=== PATIENT | female | born 1985 | race Caucasian/White ===

== ENCOUNTER 2019-03-21 20:05 | Emergency (ER) | payer OTHER ==
--- NOTE | 2019-03-21 20:25 | PDOC ---
Rapid Medical Evaluation Chief Complaint: G Tube Problem Time Seen by Provider: 03/21/19 20:21 Medical Evaluation: 03/21/19 20:22 I have performed a brief in-person evaluation of this patient. The patient presents with a chief complaint of: JEJUNOSTOMY TUBE dislodged ~ 1 hours/ no bleeding or probs. Pertinent physical exam findings: nonverbal= J-Tube noted outside of ostomy - no bleeding I have ordered the following: nothing The patient will proceed to the ED for further evaluation. Discharge Disposition - Diagnosis Gastrojejunostomy tube dislodgement - Discharge Dispostion Disposition: [facility] Condition at time of disposition: Stable - Referrals - Patient Instructions Printed Discharge Instructions: DI for Feeding Tube Exchange Additional Instructions: protect from removal/ - Post Discharge Activity
[2019-03-21 20:29] VITALS: BP 123/79; PULSE 87; TEMP 98.1; BMI 16.4
--- NOTE | 2019-03-21 21:19 | PDOC ---
History of Present Illness - General History Source: Care Provider Exam Limitations: Clinical Condition - History of Present Illness Initial Comments: 03/21/19 21:18 came fron [facility] with dislodged J-Tube. Nurse accompanying has replacement tube. NO bleeding or problems with site. Timing/Duration: unsure, 1 hour Severity: mild Associated Symptoms: reports: denies symptoms <Rosa Maria Ventura - Last Filed: 03/21/19 21:46> <Maya Ledbetter - Last Filed: 03/21/19 21:50> - General Chief Complaint: G Tube Problem Stated Complaint: J TUBE REMOVED Time Seen by Provider: 03/21/19 20:21 Past History - Travel Traveled outside of the country in the last 30 days: No Close contact w/someone who was outside of country & ill: No - Past Medical History COPD: No GI Disorders: Yes (GERD, Pancreatitis) Disorders: Yes (INCONTINENT) Other medical history: Cerebral palsey, OSTEOPOROSIS - Suicide/Smoking/Psychosocial Hx Smoking History: Unknown if ever smoked Have you smoked in the past 12 months: No Information on smoking cessation initiated: No Hx Alcohol Use: No Drug/Substance Use Hx: No <Rosa Maria Ventura - Last Filed: 03/21/19 21:46> <Maya Ledbetter - Last Filed: 03/21/19 21:50> - Past Medical History Allergies/Adverse Reactions: Allergies Allergy/AdvReac Type Severity Reaction Status Date / Time latex Allergy Verified 03/21/19 20:29 Sulfa (Sulfonamide Allergy Verified 03/21/19 20:29 Antibiotics) Review of Systems - Review of Systems Able to Perform ROS?: No (pt non verbal ) Is the patient limited Mosotho proficient: No Constitutional: Yes: See HPI. No: Symptoms Reported HEENTM: No: Symptoms Reported Respiratory: No: Symptoms reported ABD/GI: Yes: Symptoms Reported, See HPI. No: Abdominal cramping : No: Symptoms Reported All Other Systems: Reviewed and Negative <Rosa Maria Ventura - Last Filed: 03/21/19 21:46> *Physical Exam - Vital Signs Last Vital Signs Temp Pulse Resp BP Pulse Ox 98.1 F 87 16 123/79 100 03/21/19 20:25 03/21/19 20:25 03/21/19 20:25 03/21/19 20:25 03/21/19 20:25 - Physical Exam General Appearance: Yes: Nourished, Appropriately Dressed, Apparent Distress. No: Mild Distress HEENT: positive: EOMI, THEODORE, Normal ENT Inspection, Normal Voice, TMs Normal, Pharynx Normal Neck: positive: Supple. negative: Tender, Lymphadenopathy (R), Lymphadenopathy (L) Gastrointestinal/Abdominal: positive: Normal Bowel Sounds, Soft, Increased Bowel Sounds. negative: Guarding (PATIENT non verbal but does not appear to be in distress ) Musculoskeletal: positive: Normal Inspection Extremity: positive: Normal Capillary Refill, Normal Range of Motion, Tender Integumentary: positive: Normal Color, Dry, Pale Neurologic: positive: puzzle assembler II-XII NML intact, Fully Oriented, Alert, Normal Mood/ Affect, Normal Response, Motor Strength 5/5 <Rosa Maria Ventura - Last Filed: 03/21/19 21:46> - Vital Signs Last Vital Signs Temp Pulse Resp BP Pulse Ox 98.1 F 87 16 123/79 100 03/21/19 20:25 03/21/19 20:25 03/21/19 20:25 03/21/19 20:25 03/21/19 20:25 <Maya Ledbetter - Last Filed: 03/21/19 21:50> ED Treatment Course - RADIOLOGY Radiology Studies Ordered: Category Date Time Status KUB (KID UR & BLAD) [RAD] Stat Radiology 03/21/19 20:47 Completed KUB (KID UR & BLAD) [RAD] Stat Radiology 03/21/19 20:47 Ordered <Maya Ledbetter - Last Filed: 03/21/19 21:50> *DC/Admit/Observation/Transfer - Discharge Dispostion Decision to Admit order: No <Rosa Maria Ventura - Last Filed: 03/21/19 21:46> - Discharge Dispostion Decision to Admit order: No <Maya Ledbetter - Last Filed: 03/21/19 21:50> Diagnosis at time of Disposition: Gastrojejunostomy tube dislodgement - Discharge Dispostion Disposition: HOME Condition at time of disposition: Stable - Patient Instructions Printed Discharge Instructions: DI for Feeding Tube Exchange Additional Instructions: protect from removal/
== END 2019-03-21 21:59 ==
LOC: JER 20:05
DX: Z43.4 Encounter for attention to other artificial openings of digestive tract (principal); G80.9 Cerebral palsy, unspecified; K21.9 Gastro-esophageal reflux disease without esophagitis; M19.90 Unspecified osteoarthritis, unspecified site; R32 Unspecified urinary incontinence
CPT/HCPCS: 72192-TC; 74018-TC-FY; 74150-TC; 99282-25

== ENCOUNTER 2019-10-16 05:45 | Inpatient (IN) | payer OTHER ==
[2019-10-16] MEDS ORDERED: SODIUM CHLORIDE 1,000 ML IV STA ×2 (05:58→13:45)
--- NOTE | 2019-10-16 06:00 | PDOC ---
History of Present Illness - General Stated Complaint: RESPIRATORY DISTRESS Time Seen by Provider: 10/16/19 05:59 - History of Present Illness Initial Comments: 10/16/19 05:59 Ms. Pandey is a 33 yo female w/ pmh of profound mental delay, congenital quad riplegia, retinal detachment, gastrostomy, cataracts, scoliosis, osteoporosis, GERD, anemia, and J-tube who presents for evaluation of from [facility] [place][note 2] for evaluation of respiratory distress. Patient intubated in the field, no further history available. Past History - Past Medical History Allergies/Adverse Reactions: Allergies Allergy/AdvReac Type Severity Reaction Status Date / Time latex Allergy Verified 10/16/19 06:01 Sulfa (Sulfonamide Allergy Verified 10/16/19 06:01 Antibiotics) COPD: No GI Disorders: Yes (GERD, Pancreatitis) Disorders: Yes (INCONTINENT) - Psycho Social/Smoking Cessation Hx Smoking History: Unknown if ever smoked Have you smoked in the past 12 months: No Hx Alcohol Use: No Drug/Substance Use Hx: No Review of Systems - Review of Systems Comments:: 10/16/19 06:03 Unable to obtain further. *Physical Exam - Physical Exam 10/16/19 06:10 GENERAL: +Patient intubated upon arrival. Non-responsive. HEAD: No signs of trauma, normocephalic, atraumatic EYES: +Pupils non-reactive. L constricted. R pupil irregular. ENT: Auricles normal inspection, nares patent, oropharynx clear without exudates. Moist mucosa NECK: No lymphadenopathy, JVD, or masses LUNGS: +Diffusely coarse lung sounds throughout lung cates HEART: Regular rate and rhythm, normal S1 and S2, no murmurs, rubs or gallops, peripheral pulses normal and equal bilaterally. ABDOMEN: +Distended abdomen. Soft, normoactive bowel sounds. No guarding, no rebound. No masses EXTREMITIES: +Patient extremities emaciated and non-mobile. NEUROLOGICAL: +Unable to assess further. SKIN: Warm, Dry, normal turgor, no rashes or lesions noted. ED Treatment Course - LABORATORY CBC & Chemistry Diagram: 10/16/19 06:00 10/16/19 06:00 - RADIOLOGY Radiology Studies Ordered: Category Date Time Status CHEST X-RAY PORTABLE* [RAD] Stat Radiology 10/16/19 05:58 Ordered Medical Decision Making - Medical Decision Making 10/16/19 06:16 Ms. Pandey is a 33 yo female w/ pmh as described who presents septic, intubated in respiratory distress. Sepsis workup underway and ICU made aware. Patient will require admission for respiratory evaluation at minimum as patient does not typically require oxygen. 10/16/19 06:49 Patient abdomen noted to be distended. CT abd/pelvis ordered for further evaluation given patient's intubated status. 10/16/19 06:56 Patient signed out to Dr. Ramesh for further evaluation. Discharge - Discharge Information Problems reviewed: Yes Clinical Impression/Diagnosis: Respiratory distress - Admission Yes - Follow up/Referral - Patient Discharge Instructions - Post Discharge Activity
[2019-10-16 06:15] LABS: ARTERIAL BLD GAS O2 SATURATION 97.5 % (95-98); ARTERIAL BLOOD GAS BASE EXCESS -6.2 meq/l (-2-2); ARTERIAL BLOOD GAS PCO2 50.6 mmHg (35-45); ARTERIAL BLOOD GAS PO2 123 mmHg (80-100); ARTERIAL BLOOD GAS pH 7.25 (7.35-7.45); CARBOXYHEMOGLOBIN 0.8 % (0-2)
--- NOTE | 2019-10-16 06:15 | PDOC ---
Attending Attestation - Resident Resident Name: MacarioodalisLei villa - ED Attending Attestation I have performed the following: I have examined & evaluated the patient, The case was reviewed & discussed with the resident, I agree w/resident's findings & plan - HPI HPI: 10/16/19 06:40 Pt comes from [facility] with SOPB/resp failure. She was intubated in the ambulance en route to the ER - Physicial Exam PE: 10/16/19 06:59 Agree with resident exam - Medical Decision Making 10/16/19 06:59 Pt will be signed out to the AM ER docs. Heart Score/ECG Review - ECG Intrepretation Rhythm: Regular Rhythm - Central Central: Normal - P and FL Atrial Enlargement: Left (biatrial enlargement) Prominent R with upright T in V1 (true posterior PA): No Delta Wave(s) Present: No WPW: No - QRS Poor R Wave Progression: No Q Wave Present: No - ST and T Early Repolarization: No Non Specific ST-T Wave changes: No - ECG Impressions Normal ECG: Yes Non-specific ST Elevation: No Ischemic Changes: No Tachycardia: Sinus
[2019-10-16 06:17] LABS: ALLENS TEST POSITIVE
[2019-10-16 06:40] LABS: BASO % 0.1 % (0-2.0); HEMATOCRIT 46.7 % (32.4-45.2); HEMOGLOBIN 16.2 GM/dL (10.7-15.3); LYMPH % 1.9 % (8-40); MCH 32.1 pg (25.7-33.7); MCHC 34.7 g/dl (32.0-36.0); MEAN CELL VOLUME 92.4 fl (80-96); MEAN PLT VOLUME 7.3 fl (7.5-11.1); MONO % 3.3 % (3.8-10.2); NEUT % 94.7 % (42.8-82.8); PLATELET COUNT 507 K/MM3 (134-434); RBC 5.05 M/mm3 (3.60-5.2); RDW 14.4 % (11.6-15.6); WHITE BLOOD COUNT 28.8 K/mm3 (4.0-10.0)
[2019-10-16 06:54] LABS: INR 1.15 (0.83-1.09); PROTHROMBIN TIME (PATIENT) 13.6 SEC (9.7-13.0)
[2019-10-16] MEDS ORDERED: PIPERACILLIN/TAZOB 3.375 GM 3.375 GM in DEXTROSE 5%-WATER - 50 ML IVPB ONE (06:56)
[2019-10-16] MEDS ORDERED: VANCOMYCIN 1 GM in D5W (PRE-DOCKED) 1,000 MG/250 ML IVPB ONE (06:56)
[2019-10-16] MEDS ORDERED: AZITHROMYCIN IVPB 500 MG in DEXTROSE 5%-WATER - 250 ML IVPB ONE (06:56)
[2019-10-16 06:57] LABS: ACTIVATED PTT 27.1 SECONDS (25.2-36.5)
[2019-10-16 07:16] LABS: ALBUMIN 4.5 g/dl (3.4-5.0); BILIRUBIN,TOTAL 1.6 mg/dL (0.2-1); BLOOD UREA NITROGEN 17.4 mg/dL (7-18); CALCIUM 9.2 mg/dL (8.5-10.1); CREATININE 0.7 mg/dL (0.55-1.3); POTASSIUM 3.5 mmol/L (3.5-5.1); TOT PROT 8.4 g/dl (6.4-8.2)
--- NOTE | 2019-10-16 07:33 | PDOC ---
*Physical Exam - Vital Signs Last Vital Signs Temp Pulse Resp BP Pulse Ox 97.0 F L 129 H 20 115/82 100 10/16/19 06:01 10/16/19 06:51 10/16/19 06:51 10/16/19 06:51 10/16/19 06:51 ED Treatment Course - LABORATORY CBC & Chemistry Diagram: 10/17/19 06:00 10/17/19 06:00 - ADDITIONAL ORDERS Additional order review: Laboratory Results 10/16/19 10/16/19 10/16/19 06:03 06:00 06:00 PT with INR INR PTT (Actin FS) Anticoagulation Therapy No Result Required. Puncture Site Right radial ABG pH 7.25 L ABG pCO2 at Pt Temp 50.6 H ABG pO2 at Pt Temp 123 H ABG HCO3 21.4 L ABG O2 Sat (Measured) 97.5 ABG O2 Content 23.1 ABG Base Excess -6.2 L Glenn Test Positive Carboxyhemoglobin 0.8 Methemoglobin < 1.0 O2 Delivery Device Vent Oxygen Flow Rate 100% Vent Mode A/c Vent Rate 12 Mechanical Rate Yes PEEP 5.0 Pressure Support Vent 300 Sodium 134 L Potassium 3.5 Chloride 101 Carbon Dioxide 22 Anion Gap 11 BUN 17.4 Creatinine 0.7 Est GFR (CKD-EPI)AfAm 130.10 Est GFR (CKD-EPI)NonAf 112.25 Random Glucose 319 H Lactic Acid 2.8 H* Calcium 9.2 Total Bilirubin 1.6 H AST 61 H ALT 53 Alkaline Phosphatase 110 Troponin I Total Protein 8.4 H Albumin 4.5 10/16/19 10/16/19 06:00 06:00 PT with INR 13.60 H INR 1.15 H PTT (Actin FS) 27.1 Anticoagulation Therapy Puncture Site ABG pH ABG pCO2 at Pt Temp ABG pO2 at Pt Temp ABG HCO3 ABG O2 Sat (Measured) ABG O2 Content ABG Base Excess Glenn Test Carboxyhemoglobin Methemoglobin O2 Delivery Device Oxygen Flow Rate Vent Mode Vent Rate Mechanical Rate PEEP Pressure Support Vent Sodium Potassium Chloride Carbon Dioxide Anion Gap BUN Creatinine Est GFR (CKD-EPI)AfAm Est GFR (CKD-EPI)NonAf Random Glucose Lactic Acid Calcium Total Bilirubin AST ALT Alkaline Phosphatase Troponin I < 0.02 Total Protein Albumin 10/16/19 06:00 RBC 5.05 MCV 92.4 MCHC 34.7 RDW 14.4 MPV 7.3 L Neutrophils % 94.7 H D Lymphocytes % 1.9 L D Monocytes % 3.3 L Eosinophils % 0.0 D Basophils % 0.1 - Medications Given in the ED: ED Medications Discontinued Medications Generic Name Dose Route Start Last Admin Trade Name Freq PRN Reason Stop Dose Admin Sodium Chloride 1,000 mls @ 1,000 mls/hr 10/16/19 05:58 10/16/19 06:16 Normal Saline - IV 10/16/19 06:57 1,000 mls/hr ASDIR STA Administration Medical Decision Making - Medical Decision Making 10/16/19 07:32 Patient signed out by Dr. Low (PGY-3) and Dr. Espinoza (Attending) from overnight shift. 33 y/o female here with RD from [facility]. Intubated in the field. Leukocytosis (28) and CXR w/consolidation. 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 Hopper, Hospitalist Service Discharge - Discharge Information Problems reviewed: Yes Clinical Impression/Diagnosis: Respiratory distress Condition: Fair - Admission Yes - Follow up/Referral - Patient Discharge Instructions - Post Discharge Activity
[2019-10-16] MEDS ORDERED: VANCOMYCIN 1 GRAM (PRE-DOCKED) 1,000 MG/250 ML BAG IVPB ONE (08:06)
[2019-10-16] MEDS ORDERED: AZITHROMYCIN IVPB 500 MG/250 ML BAG IVPB ONE (08:06)
[2019-10-16] MEDS ORDERED: PIPERACILLIN/TAZOB 3.375 GM 3.375 GM/50 ML BAG IVPB ONE (08:07)
[2019-10-16 08:22] LABS: EPI CELLS 25.5 /HPF (0-5/HPF); HYALINE CASTS 197 /lpf (0-8); PH,URINE 5.5 (5.0-8.0); URINE APPEARANCE TURBID; URINE BILIRUBIN NEGATIVE (NEGATIVE); URINE COLOR YELLOW; URINE GLUCOSE (UA) NEGATIVE (NEGATIVE); URINE KETONE NEGATIVE (NEGATIVE); URINE LEUK ESTERASE 3+ (NEGATIVE); URINE NITRITE NEGATIVE (NEGATIVE); URINE PROTEIN TRACE (NEGATIVE); URINE RBC 5 /hpf (0-4); URINE UROBILINOGEN 0.2 mg/dL (0.2-1.0); URINE WBC 109 /hpf (0-5)
[2019-10-16] MEDS ORDERED: PROPOFOL 1,000,000 MCG/100 ML VIAL ONE (08:43)
[2019-10-16] MEDS: PROPOFOL 1,000,000 MCG/100 ML VIAL IVPB SCH ×2 (08:51→19:39)
[2019-10-16 08:56] LABS: ANISOCYTOSIS 0; MACROCYTOSIS 0; PLATELET ESTIMATE INCREASED
--- NOTE | 2019-10-16 09:15 | EKG ---
Test Reason : Blood Pressure : / mmHG Vent. Rate : 123 BPM Atrial Rate : 123 BPM P-R Int : 124 ms QRS Dur : 078 ms QT Int : 314 ms P-R-T Axes : 066 078 005 degrees QTc Int : 449 ms SINUS TACHYCARDIA BIATRIAL ENLARGEMENT T WAVE ABNORMALITY, CONSIDER INFERIOR ISCHEMIA ABNORMAL ECG NO PREVIOUS ECGS AVAILABLE Confirmed by Ziggy Luther ([id number]) on 10/16/2019 9:15:29 AM Referred By: Confirmed By:Ziggy Luther
[2019-10-16] MEDS ORDERED: SODIUM CHLORIDE 0.9% 500 ML INFUS.BAG IV ONE (10:16)
--- NOTE | 2019-10-16 13:20 | CONSULT ---
Consultation: REQUESTING PROVIDER: Dr. Low CONSULT REQUEST: We have been asked to medically evaluate this patient for respiratory distress/failure. HISTORY OF PRESENT ILLNESS: The patient is a 33 yo f w/ pmh profound mental delay, congenital quadriplegia, retinal detachment, gastrostomy, cataracts, scoliosis, osteoporosis, GERD, anemia, and J-tube who presents for evaluation of from [facility] for evaluation of respiratory distress. According to staff, the patient was noted to be "not breathing well" and EMS was called. The patient was intubated in the field and transported to [facility] for further evaluation. In the emergency department, the patient was afebrile, but found to have a WBC count of 28. CXR showed possible consolidation. BCX were sent. Ucx ordered. CT of the chest showed RUL infiltrate and LL atalectasis. CT AP showed dilated duodenum concerning for SVC syndrome. Surgery consulted from the ED, will evaluate. REVIEW OF SYSTEMS: unable to obtain PHYSICAL EXAMINATION Vital Signs - 24 hr 10/16/19 10/16/19 10/16/19 05:58 06:00 06:01 Temperature 97.0 F L 97.0 F L Pulse Rate 122 H Pulse Rate [ Radial] Respiratory 12 Rate Blood Pressure 133/109 H Blood Pressure [Left Arm] O2 Sat by Pulse 100 Oximetry (%) 10/16/19 10/16/19 10/16/19 06:51 07:30 07:55 Temperature Pulse Rate 118 H Pulse Rate [ 129 H 111 H Radial] Respiratory 20 35 H Rate Blood Pressure Blood Pressure 115/82 102/77 [Left Arm] O2 Sat by Pulse 100 100 100 Oximetry (%) 10/16/19 10/16/19 10/16/19 08:00 08:30 09:00 Temperature Pulse Rate Pulse Rate [ 111 H 105 H 113 H Radial] Respiratory 34 H 35 H 36 H Rate Blood Pressure Blood Pressure 91/74 101/77 109/69 [Left Arm] O2 Sat by Pulse 100 100 100 Oximetry (%) 10/16/19 10/16/19 10/16/19 09:30 10:00 10:31 Temperature Pulse Rate Pulse Rate [ 103 H 116 H 114 H Radial] Respiratory 38 H 33 H 35 H Rate Blood Pressure Blood Pressure 92/70 78/61 L 85/58 L [Left Arm] O2 Sat by Pulse 100 100 100 Oximetry (%) 10/16/19 10/16/19 10/16/19 11:00 11:14 11:30 Temperature Pulse Rate Pulse Rate [ 106 H 105 H Radial] Respiratory 26 H 29 H 31 H Rate Blood Pressure Blood Pressure 92/66 90/66 [Left Arm] O2 Sat by Pulse 100 100 Oximetry (%) 10/16/19 10/16/19 12:30 13:00 Temperature 97.4 F L Pulse Rate Pulse Rate [ 105 H 116 H Radial] Respiratory 38 H 30 H Rate Blood Pressure Blood Pressure 90/67 80/58 L [Left Arm] O2 Sat by Pulse 95 Oximetry (%) GENERAL: intubated and sedated. HEAD: Normal with no signs of trauma. EYES: Pupils equal, round and reactive to light. LUNGS: intubated. coarse breath sounds bilaterally, worse in the RUL field. HEART: Regular rate and rhythm, normal S1 and S2 without murmur, rub or gallop. ABDOMEN: distended. abdomen full and tender to palpation. Bowel sounds heard. G tube and j tube both in place and minimally functional. LOWER EXTREMITIES: 2+ pulses, warm, well-perfused. No calf tenderness. No peripheral edema. NEUROLOGICAL: unable to obtain as patient sedated. Laboratory Results - last 24 hr 10/16/19 10/16/19 10/16/19 06:00 06:00 06:00 WBC 28.8 H RBC 5.05 Hgb 16.2 H Hct 46.7 H MCV 92.4 MCH 32.1 MCHC 34.7 RDW 14.4 Plt Count 507 H D MPV 7.3 L Absolute Neuts (auto) 27.3 H Neutrophils % 94.7 H D Neutrophils % (Manual) 72.2 Band Neutrophils % 19.6 Lymphocytes % 1.9 L D Lymphocytes % (Manual) 3.1 L Monocytes % 3.3 L Monocytes % (Manual) 4 Eosinophils % 0.0 D Eosinophils % (Manual) 0.0 Basophils % 0.1 Basophils % (Manual) 0.0 Myelocytes % (Man) 1 Promyelocytes % (Man) 0 Blast Cells % (Manual) 0 Nucleated RBC % 0 Metamyelocytes 0 Hypochromia 0 Platelet Estimate Increased Polychromasia 0 Poikilocytosis 0 Anisocytosis 0 Microcytosis 0 Macrocytosis 0 PT with INR 13.60 H INR 1.15 H PTT (Actin FS) 27.1 Anticoagulation Therapy Puncture Site ABG pH ABG pCO2 at Pt Temp ABG pO2 at Pt Temp ABG HCO3 ABG O2 Sat (Measured) ABG O2 Content ABG Base Excess Glenn Test Carboxyhemoglobin Methemoglobin O2 Delivery Device Oxygen Flow Rate Vent Mode Vent Rate Mechanical Rate PEEP Pressure Support Vent Sodium Potassium Chloride Carbon Dioxide Anion Gap BUN Creatinine Est GFR (CKD-EPI)AfAm Est GFR (CKD-EPI)NonAf Random Glucose Lactic Acid Calcium Total Bilirubin AST ALT Alkaline Phosphatase Troponin I < 0.02 Total Protein Albumin Serum , Qual Urine Color Urine Appearance Urine pH Ur Specific Flom Urine Protein Urine Glucose (UA) Urine Ketones Urine Blood Urine Nitrite Urine Bilirubin Urine Urobilinogen Ur Leukocyte Esterase Urine WBC (Auto) Urine RBC (Auto) Urine Casts (Auto) U Pathogenic Cast Auto U Epithel Cells (Auto) Urine Bacteria (Auto) 10/16/19 10/16/19 10/16/19 06:00 06:00 06:03 WBC RBC Hgb Hct MCV MCH MCHC RDW Plt Count MPV Absolute Neuts (auto) Neutrophils % Neutrophils % (Manual) Band Neutrophils % Lymphocytes % Lymphocytes % (Manual) Monocytes % Monocytes % (Manual) Eosinophils % Eosinophils % (Manual) Basophils % Basophils % (Manual) Myelocytes % (Man) Promyelocytes % (Man) Blast Cells % (Manual) Nucleated RBC % Metamyelocytes Hypochromia Platelet Estimate Polychromasia Poikilocytosis Anisocytosis Microcytosis Macrocytosis PT with INR INR PTT (Actin FS) Anticoagulation Therapy No Result Required. Puncture Site Right radial ABG pH 7.25 L ABG pCO2 at Pt Temp 50.6 H ABG pO2 at Pt Temp 123 H ABG HCO3 21.4 L ABG O2 Sat (Measured) 97.5 ABG O2 Content 23.1 ABG Base Excess -6.2 L Glenn Test Positive Carboxyhemoglobin 0.8 Methemoglobin < 1.0 O2 Delivery Device Vent Oxygen Flow Rate 100% Vent Mode A/c Vent Rate 12 Mechanical Rate Yes PEEP 5.0 Pressure Support Vent 300 Sodium 134 L Potassium 3.5 Chloride 101 Carbon Dioxide 22 Anion Gap 11 BUN 17.4 Creatinine 0.7 Est GFR (CKD-EPI)AfAm 130.10 Est GFR (CKD-EPI)NonAf 112.25 Random Glucose 319 H Lactic Acid 2.8 H* Calcium 9.2 Total Bilirubin 1.6 H AST 61 H ALT 53 Alkaline Phosphatase 110 Troponin I Total Protein 8.4 H Albumin 4.5 Serum , Qual Urine Color Urine Appearance Urine pH Ur Specific Flom Urine Protein Urine Glucose (UA) Urine Ketones Urine Blood Urine Nitrite Urine Bilirubin Urine Urobilinogen Ur Leukocyte Esterase Urine WBC (Auto) Urine RBC (Auto) Urine Casts (Auto) U Pathogenic Cast Auto U Epithel Cells (Auto) Urine Bacteria (Auto) 10/16/19 10/16/19 10/16/19 06:30 07:16 10:10 WBC RBC Hgb Hct MCV MCH MCHC RDW Plt Count MPV Absolute Neuts (auto) Neutrophils % Neutrophils % (Manual) Band Neutrophils % Lymphocytes % Lymphocytes % (Manual) Monocytes % Monocytes % (Manual) Eosinophils % Eosinophils % (Manual) Basophils % Basophils % (Manual) Myelocytes % (Man) Promyelocytes % (Man) Blast Cells % (Manual) Nucleated RBC % Metamyelocytes Hypochromia Platelet Estimate Polychromasia Poikilocytosis Anisocytosis Microcytosis Macrocytosis PT with INR INR PTT (Actin FS) Anticoagulation Therapy Puncture Site ABG pH ABG pCO2 at Pt Temp ABG pO2 at Pt Temp ABG HCO3 ABG O2 Sat (Measured) ABG O2 Content ABG Base Excess Glenn Test Carboxyhemoglobin Methemoglobin O2 Delivery Device Oxygen Flow Rate Vent Mode Vent Rate Mechanical Rate PEEP Pressure Support Vent Sodium Potassium Chloride Carbon Dioxide Anion Gap BUN Creatinine Est GFR (CKD-EPI)AfAm Est GFR (CKD-EPI)NonAf Random Glucose Lactic Acid 6.0 H* Calcium Total Bilirubin AST ALT Alkaline Phosphatase Troponin I Total Protein Albumin Serum , Qual Negative Urine Color Yellow Urine Appearance Turbid Urine pH 5.5 Ur Specific Flom 1.014 Urine Protein Trace Urine Glucose (UA) Negative Urine Ketones Negative Urine Blood Trace Urine Nitrite Negative Urine Bilirubin Negative Urine Urobilinogen 0.2 Ur Leukocyte Esterase 3+ H Urine WBC (Auto) 109 Urine RBC (Auto) 5 Urine Casts (Auto) 197 U Pathogenic Cast Auto Non seen U Epithel Cells (Auto) 25.5 Urine Bacteria (Auto) 551.0 Active Medications Generic Name Dose Route Start Last Admin Trade Name Freq PRN Reason Stop Dose Admin Propofol 1,000,000 mcg in 100 mls @ 1.283 mls/hr 10/16/19 06:15 10/16/19 08:51 Diprivan - IVPB 5 mcg/kg/min TITR BO 1.283 mls/hr Administration Protocol 5 MCG/KG/MIN ASSESSMENT/PLAN: The patient is a 33 yo f w/ pmh profound mental delay, congenital quadriplegia, retinal detachment, gastrostomy, cataracts, scoliosis, osteoporosis, GERD, anemia, and J-tube who presents for evaluation of from [facility] for evaluation of respiratory distress. #Neuro -PMH mental delay -sedated. -maintain sedation for vent synchrony #Pulm -Intubated -RUL infiltrate noted, on empiric coverage with Ceftriaxone and azithromycin -ID consult -lung imaging concerning for ARDS, will begin lung protective ventilation #Cardio -MAPs 60-65 off pressors -right IJ CVC inserted for better access/ in anticipation of pressor requirements. #GI -CT AP shows possible SMA syndrome with resulting duodenal distension. NGT inserted and abdomen was decompressed, draining ~ 3-4 liters of fluid -surgery consulted from the ER, will evaluate the patient. -NPO -patient has G tube and J tube, both of which are clogged. 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 #FEN -NS @ 125 -monitor lytes, replete PRN -NPO #Prophy -Heparin 5K units SQ TID #Dispo -patient requires ICU monitoring Visit type - Emergency Visit Emergency Visit: Yes ED Registration Date: 10/16/19 Care time: The patient presented to the Emergency Department on the above date and was hospitalized for further evaluation of their emergent condition. - New Patient This patient is new to me today: Yes Date on this admission: 10/16/19 - Critical Care Critical Care patient: Yes Total Critical Care Time (in minutes): 50 Critical Care Statement: The care of this patient involved high complexity decision making to prevent further life threatening deterioration of the patient's condition and/or to evaluate & treat vital organ system(s) failure or risk of failure. ATTENDING PHYSICIAN STATEMENT I saw and evaluated the patient. I reviewed the resident's note and discussed the case with the resident. I agree with the resident's findings and plan as documented. SUBJECTIVE: OBJECTIVE: ASSESSMENT AND PLAN:
[2019-10-16] MEDS ORDERED: LACTATED RINGERS SOLUTION 1,000 ML/1,000 ML INFUS.BAG IV STA (13:24)
[2019-10-16] MEDS ORDERED: LACTATED RINGERS SOLUTION 1,000 ML/1,000 ML INFUS.BAG IV SCH (13:30)
[2019-10-16] MEDS ORDERED: SODIUM CHLORIDE 1,000 ML IV SCH (13:45)
[2019-10-16] MEDS ORDERED: CEFTRIAXONE 1 GM in DEXTROSE 5%-WATER - 50 ML IVPB SCH (14:00)
[2019-10-16] MEDS ORDERED: AZITHROMYCIN IVPB 500 MG in DEXTROSE 5%-WATER - 250 ML IVPB SCH (14:15)
--- NOTE | 2019-10-16 14:16 | PN ---
Teaching Attending Note Name of Resident: Moo Lazaro ATTENDING PHYSICIAN STATEMENT I saw and evaluated the patient. I reviewed the resident's note and discussed the case with the resident. I agree with the resident's findings and plan as documented. SUBJECTIVE: Pt seen and examined in the ICU. Intubated, sedated. Blood pressure borderline. Vomited with positioning. Vented on volume assist control with 70% FiO2. OBJECTIVE: Vital Signs Period Temp Pulse Resp BP Sys/Campuzano Pulse Ox Last 24 Hr 97.0 F-97.4 F 103-129 12-38 78-133/58-109 95-100 Intake & Output 10/13/19 10/14/19 10/15/19 10/16/19 23:59 23:59 23:59 23:59 Intake Total 1608 Output Total 20 Balance 1588 Weight 42.774 kg Gen: intubated, sedated Heart: tachycardic, regular Lung: bilateral rhonchi Abd: softly distended Ext: no edema CBC, BMP 10/16/19 06:00 10/16/19 06:00 Active Medications Chlorhexidine Gluconate (Hibiclens For Decolonization -) 1 applic TP HS BO Propofol (Diprivan -) 1,000,000 mcg in 100 mls @ 1.283 mls/hr IVPB TITR BO; Protocol Last Admin: 10/16/19 08:51 Dose: 5 mcg/kg/min, 1.283 mls/hr Ceftriaxone Sodium 1 gm/ (Dextrose) 50 mls @ 100 mls/hr IVPB DAILY BO Sodium Chloride (Normal Saline -) 1,000 mls @ 1,000 mls/hr IV ASDIR STA Stop: 10/16/19 14:44 Sodium Chloride (Normal Saline -) 1,000 mls @ 100 mls/hr IV ASDIR BO Azithromycin (Zithromax 500mg Ivpb (Pre-Docked)) 500 mg in 250 mls @ 250 mls/ hr IVPB DAILY BO Mupirocin (Bactroban Ointment (For Decolonization) -) 1 applic NS BID BO Stop: 10/21/19 21:59 ASSESSMENT AND PLAN: Acute Hypoxic Respiratory Failure Pneumonia likely Aspiration ARDS Small Bowel Obstruction r/o SMA Syndrome Severe Sepsis Lactic Acidosis Mental Retardation GERD - continue antibiotics to cover aspiration - f/u cultures - OGT to ILWS - surgery eval - IVF - monitor urine output, creatinine - trend lactate - titrate FiO2, PEEP to keep SpO2 >90% - low tidal volume ventilation <6cc/kg/IBW - monitor Ppeak, Pplat - empiric steroids - inhaled bronchodilators - sedate for vent synchrony - DVT prophylaxis - continue ICU monitoring critical care time spent in reviewing chart, evaluating patient and formulating plan 35 min
[2019-10-16 14:21] LABS: BILIRUBIN,DIRECT 0.4 mg/dL (0.0-0.2)
--- NOTE | 2019-10-16 14:25 | HP ---
CHIEF COMPLAINT: respiratory distress PCP:Dr. Ward ([facility] [place]) HISTORY OF PRESENT ILLNESS: Patient is a 33 year old female with past medical history of developmental delay, congenital quadriplegia, retinal detachment, gastrostomy, cataracts, scoliosis, osteoporosis, GERD, and J-tube placement, was brought in from [facility] after she was found to be in respiratory distress. Patient is nonverbal at baseline, aide at bedside but is not aware of what happened in the [place]. History provided by ED staff and patient's chart. Around 3am this morning, patient was found to be in respiratory distress. EMS was called and patient was noted to be saturating in the low 80s at room air. Patient was int ubated in the field. No other details provided. No reported recent illness, no fevers, no diarrhea. ER course was notable for: (1)Chest/Abdomen CT: Extensive bilateral lower lobe atelectasis. May represent a chronic finding. Patchy consolidation left upper lobe. This is suspicious for an acute pneumonia. Extensive dilatation of the stomach and proximal duodenum. There appears to be an obstruction of the third duodenum as it crosses the midline. Suspicious for SMA syndrome. (2)WBC 28.8, Lactic acid 2.8 -> 6 (3) Recent Travel: denies PAST MEDICAL HISTORY: developmental delay congenital quadriplegia retinal detachment gastrostomy cataracts scoliosis osteoporosis GERD PAST SURGICAL HISTORY: J-tube placement Social History: Smoking:denies Alcohol:denies Drugs: denies Allergies latex Allergy (Verified 10/16/19 12:45) Sulfa (Sulfonamide Antibiotics) Allergy (Verified 10/16/19 12:45) HOME MEDICATIONS: Home Medications Medication Instructions Recorded Calcium Carbonate/Vitamin D3 1 each PO BID 10/16/19 [Oystercal-D 500 mg-400 Unit Tb] Tizanidine HCl 6 mg PO TID 10/16/19 levETIRAcetam [levETIRAcetam ORAL 500 mg PO BID 10/16/19 SUSPENSION] REVIEW OF SYSTEMS CONSTITUTIONAL: Absent: fever, chills, diaphoresis, generalized weakness, malaise, loss of appetite, weight change HEENT: Absent: rhinorrhea, nasal congestion, throat pain, throat swelling, difficulty swallowing, mouth swelling, ear pain, eye pain, visual changes CARDIOVASCULAR: Absent: chest pain, syncope, palpitations, irregular heart rate, lightheadedness, peripheral edema RESPIRATORY: shortness of breath Absent: cough, dyspnea with exertion, orthopnea, wheezing, stridor, hemoptysis GASTROINTESTINAL: Absent: abdominal pain, abdominal distension, nausea, vomiting, diarrhea, constipation, melena, hematochezia GENITOURINARY: Absent: dysuria, frequency, urgency, hesitancy, hematuria, flank pain, genital pain MUSCULOSKELETAL: Absent: myalgia, arthralgia, joint swelling, back pain, neck pain SKIN: Absent: rash, itching, pallor HEMATOLOGIC/IMMUNOLOGIC: Absent: easy bleeding, easy bruising, lymphadenopathy, frequent infections ENDOCRINE: Absent: unexplained weight gain, unexplained weight loss, heat intolerance, cold intolerance NEUROLOGIC: Absent: headache, focal weakness or paresthesias, dizziness, unsteady gait, seizure, mental status changes, bladder or bowel incontinence PSYCHIATRIC: Absent: anxiety, depression, suicidal or homicidal ideation, hallucinations. PHYSICAL EXAMINATION Vital Signs - 24 hr 10/16/19 10/16/19 10/16/19 05:58 06:00 06:01 Temperature 97.0 F L 97.0 F L Pulse Rate 122 H Pulse Rate [ Radial] Respiratory 12 Rate Blood Pressure 133/109 H Blood Pressure [Left Arm] O2 Sat by Pulse 100 Oximetry (%) 10/16/19 10/16/19 10/16/19 06:51 07:30 07:55 Temperature Pulse Rate 118 H Pulse Rate [ 129 H 111 H Radial] Respiratory 20 35 H Rate Blood Pressure Blood Pressure 115/82 102/77 [Left Arm] O2 Sat by Pulse 100 100 100 Oximetry (%) 10/16/19 10/16/19 10/16/19 08:00 08:30 09:00 Temperature Pulse Rate Pulse Rate [ 111 H 105 H 113 H Radial] Respiratory 34 H 35 H 36 H Rate Blood Pressure Blood Pressure 91/74 101/77 109/69 [Left Arm] O2 Sat by Pulse 100 100 100 Oximetry (%) 10/16/19 10/16/19 10/16/19 09:30 10:00 10:31 Temperature Pulse Rate Pulse Rate [ 103 H 116 H 114 H Radial] Respiratory 38 H 33 H 35 H Rate Blood Pressure Blood Pressure 92/70 78/61 L 85/58 L [Left Arm] O2 Sat by Pulse 100 100 100 Oximetry (%) 10/16/19 10/16/19 10/16/19 11:00 11:14 11:30 Temperature Pulse Rate Pulse Rate [ 106 H 105 H Radial] Respiratory 26 H 29 H 31 H Rate Blood Pressure Blood Pressure 92/66 90/66 [Left Arm] O2 Sat by Pulse 100 100 Oximetry (%) 10/16/19 10/16/19 12:30 13:00 Temperature 97.4 F L Pulse Rate Pulse Rate [ 105 H 116 H Radial] Respiratory 38 H 30 H Rate Blood Pressure Blood Pressure 90/67 80/58 L [Left Arm] O2 Sat by Pulse 95 Oximetry (%) GENERAL:Intubated, sedated, mechanically ventilated HEAD: Normal with no signs of trauma. EARS, NOSE, THROAT: Dry mucous membranes. NECK: Supple LUNGS: Coarse breath sounds bilaterally HEART: Regular rate and rhythm, normal S1 and S2 ABDOMEN: Soft, mildly distended, does not grimace on palpation, normoactive bowel sounds. LOWER EXTREMITIES: 2+ pulses, warm, well-perfused. No peripheral edema. SKIN: Warm, dry, normal turgor Laboratory Results - last 24 hr 10/16/19 10/16/19 10/16/19 06:00 06:00 06:00 WBC 28.8 H RBC 5.05 Hgb 16.2 H Hct 46.7 H MCV 92.4 MCH 32.1 MCHC 34.7 RDW 14.4 Plt Count 507 H D MPV 7.3 L Absolute Neuts (auto) 27.3 H Neutrophils % 94.7 H D Neutrophils % (Manual) 72.2 Band Neutrophils % 19.6 Lymphocytes % 1.9 L D Lymphocytes % (Manual) 3.1 L Monocytes % 3.3 L Monocytes % (Manual) 4 Eosinophils % 0.0 D Eosinophils % (Manual) 0.0 Basophils % 0.1 Basophils % (Manual) 0.0 Myelocytes % (Man) 1 Promyelocytes % (Man) 0 Blast Cells % (Manual) 0 Nucleated RBC % 0 Metamyelocytes 0 Hypochromia 0 Platelet Estimate Increased Polychromasia 0 Poikilocytosis 0 Anisocytosis 0 Microcytosis 0 Macrocytosis 0 PT with INR 13.60 H INR 1.15 H PTT (Actin FS) 27.1 Anticoagulation Therapy Puncture Site ABG pH ABG pCO2 at Pt Temp ABG pO2 at Pt Temp ABG HCO3 ABG O2 Sat (Measured) ABG O2 Content ABG Base Excess Glenn Test Carboxyhemoglobin Methemoglobin O2 Delivery Device Oxygen Flow Rate Vent Mode Vent Rate Mechanical Rate PEEP Pressure Support Vent Sodium Potassium Chloride Carbon Dioxide Anion Gap BUN Creatinine Est GFR (CKD-EPI)AfAm Est GFR (CKD-EPI)NonAf Random Glucose Lactic Acid Calcium Total Bilirubin AST ALT Alkaline Phosphatase Troponin I < 0.02 Total Protein Albumin Serum , Qual Urine Color Urine Appearance Urine pH Ur Specific [place] Urine Protein Urine Glucose (UA) Urine Ketones Urine Blood Urine Nitrite Urine Bilirubin Urine Urobilinogen Ur Leukocyte Esterase Urine WBC (Auto) Urine RBC (Auto) Urine Casts (Auto) U Pathogenic Cast Auto U Epithel Cells (Auto) Urine Bacteria (Auto) 10/16/19 10/16/19 10/16/19 06:00 06:00 06:03 WBC RBC Hgb Hct MCV MCH MCHC RDW Plt Count MPV Absolute Neuts (auto) Neutrophils % Neutrophils % (Manual) Band Neutrophils % Lymphocytes % Lymphocytes % (Manual) Monocytes % Monocytes % (Manual) Eosinophils % Eosinophils % (Manual) Basophils % Basophils % (Manual) Myelocytes % (Man) Promyelocytes % (Man) Blast Cells % (Manual) Nucleated RBC % Metamyelocytes Hypochromia Platelet Estimate Polychromasia Poikilocytosis Anisocytosis Microcytosis Macrocytosis PT with INR INR PTT (Actin FS) Anticoagulation Therapy No Result Required. Puncture Site Right radial ABG pH 7.25 L ABG pCO2 at Pt Temp 50.6 H ABG pO2 at Pt Temp 123 H ABG HCO3 21.4 L ABG O2 Sat (Measured) 97.5 ABG O2 Content 23.1 ABG Base Excess -6.2 L Glenn Test Positive Carboxyhemoglobin 0.8 Methemoglobin < 1.0 O2 Delivery Device Vent Oxygen Flow Rate 100% Vent Mode A/c Vent Rate 12 Mechanical Rate Yes PEEP 5.0 Pressure Support Vent 300 Sodium 134 L Potassium 3.5 Chloride 101 Carbon Dioxide 22 Anion Gap 11 BUN 17.4 Creatinine 0.7 Est GFR (CKD-EPI)AfAm 130.10 Est GFR (CKD-EPI)NonAf 112.25 Random Glucose 319 H Lactic Acid 2.8 H* Calcium 9.2 Total Bilirubin 1.6 H AST 61 H ALT 53 Alkaline Phosphatase 110 Troponin I Total Protein 8.4 H Albumin 4.5 Serum , Qual Urine Color Urine Appearance Urine pH Ur Specific [place] Urine Protein Urine Glucose (UA) Urine Ketones Urine Blood Urine Nitrite Urine Bilirubin Urine Urobilinogen Ur Leukocyte Esterase Urine WBC (Auto) Urine RBC (Auto) Urine Casts (Auto) U Pathogenic Cast Auto U Epithel Cells (Auto) Urine Bacteria (Auto) 10/16/19 10/16/19 10/16/19 06:30 07:16 10:10 WBC RBC Hgb Hct MCV MCH MCHC RDW Plt Count MPV Absolute Neuts (auto) Neutrophils % Neutrophils % (Manual) Band Neutrophils % Lymphocytes % Lymphocytes % (Manual) Monocytes % Monocytes % (Manual) Eosinophils % Eosinophils % (Manual) Basophils % Basophils % (Manual) Myelocytes % (Man) Promyelocytes % (Man) Blast Cells % (Manual) Nucleated RBC % Metamyelocytes Hypochromia Platelet Estimate Polychromasia Poikilocytosis Anisocytosis Microcytosis Macrocytosis PT with INR INR PTT (Actin FS) Anticoagulation Therapy Puncture Site ABG pH ABG pCO2 at Pt Temp ABG pO2 at Pt Temp ABG HCO3 ABG O2 Sat (Measured) ABG O2 Content ABG Base Excess Glenn Test Carboxyhemoglobin Methemoglobin O2 Delivery Device Oxygen Flow Rate Vent Mode Vent Rate Mechanical Rate PEEP Pressure Support Vent Sodium Potassium Chloride Carbon Dioxide Anion Gap BUN Creatinine Est GFR (CKD-EPI)AfAm Est GFR (CKD-EPI)NonAf Random Glucose Lactic Acid 6.0 H* Calcium Total Bilirubin AST ALT Alkaline Phosphatase Troponin I Total Protein Albumin Serum , Qual Negative Urine Color Yellow Urine Appearance Turbid Urine pH 5.5 Ur Specific [place] 1.014 Urine Protein Trace Urine Glucose (UA) Negative Urine Ketones Negative Urine Blood Trace Urine Nitrite Negative Urine Bilirubin Negative Urine Urobilinogen 0.2 Ur Leukocyte Esterase 3+ H Urine WBC (Auto) 109 Urine RBC (Auto) 5 Urine Casts (Auto) 197 U Pathogenic Cast Auto Non seen U Epithel Cells (Auto) 25.5 Urine Bacteria (Auto) 551.0 ASSESSMENT/PLAN: Patient is a 33 year old female with past medical history of developmental delay, congenital quadriplegia, retinal detachment, gastrostomy, cataracts, scoliosis, osteoporosis, GERD, and J-tube placement, was brought in from [facility] after she was found to be in respiratory distress. #Sepsis 2/2 Pneumonia, possibly aspiration -Leukocytosis and hypotension responsive to IVF boluses -Chest CT: Patchy consolidation left upper lobe. This is suspicious for an acute pneumonia. -Vanc/Zosyn given at the ED -will continue IV Zosyn and IV azithromycin -ID (Dr. Amin) consulted. -Blood cultures pending -Urine legionella/pneumonia -Sputum cultures -Flu swab -IV fluid hydration -May need pressors if remains hypotensive -monitor I&O -lactic acidosis, trend lactate #Acute hypoxic respiratory failure likely 2/2 pneumonia [facility] -inhaled bronchodilators -IV Zosyn and Azithromycin -continue ICU monitoring #SMA syndrome -CT abdomen: There appears to be an obstruction of the third duodenum as it crosses the midline. Suspicious for SMA syndrome. -Surgery consulted. -IVF hydration -will keep patient NPO for now pending recs -OGT #FEN -IV NS @125cc/hr -Electrolytes wnl, routine bmp monitoring -NPO #Prophylaxis -Heparin 5000u sq tid #Disposition -full code -ICU for closer monitoring Visit type - Emergency Visit Emergency Visit: Yes ED Registration Date: 10/16/19 Care time: The patient presented to the Emergency Department on the above date and was hospitalized for further evaluation of their emergent condition. - New Patient This patient is new to me today: Yes Date on this admission: 10/16/19 - Critical Care Critical Care patient: Yes Total Critical Care Time (in minutes): 35 Critical Care Statement: The care of this patient involved high complexity decision making to prevent further life threatening deterioration of the patient's condition and/or to evaluate & treat vital organ system(s) failure or risk of failure. ATTENDING PHYSICIAN STATEMENT I saw and evaluated the patient. I reviewed the resident's note and discussed the case with the resident. I agree with the resident's findings and plan as documented. SUBJECTIVE: OBJECTIVE: ASSESSMENT AND PLAN:
--- NOTE | 2019-10-16 15:23 | EKG ---
Test Reason : Blood Pressure : / mmHG Vent. Rate : 101 BPM Atrial Rate : 101 BPM P-R Int : 134 ms QRS Dur : 074 ms QT Int : 328 ms P-R-T Axes : 039 086 040 degrees QTc Int : 425 ms SINUS TACHYCARDIA NONSPECIFIC T WAVE ABNORMALITY OTHERWISE NORMAL ECG WHEN COMPARED WITH ECG OF 16-OCT-2019 06:13, T wave abnormality has improved Confirmed by Ziggy Luther ([id number]) on 10/16/2019 3:22:49 PM Referred By: ION CARRILLO Confirmed By:Ziggy Luther
[2019-10-16] MEDS ORDERED: PIPERACILLIN/TAZOB 3.375 GM 3.375 GM in DEXTROSE 5%-WATER - 50 ML IVPB SCH (16:00)
--- NOTE | 2019-10-16 16:36 | PN ---
Progress Note (short form) - Note Progress Note: ID CONSULT DICTATED PROBABLE ASP PNEUMONIA RESP FAILURE FEVER/ LEUKOCYTOSIS R/O SEPSIS R/O BOWEL OBSTRUCTION AWAIT SEPSIS W/U EMPIRIC ZOSYN/ ZITHROMAX
--- NOTE | 2019-10-16 16:40 | PROC ---
Central Line Insertion Indication: Sepsis, Vasopressor Risks and Benefits Explained: Yes Central Line: Triple Lumen Catheter Anesthesia: 1% Lidocaine Sterile Technique: Yes Ultrasound Guided Assistance: Yes Position: Right Internal Jugular Post Insertion: Yes: Chest X-Ray Ordered Sterile Dressing Applied: Yes
[2019-10-16] MEDS ORDERED: DEXTROSE 5%-WATER - 50 ML IVPB ONE ×2 (16:54→22:09)
[2019-10-16] MEDS ORDERED: PIPERACILLIN/TAZOBACTAM 3.375 GM VIAL IVPB ONE ×2 (16:54→22:09)
[2019-10-16] MEDS: SODIUM CHLORIDE 1,000 ML IV SCH (16:56)
[2019-10-16] MEDS: PIPERACILLIN/TAZOB 3.375 GM 3.375 GM in DEXTROSE 5%-WATER - 50 ML IVPB SCH (17:05)
--- NOTE | 2019-10-16 17:35 | PN ---
Teaching Attending Note Name of Resident: Patricia Sinclair ATTENDING PHYSICIAN STATEMENT I saw and evaluated the patient. I reviewed the resident's note and discussed the case with the resident. I agree with the resident's findings and plan as documented. SUBJECTIVE: Intubated/Ventilated. Sedated. Unable to participate in medical interview. OBJECTIVE: Febrile, Tmax 101.2. Hypotensve. Last Vital Signs Temp Pulse Resp BP Pulse Ox 101.2 F H 126 H 36 H 75/59 L 92 L 10/16/19 14:36 10/16/19 17:00 10/16/19 16:00 10/16/19 17:00 10/16/19 17:07 HEENT - [place]. Intubated/Ventilated. RIJ. Heart - S1, S2, RRR Lungs - clear to auscultation Abdomen - Distended. Winces to palpation. PEG in situ. OG tube to suction. Extremities - contractures, no edema. Laboratory Results - last 24 hr 10/16/19 10/16/19 10/16/19 06:00 06:00 06:00 WBC 28.8 H RBC 5.05 Hgb 16.2 H Hct 46.7 H MCV 92.4 MCH 32.1 MCHC 34.7 RDW 14.4 Plt Count 507 H D MPV 7.3 L Absolute Neuts (auto) 27.3 H Neutrophils % 94.7 H D Neutrophils % (Manual) 72.2 Band Neutrophils % 19.6 Lymphocytes % 1.9 L D Lymphocytes % (Manual) 3.1 L Monocytes % 3.3 L Monocytes % (Manual) 4 Eosinophils % 0.0 D Eosinophils % (Manual) 0.0 Basophils % 0.1 Basophils % (Manual) 0.0 Myelocytes % (Man) 1 Promyelocytes % (Man) 0 Blast Cells % (Manual) 0 Nucleated RBC % 0 Metamyelocytes 0 Hypochromia 0 Platelet Estimate Increased Polychromasia 0 Poikilocytosis 0 Anisocytosis 0 Microcytosis 0 Macrocytosis 0 PT with INR 13.60 H INR 1.15 H PTT (Actin FS) 27.1 Anticoagulation Therapy Puncture Site ABG pH ABG pCO2 at Pt Temp ABG pO2 at Pt Temp ABG HCO3 ABG O2 Sat (Measured) ABG O2 Content ABG Base Excess Glenn Test Carboxyhemoglobin Methemoglobin O2 Delivery Device Oxygen Flow Rate Vent Mode Vent Rate Mechanical Rate PEEP Pressure Support Vent Sodium Potassium Chloride Carbon Dioxide Anion Gap BUN Creatinine Est GFR (CKD-EPI)AfAm Est GFR (CKD-EPI)NonAf Random Glucose Lactic Acid Calcium Total Bilirubin Direct Bilirubin AST ALT Alkaline Phosphatase Troponin I < 0.02 Total Protein Albumin Serum , Qual Urine Color Urine Appearance Urine pH Ur Specific [place] Urine Protein Urine Glucose (UA) Urine Ketones Urine Blood Urine Nitrite Urine Bilirubin Urine Urobilinogen Ur Leukocyte Esterase Urine WBC (Auto) Urine RBC (Auto) Urine Casts (Auto) U Pathogenic Cast Auto U Epithel Cells (Auto) Urine Bacteria (Auto) Influenza A (Rapid) Influenza B (Rapid) 10/16/19 10/16/19 10/16/19 06:00 06:00 06:03 WBC RBC Hgb Hct MCV MCH MCHC RDW Plt Count MPV Absolute Neuts (auto) Neutrophils % Neutrophils % (Manual) Band Neutrophils % Lymphocytes % Lymphocytes % (Manual) Monocytes % Monocytes % (Manual) Eosinophils % Eosinophils % (Manual) Basophils % Basophils % (Manual) Myelocytes % (Man) Promyelocytes % (Man) Blast Cells % (Manual) Nucleated RBC % Metamyelocytes Hypochromia Platelet Estimate Polychromasia Poikilocytosis Anisocytosis Microcytosis Macrocytosis PT with INR INR PTT (Actin FS) Anticoagulation Therapy No Result Required. Puncture Site Right radial ABG pH 7.25 L ABG pCO2 at Pt Temp 50.6 H ABG pO2 at Pt Temp 123 H ABG HCO3 21.4 L ABG O2 Sat (Measured) 97.5 ABG O2 Content 23.1 ABG Base Excess -6.2 L Glenn Test Positive Carboxyhemoglobin 0.8 Methemoglobin < 1.0 O2 Delivery Device Vent Oxygen Flow Rate 100% Vent Mode A/c Vent Rate 12 Mechanical Rate Yes PEEP 5.0 Pressure Support Vent 300 Sodium 134 L Potassium 3.5 Chloride 101 Carbon Dioxide 22 Anion Gap 11 BUN 17.4 Creatinine 0.7 Est GFR (CKD-EPI)AfAm 130.10 Est GFR (CKD-EPI)NonAf 112.25 Random Glucose 319 H Lactic Acid 2.8 H* Calcium 9.2 Total Bilirubin 1.6 H Direct Bilirubin 0.4 H AST 61 H ALT 53 Alkaline Phosphatase 110 Troponin I Total Protein 8.4 H Albumin 4.5 Serum , Qual Urine Color Urine Appearance Urine pH Ur Specific [place] Urine Protein Urine Glucose (UA) Urine Ketones Urine Blood Urine Nitrite Urine Bilirubin Urine Urobilinogen Ur Leukocyte Esterase Urine WBC (Auto) Urine RBC (Auto) Urine Casts (Auto) U Pathogenic Cast Auto U Epithel Cells (Auto) Urine Bacteria (Auto) Influenza A (Rapid) Influenza B (Rapid) 10/16/19 10/16/19 10/16/19 06:30 07:16 10:10 WBC RBC Hgb Hct MCV MCH MCHC RDW Plt Count MPV Absolute Neuts (auto) Neutrophils % Neutrophils % (Manual) Band Neutrophils % Lymphocytes % Lymphocytes % (Manual) Monocytes % Monocytes % (Manual) Eosinophils % Eosinophils % (Manual) Basophils % Basophils % (Manual) Myelocytes % (Man) Promyelocytes % (Man) Blast Cells % (Manual) Nucleated RBC % Metamyelocytes Hypochromia Platelet Estimate Polychromasia Poikilocytosis Anisocytosis Microcytosis Macrocytosis PT with INR INR PTT (Actin FS) Anticoagulation Therapy Puncture Site ABG pH ABG pCO2 at Pt Temp ABG pO2 at Pt Temp ABG HCO3 ABG O2 Sat (Measured) ABG O2 Content ABG Base Excess Glenn Test Carboxyhemoglobin Methemoglobin O2 Delivery Device Oxygen Flow Rate Vent Mode Vent Rate Mechanical Rate PEEP Pressure Support Vent Sodium Potassium Chloride Carbon Dioxide Anion Gap BUN Creatinine Est GFR (CKD-EPI)AfAm Est GFR (CKD-EPI)NonAf Random Glucose Lactic Acid 6.0 H* Calcium Total Bilirubin Direct Bilirubin AST ALT Alkaline Phosphatase Troponin I Total Protein Albumin Serum , Qual Negative Urine Color Yellow Urine Appearance Turbid Urine pH 5.5 Ur Specific [place] 1.014 Urine Protein Trace Urine Glucose (UA) Negative Urine Ketones Negative Urine Blood Trace Urine Nitrite Negative Urine Bilirubin Negative Urine Urobilinogen 0.2 Ur Leukocyte Esterase 3+ H Urine WBC (Auto) 109 Urine RBC (Auto) 5 Urine Casts (Auto) 197 U Pathogenic Cast Auto Non seen U Epithel Cells (Auto) 25.5 Urine Bacteria (Auto) 551.0 Influenza A (Rapid) Influenza B (Rapid) 10/16/19 10/16/19 16:00 16:00 WBC RBC Hgb Hct MCV MCH MCHC RDW Plt Count MPV Absolute Neuts (auto) Neutrophils % Neutrophils % (Manual) Band Neutrophils % Lymphocytes % Lymphocytes % (Manual) Monocytes % Monocytes % (Manual) Eosinophils % Eosinophils % (Manual) Basophils % Basophils % (Manual) Myelocytes % (Man) Promyelocytes % (Man) Blast Cells % (Manual) Nucleated RBC % Metamyelocytes Hypochromia Platelet Estimate Polychromasia Poikilocytosis Anisocytosis Microcytosis Macrocytosis PT with INR INR PTT (Actin FS) Anticoagulation Therapy Puncture Site ABG pH ABG pCO2 at Pt Temp ABG pO2 at Pt Temp ABG HCO3 ABG O2 Sat (Measured) ABG O2 Content ABG Base Excess Glenn Test Carboxyhemoglobin Methemoglobin O2 Delivery Device Oxygen Flow Rate Vent Mode Vent Rate Mechanical Rate PEEP Pressure Support Vent Sodium Potassium Chloride Carbon Dioxide Anion Gap BUN Creatinine Est GFR (CKD-EPI)AfAm Est GFR (CKD-EPI)NonAf Random Glucose Lactic Acid 2.9 H* Calcium Total Bilirubin Direct Bilirubin AST ALT Alkaline Phosphatase Troponin I Total Protein Albumin Serum , Qual Urine Color Urine Appearance Urine pH Ur Specific [place] Urine Protein Urine Glucose (UA) Urine Ketones Urine Blood Urine Nitrite Urine Bilirubin Urine Urobilinogen Ur Leukocyte Esterase Urine WBC (Auto) Urine RBC (Auto) Urine Casts (Auto) U Pathogenic Cast Auto U Epithel Cells (Auto) Urine Bacteria (Auto) Influenza A (Rapid) Negative Influenza B (Rapid) Negative Current Medications Generic Name Dose Route Start Last Admin Trade Name Freq PRN Reason Stop Dose Admin Chlorhexidine Gluconate 1 applic 10/16/19 22:00 Hibiclens For Decolonization - TP HS BO Heparin Sodium (Porcine) 5,000 unit 10/16/19 22:00 Heparin - SQ TID BO Propofol 1,000,000 mcg in 100 mls @ 1.283 mls/hr 10/16/19 06:15 10/16/19 08:51 Diprivan - IVPB 5 mcg/kg/min TITR BO 1.283 mls/hr Administration Protocol 5 MCG/KG/MIN Azithromycin 500 mg in 250 mls @ 250 mls/hr 10/16/19 14:15 Zithromax 500mg Ivpb (Pre-Docked) IVPB DAILY BO Piperacillin Sod/Tazobactam 50 mls @ 100 mls/hr 10/16/19 18:00 10/16/19 17:05 Sod 3.375 gm/ Dextrose IVPB 100 mls/hr Q8H-IV BO Administration Protocol Sodium Chloride 1,000 mls @ 125 mls/hr 10/16/19 16:44 10/16/19 16:56 Normal Saline - IV 125 mls/hr ASDIR [facility] Administration Mupirocin 1 applic 10/16/19 22:00 Bactroban Ointment (For Decolonization) - NS 10/21/19 21:59 BID [facility] Home Medications Medication Instructions Recorded Calcium Carbonate/Vitamin D3 1 each PO BID 10/16/19 [Oystercal-D 500 mg-400 Unit Tb] Tizanidine HCl 6 mg PO TID 10/16/19 levETIRAcetam [levETIRAcetam ORAL 500 mg PO BID 10/16/19 SUSPENSION] ASSESSMENT/PLAN: 33 year old female with history of developmental delay, cognitive deficit, non- verbal, functional quadriplegia, s/p retinal detachment, s/p PEG, scoliosis, osteoporosis, GERD, brought in from [facility] after she was found to be in respiratory distress and hypoxic, intubated in the field. CT Chest/Abdomen: Extensive bilateral lower lobe atelectasis. Patchy consolidation left upper lobe. Suspicious for an acute pneumonia. Extensive dilatation of the stomach and proximal duodenum. There appears to be an obstruction of the third duodenum as it crosses the midline. Suspicious for SMA syndrome. 1. Acute Hypoxic Respiratory Failure and Severe Sepsis secondary to Community Acquired Pneumonia Intubated/Mechanically ventilated. Leukocytosis/Hypotension/Elevated lactate Aggressive IV hydration, trend lactate, vasopressor if no improvement in BP Blood Cx/Sputum Cx pending. Urine legionella. Continue IV Zosyn/Vanco ID consulted. 2. Possible SMA Syndrome OG tube placed to suction for decompression Surgery consulted. Nil via PEG/IV fluids. 3. Developmental Delay/Cognitive Deficit/Functional Quadriplegia - Continue Tizanidine, Keppra. DVT Px- Heparin SQ
[2019-10-16] MEDS ORDERED: ACETAMINOPHEN 650 MG/20.3 ML ORAL SOLUTION (CUPS) NGT PRN (19:33)
[2019-10-16] MEDS ORDERED: ACETAMINOPHEN 1000 MG/100 ML VIAL (NON FORMULARY) IVPB PRN ×2 (20:15→21:00)
[2019-10-16] MEDS: HEPARIN NA (PORCINE) 5,000 UNITS/ML 1ML VIAL SQ SCH (22:11)
[2019-10-16] MEDS: CHLORHEXIDINE GLUCONATE 4% CLEANSER FOR DECOLONIZATION TP SCH (22:11)
[2019-10-16] MEDS: MUPIROCIN 2% TOPICAL OINTMENT FOR DECOLONIZATION NS SCH (22:11)
[2019-10-17] MEDS ORDERED: PANTOPRAZOLE SODIUM 40 MG VIAL IVPUSH ONE (01:10)
[2019-10-17] MEDS: PIPERACILLIN/TAZOB 3.375 GM 3.375 GM in DEXTROSE 5%-WATER - 50 ML IVPB SCH ×3 (01:30→18:07)
[2019-10-17] MEDS: HEPARIN NA (PORCINE) 5,000 UNITS/ML 1ML VIAL SQ SCH ×3 (06:04→21:02)
[2019-10-17] MEDS: PROPOFOL 1,000,000 MCG/100 ML VIAL IVPB SCH ×2 (06:17→12:06)
[2019-10-17 07:02] LABS: BASO % 0.1 % (0-2.0); HEMATOCRIT 40.2 % (32.4-45.2); HEMOGLOBIN 14.2 GM/dL (10.7-15.3); LYMPH % 7.7 % (8-40); MCH 32.3 pg (25.7-33.7); MCHC 35.3 g/dl (32.0-36.0); MEAN CELL VOLUME 91.5 fl (80-96); MEAN PLT VOLUME 7.5 fl (7.5-11.1); MONO % 3.5 % (3.8-10.2); NEUT % 88.7 % (42.8-82.8); PLATELET COUNT 403 K/MM3 (134-434); RBC 4.39 M/mm3 (3.60-5.2); WHITE BLOOD COUNT 20.1 K/mm3 (4.0-10.0)
[2019-10-17 07:52] LABS: ALBUMIN 2.6 g/dl (3.4-5.0); BILIRUBIN,TOTAL 1.2 mg/dL (0.2-1); BLOOD UREA NITROGEN 17.9 mg/dL (7-18); CALCIUM 8.3 mg/dL (8.5-10.1); CREATININE 0.5 mg/dL (0.55-1.3); POTASSIUM 3.7 mmol/L (3.5-5.1); TOT PROT 5.3 g/dl (6.4-8.2)
--- NOTE | 2019-10-17 09:23 | PN ---
Physical Exam: SUBJECTIVE: Patient seen and examined O/N: had wood blood in NGT, briefly. Received pantoprazole Currently intubated and sedated. Occasionally writhing in bed with back extension OBJECTIVE: Vital Signs Period Temp Pulse Resp BP Sys/Campuzano Pulse Ox Last 24 Hr 97.4 F-101.2 F 102-129 19-38 71-105/52-81 87-100 GENERAL: intubated and sedated. Small stature HEAD: NC/AT EYES: sclera anicteric, conjunctiva clear and w/o pallor ENT: Ears normal, nares patent, NGT(Right nare) in place with scant blood-tinged thin contents, ETT tube in place NECK: Trachea midline, full range of motion, supple. LUNGS: Breath sounds equal, mechanical BS bilaterally, no wheezes, no crackles. Intubated HEART: tachy and reg rhythm, S1, S2 without murmur, rub or gallop. ABDOMEN: Soft, distended and tympanic, hyperactive bowel sounds. mid abd w/ >10- 15cm diagonal abd incisional scar, well healed. [place]valver[place] feeding tube in place. GJ tube in place, tubing is yellow and discolored RECTAL: thin brown stool on glove, no palpable stool impaction EXTREMITIES: 2+ pulses,well-perfused, no edema. Thin upper and lower extre mities. Left foot is cool, 2+ PT pulse; no cyanosis or mottling noted. NEUROLOGICAL: intubated and sedated(Propofol) SKIN: Warm, dry, normal turgor, no rashes or lesions noted Laboratory Results - last 24 hr 10/16/19 10/16/19 10/16/19 06:00 06:00 06:00 WBC RBC Hgb Hct MCV MCH MCHC RDW Plt Count MPV Absolute Neuts (auto) Neutrophils % Neutrophils % (Manual) 72.2 Band Neutrophils % 19.6 Lymphocytes % Lymphocytes % (Manual) 3.1 L Monocytes % Monocytes % (Manual) 4 Eosinophils % Eosinophils % (Manual) 0.0 Basophils % Basophils % (Manual) 0.0 Myelocytes % (Man) 1 Promyelocytes % (Man) 0 Blast Cells % (Manual) 0 Nucleated RBC % 0 Metamyelocytes 0 Hypochromia 0 Platelet Estimate Increased Polychromasia 0 Poikilocytosis 0 Anisocytosis 0 Microcytosis 0 Macrocytosis 0 Sodium 134 L Potassium 3.5 Chloride 101 Carbon Dioxide 22 Anion Gap 11 BUN 17.4 Creatinine 0.7 Est GFR (CKD-EPI)AfAm 130.10 Est GFR (CKD-EPI)NonAf 112.25 Random Glucose 319 H Lactic Acid Calcium 9.2 Total Bilirubin 1.6 H Direct Bilirubin 0.4 H AST 61 H ALT 53 Alkaline Phosphatase 110 Total Protein 8.4 H Albumin 4.5 Influenza A (Rapid) Influenza B (Rapid) Blood Type O POSITIVE 10/16/19 10/16/19 10/16/19 10:10 16:00 16:00 WBC RBC Hgb Hct MCV MCH MCHC RDW Plt Count MPV Absolute Neuts (auto) Neutrophils % Neutrophils % (Manual) Band Neutrophils % Lymphocytes % Lymphocytes % (Manual) Monocytes % Monocytes % (Manual) Eosinophils % Eosinophils % (Manual) Basophils % Basophils % (Manual) Myelocytes % (Man) Promyelocytes % (Man) Blast Cells % (Manual) Nucleated RBC % Metamyelocytes Hypochromia Platelet Estimate Polychromasia Poikilocytosis Anisocytosis Microcytosis Macrocytosis Sodium Potassium Chloride Carbon Dioxide Anion Gap BUN Creatinine Est GFR (CKD-EPI)AfAm Est GFR (CKD-EPI)NonAf Random Glucose Lactic Acid 6.0 H* 2.9 H* Calcium Total Bilirubin Direct Bilirubin AST ALT Alkaline Phosphatase Total Protein Albumin Influenza A (Rapid) Negative Influenza B (Rapid) Negative Blood Type 10/17/19 10/17/19 06:00 06:00 WBC 20.1 H RBC 4.39 Hgb 14.2 Hct 40.2 MCV 91.5 MCH 32.3 MCHC 35.3 RDW 15.0 Plt Count 403 D MPV 7.5 Absolute Neuts (auto) 17.8 H Neutrophils % 88.7 H Neutrophils % (Manual) Band Neutrophils % Lymphocytes % 7.7 L D Lymphocytes % (Manual) Monocytes % 3.5 L Monocytes % (Manual) Eosinophils % 0.0 Eosinophils % (Manual) Basophils % 0.1 Basophils % (Manual) Myelocytes % (Man) Promyelocytes % (Man) Blast Cells % (Manual) Nucleated RBC % 0 Metamyelocytes Hypochromia Platelet Estimate Polychromasia Poikilocytosis Anisocytosis Microcytosis Macrocytosis Sodium 140 Potassium 3.7 Chloride 111 H Carbon Dioxide 20 L Anion Gap 9 BUN 17.9 Creatinine 0.5 L Est GFR (CKD-EPI)AfAm 145.33 Est GFR (CKD-EPI)NonAf 125.39 Random Glucose 99 Lactic Acid Calcium 8.3 L Total Bilirubin 1.2 H Direct Bilirubin AST 30 ALT 43 Alkaline Phosphatase 72 Total Protein 5.3 L Albumin 2.6 L Influenza A (Rapid) Influenza B (Rapid) Blood Type Active Medications Generic Name Dose Route Start Last Admin Trade Name Freq PRN Reason Stop Dose Admin Acetaminophen 650 mg 10/16/19 21:00 Ofirmev Injection - IVPB 10/18/19 00:00 Q6H PRN FEVER Chlorhexidine Gluconate 1 applic 10/16/19 22:00 10/16/19 22:11 Hibiclens For Decolonization - TP 1 applic HS BO Administration Heparin Sodium (Porcine) 5,000 unit 10/16/19 22:00 10/17/19 06:04 Heparin - SQ 5,000 unit TID BO Administration Propofol 1,000,000 mcg in 100 mls @ 1.283 mls/hr 10/16/19 06:15 10/17/19 06:17 Diprivan - IVPB Not Given TITR BO Protocol 5 MCG/KG/MIN Azithromycin 500 mg in 250 mls @ 250 mls/hr 10/16/19 14:15 Zithromax 500mg Ivpb (Pre-Docked) IVPB DAILY BO Piperacillin Sod/Tazobactam 50 mls @ 100 mls/hr 10/16/19 18:00 10/17/19 01:30 Sod 3.375 gm/ Dextrose IVPB 100 mls/hr Q8H-IV BO Administration Protocol Sodium Chloride 1,000 mls @ 125 mls/hr 10/16/19 16:44 10/16/19 16:56 Normal Saline - IV 125 mls/hr ASDIR BO Administration Norepinephrine Bitartrate 8, 500 mls @ 18.75 mls/hr 10/16/19 19:45 000 mcg/ Dextrose IV TITR BO Protocol 5 MCG/MIN Potassium Chloride 10 meq in 100 mls @ 100 mls/hr 10/17/19 09:15 Potassium Chloride 10 Meq Premix Ivpb - IVPB 10/17/19 12:14 Q60M BO Levetiracetam 1,000 mg 10/17/19 10:00 Keppra Injection - IVPB BID BO Mupirocin 1 applic 10/16/19 22:00 10/16/19 22:11 Bactroban Ointment (For Decolonization) - NS 10/21/19 21:59 1 applic BID BO Administration Pantoprazole Sodium 40 mg 10/17/19 10:00 Protonix Iv IVPUSH DAILY [facility] ASSESSMENT/PLAN: 33 yo f w/ pmh 29week premature , profound mental delay, chronic seizures, congenital quadriplegia, retinal detachment, recurrent GERD s/p Neissen, s/p GJ- ostomy, s/p gastrostomy, cataracts, scoliosis, osteoporosis, anemia who presents for evaluation of from [facility] for evaluation of respiratory distress. Intubated in the field NEURO # severe MR # chronic Seizures -sedated -maintain sedation for vent synchrony -home Keprra 1000mg BID RESPIR # Respiratory Distress --possibly 2/2 Aspiration PNA > CXR(10/17/19): prominent mediastinum, fullness of Right hilum, fullness of Right paratracheal soft tissues. Left mid and Lower infiltrate > Influ: neg > Respir Panel --pending final results -Intubated -lung imaging concerning for ARDS, will begin lung protective ventilation -IV Abx -ID(José Miguel) consult --zosyn + azithromycin CARDIO # tachycardia --likely 2/2 sepsis and pain(chronic and acute abd) -MAPs 70s off pressors -right IJ CVC inserted for better access/ in anticipation of pressor requirements GI # NGT bleeding --likely 2/2 mucosal irritation from high pressure suction # SBO --likely 2/2 SMA Syndrome vs small bowel obstruction vs colonic dysmotility # Elevated Tbil --downtrending # high output NGT > CT AP shows possible SMA syndrome with resulting duodenal distension proximal to the third portion of the duodenum -close monitoring of electrolytes after GI losses -Surgery(Patricio) Consult: --cw current mgmt of NGT decompression -NPO -patient has G tube and J tube, both of which are clogged ID # possible Aspiration PNA # lactic acidosis --resolving > UA: 3+ LE, WBC 109, neg nitrite > BCX --pending > Sputum Cx --pending > Urine for Antigen --pending > Lactic Acid: 2.8, 6.0, 2.9 -ID(José Miguel) consulted: --iv abx: Zosyn + Azithromycin #FEN -NS @ 125 -monitor srinivas, replete PRN -NPO #Prophy -SQH #Dispo -patient requires ICU monitoring Visit type - Emergency Visit Emergency Visit: No - New Patient This patient is new to me today: No - Critical Care Critical Care patient: Yes Total Critical Care Time (in minutes): 36 Critical Care Statement: The care of this patient involved high complexity decision making to prevent further life threatening deterioration of the patient's condition and/or to evaluate & treat vital organ system(s) failure or risk of failure. ATTENDING PHYSICIAN STATEMENT I saw and evaluated the patient. I reviewed the resident's note and discussed the case with the resident. I agree with the resident's findings and plan as documented. SUBJECTIVE: OBJECTIVE: ASSESSMENT AND PLAN:
[2019-10-17 09:27] LABS: MAGNESIUM 1.9 mg/dL (1.8-2.4); PHOSPHOROUS 3.8 mg/dL (2.5-4.9)
[2019-10-17] MEDS ORDERED: PIPERACILLIN/TAZOBACTAM 3.375 GM VIAL IVPB ONE ×3 (09:27→20:48)
[2019-10-17] MEDS ORDERED: DEXTROSE 5%-WATER - 50 ML IVPB ONE ×2 (09:28→20:48)
[2019-10-17] MEDS: PANTOPRAZOLE SODIUM 40 MG VIAL IVPUSH SCH (09:33)
[2019-10-17] MEDS: levETIRAcetam 500 MG/5 ML INJECTION VIAL IVPB SCH ×2 (09:33→21:03)
[2019-10-17] MEDS: AZITHROMYCIN IVPB 500 MG/250 ML BAG IVPB SCH (09:37)
[2019-10-17] MEDS: KCL 10 MEQ IVPB 10 MEQ/100 ML INFUS.BAG IVPB SCH ×3 (09:38→12:06)
[2019-10-17 10:17] LABS: ANISOCYTOSIS 0; MACROCYTOSIS 0; PLATELET ESTIMATE NORMAL
--- NOTE | 2019-10-17 11:02 | CONS ---
INFECTIOUS DISEASE CONSULTATION DATE OF CONSULTATION: DATE OF DICTATION: 10/16/2019 HISTORY: The patient is a 33-year-old female resident of [facility] with a history of profound mental retardation, scoliosis evaluated for respiratory failure and pneumonia. History was obtained from the chart as she cannot give a history. She was transferred from the facility on October 16, 2019, with worsening shortness of breath. She required intubation en route to the hospital. On evaluation, a CT scan of the chest shows bibasilar consolidations. A CAT scan of the abdomen showed a dilated stomach and proximal duodenum consistent with possible bowel obstruction. She was empirically treated with Zosyn. She is presently intubated. She is unable to offer any history. Her course has been complicated by fever and markedly elevated white blood cell count. She, according to the notes, has had no recent hospitalizations, no history of multidrug-resistant pathogens. PAST MEDICAL HISTORY: Positive for profound mental retardation, functional quadriplegia, retinal detachment, scoliosis, gastroesophageal reflux. PAST SURGICAL HISTORY: Status post feeding gastrostomy. ALLERGIES: LATEX and SULFA. MEDICATIONS: Include Tylenol, Zithromax, heparin, norepinephrine, propofol, vancomycin, Zosyn. SOCIAL HISTORY: She resides in a half-way facility. Is dependent in activities of daily living. No tobacco or alcohol use history. LABORATORY DATA: White count 28.8, 94 neutrophils, 19 bands, 2 lymphocytes, hematocrit 46.7, platelets 507, creatinine 0.7, lactic acid 2.9. Urinalysis; 109 white cells. PHYSICAL EXAMINATION: General: She is intubated. She is in no acute distress. Vital Signs: Temperature 100.1, blood pressure 75/62, pulse 129 regular, respirations 20 per minute. HEENT: Sclerae anicteric. Patient is orally intubated. Heart: Sounds S1, S2. Tachycardic. Lungs: Rhonchi bilaterally. Abdomen: Soft, distended, nontender. Extremities: Negative for edema. IMPRESSION: 1. Acute respiratory failure. 2. Probable aspiration versus healthcare-acquired pneumonia. 3. Rule out bowel obstruction. 4. Lactic acidosis. 5. Fever, leukocytosis. 6. History of profound mental retardation. PLAN: Await sepsis workup. Continue empiric antibiotic coverage for suspected aspiration with Zosyn and Zithromax. Ventilatory support. Hemodynamic support and monitoring. Thank you for the kind referral. ELISHA JARRETT M.D. [id number]
--- NOTE | 2019-10-17 11:12 | PN ---
Teaching Attending Note Name of Resident: Jose Morrison ATTENDING PHYSICIAN STATEMENT I saw and evaluated the patient. I reviewed the resident's note and discussed the case with the resident. I agree with the resident's findings and plan as documented. SUBJECTIVE: Pt seen and examined in the ICU. Remains intubated, sedated. Oxygen requirements improving, now on volume assist control with 40% FiO2, PEEP 5. Significant output from NGT. OBJECTIVE: Vital Signs Period Temp Pulse Resp BP Sys/Campuzano Pulse Ox Last 24 Hr 97.4 F-101.2 F 102-129 16-38 71-105/52-81 87-100 Intake & Output 10/14/19 10/15/19 10/16/19 10/17/19 23:59 23:59 23:59 23:59 Intake Total 3400 968 Output Total 2520 2900 Balance 880 -1932 Weight 44.2 kg 44.6 kg Gen: intubated, sedated Heart: RRR Lung: scattered rhonchi Abd: soft, nontender Ext: no edema CBC, BMP 10/17/19 06:00 10/17/19 06:00 Active Medications Acetaminophen (Ofirmev Injection -) 650 mg IVPB Q6H PRN PRN Reason: FEVER Stop: 10/18/19 00:00 Chlorhexidine Gluconate (Hibiclens For Decolonization -) 1 applic TP HS BO Last Admin: 10/16/19 22:11 Dose: 1 applic Heparin Sodium (Porcine) (Heparin -) 5,000 unit SQ TID BO Last Admin: 10/17/19 06:04 Dose: 5,000 unit Propofol (Diprivan -) 1,000,000 mcg in 100 mls @ 1.283 mls/hr IVPB TITR BO; Protocol Last Admin: 10/17/19 06:17 Dose: Not Given Azithromycin (Zithromax 500mg Ivpb (Pre-Docked)) 500 mg in 250 mls @ 250 mls/ hr IVPB DAILY BO Last Admin: 10/17/19 09:37 Dose: 250 mls/hr Piperacillin Sod/Tazobactam (Sod 3.375 gm/ Dextrose) 50 mls @ 100 mls/hr IVPB Q8H-IV BO; Protocol Last Admin: 10/17/19 09:29 Dose: 100 mls/hr Sodium Chloride (Normal Saline -) 1,000 mls @ 125 mls/hr IV ASDIR [facility] Last Admin: 10/16/19 16:56 Dose: 125 mls/hr Norepinephrine Bitartrate 8, (000 mcg/ Dextrose) 500 mls @ 18.75 mls/hr IV TITR [facility]; Protocol Potassium Chloride (Potassium Chloride 10 Meq Premix Ivpb -) 10 meq in 100 mls @ 100 mls/hr IVPB Q60M [facility] Stop: 10/17/19 12:14 Last Admin: 10/17/19 11:08 Dose: 100 mls/hr Fentanyl 500 mcg/ Dextrose 100 mls @ 5 mls/hr IVPB TITR [facility]; Protocol Levetiracetam (Keppra Injection -) 1,000 mg IVPB BID [facility] Last Admin: 10/17/19 09:33 Dose: 1,000 mg Mupirocin (Bactroban Ointment (For Decolonization) -) 1 applic NS BID [facility] Stop: 10/21/19 21:59 Last Admin: 10/16/19 22:11 Dose: 1 applic Pantoprazole Sodium (Protonix Iv) 40 mg IVPUSH DAILY [facility] Last Admin: 10/17/19 09:33 Dose: 40 mg ASSESSMENT AND PLAN: Acute Hypoxic Respiratory Failure Pneumonia likely Aspiration ARDS Small Bowel Obstruction r/o SMA Syndrome Severe Sepsis Lactic Acidosis Mental Retardation GERD - continue antibiotics to cover aspiration - f/u cultures - NGT to ILWS - surgery eval - IVF - monitor urine output, creatinine - titrate FiO2, PEEP to keep SpO2 >90% - low tidal volume ventilation <6cc/kg/IBW - monitor Ppeak, Pplat - inhaled bronchodilators - sedate for vent synchrony - DVT prophylaxis - continue ICU monitoring critical care time spent in reviewing chart, evaluating patient and formulating plan 35 min
[2019-10-17] MEDS: SODIUM CHLORIDE 1,000 ML IV SCH (12:00)
[2019-10-17] MEDS ORDERED: fentaNYL CITRATE 250 MCG/5 ML VIAL ONE (12:02)
--- NOTE | 2019-10-17 12:03 | PN ---
Teaching Attending Note Name of Resident: Ashutosh Larson ATTENDING PHYSICIAN STATEMENT I saw and evaluated the patient. I reviewed the resident's note and discussed the case with the resident. I agree with the resident's findings and plan as documented. SUBJECTIVE: Patient intubated and sedated. OBJECTIVE: Vital Signs Period Temp Pulse Resp BP Sys/Campuzano Pulse Ox Last 24 Hr 97.4 F-101.2 F 102-129 16-38 71-105/52-81 87-100 HEART: S1S2, tachycardic LUNGS: Ventilated BS ABDOMEN: Soft, distended, tympanitic, GJ tube in place EXTREMITIES: Contracted, no edema Laboratory Results - last 24 hr 10/16/19 10/16/19 10/16/19 06:00 06:00 16:00 WBC RBC Hgb Hct MCV MCH MCHC RDW Plt Count MPV Absolute Neuts (auto) Neutrophils % Neutrophils % (Manual) Band Neutrophils % Lymphocytes % Lymphocytes % (Manual) Monocytes % Monocytes % (Manual) Eosinophils % Eosinophils % (Manual) Basophils % Basophils % (Manual) Myelocytes % (Man) Promyelocytes % (Man) Blast Cells % (Manual) Nucleated RBC % Metamyelocytes Hypochromia Platelet Estimate Polychromasia Poikilocytosis Anisocytosis Microcytosis Macrocytosis Sodium 134 L Potassium 3.5 Chloride 101 Carbon Dioxide 22 Anion Gap 11 BUN 17.4 Creatinine 0.7 Est GFR (CKD-EPI)AfAm 130.10 Est GFR (CKD-EPI)NonAf 112.25 Random Glucose 319 H Lactic Acid 2.9 H* Calcium 9.2 Phosphorus Magnesium Total Bilirubin 1.6 H Direct Bilirubin 0.4 H AST 61 H ALT 53 Alkaline Phosphatase 110 Total Protein 8.4 H Albumin 4.5 Influenza A (Rapid) Influenza B (Rapid) Blood Type O POSITIVE 10/16/19 10/17/19 10/17/19 16:00 06:00 06:00 WBC 20.1 H RBC 4.39 Hgb 14.2 Hct 40.2 MCV 91.5 MCH 32.3 MCHC 35.3 RDW 15.0 Plt Count 403 D MPV 7.5 Absolute Neuts (auto) 17.8 H Neutrophils % 88.7 H Neutrophils % (Manual) 64.0 Band Neutrophils % 24.0 Lymphocytes % 7.7 L D Lymphocytes % (Manual) 6.0 L D Monocytes % 3.5 L Monocytes % (Manual) 2 L Eosinophils % 0.0 Eosinophils % (Manual) 0.0 Basophils % 0.1 Basophils % (Manual) 0.0 Myelocytes % (Man) 0 D Promyelocytes % (Man) 0 Blast Cells % (Manual) 0 Nucleated RBC % 0 Metamyelocytes 4 H D Hypochromia 0 Platelet Estimate Normal Polychromasia 0 Poikilocytosis 0 Anisocytosis 0 Microcytosis 0 Macrocytosis 0 Sodium 140 Potassium 3.7 Chloride 111 H Carbon Dioxide 20 L Anion Gap 9 BUN 17.9 Creatinine 0.5 L Est GFR (CKD-EPI)AfAm 145.33 Est GFR (CKD-EPI)NonAf 125.39 Random Glucose 99 Lactic Acid Calcium 8.3 L Phosphorus 3.8 Magnesium 1.9 Total Bilirubin 1.2 H Direct Bilirubin AST 30 ALT 43 Alkaline Phosphatase 72 Total Protein 5.3 L Albumin 2.6 L Influenza A (Rapid) Negative Influenza B (Rapid) Negative Blood Type Current Medications Generic Name Dose Route Start Last Admin Trade Name Freq PRN Reason Stop Dose Admin Acetaminophen 650 mg 10/16/19 21:00 Ofirmev Injection - IVPB 10/18/19 00:00 Q6H PRN FEVER Chlorhexidine Gluconate 1 applic 10/16/19 22:00 10/16/19 22:11 Hibiclens For Decolonization - TP 1 applic HS BO Administration Heparin Sodium (Porcine) 5,000 unit 10/16/19 22:00 10/17/19 06:04 Heparin - SQ 5,000 unit TID BO Administration Propofol 1,000,000 mcg in 100 mls @ 1.283 mls/hr 10/16/19 06:15 10/17/19 06: 17 Diprivan - IVPB Not Given TITR BO Protocol 5 MCG/KG/MIN Azithromycin 500 mg in 250 mls @ 250 mls/hr 10/16/19 14:15 10/17/19 09:37 Zithromax 500mg Ivpb (Pre-Docked) IVPB 250 mls/hr DAILY BO Administration Piperacillin Sod/Tazobactam 50 mls @ 100 mls/hr 10/16/19 18:00 10/17/19 09:29 Sod 3.375 gm/ Dextrose IVPB 100 mls/hr Q8H-IV BO Administration Protocol Sodium Chloride 1,000 mls @ 125 mls/hr 10/16/19 16:44 03/02/20 16:56 Normal Saline - IV 125 mls/hr ASDIR BO Administration Norepinephrine Bitartrate 8, 500 mls @ 18.75 mls/hr 10/16/19 19:45 000 mcg/ Dextrose IV TITR BO Protocol 5 MCG/MIN Potassium Chloride 10 meq in 100 mls @ 100 mls/hr 10/17/19 09:15 10/17/19 11: 08 Potassium Chloride 10 Meq Premix Ivpb - IVPB 10/17/19 12:14 100 mls/hr Q60M BO Administration Fentanyl 500 mcg/ Dextrose 100 mls @ 5 mls/hr 10/17/19 11:00 IVPB TITR BO Protocol 25 MCG/HR Levetiracetam 1,000 mg 10/17/19 10:00 10/17/19 09:33 Keppra Injection - IVPB 1,000 mg BID BO Administration Mupirocin 1 applic 10/16/19 22:00 10/16/19 22:11 Bactroban Ointment (For Decolonization) - NS 10/21/19 21:59 1 applic BID BO Administration Pantoprazole Sodium 40 mg 10/17/19 10:00 10/17/19 09:33 Protonix Iv IVPUSH 40 mg DAILY BO Administration ASSESSMENT AND PLAN: This is a 33 year old woman with a history of developmental delay, cognitive deficit, functional quadriplegia, retinal detachment, scoliosis, osteoporosis, GERD, PEG who was sent to the ED from [place] because of hypoxia and respiratory distress. 1. Septic shock (leukocytosis, tachycardia, lactic acid 6.0) and acute hypoxic respiratory failure secondary to pneumonia - Vent management as per ICU team - Continue Zosyn, Zithromax - WBC, lactic acid improving - Blood cultures negative after 24 hours - Sputum culture pending - Legionella, Pneumococcus Ag pending 2. 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 Developmental delay with cognitive deficit and functional quadriplegia - Continue Keppra - Baclofen, tizanidine on hold until able to take meds via G-tube 4. GERD - Continue Protonix
[2019-10-17] MEDS: FENTANYL INJECTION 500 MCG in DEXTROSE 5%-WATER - 90 ML IVPB SCH (12:04)
--- NOTE | 2019-10-17 12:15 | CONSULT ---
- Consultation REQUESTING PROVIDER: Theresa NIETO CONSULT REQUEST: We have been asked to surgically evaluate this patient for possible SMA syndrome. PCP:Cal Cardenas MD HISTORY OF PRESENT ILLNESS: DEJA who is a 33 yo female w/ profound mental delay, congenital quadriplegia, retinal detachment, gastrostomy, cataracts, scoliosis, osteoporosis, GERD, anemia, and J-tube who presents for evaluation of from [facility] for evaluation of respiratory distress. Patient intubated in the field, no further history available. PMHx: as above PSHx: as above Home Medications Medication Instructions Recorded Calcium Carbonate/Vitamin D3 1 each PO BID 10/16/19 [Oystercal-D 500 mg-400 Unit Tb] Tizanidine HCl 6 mg PO TID 10/16/19 levETIRAcetam [levETIRAcetam ORAL 500 mg PO BID 10/16/19 SUSPENSION] Allergies Allergy/AdvReac Type Severity Reaction Status Date / Time latex Allergy Verified 10/16/19 12:45 Sulfa (Sulfonamide Allergy Verified 10/16/19 12:45 Antibiotics) REVIEW OF SYSTEMS: unable to obtain PHYSICAL EXAM: GENERAL: Awake, intubated, in no acute distress. HEAD: Normal with no signs of trauma. EYES: PERRL, sclera anicteric, conjunctiva clear. NECK: Normal ROM, supple without lymphadenopathy, JVD, or masses. ABDOMEN: Soft, nontender, slightly distended, hypoactive bowel sounds, no guarding, no rebound, no masses. No organomegaly. No hernias; GT in place MUSCULOSKELETAL: Normal ROM at all joints. No bony deformities or tenderness. No CVA tenderness. UPPER EXTREMITIES: 2+ pulses, warm, well-perfused. No cyanosis. Cap refill <2 seconds. No peripheral edema. LOWER EXTREMITIES: 2+ pulses, warm, well-perfused. No calf tenderness. No peripheral edema. NEUROLOGICAL: Gait not observed. SKIN: Warm, dry, normal turgor, no rashes or lesions noted. Vital Signs Temperature 99.5 F 10/17/19 10:00 Pulse Rate 114 H 10/17/19 11:38 Respiratory Rate 17 10/17/19 11:38 Blood Pressure 87/63 L 10/17/19 11:38 O2 Sat by Pulse Oximetry (%) 100 10/17/19 09:00 Lab Results WBC 20.1 K/mm3 (4.0-10.0) H 10/17/19 06:00 RBC 4.39 M/mm3 (3.60-5.2) 10/17/19 06:00 Hgb 14.2 GM/dL (10.7-15.3) 10/17/19 06:00 Hct 40.2 % (32.4-45.2) 10/17/19 06:00 MCV 91.5 fl (80-96) 10/17/19 06:00 MCHC 35.3 g/dl (32.0-36.0) 10/17/19 06:00 RDW 15.0 % (11.6-15.6) 10/17/19 06:00 Plt Count 403 K/MM3 (134-434) D 10/17/19 06:00 Sodium 140 mmol/L (136-145) 10/17/19 06:00 Potassium 3.7 mmol/L (3.5-5.1) 10/17/19 06:00 Chloride 111 mmol/L (98-107) H 10/17/19 06:00 Carbon Dioxide 20 mmol/L (21-32) L 10/17/19 06:00 Anion Gap 9 MMOL/L (8-16) 10/17/19 06:00 BUN 17.9 mg/dL (7-18) 10/17/19 06:00 Creatinine 0.5 mg/dL (0.55-1.3) L 10/17/19 06:00 Random Glucose 99 mg/dL (74-106) 10/17/19 06:00 Calcium 8.3 mg/dL (8.5-10.1) L 10/17/19 06:00 Blood Type O POSITIVE 10/16/19 06:00 INR 1.15 (0.83-1.09) H 10/16/19 06:00 Imaging w/u reviewed IMP: ? SMA syndrome acute on chronic w/resultant duodenal obstruction and respiratory failure. PLAN: Suggest as per current tx. regimen in the ICU; appears patient had 5 liters NGT output and f/u AXR shows resolution of gastroduodenal obstruction; patient has no evidence of an acute surgical abdomen at this time and suggest continued NGT decompression; patient does not appear to be a candidate for surgery even if SMA syndrome is chronically present and if so would need to be done at a tertiary care center as I have mammography technologist in the management of this disease process; tx. underlying respiratory distress/failure. Seamus Patricio MD FACS
--- NOTE | 2019-10-17 12:38 | PN ---
Physical Exam: SUBJECTIVE: Patient seen and examined. Intubated and sedated. TV 300, 14, 40%, 5. NG tube and OG tube in place, PEG and IJ line in place, pruitt bag in place making urine. OBJECTIVE: Vital Signs Period Temp Pulse Resp BP Sys/Campuzano Pulse Ox Last 24 Hr 99.4 F-101.2 F 102-129 16-36 71-105/52-81 87-100 GENERAL: The patient is intubated and sedated, pt responsive to noxious stimuli. HEAD: Normal with no signs of trauma. EYES: PERRL, extraocular movements intact, sclera anicteric, conjunctiva clear. No ptosis. NECK: supple. LUNGS: Breath sounds ventilataory heard, no wheezing or crackles appreciated. HEART: Regular rate and rhythm, S1, S2 without murmur, rub or gallop. ABDOMEN: Soft, nontender, distended, tympanitic, green dc from peg tube, scar from prior surgery noted across abdomen. EXTREMITIES: 2+ pulses, warm, well-perfused, no edema. Cooler leg on rt side, pulses present though. NEUROLOGICAL: intubated and sedated, responsive to noxious stimuli. Laboratory Results - last 24 hr 10/16/19 10/16/19 10/16/19 06:00 06:00 16:00 WBC RBC Hgb Hct MCV MCH MCHC RDW Plt Count MPV Absolute Neuts (auto) Neutrophils % Neutrophils % (Manual) Band Neutrophils % Lymphocytes % Lymphocytes % (Manual) Monocytes % Monocytes % (Manual) Eosinophils % Eosinophils % (Manual) Basophils % Basophils % (Manual) Myelocytes % (Man) Promyelocytes % (Man) Blast Cells % (Manual) Nucleated RBC % Metamyelocytes Hypochromia Platelet Estimate Polychromasia Poikilocytosis Anisocytosis Microcytosis Macrocytosis Sodium 134 L Potassium 3.5 Chloride 101 Carbon Dioxide 22 Anion Gap 11 BUN 17.4 Creatinine 0.7 Est GFR (CKD-EPI)AfAm 130.10 Est GFR (CKD-EPI)NonAf 112.25 Random Glucose 319 H Lactic Acid 2.9 H* Calcium 9.2 Phosphorus Magnesium Total Bilirubin 1.6 H Direct Bilirubin 0.4 H AST 61 H ALT 53 Alkaline Phosphatase 110 Total Protein 8.4 H Albumin 4.5 Influenza A (Rapid) Influenza B (Rapid) Blood Type O POSITIVE 03/10/0510/17/19 10/17/19 16:00 06:00 06:00 WBC 20.1 H RBC 4.39 Hgb 14.2 Hct 40.2 MCV 91.5 MCH 32.3 MCHC 35.3 RDW 15.0 Plt Count 403 D MPV 7.5 Absolute Neuts (auto) 17.8 H Neutrophils % 88.7 H Neutrophils % (Manual) 64.0 Band Neutrophils % 24.0 Lymphocytes % 7.7 L D Lymphocytes % (Manual) 6.0 L D Monocytes % 3.5 L Monocytes % (Manual) 2 L Eosinophils % 0.0 Eosinophils % (Manual) 0.0 Basophils % 0.1 Basophils % (Manual) 0.0 Myelocytes % (Man) 0 D Promyelocytes % (Man) 0 Blast Cells % (Manual) 0 Nucleated RBC % 0 Metamyelocytes 4 H D Hypochromia 0 Platelet Estimate Normal Polychromasia 0 Poikilocytosis 0 Anisocytosis 0 Microcytosis 0 Macrocytosis 0 Sodium 140 Potassium 3.7 Chloride 111 H Carbon Dioxide 20 L Anion Gap 9 BUN 17.9 Creatinine 0.5 L Est GFR (CKD-EPI)AfAm 145.33 Est GFR (CKD-EPI)NonAf 125.39 Random Glucose 99 Lactic Acid Calcium 8.3 L Phosphorus 3.8 Magnesium 1.9 Total Bilirubin 1.2 H Direct Bilirubin AST 30 ALT 43 Alkaline Phosphatase 72 Total Protein 5.3 L Albumin 2.6 L Influenza A (Rapid) Negative Influenza B (Rapid) Negative Blood Type Active Medications Generic Name Dose Route Start Last Admin Trade Name Freq PRN Reason Stop Dose Admin Acetaminophen 650 mg 10/16/19 21:00 Ofirmev Injection - IVPB 10/18/19 00:00 Q6H PRN FEVER Chlorhexidine Gluconate 1 applic 10/16/19 22:00 10/16/19 22:11 Hibiclens For Decolonization - TP 1 applic HS BO Administration Heparin Sodium (Porcine) 5,000 unit 10/16/19 22:00 10/17/19 06:04 Heparin - SQ 5,000 unit TID BO Administration Propofol 1,000,000 mcg in 100 mls @ 1.283 mls/hr 10/16/19 06:15 10/17/19 12:06 Diprivan - IVPB 15 mcg/kg/min TITR BO 3.85 mls/hr Administration Protocol 5 MCG/KG/MIN Azithromycin 500 mg in 250 mls @ 250 mls/hr 10/16/19 14:15 10/17/19 09:37 Zithromax 500mg Ivpb (Pre-Docked) IVPB 250 mls/hr DAILY BO Administration Piperacillin Sod/Tazobactam 50 mls @ 100 mls/hr 10/16/19 18:00 10/17/19 09:29 Sod 3.375 gm/ Dextrose IVPB 100 mls/hr Q8H-IV BO Administration Protocol Sodium Chloride 1,000 mls @ 125 mls/hr 10/16/19 16:44 10/16/19 16:56 Normal Saline - IV 125 mls/hr ASDIR BO Administration Norepinephrine Bitartrate 8, 500 mls @ 18.75 mls/hr 10/16/19 19:45 000 mcg/ Dextrose IV TITR BO Protocol 5 MCG/MIN Fentanyl 500 mcg/ Dextrose 100 mls @ 5 mls/hr 10/17/19 11:00 10/17/19 12:04 IVPB 25 mcg/hr TITR BO 5 mls/hr Administration Protocol 25 MCG/HR Levetiracetam 1,000 mg 10/17/19 10:00 10/17/19 09:33 Keppra Injection - IVPB 1,000 mg BID BO Administration Mupirocin 1 applic 10/16/19 22:00 10/16/19 22:11 Bactroban Ointment (For Decolonization) - NS 10/21/19 21:59 1 applic BID BO Administration Pantoprazole Sodium 40 mg 10/17/19 10:00 10/17/19 09:33 Protonix Iv IVPUSH 40 mg DAILY BO Administration ASSESSMENT/PLAN: Patient is a 33 year old female with past medical history of developmental delay, congenital quadriplegia, retinal detachment, gastrostomy, cataracts, scoliosis, osteoporosis, GERD, and J-tube placement, was brought in from [facility] after she was found to be in respiratory distress. #Severe Sepsis 2/2CAP, possibly aspiration -Leukocytosis and hypotension responsive to IVF boluses -Chest CT: Patchy consolidation left upper lobe. - CXR showing NG tube in LUQ/stomach, mediastinal fullness in rt hilum, retained stool, AXR showing retained stool in transverse colon/rt colon dilation, scoliosis. -c/w azithro/Zosyn -will continue IV Zosyn and IV azithromycin -ID (Dr. Valdez) consulted. -Blood cultures negative for 24 hrs -Urine legionella/pneumonia pending -Sputum cultures -Flu swab negative, viral panel pending -IV fluid hydration, IV protonix 40 daily started after NGT with wood blood overnight. -May need pressors if remains hypotensive -monitor I&O -lactic acidosis, trend lactate #Acute hypoxic respiratory failure likely 2/2 pneumonia [facility] -inhaled bronchodilators -IV Zosyn and Azithromycin -continue ICU monitoring #SMA syndrome -CT abdomen: There appears to be an obstruction of the third duodenum as it crosses the midline. Suspicious for SMA syndrome. -Surgery consulted (Sheng) no surgical intervention at this time. -IVF hydration -will keep patient NPO for now pending recs -OGT #FEN -IV NS @125cc/hr -Electrolytes wnl, routine bmp monitoring -NPO #Prophylaxis -Heparin 5000u sq tid #Disposition -full code -ICU for closer monitoring Visit type - Emergency Visit Emergency Visit: Yes ED Registration Date: 10/16/19 Care time: The patient presented to the Emergency Department on the above date and was hospitalized for further evaluation of their emergent condition. - New Patient This patient is new to me today: Yes Date on this admission: 10/17/19 - Critical Care Critical Care patient: Yes Total Critical Care Time (in minutes): 40 Critical Care Statement: The care of this patient involved high complexity decision making to prevent further life threatening deterioration of the patient's condition and/or to evaluate & treat vital organ system(s) failure or risk of failure. - Discharge Referral Referred to [facility] Med P.C.: No ATTENDING PHYSICIAN STATEMENT I saw and evaluated the patient. I reviewed the resident's note and discussed the case with the resident. I agree with the resident's findings and plan as documented. SUBJECTIVE: OBJECTIVE: ASSESSMENT AND PLAN:
[2019-10-17] MEDS ORDERED: PT OWN MED DRAWER 7, Y5N ONE (12:44)
[2019-10-17] MEDS: MUPIROCIN 2% TOPICAL OINTMENT FOR DECOLONIZATION NS SCH ×2 (12:44→21:02)
[2019-10-17] MEDS ORDERED: DEXTROSE 5%-WATER - 100 ML IVPB ONE (17:58)
[2019-10-17] MEDS: NOREPINEPHRINE BITARTRATE 8,000 MCG in DEXTROSE 5%-WATER - 492 ML IV SCH (20:44)
[2019-10-17] MEDS: CHLORHEXIDINE GLUCONATE 4% CLEANSER FOR DECOLONIZATION TP SCH (21:03)
[2019-10-18] MEDS: PIPERACILLIN/TAZOB 3.375 GM 3.375 GM in DEXTROSE 5%-WATER - 50 ML IVPB SCH ×4 (02:09→18:22)
[2019-10-18] MEDS ORDERED: fentaNYL CITRATE 250 MCG/5 ML VIAL ONE (03:42)
[2019-10-18] MEDS: FENTANYL INJECTION 500 MCG in DEXTROSE 5%-WATER - 90 ML IVPB SCH ×2 (03:46→22:08)
[2019-10-18] MEDS: PROPOFOL 1,000,000 MCG/100 ML VIAL IVPB SCH ×2 (05:44→16:31)
[2019-10-18] MEDS: HEPARIN NA (PORCINE) 5,000 UNITS/ML 1ML VIAL SQ SCH ×3 (05:45→22:06)
[2019-10-18 06:27] LABS: HEMOGLOBIN 11.2 GM/dL (10.7-15.3); MCH 31.9 pg (25.7-33.7); MEAN CELL VOLUME 91.2 fl (80-96); MEAN PLT VOLUME 7.1 fl (7.5-11.1); PLATELET COUNT 272 K/MM3 (134-434); RBC 3.51 M/mm3 (3.60-5.2); RDW 14.9 % (11.6-15.6); WHITE BLOOD COUNT 12.2 K/mm3 (4.0-10.0)
[2019-10-18] MEDS ORDERED: SODIUM CHLORIDE 1,000 ML IV SCH (06:36)
[2019-10-18 07:03] LABS: ALBUMIN 2.3 g/dl (3.4-5.0); BILIRUBIN,TOTAL 0.8 mg/dL (0.2-1); BLOOD UREA NITROGEN 9.8 mg/dL (7-18); CALCIUM 7.8 mg/dL (8.5-10.1); CREATININE 0.3 mg/dL (0.55-1.3); PHOSPHOROUS 1.8 mg/dL (2.5-4.9); POTASSIUM 3.3 mmol/L (3.5-5.1)
--- NOTE | 2019-10-18 07:18 | PN ---
Physical Exam: SUBJECTIVE: Patient seen and examined. No acute events afebrile. Intubated and sedated on prop and fentanyl OBJECTIVE: Vital Signs Period Temp Pulse Resp BP Sys/Campuzano Pulse Ox Last 24 Hr 99.0 F-99.5 F 97-119 14-25 87-112/54-77 100-100 GENERAL: The patient is intubated and sedated, pt responsive to noxious stimuli. EYES: PERRL, extraocular movements intact, sclera anicteric, conjunctiva clear. No ptosis. NECK: supple. LUNGS: coarse breath sounds b/l, no wheezing or crackles appreciated. HEART: Regular rate and rhythm, S1, S2 without murmur, rub or gallop. ABDOMEN: Soft, nontender, less distended than yesterday, less tympanitic, peg tube in place, scar from prior surgery noted across abdomen. EXTREMITIES: 2+ pulses, warm, well-perfused, no edema. NEUROLOGICAL: intubated and sedated, responsive to noxious stimuli. Laboratory Results - last 24 hr 10/17/19 10/17/19 10/18/19 06:00 06:00 06:00 WBC 12.2 H RBC 3.51 L Hgb 11.2 Hct 32.0 L D MCV 91.2 MCH 31.9 MCHC 35.0 RDW 14.9 Plt Count 272 D MPV 7.1 L Neutrophils % (Manual) 64.0 Band Neutrophils % 24.0 Lymphocytes % (Manual) 6.0 L D Monocytes % (Manual) 2 L Eosinophils % (Manual) 0.0 Basophils % (Manual) 0.0 Myelocytes % (Man) 0 D Promyelocytes % (Man) 0 Blast Cells % (Manual) 0 Nucleated RBC % 0 Metamyelocytes 4 H D Hypochromia 0 Platelet Estimate Normal Polychromasia 0 Poikilocytosis 0 Anisocytosis 0 Microcytosis 0 Macrocytosis 0 Sodium 140 Potassium 3.7 Chloride 111 H Carbon Dioxide 20 L Anion Gap 9 BUN 17.9 Creatinine 0.5 L Est GFR (CKD-EPI)AfAm 145.33 Est GFR (CKD-EPI)NonAf 125.39 Random Glucose 99 Calcium 8.3 L Phosphorus 3.8 Magnesium 1.9 Total Bilirubin 1.2 H AST 30 ALT 43 Alkaline Phosphatase 72 Total Protein 5.3 L Albumin 2.6 L 10/18/19 06:00 WBC RBC Hgb Hct MCV MCH MCHC RDW Plt Count MPV Neutrophils % (Manual) Band Neutrophils % Lymphocytes % (Manual) Monocytes % (Manual) Eosinophils % (Manual) Basophils % (Manual) Myelocytes % (Man) Promyelocytes % (Man) Blast Cells % (Manual) Nucleated RBC % Metamyelocytes Hypochromia Platelet Estimate Polychromasia Poikilocytosis Anisocytosis Microcytosis Macrocytosis Sodium 140 Potassium 3.3 L Chloride 112 H Carbon Dioxide 22 Anion Gap 7 L BUN 9.8 Creatinine 0.3 L Est GFR (CKD-EPI)AfAm 171.92 Est GFR (CKD-EPI)NonAf 148.34 Random Glucose 83 Calcium 7.8 L Phosphorus 1.8 L Magnesium 2.0 Total Bilirubin 0.8 AST 21 ALT 30 Alkaline Phosphatase 70 Total Protein 5.0 L Albumin 2.3 L Active Medications Generic Name Dose Route Start Last Admin Trade Name Freq PRN Reason Stop Dose Admin Chlorhexidine Gluconate 1 applic 10/16/19 22:00 10/17/19 21:03 Hibiclens For Decolonization - TP 1 applic HS BO Administration Heparin Sodium (Porcine) 5,000 unit 10/16/19 22:00 10/18/19 05:45 Heparin - SQ 5,000 unit TID BO Administration Propofol 1,000,000 mcg in 100 mls @ 1.283 mls/hr 10/16/19 06:15 10/18/19 05:44 Diprivan - IVPB Not Given TITR BO Protocol 5 MCG/KG/MIN Azithromycin 500 mg in 250 mls @ 250 mls/hr 10/16/19 14:15 10/17/19 09:37 Zithromax 500mg Ivpb (Pre-Docked) IVPB 250 mls/hr DAILY BO Administration Piperacillin Sod/Tazobactam 50 mls @ 100 mls/hr 10/16/19 18:00 10/18/19 02:09 Sod 3.375 gm/ Dextrose IVPB 100 mls/hr Q8H-IV BO Administration Protocol Norepinephrine Bitartrate 8, 500 mls @ 18.75 mls/hr 10/16/19 19:45 10/17/19 20:44 000 mcg/ Dextrose IV Not Given TITR BO Protocol 5 MCG/MIN Fentanyl 500 mcg/ Dextrose 100 mls @ 5 mls/hr 10/17/19 11:00 10/18/19 03:46 IVPB 25 mcg/hr TITR BO 5 mls/hr Administration Protocol 25 MCG/HR Sodium Chloride 1,000 mls @ 75 mls/hr 10/18/19 06:36 10/18/19 06:55 Normal Saline - IV 75 mls/hr ASDIR BO Administration Potassium Chloride 10 meq in 100 mls @ 100 mls/hr 10/18/19 07:30 Potassium Chloride 10 Meq Premix Ivpb - IVPB 10/18/19 10:29 Q60M BO Levetiracetam 1,000 mg 10/17/19 10:00 10/17/19 21:03 Keppra Injection - IVPB 1,000 mg BID BO Administration Mupirocin 1 applic 10/16/19 22:00 10/17/19 21:02 Bactroban Ointment (For Decolonization) - NS 10/21/19 21:59 1 applic BID BO Administration Non-Formulary Med 10 each 10/18/19 10:00 Vitrum ( GT DAILY BO Pantoprazole Sodium 40 mg 10/17/19 10:00 10/17/19 09:33 Protonix Iv IVPUSH 40 mg DAILY BO Administration ASSESSMENT/PLAN: Patient is a 33 year old female with past medical history of developmental delay, congenital quadriplegia, retinal detachment, gastrostomy, cataracts, scoliosis, osteoporosis, GERD, and J-tube placement, was brought in from [facility] after she was found to be in respiratory distress. #Severe Sepsis 2/2CAP, possibly aspiration -Leukocytosis and hypotension responsive to IVF boluses -Chest CT: Patchy consolidation left upper lobe. - CXR showing NG tube in LUQ/stomach, mediastinal fullness in rt hilum, retained stool, AXR showing retained stool in transverse colon/rt colon dilation, scoliosis. -c/w empiric Zosyn for aspiration pna coverage, dc azithromycin -ID (Dr. Valdez) consulted. -Blood cultures negative for 48 hrs -Urine legionella/strep pneumonia negative -Sputum cultures: non lactose fermenting Gnb, lactose fermenting neg bacilli -viral panel pending -lactic acidosis downtrending #Acute hypoxic respiratory failure likely 2/2 pneumonia -on [facility] vent support -inhaled bronchodilators -IV Zosyn -continue ICU monitoring #SMA syndrome -CT abdomen: There appears to be an obstruction of the third duodenum as it crosses the midline. Suspicious for SMA syndrome. - will consult vascular (Dr. Lal) to obtain recommendations for possible surgical intervention. -Surgery consulted (Sheng) no surgical intervention at this time, ? regarding tertiary care center intervention. -will keep patient NPO, w/ NG tube decompression -OGT #FEN -IV NS @125cc/hr -Hypokalemia repleted with 3 rounds of Kriders will rpt in AM. -NPO #Prophylaxis -Heparin 5000u sq tid - IV 40 daily protonix #Disposition -full code -ICU for closer monitoring Visit type - Emergency Visit Emergency Visit: Yes ED Registration Date: 10/16/19 Care time: The patient presented to the Emergency Department on the above date and was hospitalized for further evaluation of their emergent condition. - New Patient This patient is new to me today: No - Critical Care Critical Care patient: Yes Total Critical Care Time (in minutes): 35 Critical Care Statement: The care of this patient involved high complexity decision making to prevent further life threatening deterioration of the patient's condition and/or to evaluate & treat vital organ system(s) failure or risk of failure. - Discharge Referral Referred to [facility] Med P.C.: No ATTENDING PHYSICIAN STATEMENT I saw and evaluated the patient. I reviewed the resident's note and discussed the case with the resident. I agree with the resident's findings and plan as documented. SUBJECTIVE: OBJECTIVE: ASSESSMENT AND PLAN:
[2019-10-18] MEDS ORDERED: PIPERACILLIN/TAZOBACTAM 3.375 GM VIAL IVPB ONE ×2 (08:27→18:21)
[2019-10-18] MEDS ORDERED: DEXTROSE 5%-WATER - 50 ML IVPB ONE ×2 (08:27→18:21)
[2019-10-18] MEDS ORDERED: POTASSIUM PHOSPHATE 20 MM in SODIUM CHLORIDE 250 ML IVPB ONE (09:00)
[2019-10-18] MEDS: KCL 10 MEQ IVPB 10 MEQ/100 ML INFUS.BAG IVPB SCH ×2 (09:51→11:13)
[2019-10-18] MEDS: PANTOPRAZOLE SODIUM 40 MG VIAL IVPUSH SCH (09:57)
[2019-10-18] MEDS: levETIRAcetam 500 MG/5 ML INJECTION VIAL IVPB SCH ×2 (09:58→21:49)
[2019-10-18] MEDS: AZITHROMYCIN IVPB 500 MG/250 ML BAG IVPB SCH (09:59)
[2019-10-18] MEDS ORDERED: [UNRECOGNIZED DRUG - OTHER] GT SCH (10:00)
--- NOTE | 2019-10-18 10:09 | PN ---
Progress Note, Physician History of Present Illness: REMAINS INTUBATED NO ACUTE DISTRESS TEMPS DOWN AFEBRILE WBC IMPROVED SPUTUM C/S MIXED LEGIONELLA AG (-) - Current Medication List Current Medications: Active Medications Chlorhexidine Gluconate (Hibiclens For Decolonization -) 1 applic TP HS BO Last Admin: 10/17/19 21:03 Dose: 1 applic Heparin Sodium (Porcine) (Heparin -) 5,000 unit SQ TID BO Last Admin: 10/18/19 05:45 Dose: 5,000 unit Propofol (Diprivan -) 1,000,000 mcg in 100 mls @ 1.283 mls/hr IVPB TITR BO; Protocol Last Admin: 10/18/19 05:44 Dose: Not Given Azithromycin (Zithromax 500mg Ivpb (Pre-Docked)) 500 mg in 250 mls @ 250 mls/ hr IVPB DAILY BO Last Admin: 10/17/19 09:37 Dose: 250 mls/hr Piperacillin Sod/Tazobactam (Sod 3.375 gm/ Dextrose) 50 mls @ 100 mls/hr IVPB Q8H-IV BO; Protocol Last Admin: 10/18/19 02:09 Dose: 100 mls/hr Norepinephrine Bitartrate 8, (000 mcg/ Dextrose) 500 mls @ 18.75 mls/hr IV TITR BO; Protocol Last Admin: 10/17/19 20:44 Dose: Not Given Fentanyl 500 mcg/ Dextrose 100 mls @ 5 mls/hr IVPB TITR BO; Protocol Last Admin: 10/18/19 03:46 Dose: 25 mcg/hr, 5 mls/hr Sodium Chloride (Normal Saline -) 1,000 mls @ 75 mls/hr IV ASDIR BO Last Admin: 10/18/19 06:55 Dose: 75 mls/hr Potassium Chloride (Potassium Chloride 10 Meq Premix Ivpb -) 10 meq in 100 mls @ 100 mls/hr IVPB Q60M BO Stop: 10/18/19 10:29 Potassium Phosphate 20 mm/ (Sodium Chloride) 256.6667 mls @ 42.778 mls/hr IVPB ONCE ONE Stop: 10/18/19 14:59 Levetiracetam (Keppra Injection -) 1,000 mg IVPB BID BO Last Admin: 10/17/19 21:03 Dose: 1,000 mg Mupirocin (Bactroban Ointment (For Decolonization) -) 1 applic NS BID BO Stop: 10/21/19 21:59 Last Admin: 10/17/19 21:02 Dose: 1 applic Non-Formulary Med (Vitrum () 10 each GT DAILY [facility] Pantoprazole Sodium (Protonix Iv) 40 mg IVPUSH DAILY [facility] Last Admin: 10/17/19 09:33 Dose: 40 mg - Objective Vital Signs: Vital Signs Temperature 99.5 F 10/18/19 08:00 Pulse Rate 110 H 10/18/19 09:58 Respiratory Rate 22 H 10/18/19 09:58 Blood Pressure 109/75 10/18/19 09:58 O2 Sat by Pulse Oximetry (%) 100 10/18/19 08:54 Constitutional: Yes: No Distress Cardiovascular: Yes: Regular Rate and Rhythm, S1, S2 Respiratory: Yes: Rhonchi Gastrointestinal: Yes: Normal Bowel Sounds, Soft, Other (DISTENDED, SOFT) Labs: CBC, BMP 10/18/19 06:00 10/18/19 06:00 INR, PTT INR 1.15 (0.83-1.09) H 10/16/19 06:00 Assessment/Plan RESP FAILURE PROBABLE ASP PNEUMONIA FEVER/ LEUKOCYTOSIS LACTIC ACIDOSIS R/O BOWEL OBSTRUCTION CONTINUE EMPIRIC ZOSYN VENTILATORY SUPPORT
[2019-10-18] MEDS: MUPIROCIN 2% TOPICAL OINTMENT FOR DECOLONIZATION NS SCH ×2 (10:32→22:08)
--- NOTE | 2019-10-18 11:16 | PN ---
Teaching Attending Note Name of Resident: Ashutosh Larson ATTENDING PHYSICIAN STATEMENT I saw and evaluated the patient. I reviewed the resident's note and discussed the case with the resident. I agree with the resident's findings and plan as documented. SUBJECTIVE: Patient awake and alert, intubated. OBJECTIVE: Vital Signs Period Temp Pulse Resp BP Sys/Campuzano Pulse Ox Last 24 Hr 99.0 F-99.5 F 97-118 14-25 87-112/54-77 100-100 HEART: S1S2, tachycardic LUNGS: Ventilated BS ABDOMEN: Soft, less distended, tympanitic, GJ tube in place, (+) BS EXTREMITIES: Contracted, no edema Laboratory Results - last 24 hr 10/18/19 10/18/19 06:00 06:00 WBC 12.2 H RBC 3.51 L Hgb 11.2 Hct 32.0 L D MCV 91.2 MCH 31.9 MCHC 35.0 RDW 14.9 Plt Count 272 D MPV 7.1 L Sodium 140 Potassium 3.3 L Chloride 112 H Carbon Dioxide 22 Anion Gap 7 L BUN 9.8 Creatinine 0.3 L Est GFR (CKD-EPI)AfAm 171.92 Est GFR (CKD-EPI)NonAf 148.34 Random Glucose 83 Calcium 7.8 L Phosphorus 1.8 L Magnesium 2.0 Total Bilirubin 0.8 AST 21 ALT 30 Alkaline Phosphatase 70 Total Protein 5.0 L Albumin 2.3 L Current Medications Generic Name Dose Route Start Last Admin Trade Name Freq PRN Reason Stop Dose Admin Chlorhexidine Gluconate 1 applic 10/16/19 22:00 10/17/19 21:03 Hibiclens For Decolonization - TP 1 applic HS BO Administration Heparin Sodium (Porcine) 5,000 unit 10/16/19 22:00 10/18/19 05:45 Heparin - SQ 5,000 unit TID BO Administration Propofol 1,000,000 mcg in 100 mls @ 1.283 mls/hr 10/16/19 06:15 10/18/19 05: 44 Diprivan - IVPB Not Given TITR BO Protocol 5 MCG/KG/MIN Azithromycin 500 mg in 250 mls @ 250 mls/hr 10/16/19 14:15 10/18/19 09:59 Zithromax 500mg Ivpb (Pre-Docked) IVPB 250 mls/hr DAILY BO Administration Piperacillin Sod/Tazobactam 50 mls @ 100 mls/hr 10/16/19 18:00 10/18/19 09:58 Sod 3.375 gm/ Dextrose IVPB 100 mls/hr Q8H-IV BO Administration Protocol Norepinephrine Bitartrate 8, 500 mls @ 18.75 mls/hr 10/16/19 19:45 10/17/19 20:44 000 mcg/ Dextrose IV Not Given TITR BO Protocol 5 MCG/MIN Fentanyl 500 mcg/ Dextrose 100 mls @ 5 mls/hr 10/17/19 11:00 10/18/19 03:46 IVPB 25 mcg/hr TITR BO 5 mls/hr Administration Protocol 25 MCG/HR Sodium Chloride 1,000 mls @ 75 mls/hr 10/18/19 06:36 10/18/19 06:55 Normal Saline - IV 75 mls/hr ASDIR BO Administration Potassium Phosphate 20 mm/ 256.6667 mls @ 42.778 mls/hr 10/18/19 09:00 10:28 Sodium Chloride IVPB 10/18/19 14:59 42.778 mls/hr ONCE ONE Administration Levetiracetam 1,000 mg 10/17/19 10:00 10/18/19 09:58 Keppra Injection - IVPB 1,000 mg BID BO Administration Mupirocin 1 applic 10/16/19 22:00 10/18/19 10:32 Bactroban Ointment (For Decolonization) - NS 10/21/19 21:59 1 applic BID BO Administration Non-Formulary Med 10 each 10/18/19 10:00 Vitrum ( GT DAILY BO Pantoprazole Sodium 40 mg 10/17/19 10:00 10/18/19 09:57 Protonix Iv IVPUSH 40 mg DAILY BO Administration ASSESSMENT AND PLAN: This is a 33 year old woman with a history of developmental delay, cognitive deficit, functional quadriplegia, retinal detachment, scoliosis, osteoporosis, GERD, PEG who was sent to the ED from [place] because of hypoxia and respiratory distress. 1. Septic shock (leukocytosis, tachycardia, lactic acid 6.0) and acute hypoxic respiratory failure secondary to pneumonia - Vent management as per ICU team - Continue Zosyn, Zithromax - WBC, lactic acid improving - Blood cultures negative after 48 hours - Sputum culture growing gram neg rods - Legionella, Pneumococcus Ag negative 2. 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 Developmental delay with cognitive deficit and functional quadriplegia - Continue Keppra - Baclofen, tizanidine on hold until able to take meds via G-tube 4. GERD - Continue Protonix
[2019-10-18] MEDS ORDERED: AMINO ACIDS 4.25%/D5W 1,000 ML IV SCH ×2 (11:30→17:24)
--- NOTE | 2019-10-18 11:38 | PN ---
Teaching Attending Note Name of Resident: Heather Graf ATTENDING PHYSICIAN STATEMENT I saw and evaluated the patient. I reviewed the resident's note and discussed the case with the resident. I agree with the resident's findings and plan as documented. SUBJECTIVE: Pt seen and examined in the ICU. Remains intubated, sedated. No fevers recorded. Still with significant NGT output. No BM. OBJECTIVE: Vital Signs Period Temp Pulse Resp BP Sys/Campuzano Pulse Ox Last 24 Hr 99.0 F-99.5 F 97-118 14-25 87-112/54-77 100-100 Intake & Output 10/15/19 10/16/19 10/17/19 10/18/19 23:59 23:59 23:59 23:59 Intake Total 3400 3353 988 Output Total 2520 3300 850 Balance 880 53 138 Weight 44.2 kg 44.6 kg 44.7 kg Gen: intubated, sedated Heart: RRR Lung: scattered rhonchi Abd: softly distended Ext: no edema CBC, BMP 10/18/19 06:00 10/18/19 06:00 Active Medications Chlorhexidine Gluconate (Hibiclens For Decolonization -) 1 applic TP HS BO Last Admin: 10/17/19 21:03 Dose: 1 applic Heparin Sodium (Porcine) (Heparin -) 5,000 unit SQ TID BO Last Admin: 10/18/19 05:45 Dose: 5,000 unit Propofol (Diprivan -) 1,000,000 mcg in 100 mls @ 1.283 mls/hr IVPB TITR BO; Protocol Last Admin: 10/18/19 05:44 Dose: Not Given Azithromycin (Zithromax 500mg Ivpb (Pre-Docked)) 500 mg in 250 mls @ 250 mls/ hr IVPB DAILY BO Last Admin: 10/18/19 09:59 Dose: 250 mls/hr Piperacillin Sod/Tazobactam (Sod 3.375 gm/ Dextrose) 50 mls @ 100 mls/hr IVPB Q8H-IV BO; Protocol Last Admin: 10/18/19 09:58 Dose: 100 mls/hr Norepinephrine Bitartrate 8, (000 mcg/ Dextrose) 500 mls @ 18.75 mls/hr IV TITR BO; Protocol Last Admin: 10/17/19 20:44 Dose: Not Given Fentanyl 500 mcg/ Dextrose 100 mls @ 5 mls/hr IVPB TITR BO; Protocol Last Admin: 10/18/19 03:46 Dose: 25 mcg/hr, 5 mls/hr Sodium Chloride (Normal Saline -) 1,000 mls @ 75 mls/hr IV ASDIR BO Last Admin: 10/18/19 06:55 Dose: 75 mls/hr Potassium Phosphate 20 mm/ (Sodium Chloride) 256.6667 mls @ 42.778 mls/hr IVPB ONCE ONE Stop: 10/18/19 14:59 Last Admin: 10/18/19 10:28 Dose: 42.778 mls/hr Amino Acids (Clinimix -) 1,000 mls @ 42 mls/hr IV Q24H BO Levetiracetam (Keppra Injection -) 1,000 mg IVPB BID [facility] Last Admin: 10/18/19 09:58 Dose: 1,000 mg Mupirocin (Bactroban Ointment (For Decolonization) -) 1 applic NS BID [facility] Stop: 10/21/19 21:59 Last Admin: 10/18/19 10:32 Dose: 1 applic Non-Formulary Med (Vitrum () 10 each GT DAILY [facility] Pantoprazole Sodium (Protonix Iv) 40 mg IVPUSH DAILY [facility] Last Admin: 10/18/19 09:57 Dose: 40 mg ASSESSMENT AND PLAN: Acute Hypoxic Respiratory Failure Pneumonia likely Aspiration ARDS Small Bowel Obstruction r/o SMA Syndrome Severe Sepsis Lactic Acidosis Mental Retardation GERD - continue antibiotics to cover aspiration - NGT to ILWS - start clinimix - replete lytes - monitor urine output, creatinine - titrate FiO2, PEEP to keep SpO2 >90% - monitor Ppeak, Pplat - inhaled bronchodilators - hold sedation, spontaneous breathing trials as tolerated - surgery input appreciated, may need transfer to tertiary care center - DVT/GI prophylaxis - continue ICU monitoring critical care time spent in reviewing chart, evaluating patient and formulating plan 35 min
--- NOTE | 2019-10-18 13:50 | PN ---
Physical Exam: SUBJECTIVE: Patient seen and examined. No acute events overnight. OBJECTIVE: Vital Signs Period Temp Pulse Resp BP Sys/Campuzano Pulse Ox Last 24 Hr 99.0 F-99.5 F 97-118 14-25 96-112/54-77 98-100 GENERAL: Intubated and sedated. HEAD: Normal with no signs of trauma. EYES: PERRL, extraocular movements intact, sclera anicteric, conjunctiva clear. No ptosis. ENT: Ears normal, nares patent, oropharynx clear without exudates, moist mucous membranes. NGT in place and ETT in place NECK: Trachea midline, full range of motion, supple. LUNGS: Breath sounds equal, clear to auscultation bilaterally, no wheezes, no crackles, no accessory muscle use. HEART: Regular rate and rhythm, S1, S2 without murmur, rub or gallop. ABDOMEN: Soft, nontender, nondistended, normoactive bowel sounds, no guarding, no rebound, no hepatosplenomegaly, no masses. 10-15cm diagonal abdominal incisional scar, well healed. Rigo-valverde feeding tube in place. GJ tube in place, tubing is yellow and discolored. EXTREMITIES: 2+ pulses, warm, well-perfused, no edema. NEUROLOGICAL: Sedated SKIN: Warm, dry, normal turgor, no rashes or lesions noted Laboratory Results - last 24 hr CBC, BMP 10/18/19 06:00 10/18/19 06:00 Active Medications Chlorhexidine Gluconate (Hibiclens For Decolonization -) 1 applic TP HS [facility] Last Admin: 10/17/19 21:03 Dose: 1 applic Heparin Sodium (Porcine) (Heparin -) 5,000 unit SQ TID [facility] Last Admin: 10/18/19 05:45 Dose: 5,000 unit Propofol (Diprivan -) 1,000,000 mcg in 100 mls @ 1.283 mls/hr IVPB TITR [facility]; Protocol Last Admin: 10/18/19 05:44 Dose: Not Given Azithromycin (Zithromax 500mg Ivpb (Pre-Docked)) 500 mg in 250 mls @ 250 mls/hr IVPB DAILY [facility] Last Admin: 10/18/19 09:59 Dose: 250 mls/hr Piperacillin Sod/Tazobactam (Sod 3.375 gm/ Dextrose) 50 mls @ 100 mls/hr IVPB Q8H-IV BO; Protocol Last Admin: 10/18/19 09:58 Dose: 100 mls/hr Norepinephrine Bitartrate 8, (000 mcg/ Dextrose) 500 mls @ 18.75 mls/hr IV TITR BO; Protocol Last Admin: 10/17/19 20:44 Dose: Not Given Fentanyl 500 mcg/ Dextrose 100 mls @ 5 mls/hr IVPB TITR BO; Protocol Last Admin: 10/18/19 03:46 Dose: 25 mcg/hr, 5 mls/hr Sodium Chloride (Normal Saline -) 1,000 mls @ 75 mls/hr IV ASDIR BO Last Admin: 10/18/19 06:55 Dose: 75 mls/hr Potassium Phosphate 20 mm/ (Sodium Chloride) 256.6667 mls @ 42.778 mls/hr IVPB ONCE ONE Stop: 10/18/19 14:59 Last Admin: 10/18/19 10:28 Dose: 42.778 mls/hr Amino Acids (Clinimix -) 1,000 mls @ 42 mls/hr IV Q24H BO Levetiracetam (Keppra Injection -) 1,000 mg IVPB BID BO Last Admin: 10/18/19 09:58 Dose: 1,000 mg Mupirocin (Bactroban Ointment (For Decolonization) -) 1 applic NS BID [facility] Stop: 10/21/19 21:59 Last Admin: 10/18/19 10:32 Dose: 1 applic Non-Formulary Med (Vitrum () 10 each GT DAILY [facility] Pantoprazole Sodium (Protonix Iv) 40 mg IVPUSH DAILY [facility] Last Admin: 10/18/19 09:57 Dose: 40 mg ASSESSMENT/PLAN: Patient is a 33 yo f w/ pmh 29week premature , profound mental delay, chronic seizures, congenital quadriplegia, retinal detachment, recurrent GERD s/p Neissen, s/p GJ-ostomy, s/p gastrostomy, cataracts, scoliosis, osteoporosis, anemia who presents for evaluation of from [facility] for evaluation of respiratory distress. Intubated in the field Neuro -Severe MR -Chronic seizures -Sedated -Maintain sedation for vent synchrony -Cont home Keprra 1000mg BID Pulmonary -Respiratory Distress --possibly 2/2 Aspiration PNA -CXR(10/17/19): prominent mediastinum, fullness of Right hilum, fullness of Right paratracheal soft tissues. Left mid and Lower infiltrate -Influ: neg -Respir Panel --pending final results -Intubated -Lung imaging concerning for ARDS, will begin lung protective ventilation -IV Abx -ID following (Dr. Valdez): cont zosyn and azithromycin Cardiovascular -Tachycardia --likely 2/2 sepsis and pain(chronic and acute abd) -MAPs 70s off pressors -Right IJ CVC inserted for better access/ in anticipation of pressor requirements GI -NGT bleeding --likely 2/2 mucosal irritation from high pressure suction -SBO --likely 2/2 SMA Syndrome vs small bowel obstruction vs colonic dysmotility -Elevated Tbil --downtrending -High output NGT -CT AP shows possible SMA syndrome with resulting duodenal distension proximal to the third portion of the duodenum -Surgery consult (Dr. Patricio): --no surgical intervention from his end at this time --recommends vascular surgery consultation for intervention --consider transfer to tertiary care center -Vascular surgery consulted (Dr. Lal): f/u rec's -NPO, begin clinimix -Patient has G tube and J tube, both of which are clogged ID -Possible Aspiration PNA -Lactic acidosis --resolving -UA: 3+ LE, WBC 109, neg nitrite -Blood cx: NGTD -Sputum cx: non lactose fermenting Gnb, lactose fermenting neg bacilli -Urine for Antigen: neg -Lactic Acid: 2.8, 6.0, 2.9 -ID(José Miguel) consulted: IV abx: Zosyn + Azithromycin FEN -D/c fluids -monitor lytes, replete PRN -Begin clinimix DVT ppx -SQH Dispo -patient requires ICU monitoring Visit type - Emergency Visit Emergency Visit: No - New Patient This patient is new to me today: No - Critical Care Critical Care patient: Yes Total Critical Care Time (in minutes): 45 Critical Care Statement: The care of this patient involved high complexity decision making to prevent further life threatening deterioration of the patient's condition and/or to evaluate & treat vital organ system(s) failure or risk of failure. ATTENDING PHYSICIAN STATEMENT I saw and evaluated the patient. I reviewed the resident's note and discussed the case with the resident. I agree with the resident's findings and plan as documented. SUBJECTIVE: OBJECTIVE: ASSESSMENT AND PLAN:
[2019-10-18] MEDS ORDERED: ACETAMINOPHEN 1000 MG/100 ML VIAL (NON FORMULARY) IVPB PRN (14:06)
[2019-10-18] MEDS: CHLORHEXIDINE GLUCONATE 4% CLEANSER FOR DECOLONIZATION TP SCH (22:05)
[2019-10-18] MEDS: NOREPINEPHRINE BITARTRATE 8,000 MCG in DEXTROSE 5%-WATER - 492 ML IV SCH (22:06)
[2019-10-19] MEDS ORDERED: PIPERACILLIN/TAZOBACTAM 3.375 GM VIAL IVPB ONE ×3 (00:35→16:57)
[2019-10-19] MEDS ORDERED: DEXTROSE 5%-WATER - 50 ML IVPB ONE ×3 (00:36→16:57)
[2019-10-19] MEDS: PIPERACILLIN/TAZOB 3.375 GM 3.375 GM in DEXTROSE 5%-WATER - 50 ML IVPB SCH ×3 (01:25→16:59)
[2019-10-19] MEDS ORDERED: fentaNYL CITRATE 250 MCG/5 ML VIAL ONE (05:54)
[2019-10-19] MEDS: HEPARIN NA (PORCINE) 5,000 UNITS/ML 1ML VIAL SQ SCH ×3 (06:00→22:16)
[2019-10-19 07:07] LABS: ALBUMIN 2.3 g/dl (3.4-5.0); BILIRUBIN,TOTAL 0.9 mg/dL (0.2-1); BLOOD UREA NITROGEN 6.5 mg/dL (7-18); CALCIUM 7.8 mg/dL (8.5-10.1); CREATININE 0.2 mg/dL (0.55-1.3); MAGNESIUM 1.7 mg/dL (1.8-2.4); PHOSPHOROUS 1.5 mg/dL (2.5-4.9); POTASSIUM 3.1 mmol/L (3.5-5.1); TOT PROT 5.1 g/dl (6.4-8.2)
[2019-10-19 07:07] LABS: BASO % 0.3 % (0-2.0); EOS % 0.5 % (0-4.5); HEMATOCRIT 30.4 % (32.4-45.2); HEMOGLOBIN 10.7 GM/dL (10.7-15.3); LYMPH % 8.6 % (8-40); MCH 31.8 pg (25.7-33.7); MCHC 35.2 g/dl (32.0-36.0); MEAN CELL VOLUME 90.2 fl (80-96); MEAN PLT VOLUME 7.2 fl (7.5-11.1); MONO % 5.7 % (3.8-10.2); NEUT % 84.9 % (42.8-82.8); PLATELET COUNT 273 K/MM3 (134-434); RBC 3.37 M/mm3 (3.60-5.2); RDW 14.5 % (11.6-15.6); WHITE BLOOD COUNT 11.3 K/mm3 (4.0-10.0)
[2019-10-19] MEDS ORDERED: MAGNESIUM SULF 50% (8.12 MEQ/2 ML-1 GM VIAL) IVPB ONE (07:22)
--- NOTE | 2019-10-19 07:30 | PN ---
Physical Exam: SUBJECTIVE: Patient seen and examined in icu. pt extubated and Reintubated after weaning trial as pt with high peak pressures and unable to pass suction catheter. Noted to have thick mucous plug obstructing old ETT. Aferbile overnight. OBJECTIVE: Vital Signs Period Temp Pulse Resp BP Sys/Campuzano Pulse Ox Last 24 Hr 99.5 F-100.5 F 90-112 11-23 84-111/60-75 98-100 GENERAL: The patient is intubated and sedated, pt responsive to noxious stimuli. EYES: PERRL, extraocular movements intact, sclera anicteric, conjunctiva clear. No ptosis. NECK: supple. LUNGS: coarse breath sounds b/l, no wheezing or crackles appreciated. HEART: Regular rate and rhythm, S1, S2 without murmur, rub or gallop. ABDOMEN: Soft, nontender, less distended than yesterday, less tympanitic, peg tube in place, scar from prior surgery noted across abdomen. EXTREMITIES: 2+ pulses, warm, well-perfused, no edema. NEUROLOGICAL: intubated and sedated, responsive to noxious stimuli. Laboratory Results - last 24 hr 10/19/19 10/19/19 05:30 06:00 WBC 11.3 H RBC 3.37 L Hgb 10.7 Hct 30.4 L MCV 90.2 MCH 31.8 MCHC 35.2 RDW 14.5 Plt Count 273 MPV 7.2 L Absolute Neuts (auto) 9.6 H Neutrophils % 84.9 H Lymphocytes % 8.6 Monocytes % 5.7 Eosinophils % 0.5 D Basophils % 0.3 Nucleated RBC % 0 Sodium 137 Potassium 3.1 L Chloride 106 Carbon Dioxide 25 Anion Gap 7 L BUN 6.5 L Creatinine 0.2 L Est GFR (CKD-EPI)AfAm 196.46 Est GFR (CKD-EPI)NonAf 169.51 Random Glucose 110 H Calcium 7.8 L Phosphorus 1.5 L Magnesium 1.7 L Total Bilirubin 0.9 AST 30 ALT 30 Alkaline Phosphatase 74 Total Protein 5.1 L Albumin 2.3 L Active Medications Generic Name Dose Route Start Last Admin Trade Name Freq PRN Reason Stop Dose Admin Acetaminophen 650 mg 10/18/19 14:06 10/18/19 15:00 Ofirmev Injection - IVPB 10/19/19 14:05 650 mg Q6H PRN Administration FEVER Chlorhexidine Gluconate 1 applic 10/16/19 22:00 10/18/19 22:05 Hibiclens For Decolonization - TP 1 applic HS BO Administration Heparin Sodium (Porcine) 5,000 unit 10/16/19 22:00 10/18/19 22:06 Heparin - SQ 5,000 unit TID BO Administration Propofol 1,000,000 mcg in 100 mls @ 1.283 mls/hr 10/16/19 06:15 10/18/19 16:31 Diprivan - IVPB 25 mcg/kg/min TITR BO 6.416 mls/hr Administration Protocol 5 MCG/KG/MIN Piperacillin Sod/Tazobactam 50 mls @ 100 mls/hr 10/16/19 18:00 10/19/19 01:25 Sod 3.375 gm/ Dextrose IVPB 100 mls/hr Q8H-IV BO Administration Protocol Norepinephrine Bitartrate 8, 500 mls @ 18.75 mls/hr 10/16/19 19:45 10/18/19 22:06 000 mcg/ Dextrose IV Not Given TITR BO Protocol 5 MCG/MIN Fentanyl 500 mcg/ Dextrose 100 mls @ 5 mls/hr 10/17/19 11:00 10/18/19 22:08 IVPB 25 mcg/hr TITR BO 5 mls/hr Administration Protocol 25 MCG/HR Amino Acids 1,000 mls @ 60 mls/hr 10/18/19 17:24 10/18/19 17:41 Clinimix - IV 60 mls/hr Q16H BO Administration Potassium Chloride 10 meq in 100 mls @ 100 mls/hr 10/19/19 07:30 Potassium Chloride 10 Meq Premix Ivpb - IVPB 10/19/19 10:29 Q60M BO Levetiracetam 1,000 mg 10/17/19 10:00 10/18/19 21:49 Keppra Injection - IVPB 1,000 mg BID BO Administration Magnesium Sulfate 2 gm 10/19/19 07:22 Magnesium Sulfate IVPB 10/19/19 07:23 ONCE ONE Mupirocin 1 applic 10/16/19 22:00 10/18/19 22:08 Bactroban Ointment (For Decolonization) - NS 10/21/19 21:59 1 applic BID BO Administration Non-Formulary Med 10 each 10/18/19 10:00 Vitrum ( GT DAILY BO Pantoprazole Sodium 40 mg 10/17/19 10:00 10/18/19 09:57 Protonix Iv IVPUSH 40 mg DAILY BO Administration ASSESSMENT/PLAN: Patient is a 33 year old female with past medical history of developmental delay, congenital quadriplegia, retinal detachment, gastrostomy, cataracts, scoliosis, osteoporosis, GERD, and J-tube placement, was brought in from [facility] after she was found to be in respiratory distress. #Severe Sepsis 2/2CAP, possibly aspiration -Leukocytosis and hypotension responsive to IVF boluses -Chest CT: Patchy consolidation left upper lobe. - CXR showing NG tube in LUQ/stomach, mediastinal fullness in rt hilum, retained stool, AXR showing retained stool in transverse colon/rt colon dilation, scoliosis. -c/w empiric Zosyn for aspiration pna coverage, dc azithromycin -ID (Dr. Valdez) consulted. -Blood cultures negative for 48 hrs -Urine legionella/strep pneumonia negative -Sputum cultures: non lactose fermenting Gnb, lactose fermenting neg bacilli -viral panel pending -lactic acidosis downtrending #Acute hypoxic respiratory failure likely 2/2 pneumonia -on [facility] vent support -inhaled bronchodilators -IV Zosyn -continue ICU monitoring #SMA syndrome -CT abdomen: There appears to be an obstruction of the third duodenum as it crosses the midline. Suspicious for SMA syndrome. - will consult vascular (Dr. Bolaños) to obtain recommendations for possible surgical intervention. Recommended CTA which is pending read. -Surgery consulted (Sheng) no surgical intervention at this time, ? regarding tertiary care center intervention. -will keep patient NPO, w/ NG tube decompression -OGT #FEN -IV NS @125cc/hr -Hypokalemia , hypomag, hypophos repleted will rpt in AM. -NPO #Prophylaxis -Heparin 5000u sq tid - IV 40 daily protonix #Disposition -full code -ICU for closer monitoring Visit type - Emergency Visit Emergency Visit: Yes ED Registration Date: 10/16/19 Care time: The patient presented to the Emergency Department on the above date and was hospitalized for further evaluation of their emergent condition. - New Patient This patient is new to me today: No - Critical Care Critical Care patient: Yes Total Critical Care Time (in minutes): 35 Critical Care Statement: The care of this patient involved high complexity decision making to prevent further life threatening deterioration of the patient's condition and/or to evaluate & treat vital organ system(s) failure or risk of failure. - Discharge Referral Referred to [facility] No ATTENDING PHYSICIAN STATEMENT I saw and evaluated the patient. I reviewed the resident's note and discussed the case with the resident. I agree with the resident's findings and plan as documented. SUBJECTIVE: OBJECTIVE: ASSESSMENT AND PLAN:
[2019-10-19] MEDS: PROPOFOL 1,000,000 MCG/100 ML VIAL IVPB SCH (07:45)
[2019-10-19] MEDS: KCL 10 MEQ IVPB 10 MEQ/100 ML INFUS.BAG IVPB SCH ×3 (07:50→11:56)
[2019-10-19] MEDS ORDERED: PT OWN MED DRAWER 7, Y5N ONE (08:52)
[2019-10-19] MEDS: PANTOPRAZOLE SODIUM 40 MG VIAL IVPUSH SCH (09:02)
[2019-10-19] MEDS ORDERED: ALBUTEROL SO4 0.042% IH SOL 1.25 MG/3 ML VIAL.NEB NEB PRN (09:28)
[2019-10-19] MEDS ORDERED: ACETYLCYSTEINE 20% 200MG/ML 30 ML VIAL *FOR ORAL / INH USE ONLY NEB SCH (09:29)
[2019-10-19] MEDS ORDERED: POTASSIUM PHOSPHATE 30 MM in SODIUM CHLORIDE 250 ML IVPB ONE (09:30)
--- NOTE | 2019-10-19 09:33 | PN ---
Physical Exam: SUBJECTIVE: Patient seen and examined In AM: desaturating while off sedation. Thick secretions. ETT exchanged OBJECTIVE: Vital Signs Period Temp Pulse Resp BP Sys/Campuzano Pulse Ox Last 24 Hr 99.5 F-100.5 F 90-112 11-23 84-111/60-75 98-99 GENERAL: intubated and sedated. Small stature HEAD: NC/AT EYES: sclera anicteric, conjunctiva clear and w/o pallor ENT: Ears normal, nares patent, NGT in place with thick dark green contents, ETT tube in place NECK: Trachea midline, full range of motion, supple. LUNGS: Breath sounds equal, mechanical BS bilaterally, no wheezes, no crackles. Intubated HEART: tachy and reg rhythm, S1, S2 without murmur, rub or gallop. ABDOMEN: Soft, distended and tympanic, hypoactive bowel sounds. mid abd w/ >10- 15cm diagonal abd incisional scar, well healed. Rigo-valverde feeding tube in place. GJ tube in place, tubing is yellow and discolored RECTAL: thin brown stool on glove, no palpable stool impaction EXTREMITIES: 2+ pulses,well-perfused, no edema. Thin upper and lower extremities. Left foot is warm, 2+ PT pulse; no cyanosis or mottling noted. NEUROLOGICAL: intubated and sedated(Propofol) SKIN: Warm, dry, normal turgor, no rashes or lesions noted Laboratory Results - last 24 hr 10/19/19 10/19/19 05:30 06:00 WBC 11.3 H RBC 3.37 L Hgb 10.7 Hct 30.4 L MCV 90.2 MCH 31.8 MCHC 35.2 RDW 14.5 Plt Count 273 MPV 7.2 L Absolute Neuts (auto) 9.6 H Neutrophils % 84.9 H Lymphocytes % 8.6 Monocytes % 5.7 Eosinophils % 0.5 D Basophils % 0.3 Nucleated RBC % 0 Sodium 137 Potassium 3.1 L Chloride 106 Carbon Dioxide 25 Anion Gap 7 L BUN 6.5 L Creatinine 0.2 L Est GFR (CKD-EPI)AfAm 196.46 Est GFR (CKD-EPI)NonAf 169.51 Random Glucose 110 H Calcium 7.8 L Phosphorus 1.5 L Magnesium 1.7 L Total Bilirubin 0.9 AST 30 ALT 30 Alkaline Phosphatase 74 Total Protein 5.1 L Albumin 2.3 L Active Medications Generic Name Dose Route Start Last Admin Trade Name Freq PRN Reason Stop Dose Admin Acetaminophen 650 mg 10/18/19 14:06 10/18/19 15:00 Ofirmev Injection - IVPB 10/19/19 14:05 650 mg Q6H PRN Administration FEVER Acetylcysteine 200 mg 10/19/19 09:29 Mucomyst 20 Oral / Inh Use Only* NEB RQID BO Acetylcysteine 200 mg 10/19/19 09:29 Mucomyst 20 Oral / Inh Use Only* NEB RQID BO Albuterol Sulfate 1 amp 10/19/19 09:28 Ventolin 0.042trength) - NEB Q4H PRN SHORT OF BREATH/WHEEZING Albuterol Sulfate 1 amp 10/19/19 09:30 Ventolin 0.083% Nebulizer Soln - NEB Q4H PRN SHORT OF BREATH/WHEEZING Chlorhexidine Gluconate 1 applic 10/16/19 22:00 10/18/19 22:05 Hibiclens For Decolonization - TP 1 applic HS BO Administration Heparin Sodium (Porcine) 5,000 unit 10/16/19 22:00 10/18/19 22:06 Heparin - SQ 5,000 unit TID BO Administration Propofol 1,000,000 mcg in 100 mls @ 1.283 mls/hr 10/16/19 06:15 10/19/19 08: 00 Diprivan - IVPB 0 mcg/kg/min TITR BO 0 mls/hr Titration Protocol 5 MCG/KG/MIN Piperacillin Sod/Tazobactam 50 mls @ 100 mls/hr 10/16/19 18:00 10/19/19 09:00 Sod 3.375 gm/ Dextrose IVPB 100 mls/hr Q8H-IV BO Administration Protocol Norepinephrine Bitartrate 8, 500 mls @ 18.75 mls/hr 10/16/19 19:45 10/18/19 22:06 000 mcg/ Dextrose IV Not Given TITR BO Protocol 5 MCG/MIN Fentanyl 500 mcg/ Dextrose 100 mls @ 5 mls/hr 10/17/19 11:00 10/18/19 22:08 IVPB 25 mcg/hr TITR BO 5 mls/hr Administration Protocol 25 MCG/HR Amino Acids 1,000 mls @ 60 mls/hr 10/18/19 17:24 10/18/19 17:41 Clinimix - IV 60 mls/hr Q16H BO Administration Potassium Chloride 10 meq in 100 mls @ 100 mls/hr 10/19/19 07:30 10/19/19 08:59 Potassium Chloride 10 Meq Premix Ivpb - IVPB 10/19/19 10:29 100 mls/hr Q60M BO Administration Potassium Phosphate 30 mm/ 260 mls @ 43.333 mls/hr 10/19/19 09:30 Sodium Chloride IVPB 10/19/19 15:29 ONCE ONE Levetiracetam 1,000 mg 10/17/19 10:00 10/18/19 21:49 Keppra Injection - IVPB 1,000 mg BID BO Administration Mupirocin 1 applic 10/16/19 22:00 10/18/19 22:08 Bactroban Ointment (For Decolonization) - NS 10/21/19 21:59 1 applic BID BO Administration Non-Formulary Med 10 each 10/18/19 10:00 Vitrum ( GT DAILY BO Pantoprazole Sodium 40 mg 10/17/19 10:00 10/19/19 09:02 Protonix Iv IVPUSH 40 mg DAILY BO Administration ASSESSMENT/PLAN: 33 yo f w/ pmh 29week premature , profound mental delay, chronic seizures, congenital quadriplegia, retinal detachment, recurrent GERD s/p Neissen, s/p GJ- ostomy, s/p gastrostomy, cataracts, scoliosis, osteoporosis, anemia who presents for evaluation of from [facility] for evaluation of respiratory distress. Intubated in the field. Being treated for presumptive aspiration PNA and SBO 2/2 ?SMA syndrome NEURO # severe MR # chronic Seizures -sedated -maintain sedation for vent synchrony -home Keprra 1000mg BID RESPIR # Respiratory Distress --possibly 2/2 Aspiration PNA > CXR(10/17/19): prominent mediastinum, fullness of Right hilum, fullness of Right paratracheal soft tissues. Left mid and Lower infiltrate > Influ: neg > Respir Panel --pending final results -Intubated -lung imaging concerning for ARDS, will begin lung protective ventilation -IV Abx -Mucomyst -ID(José Miguel) consult --zosyn + azithromycin CARDIO # tachycardia --likely 2/2 sepsis and pain(chronic and acute abd) -MAPs 70s off pressors -right IJ CVC inserted for access and possible pressor needs GI # NGT bleeding --likely 2/2 mucosal irritation from high pressure suction # SBO --likely 2/2 SMA Syndrome vs small bowel obstruction vs enteric dysmotility # Elevated Tbil --downtrending # high output NGT > Tbil: 1.6, 1.2, 0.8, 0.9 > CT AP shows possible SMA syndrome with resulting duodenal distension proximal to the third portion of the duodenum -close monitoring of electrolytes after GI losses -Surgery(Sheng) Consult: --cw current mgmt of NGT decompression -Vascul Surg(Miky) Consult: --CTA Abd then recs pending -NPO -patient has clogged G-J tube ID # possible Aspiration PNA # lactic acidosis --resolving > UA: 3+ LE, WBC 109, neg nitrite > BCX --pending > Sputum Cx(10/16/19): Ecoli, Lactos-Fermenting GNR, Staph Coag Positive > Urine for Antigen: negative > Lactic Acid: 2.8, 6.0, 2.9 > Respir Viral Panel: --neg influ(A/B) --pending rest -ID(José Miguel) consulted: --iv abx: Zosyn #FEN -no IVF -monitor lytes, replete PRN -NPO #Prophy -SQH -pantoprazole #Dispo -patient requires ICU monitoring FULL CODE Visit type - Emergency Visit Emergency Visit: No - New Patient This patient is new to me today: No - Critical Care Critical Care patient: Yes Total Critical Care Time (in minutes): 36 Critical Care Statement: The care of this patient involved high complexity decision making to prevent further life threatening deterioration of the patient's condition and/or to evaluate & treat vital organ system(s) failure or risk of failure. ATTENDING PHYSICIAN STATEMENT I saw and evaluated the patient. I reviewed the resident's note and discussed the case with the resident. I agree with the resident's findings and plan as documented. SUBJECTIVE: OBJECTIVE: ASSESSMENT AND PLAN:
[2019-10-19] MEDS ORDERED: RAPID SEQUENCE INTUBATION KIT NR ONE (10:06)
[2019-10-19] MEDS: MUPIROCIN 2% TOPICAL OINTMENT FOR DECOLONIZATION NS SCH ×2 (10:30→22:17)
[2019-10-19] MEDS: levETIRAcetam 500 MG/5 ML INJECTION VIAL IVPB SCH ×2 (10:38→22:15)
--- NOTE | 2019-10-19 11:08 | PROC ---
<Moo Lazaro - Last Filed: 10/19/19 11:12> Intubation - Intubation Reason for Intubation: Other (reintubation 2/2 mucus plugging of original tube) Time of Intubation: 10:10 Intubation Method: orotracheal Blade used: Mac Tube Size (cm): 7.0 Tube position @ lip (cm): 20 Tube position confirmed by: Direct visualization, CO2 detector, Chest x-ray, Breath sounds Breath Sounds after Intubation: equal Post Intubation Xray: Yes <Eulogio Chauhan MD - Last Filed: 10/19/19 11:53> Procedure Note Procedure: I supervised and was present during the entire procedure. Eulogio Chauhan MD
[2019-10-19 11:26] LABS: PLATELET ESTIMATE ADEQUATE
[2019-10-19] MEDS: POTASSIUM PHOSPHATE IVPB SCH (11:56)
[2019-10-19] MEDS: AMINO ACIDS IVPB SCH (11:56)
[2019-10-19] MEDS: MAGNESIUM SULFATE IVPB SCH (11:56)
[2019-10-19] MEDS: FENTANYL INJECTION 500 MCG in DEXTROSE 5%-WATER - 90 ML IVPB SCH (11:56)
[2019-10-19] MEDS: [UNRECOGNIZED DRUG - OTHER] IVPB SCH (11:56)
--- NOTE | 2019-10-19 11:58 | PN ---
Teaching Attending Note Name of Resident: Jose Morrison ATTENDING PHYSICIAN STATEMENT I saw and evaluated the patient. I reviewed the resident's note and discussed the case with the resident. I agree with the resident's findings and plan as documented. SUBJECTIVE: Pt seen and examined in the ICU. Reintubated as pt with high peak pressures and unable to pass suction catheter. Noted to have thick mucous plug obstructing old ETT. OBJECTIVE: Vital Signs Period Temp Pulse Resp BP Sys/Campuzano Pulse Ox Last 24 Hr 99.5 F-100.5 F 90-112 11-23 84-111/60-72 98-99 Intake & Output 10/16/19 10/17/19 10/18/19 10/19/19 23:59 23:59 23:59 23:59 Intake Total 3400 3353 3375 Output Total 2520 3300 1225 Balance 237 27 6451 Weight 44.2 kg 44.6 kg 44.452 kg Gen: intubated, sedated Heart: RRR Lung: bilateral scattered rhonchi Abd: distended, nontender Ext: no edema CBC, BMP 10/19/19 05:30 10/19/19 06:00 Active Medications Acetaminophen (Ofirmev Injection -) 650 mg IVPB Q6H PRN PRN Reason: FEVER Stop: 10/19/19 14:05 Last Admin: 10/18/19 15:00 Dose: 650 mg Documented by: Acetylcysteine (Mucomyst 20 Oral / Inh Use Only*) 200 mg NEB RQID BO Albuterol Sulfate (Ventolin 0.083% Nebulizer Soln -) 1 amp NEB Q4H PRN PRN Reason: SHORT OF BREATH/WHEEZING Chlorhexidine Gluconate (Hibiclens For Decolonization -) 1 applic TP HS BO Last Admin: 10/18/19 22:05 Dose: 1 applic Documented by: Heparin Sodium (Porcine) (Heparin -) 5,000 unit SQ TID BO Last Admin: 10/18/19 22:06 Dose: 5,000 unit Documented by: Propofol (Diprivan -) 1,000,000 mcg in 100 mls @ 1.283 mls/hr IVPB TITR BO; Protocol Last Titration: 10/19/19 10:00 Dose: 25 mcg/kg/min, 6.416 mls/hr Documented by: Piperacillin Sod/Tazobactam (Sod 3.375 gm/ Dextrose) 50 mls @ 100 mls/hr IVPB Q8H-IV BO; Protocol Last Admin: 10/19/19 09:00 Dose: 100 mls/hr Documented by: Norepinephrine Bitartrate 8, (000 mcg/ Dextrose) 500 mls @ 18.75 mls/hr IV TITR [facility]; Protocol Last Admin: 10/18/19 22:06 Dose: Not Given Documented by: Fentanyl 500 mcg/ Dextrose 100 mls @ 5 mls/hr IVPB TITR BO; Protocol Last Admin: 10/19/19 11:56 Dose: 25 mcg/hr, 5 mls/hr Documented by: Potassium Phosphate 30 mm/ (Sodium Chloride) 260 mls @ 43.333 mls/hr IVPB ONCE ONE Stop: 10/19/19 15:29 Potassium Phosphate 40 mm/Magnesium Sulfate 2 gm/ Amino Acids 1,017.3333 mls @ 60 mls/hr IVPB Q16H [facility] Last Admin: 10/19/19 11:56 Dose: 60 mls/hr Documented by: Levetiracetam (Keppra Injection -) 1,000 mg IVPB BID [facility] Last Admin: 10/19/19 10:38 Dose: 1,000 mg Documented by: Mupirocin (Bactroban Ointment (For Decolonization) -) 1 applic NS BID [facility] Stop: 10/21/19 21:59 Last Admin: 10/18/19 22:08 Dose: 1 applic Documented by: Non-Formulary Med (Vitrum () 10 each GT DAILY [facility] Pantoprazole Sodium (Protonix Iv) 40 mg IVPUSH DAILY [facility] Last Admin: 10/19/19 09:02 Dose: 40 mg Documented by: ASSESSMENT AND PLAN: Acute Hypoxic Respiratory Failure Pneumonia likely Aspiration ARDS Small Bowel Obstruction r/o SMA Syndrome Severe Sepsis Lactic Acidosis Mental Retardation GERD - continue antibiotics to cover aspiration - NGT to ILWS - monitor output - CTA A/P to assess mesenteric vasculature - continue clinimix - replete lytes - monitor urine output, creatinine - titrate FiO2 to keep SpO2 >90% - inhaled bronchodilators - hold sedation, spontaneous breathing trials as tolerated - DVT/GI prophylaxis - continue ICU monitoring critical care time spent in reviewing chart, evaluating patient and formulating plan 35 min
[2019-10-19] MEDS: ACETYLCYSTEINE 20% 200MG/ML 4 ML VIAL *FOR ORAL / INH USE ONLY NEB SCH ×3 (12:33→20:44)
[2019-10-19] MEDS: ALBUTEROL SO4 0.083% IH SOL 2.5 MG/3 ML VIAL.NEB. NEB PRN ×3 (12:34→20:45)
--- NOTE | 2019-10-19 18:45 | PN ---
Progress Note, Physician History of Present Illness: 33 y/o F w/ PMHx 29week premature , profound mental delay, chronic seizure s, congenital quadriplegia, retinal detachment, recurrent GERD s/p Neissen, s/p GJ-ostomy, s/p gastrostomy, cataracts, scoliosis, osteoporosis, anemia who presents for evaluation of from [facility] for evaluation of respiratory distress & was Intubated in the field and admitted with Acute Hypoxic R espiratory Failure 2/2 Pneumonia likely Aspiration . Today: Patient seen and examined at bedside ETT in place On sedation NAD - Current Medication List Current Medications: Active Medications Acetylcysteine (Mucomyst 20 Oral / Inh Use Only*) 200 mg NEB RQID BO Last Admin: 10/19/19 16:54 Dose: Not Given Documented by: Albuterol Sulfate (Ventolin 0.083% Nebulizer Soln -) 1 amp NEB Q4H PRN PRN Reason: SHORT OF BREATH/WHEEZING Last Admin: 10/19/19 16:54 Dose: 1 amp Documented by: Chlorhexidine Gluconate (Hibiclens For Decolonization -) 1 applic TP HS BO Last Admin: 10/18/19 22:05 Dose: 1 applic Documented by: Heparin Sodium (Porcine) (Heparin -) 5,000 unit SQ TID BO Last Admin: 10/19/19 16:24 Dose: 5,000 unit Documented by: Propofol (Diprivan -) 1,000,000 mcg in 100 mls @ 1.283 mls/hr IVPB TITR BO; Protocol Last Titration: 10/19/19 10:00 Dose: 25 mcg/kg/min, 6.416 mls/hr Documented by: Piperacillin Sod/Tazobactam (Sod 3.375 gm/ Dextrose) 50 mls @ 100 mls/hr IVPB Q8H-IV BO; Protocol Last Admin: 10/19/19 16:59 Dose: 100 mls/hr Documented by: Norepinephrine Bitartrate 8, (000 mcg/ Dextrose) 500 mls @ 18.75 mls/hr IV TITR BO; Protocol Last Admin: 10/18/19 22:06 Dose: Not Given Documented by: Fentanyl 500 mcg/ Dextrose 100 mls @ 5 mls/hr IVPB TITR BO; Protocol Last Admin: 10/19/19 11:56 Dose: 25 mcg/hr, 5 mls/hr Documented by: Potassium Phosphate 40 mm/Magnesium Sulfate 2 gm/ Amino Acids 1,017.3333 mls @ 60 mls/hr IVPB Q16H [facility] Last Admin: 10/19/19 11:56 Dose: 60 mls/hr Documented by: Levetiracetam (Keppra Injection -) 1,000 mg IVPB BID [facility] Last Admin: 10/19/19 10:38 Dose: 1,000 mg Documented by: Mupirocin (Bactroban Ointment (For Decolonization) -) 1 applic NS BID [facility] Stop: 10/21/19 21:59 Last Admin: 10/19/19 10:30 Dose: 1 applic Documented by: Non-Formulary Med (Vitrum () 10 each GT DAILY [facility] Pantoprazole Sodium (Protonix Iv) 40 mg IVPUSH DAILY [facility] Last Admin: 10/19/19 09:02 Dose: 40 mg Documented by: - Objective Vital Signs: Vital Signs Temperature 100 F H 10/19/19 16:25 Pulse Rate 116 H 10/19/19 18:00 Respiratory Rate 21 H 10/19/19 18:00 Blood Pressure 116/74 10/19/19 18:00 O2 Sat by Pulse Oximetry (%) 99 10/19/19 08:49 Constitutional: Yes: No Distress Cardiovascular: Yes: WNL Respiratory: Yes: Mechanically Ventilated Gastrointestinal: Yes: Normal Bowel Sounds, Soft Labs: CBC, BMP 10/19/19 05:30 10/19/19 06:00 INR, PTT INR 1.15 (0.83-1.09) H 10/16/19 06:00 Impression/Plan Impression/Plan: 2-Acute Hypoxic Respiratory Failure 2/2Pneumonia likely Aspiration MV Wean as tolerated Titrate FiO2 to keep SpO2 >90% Daily SBT/SAT I/O 3- Severe Sepsis in the setting of Aspiration Pneumonia Secretions remain thicl Bcx neg x 2 x 72 hour Sputum Cx- EColi On zosyn and zithromax Leukocytosis improving downtrending 4-Small Bowel Obstruction r/o SMA Syndrome CTA A/P to assess mesenteric vasculature-F/U Surgery consulted NPO on NGT 5- DVT Px- Heparin 5000 units TID Visit type - Emergency Visit Emergency Visit: Yes ED Registration Date: 10/16/19 Care time: The patient presented to the Emergency Department on the above date and was hospitalized for further evaluation of their emergent condition. - New Patient This patient is new to me today: Yes Date on this admission: 10/19/19 - Critical Care Critical Care patient: No - Discharge Referral Referred to [facility] No
[2019-10-19] MEDS: SCOPOLAMINE HYDROBROMIDE 1 PATCH PATCH.TD72 TD SCH (22:16)
[2019-10-19] MEDS: CHLORHEXIDINE GLUCONATE 4% CLEANSER FOR DECOLONIZATION TP SCH (22:16)
[2019-10-19] MEDS: NOREPINEPHRINE BITARTRATE 8,000 MCG in DEXTROSE 5%-WATER - 492 ML IV SCH (22:17)
[2019-10-20] MEDS ORDERED: PIPERACILLIN/TAZOBACTAM 3.375 GM VIAL IVPB ONE ×3 (01:07→16:34)
[2019-10-20] MEDS ORDERED: DEXTROSE 5%-WATER - 50 ML IVPB ONE ×3 (01:08→16:34)
[2019-10-20] MEDS: PIPERACILLIN/TAZOB 3.375 GM 3.375 GM in DEXTROSE 5%-WATER - 50 ML IVPB SCH ×3 (01:12→18:12)
[2019-10-20] MEDS: AMINO ACIDS IVPB SCH ×2 (03:09→18:12)
[2019-10-20] MEDS: [UNRECOGNIZED DRUG - OTHER] IVPB SCH ×2 (03:09→18:12)
[2019-10-20] MEDS: POTASSIUM PHOSPHATE IVPB SCH ×2 (03:09→18:12)
[2019-10-20] MEDS: MAGNESIUM SULFATE IVPB SCH ×2 (03:09→18:12)
[2019-10-20] MEDS ORDERED: fentaNYL CITRATE 250 MCG/5 ML VIAL ONE ×2 (03:22→23:04)
[2019-10-20] MEDS: HEPARIN NA (PORCINE) 5,000 UNITS/ML 1ML VIAL SQ SCH ×3 (05:59→21:48)
[2019-10-20] MEDS: PROPOFOL 1,000,000 MCG/100 ML VIAL IVPB SCH (06:01)
[2019-10-20] MEDS ORDERED: PT OWN MED DRAWER 7, Y5N ONE (06:23)
[2019-10-20 07:23] LABS: HEMATOCRIT 28.4 % (32.4-45.2); HEMOGLOBIN 10.1 GM/dL (10.7-15.3); MCH 32.3 pg (25.7-33.7); MCHC 35.6 g/dl (32.0-36.0); MEAN CELL VOLUME 90.8 fl (80-96); MEAN PLT VOLUME 7.4 fl (7.5-11.1); PLATELET COUNT 250 K/MM3 (134-434); RBC 3.12 M/mm3 (3.60-5.2); RDW 14.3 % (11.6-15.6); WHITE BLOOD COUNT 9.9 K/mm3 (4.0-10.0)
[2019-10-20 07:50] LABS: BLOOD UREA NITROGEN 3.1 mg/dL (7-18); CALCIUM 7.5 mg/dL (8.5-10.1); CREATININE 0.2 mg/dL (0.55-1.3); PHOSPHOROUS 3.6 mg/dL (2.5-4.9); POTASSIUM 3.3 mmol/L (3.5-5.1)
--- NOTE | 2019-10-20 08:11 | CONSULT ---
- Consultation REQUESTING PROVIDER: CONSULT REQUEST: We have been asked to surgically evaluate this patient for SMA syndrome. PCP:Ana Paula Bateman MD HISTORY OF PRESENT ILLNESS: 33 yo female with congential delay/quadripegia presented to the hospital with acute respiratory distress from [facility]. She was found to be saturating in the low 80's and was intubated in the field and has been receiving ICU care since admission. When she presented to the ER a ct scan was obtained which revealed gastric dilatation, 1 and 2nd portion of duodenum dilated to where it was crossing over the SMA. A NGT was placed to help relieve the distention and repeat imaging showed resolved dilatation. A general surgical consult was obtained and no acute abdomen was clinically found. The patient has remained in the ICU, intubated, npo with NGT decompression begin treated for apiration pneumonia. PMHx: developmental delay, congenital quadriplegia,scoliosis PSHx: GT, Jejunostomy Home Medications Medication Instructions Recorded Calcium Carbonate/Vitamin D3 1 each PO BID 10/16/19 [Oystercal-D 500 mg-400 Unit Tb] Tizanidine HCl 6 mg GT TID 10/16/19 levETIRAcetam [levETIRAcetam ORAL 500 mg GT BID 10/16/19 SUSPENSION] Baclofen 3 tab GT TID 10/17/19 Cholecalciferol (Vitamin D3) 2 tab GT DAILY 10/17/19 [Vitamin D3] Levetiracetam 1 tab GT DAILY 10/17/19 Nut.tx.impaired Digest Fxn [Ensure 60 ml GT QID 10/17/19 Clear] Nut.tx.impaired Digest Fxn 900 ml PO DAILY 10/17/19 [Peptamen 1.5] Polyethylene Glycol 3350 [Clearlax] 1 cap GT DAILY 10/17/19 Sennosides [Senna] 2 tab GT HS 10/17/19 Allergies Allergy/AdvReac Type Severity Reaction Status Date / Time latex Allergy Verified 10/16/19 12:45 Sulfa (Sulfonamide Allergy Verified 10/16/19 12:45 Antibiotics) REVIEW OF SYSTEMS: unable to obtain PHYSICAL EXAM: GENERAL: Intubated, abusable to stimulation with physical exam LUNGS: b/l course breath sounds HEART:Mild tachycardia. ABDOMEN: Soft, no guarding, no rebound. Reducible umbilical hernia. GT(clamped) JT(clamped), NGT secure at 45 cm and to suction. MUSCULOSKELETAL: Normal ROM at all joints. No bony deformities or tenderness. No CVA tenderness. LOWER EXTREMITIES: 2+Dp/PT pulses b/l, warm, well-perfused. No peripheral edema. Vital Signs Temperature 100.8 F H 10/20/19 02:00 Pulse Rate 105 H 10/20/19 06:00 Respiratory Rate 12 10/20/19 06:00 Blood Pressure 108/80 10/20/19 06:00 O2 Sat by Pulse Oximetry (%) 96 10/19/19 20:10 Lab Results WBC 9.9 K/mm3 (4.0-10.0) 10/20/19 06:00 RBC 3.12 M/mm3 (3.60-5.2) L 10/20/19 06:00 Hgb 10.1 GM/dL (10.7-15.3) L 10/20/19 06:00 Hct 28.4 % (32.4-45.2) L 10/20/19 06:00 MCV 90.8 fl (80-96) 10/20/19 06:00 MCHC 35.6 g/dl (32.0-36.0) 10/20/19 06:00 RDW 14.3 % (11.6-15.6) 10/20/19 06:00 Plt Count 250 K/MM3 (134-434) 10/20/19 06:00 INR 1.15 (0.83-1.09) H 10/16/19 06:00 Sodium 140 mmol/L (136-145) 10/20/19 06:00 Potassium 3.3 mmol/L (3.5-5.1) L 10/20/19 06:00 Chloride 102 mmol/L (98-107) 10/20/19 06:00 Carbon Dioxide 33 mmol/L (21-32) H 10/20/19 06:00 Anion Gap 6 MMOL/L (8-16) L 10/20/19 06:00 BUN 3.1 mg/dL (7-18) L 10/20/19 06:00 Creatinine 0.2 mg/dL (0.55-1.3) L 10/20/19 06:00 Random Glucose 102 mg/dL (74-106) 10/20/19 06:00 Calcium 7.5 mg/dL (8.5-10.1) L 10/20/19 06:00 Blood Type O POSITIVE 10/16/19 06:00 NGT-200ml CT SCAN: 10/19/19 Patent abdominal aorta, celiac truck , SMA, JACOBO and renal arteries. No CT evidence of SMA syndrome / compression of the duodenum. CT scan: 10/16/19 dilated stomach and 1/2nd portion of duodenum CXR 10/18: LLE infiltrate/atlectasis Problem List - Problems (1) Respiratory distress Assessment/Plan: 33 yo female with developmental delay/congenital quadriplegia now with sepsis, intubated and receiving ICU care. Vascular surgery consulted to eval for possible SMA syndrome, Repeat CT scan with IV contrast revealed no evidence of stomach/duodenal dilatation. Aorta, celiac, SMA/JACOBO patent. Pt with ngt decompression, which has helped to relieve the gastric distention. No bowel function recorded. No evidence of a surgical abdomen. Recommend to continue ngt decompression and monitor for bowel function. D/w Dr. Garcias no vascular intervention. Problems reviewed: Yes Code(s): R06.03 - ACUTE RESPIRATORY DISTRESS
[2019-10-20] MEDS: ACETYLCYSTEINE 20% 200MG/ML 4 ML VIAL *FOR ORAL / INH USE ONLY NEB SCH ×4 (08:20→20:12)
[2019-10-20] MEDS: KCL 10 MEQ IVPB 10 MEQ/100 ML INFUS.BAG IVPB SCH ×3 (08:41→11:00)
[2019-10-20] MEDS: PANTOPRAZOLE SODIUM 40 MG VIAL IVPUSH SCH (09:48)
[2019-10-20] MEDS: levETIRAcetam 500 MG/5 ML INJECTION VIAL IVPB SCH ×2 (09:49→21:49)
[2019-10-20] MEDS: MUPIROCIN 2% TOPICAL OINTMENT FOR DECOLONIZATION NS SCH ×2 (09:49→21:48)
--- NOTE | 2019-10-20 10:57 | PN ---
Physical Exam: SUBJECTIVE: Patient seen and examined. Pt spiked fever 100.8 overnight. OBJECTIVE: Vital Signs Period Temp Pulse Resp BP Sys/Campuzano Pulse Ox Last 24 Hr 99.8 F-100.8 F 65-117 12-21 103-116/60-80 96 GENERAL: Intubated and sedated. HEAD: Normal with no signs of trauma. EYES: PERRL, extraocular movements intact, sclera anicteric, conjunctiva clear. No ptosis. ENT: Ears normal, nares patent, oropharynx clear without exudates, moist mucous membranes. NGT in place and ETT in place NECK: Trachea midline, full range of motion, supple. LUNGS: Breath sounds equal, clear to auscultation bilaterally, no wheezes, no crackles, no accessory muscle use. HEART: Regular rate and rhythm, S1, S2 without murmur, rub or gallop. ABDOMEN: Soft, nontender, nondistended, normoactive bowel sounds, no guarding, no rebound, no hepatosplenomegaly, no masses. 10-15cm diagonal abdominal incisional scar, well healed. Rigo-valverde feeding tube in place. GJ tube in place, tubing is yellow and discolored. EXTREMITIES: 2+ pulses, warm, well-perfused, no edema. NEUROLOGICAL: Sedated SKIN: Warm, dry, normal turgor, no rashes or lesions noted Laboratory Results - last 24 hr 10/19/19 10/20/19 10/20/19 05:30 06:00 06:00 WBC 9.9 RBC 3.12 L Hgb 10.1 L Hct 28.4 L MCV 90.8 MCH 32.3 MCHC 35.6 RDW 14.3 Plt Count 250 MPV 7.4 L Neutrophils % (Manual) 76.0 Band Neutrophils % 3.0 Lymphocytes % (Manual) 16.0 D Monocytes % (Manual) 4 D Eosinophils % (Manual) 1.0 D Basophils % (Manual) 0.0 Platelet Estimate Adequate Sodium 140 Potassium 3.3 L Chloride 102 Carbon Dioxide 33 H Anion Gap 6 L BUN 3.1 L Creatinine 0.2 L Est GFR (CKD-EPI)AfAm 196.46 Est GFR (CKD-EPI)NonAf 169.51 Random Glucose 102 Calcium 7.5 L Phosphorus 3.6 Magnesium 2.0 Lipase 579 H Active Medications Acetylcysteine (Mucomyst 20 Oral / Inh Use Only*) 200 mg NEB RQID BO Last Admin: 10/19/19 20:44 Dose: 200 mg Documented by: Albuterol Sulfate (Ventolin 0.083% Nebulizer Soln -) 1 amp NEB Q4H PRN PRN Reason: SHORT OF BREATH/WHEEZING Last Admin: 10/19/19 20:45 Dose: 1 amp Documented by: Chlorhexidine Gluconate (Hibiclens For Decolonization -) 1 applic TP HS [facility] Last Admin: 10/19/19 22:16 Dose: 1 applic Documented by: Heparin Sodium (Porcine) (Heparin -) 5,000 unit SQ TID [facility] Last Admin: 10/20/19 05:59 Dose: 5,000 unit Documented by: Propofol (Diprivan -) 1,000,000 mcg in 100 mls @ 1.283 mls/hr IVPB TITR [facility]; Protocol Last Admin: 10/20/19 06:01 Dose: 25 mcg/kg/min, 6.416 mls/hr Documented by: Piperacillin Sod/Tazobactam (Sod 3.375 gm/ Dextrose) 50 mls @ 100 mls/hr IVPB Q8H-IV BO; Protocol Last Admin: 10/20/19 09:48 Dose: 100 mls/hr Documented by: Fentanyl 500 mcg/ Dextrose 100 mls @ 5 mls/hr IVPB TITR [facility]; Protocol Last Admin: 10/19/19 11:56 Dose: 25 mcg/hr, 5 mls/hr Documented by: Potassium Phosphate 40 mm/Magnesium Sulfate 2 gm/ Amino Acids 1,017.3333 mls @ 60 mls/hr IVPB Q16H [facility] Last Admin: 10/20/19 03:09 Dose: 60 mls/hr Documented by: Potassium Chloride (Potassium Chloride 10 Meq Premix Ivpb -) 10 meq in 100 mls @ 100 mls/hr IVPB Q60M [facility] Stop: 10/20/19 11:44 Last Admin: 10/20/19 09:47 Dose: 100 mls/hr Documented by: Levetiracetam (Keppra Injection -) 1,000 mg IVPB BID [facility] Last Admin: 10/20/19 09:49 Dose: 1,000 mg Documented by: Mupirocin (Bactroban Ointment (For Decolonization) -) 1 applic NS BID [facility] Stop: 10/21/19 21:59 Last Admin: 10/20/19 09:49 Dose: 1 applic Documented by: Non-Formulary Med (Vitrum () 10 each GT DAILY [facility] Pantoprazole Sodium (Protonix Iv) 40 mg IVPUSH DAILY [facility] Last Admin: 10/20/19 09:48 Dose: 40 mg Documented by: Scopolamine HBr (Transderm-Scop -) 1 patch TD Q72H [facility] Last Admin: 10/19/19 22:16 Dose: 1 patch Documented by: ASSESSMENT/PLAN: Patient is a 33 yo f w/ pmh 29week premature , profound mental delay, chronic seizures, congenital quadriplegia, retinal detachment, recurrent GERD s/p Neissen, s/p GJ-ostomy, s/p gastrostomy, cataracts, scoliosis, osteoporosis, anemia who presents for evaluation of from [facility] for evaluation of res piratory distress. Intubated in the field Neuro -Severe MR -Chronic seizures -Sedated -Maintain sedation for vent synchrony -Cont home Keprra 1000mg BID Pulmonary -Respiratory Distress --possibly 2/2 Aspiration PNA -CXR(10/17/19): prominent mediastinum, fullness of Right hilum, fullness of Right paratracheal soft tissues. Left mid and Lower infiltrate -Influ: neg -Respir Panel --pending final results -Intubated -Lung imaging concerning for ARDS, will begin lung protective ventilation -IV Abx -ID following (Dr. Valdez): cont zosyn, d/c zithromax Cardiovascular -Tachycardia --likely 2/2 sepsis and pain(chronic and acute abd) -MAPs 70s off pressors -Right IJ CVC inserted for better access/ in anticipation of pressor re quirements GI -NGT bleeding --likely 2/2 mucosal irritation from high pressure suction -SBO --likely 2/2 SMA Syndrome vs small bowel obstruction vs colonic dysmotility -Elevated Tbil --downtrending -High output NGT -CTA abd (10/19/19): no evidence of SMA syndrome/compression; enterohepatic intussusception in L abd containing J tube, no abd dilatation to suggest obstruction. Nonspecific stranding of L upper abd could be secondary to gastroduodenitis or pancreatitis -Lipase: 579 -Surgery consult (Dr. Patricio): --no surgical intervention from his end at this time --recommends vascular surgery consultation for intervention --consider transfer to tertiary care center -Vascular surgery consulted (Dr. Lal): f/u rec's -NPO, begin clinimix -Patient has G tube and J tube, both of which are clogged ID -Possible Aspiration PNA -Lactic acidosis --resolving -UA: 3+ LE, WBC 109, neg nitrite -Blood cx: NGTD -Sputum cx: E coli -Resp panel pending -Urine for Antigen: neg -Lactic Acid: 2.8, 6.0, 2.9 -ID(José Miguel) consulted: IV Zosyn, d/c zithromax FEN -D/c fluids -monitor lytes, replete PRN -Tube feeds Vital 1.2 DVT ppx -SQH Dispo -patient requires ICU monitoring Visit type - Emergency Visit Emergency Visit: No - New Patient This patient is new to me today: No - Critical Care Critical Care patient: Yes Total Critical Care Time (in minutes): 45 Critical Care Statement: The care of this patient involved high complexity decision making to prevent further life threatening deterioration of the patient's condition and/or to evaluate & treat vital organ system(s) failure or risk of failure. ATTENDING PHYSICIAN STATEMENT I saw and evaluated the patient. I reviewed the resident's note and discussed the case with the resident. I agree with the resident's findings and plan as documented. SUBJECTIVE: OBJECTIVE: ASSESSMENT AND PLAN:
--- NOTE | 2019-10-20 11:50 | PN ---
Progress Note, Physician Chief Complaint: unresponsive History of Present Illness: 33 y/o F w/ PMHx 29week premature , profound mental delay, chronic seizures, congenital quadriplegia, retinal detachment, recurrent GERD s/p Neissen, s/p GJ-ostomy, s/p gastrostomy, cataracts, scoliosis, osteoporosis, anemia who presents for evaluation of from [facility] for evaluation of respiratory distress & was Intubated in the field and admitted with Acute Hypoxic Respiratory Failure 2/2 Pneumonia likely Aspiration . Today: Patient seen and examined at bedside ETT in place On sedation NAD - Current Medication List Current Medications: Active Medications Acetylcysteine (Mucomyst 20 Oral / Inh Use Only*) 200 mg NEB RQID BO Last Admin: 10/20/19 08:20 Dose: 200 mg Documented by: Albuterol Sulfate (Ventolin 0.083% Nebulizer Soln -) 1 amp NEB Q4H PRN PRN Reason: SHORT OF BREATH/WHEEZING Last Admin: 10/19/19 20:45 Dose: 1 amp Documented by: Chlorhexidine Gluconate (Hibiclens For Decolonization -) 1 applic TP HS [facility] Last Admin: 10/19/19 22:16 Dose: 1 applic Documented by: Heparin Sodium (Porcine) (Heparin -) 5,000 unit SQ TID [facility] Last Admin: 10/20/19 05:59 Dose: 5,000 unit Documented by: Propofol (Diprivan -) 1,000,000 mcg in 100 mls @ 1.283 mls/hr IVPB TITR [facility]; Protocol Last Admin: 10/20/19 06:01 Dose: 25 mcg/kg/min, 6.416 mls/hr Documented by: Piperacillin Sod/Tazobactam (Sod 3.375 gm/ Dextrose) 50 mls @ 100 mls/hr IVPB Q8H-IV [facility]; Protocol Last Admin: 10/20/19 09:48 Dose: 100 mls/hr Documented by: Fentanyl 500 mcg/ Dextrose 100 mls @ 5 mls/hr IVPB TITR [facility]; Protocol Last Admin: 10/19/19 11:56 Dose: 25 mcg/hr, 5 mls/hr Documented by: Potassium Phosphate 40 mm/Magnesium Sulfate 2 gm/ Amino Acids 1,017.3333 mls @ 60 mls/hr IVPB Q16H [facility] Last Admin: 10/20/19 03:09 Dose: 60 mls/hr Documented by: Levetiracetam (Keppra Injection -) 1,000 mg IVPB BID [facility] Last Admin: 10/20/19 09:49 Dose: 1,000 mg Documented by: Mupirocin (Bactroban Ointment (For Decolonization) -) 1 applic NS BID [facility] Stop: 10/21/19 21:59 Last Admin: 10/20/19 09:49 Dose: 1 applic Documented by: Non-Formulary Med (Vitrum () 10 each GT DAILY [facility] Pantoprazole Sodium (Protonix Iv) 40 mg IVPUSH DAILY [facility] Last Admin: 10/20/19 09:48 Dose: 40 mg Documented by: Scopolamine HBr (Transderm-Scop -) 1 patch TD Q72H [facility] Last Admin: 10/19/19 22:16 Dose: 1 patch Documented by: - Objective Vital Signs: Vital Signs Temperature 99.8 F H 10/20/19 10:00 Pulse Rate 65 10/20/19 10:00 Respiratory Rate 16 10/20/19 10:00 Blood Pressure 103/68 10/20/19 10:00 O2 Sat by Pulse Oximetry (%) 96 10/19/19 20:10 Labs: CBC, BMP 10/20/19 06:00 10/20/19 06:00 INR, PTT INR 1.15 (0.83-1.09) H 10/16/19 06:00 Impression/Plan Impression/Plan: 2-Acute Hypoxic Respiratory Failure 2/2Pneumonia likely Aspiration MV continued Wean as tolerated Titrate FiO2 to keep SpO2 >90% Daily SBT/SAT I/O 3- Severe Sepsis in the setting of Aspiration Pneumonia Tmax 100.8 with HR 111 Secretions remain thick Bcx neg x 2 x 72 hour Sputum Cx- EColi On Zosyn -ID for abx Leukocytosis improving downtrending 4-Small Bowel Obstruction SMA ruled out on CTA A/P Surgery consulted NPO on NGT 5- DVT Px- Heparin 5000 units TID Supportive care chlorhexidine Visit type - Emergency Visit Emergency Visit: Yes ED Registration Date: 10/16/19 Care time: The patient presented to the Emergency Department on the above date and was hospitalized for further evaluation of their emergent condition. - New Patient This patient is new to me today: No - Critical Care Critical Care patient: Yes Total Critical Care Time (in minutes): 35 Critical Care Statement: The care of this patient involved high complexity decision making to prevent further life threatening deterioration of the patient's condition and/or to evaluate & treat vital organ system(s) failure or risk of failure. - Discharge Referral Referred to [facility] Med P.C.: No
--- NOTE | 2019-10-20 12:43 | PN ---
Physical Exam: SUBJECTIVE: Patient seen and examined. Pt febrile 100.8 overnight, when pt extubated found to have mucus plug and then reintubated. Pt placed on s copolamine patch to limit secretions. OBJECTIVE: Vital Signs Period Temp Pulse Resp BP Sys/Campuzano Pulse Ox Last 24 Hr 99.8 F-100.8 F 65-117 12-22 103-116/60-80 96 GENERAL: The patient is intubated and sedated, pt responsive to noxious stimuli. EYES: PERRL, extraocular movements intact, sclera anicteric, conjunctiva clear. No ptosis. NECK: supple. LUNGS: coarse breath sounds b/l, no wheezing or crackles appreciated. HEART: Regular rate and rhythm, S1, S2 without murmur, rub or gallop. ABDOMEN: Soft, nontender, less distended than yesterday, less tympanitic, peg tube in place, scar from prior surgery noted across abdomen. EXTREMITIES: 2+ pulses, warm, well-perfused, no edema. NEUROLOGICAL: intubated and sedated, responsive to noxious stimuli. Laboratory Results - last 24 hr 10/20/19 10/20/19 06:00 06:00 WBC 9.9 RBC 3.12 L Hgb 10.1 L Hct 28.4 L MCV 90.8 MCH 32.3 MCHC 35.6 RDW 14.3 Plt Count 250 MPV 7.4 L Sodium 140 Potassium 3.3 L Chloride 102 Carbon Dioxide 33 H Anion Gap 6 L BUN 3.1 L Creatinine 0.2 L Est GFR (CKD-EPI)AfAm 196.46 Est GFR (CKD-EPI)NonAf 169.51 Random Glucose 102 Calcium 7.5 L Phosphorus 3.6 Magnesium 2.0 Lipase 579 H Active Medications Generic Name Dose Route Start Last Admin Trade Name Freq PRN Reason Stop Dose Admin Acetylcysteine 200 mg 10/19/19 12:00 10/20/19 08:20 Mucomyst 20 Oral / Inh Use Only* NEB 200 mg RQID BO Administration Albuterol Sulfate 1 amp 10/19/19 09:30 10/19/19 20:45 Ventolin 0.083% Nebulizer Soln - NEB 1 amp Q4H PRN Administration SHORT OF BREATH/WHEEZING Chlorhexidine Gluconate 1 applic 10/16/19 22:00 10/19/19 22:16 Hibiclens For Decolonization - TP 1 applic HS BO Administration Heparin Sodium (Porcine) 5,000 unit 10/16/19 22:00 10/20/19 05:59 Heparin - SQ 5,000 unit TID BO Administration Propofol 1,000,000 mcg in 100 mls @ 1.283 mls/hr 10/16/19 06:15 10/20/19 06:01 Diprivan - IVPB 25 mcg/kg/min TITR BO 6.416 mls/hr Administration Protocol 5 MCG/KG/MIN Piperacillin Sod/Tazobactam 50 mls @ 100 mls/hr 10/16/19 18:00 10/20/19 09:48 Sod 3.375 gm/ Dextrose IVPB 100 mls/hr Q8H-IV BO Administration Protocol Fentanyl 500 mcg/ Dextrose 100 mls @ 5 mls/hr 10/17/19 11:00 10/19/19 11:56 IVPB 25 mcg/hr TITR BO 5 mls/hr Administration Protocol 25 MCG/HR Potassium Phosphate 40 mm/ 1,017.3333 mls @ 60 mls/hr 10/19/19 10:18 10/20/19 03:09 Magnesium Sulfate 2 gm/ Amino IVPB 60 mls/hr Acids Q16H BO Administration Levetiracetam 1,000 mg 10/17/19 10:00 10/20/19 09:49 Keppra Injection - IVPB 1,000 mg BID BO Administration Mupirocin 1 applic 10/16/19 22:00 10/20/19 09:49 Bactroban Ointment (For Decolonization) - NS 10/21/19 21:59 1 applic BID BO Administration Non-Formulary Med 10 each 10/18/19 10:00 Vitrum ( GT DAILY BO Pantoprazole Sodium 40 mg 10/17/19 10:00 10/20/19 09:48 Protonix Iv IVPUSH 40 mg DAILY BO Administration Scopolamine HBr 1 patch 10/19/19 21:30 10/19/19 22:16 Transderm-Scop - TD 1 patch Q72H BO Administration ASSESSMENT/PLAN: Patient is a 33 year old female with past medical history of developmental delay, congenital quadriplegia, retinal detachment, gastrostomy, cataracts, scoliosis, osteoporosis, GERD, and J-tube placement, was brought in from [facility] after she was found to be in respiratory distress. #Severe Sepsis 2/2CAP, possibly aspiration -Leukocytosis and hypotension responsive to IVF boluses -Chest CT: patchy consolidation left upper lobe. - CXR showing NG tube in LUQ/stomach, mediastinal fullness in rt hilum, retained stool, AXR showing retained stool in transverse colon/rt colon dilation, scoliosis. -c/w empiric Zosyn for aspiration pna coverage, dc azithromycin -ID (Dr. Valdez) consulted. -Blood cultures negative for 48 hrs -Urine legionella/strep pneumonia negative -Sputum cultures: staph aureus, E. coli -viral panel pending -lactic acidosis downtrending #Acute hypoxic respiratory failure likely 2/2 pneumonia -on mech vent support -inhaled bronchodilators -IV Zosyn, sputum cx sensitivites show good response to zosyn will continue and await his recs. -continue ICU monitoring #SMA syndrome -CT abdomen: There appears to be an obstruction of the third duodenum as it crosses the midline. Suspicious for SMA syndrome. - will consult vascular (Dr. Bolaños) to obtain recommendations for possible surgical intervention. Recommended CTA(10/19/19): no evidence of SMA syndrome/compression; enterohepatic intussusception in L abd containing J tube, no abd dilatation to suggest obstruction. Nonspecific stranding of L upper abd could be secondary to gastroduodenitis or pancreatitis - vascular Sx dont think any intervention should be done for the intussusception -Surgery consulted (Sheng) no surgical intervention at this time, -will keep patient NPO, w/ NG tube decompression -OGT #FEN -IV NS @125cc/hr -Hypokalemia , hypomag, hypophos repleted will rpt in AM. -NPO #Prophylaxis -Heparin 5000u sq tid - IV 40 daily protonix #Disposition -full code -ICU for closer monitoring Visit type - Emergency Visit Emergency Visit: Yes ED Registration Date: 10/16/19 Care time: The patient presented to the Emergency Department on the above date and was hospitalized for further evaluation of their emergent condition. - New Patient This patient is new to me today: No - Critical Care Critical Care patient: Yes Total Critical Care Time (in minutes): 35 Critical Care Statement: The care of this patient involved high complexity decision making to prevent further life threatening deterioration of the patient's condition and/or to evaluate & treat vital organ system(s) failure or risk of failure. - Discharge Referral Referred to [facility] Med P.C.: No ATTENDING PHYSICIAN STATEMENT I saw and evaluated the patient. I reviewed the resident's note and discussed the case with the resident. I agree with the resident's findings and plan as documented. SUBJECTIVE: OBJECTIVE: ASSESSMENT AND PLAN:
--- NOTE | 2019-10-20 13:18 | PN ---
Teaching Attending Note Name of Resident: Heather Graf ATTENDING PHYSICIAN STATEMENT I saw and evaluated the patient. I reviewed the resident's note and discussed the case with the resident. I agree with the resident's findings and plan as documented. SUBJECTIVE: Patient seen and examined in the ICU. Intubated and sedated. Abnormal CT and surgical evaluation noted. No indication of obstruction. Intake & Output 10/17/19 10/18/19 10/19/19 10/20/19 23:59 23:59 23:59 23:59 Intake Total 3353 3375 1359.2 199.2 Output Total 3300 1225 1100 Balance 53 2150 259.2 199.2 Weight 98 lb 5.219 oz 98 lb 99 lb 6.856 oz Last Vital Signs Temp Pulse Resp BP Pulse Ox 99.8 F H 65 12 103/68 96 10/20/19 10:00 10/20/19 10:00 10/20/19 12:50 10/20/19 10:00 10/19/19 20:10 Active Medications Acetylcysteine (Mucomyst 20 Oral / Inh Use Only*) 200 mg NEB RQID [facility] Last Admin: 10/20/19 12:52 Dose: 200 mg Documented by: Albuterol Sulfate (Ventolin 0.083% Nebulizer Soln -) 1 amp NEB Q4H PRN PRN Reason: SHORT OF BREATH/WHEEZING Last Admin: 10/19/19 20:45 Dose: 1 amp Documented by: Chlorhexidine Gluconate (Hibiclens For Decolonization -) 1 applic TP HS [facility] Last Admin: 10/19/19 22:16 Dose: 1 applic Documented by: Heparin Sodium (Porcine) (Heparin -) 5,000 unit SQ TID [facility] Last Admin: 10/20/19 05:59 Dose: 5,000 unit Documented by: Propofol (Diprivan -) 1,000,000 mcg in 100 mls @ 1.283 mls/hr IVPB TITR [facility]; Protocol Last Admin: 10/20/19 06:01 Dose: 25 mcg/kg/min, 6.416 mls/hr Documented by: Piperacillin Sod/Tazobactam (Sod 3.375 gm/ Dextrose) 50 mls @ 100 mls/hr IVPB Q8H-IV [facility]; Protocol Last Admin: 10/20/19 09:48 Dose: 100 mls/hr Documented by: Fentanyl 500 mcg/ Dextrose 100 mls @ 5 mls/hr IVPB TITR [facility]; Protocol Last Admin: 10/19/19 11:56 Dose: 25 mcg/hr, 5 mls/hr Documented by: Potassium Phosphate 40 mm/Magnesium Sulfate 2 gm/ Amino Acids 1,017.3333 mls @ 60 mls/hr IVPB Q16H [facility] Last Admin: 10/20/19 03:09 Dose: 60 mls/hr Documented by: Levetiracetam (Keppra Injection -) 1,000 mg IVPB BID BO Last Admin: 10/20/19 09:49 Dose: 1,000 mg Documented by: Mupirocin (Bactroban Ointment (For Decolonization) -) 1 applic NS BID [facility] Stop: 10/21/19 21:59 Last Admin: 10/20/19 09:49 Dose: 1 applic Documented by: Non-Formulary Med (Vitrum () 10 each GT DAILY [facility] Pantoprazole Sodium (Protonix Iv) 40 mg IVPUSH DAILY [facility] Last Admin: 10/20/19 09:48 Dose: 40 mg Documented by: Scopolamine HBr (Transderm-Scop -) 1 patch TD Q72H [facility] Last Admin: 10/19/19 22:16 Dose: 1 patch Documented by: Gen: intubated, sedated Heart: RRR Lung: bilateral scattered rhonchi Abd: Softly distended, (+) BS Ext: no edema Laboratory Results - last 24 hr 10/20/19 10/20/19 06:00 06:00 WBC 9.9 RBC 3.12 L Hgb 10.1 L Hct 28.4 L MCV 90.8 MCH 32.3 MCHC 35.6 RDW 14.3 Plt Count 250 MPV 7.4 L Sodium 140 Potassium 3.3 L Chloride 102 Carbon Dioxide 33 H Anion Gap 6 L BUN 3.1 L Creatinine 0.2 L Est GFR (CKD-EPI)AfAm 196.46 Est GFR (CKD-EPI)NonAf 169.51 Random Glucose 102 Calcium 7.5 L Phosphorus 3.6 Magnesium 2.0 Lipase 579 H ASSESSMENT AND PLAN: Acute Hypoxic Respiratory Failure Pneumonia likely Aspiration ARDS Small Bowel Obstruction No suspicion of SMA Syndrome by CT Severe Sepsis Lactic Acidosis Mental Retardation GERD - ABX per ID - NGT to ILWS - monitor output - GI and Surgical follow up - Clinimix - Replete lytes - monitor urine output, creatinine - titrate FiO2 to keep SpO2 >90% - inhaled bronchodilators - hold sedation, spontaneous breathing trials as tolerated - DVT/GI prophylaxis - continue ICU monitoring Dr Pedro Critical care time spent in reviewing chart, evaluating patient and formulating plan 35 min
[2019-10-20] MEDS: FENTANYL INJECTION 500 MCG in DEXTROSE 5%-WATER - 90 ML IVPB SCH (13:39)
[2019-10-20] MEDS: ALBUTEROL SO4 0.083% IH SOL 2.5 MG/3 ML VIAL.NEB. NEB PRN ×2 (16:46→20:12)
--- NOTE | 2019-10-20 17:18 | CON.GI ---
Consult Consult Specialty:: Gastroenterology ( covering Dr. Campo) Referred by:: Dr. Misty García Reason for Consultation:: Intussusception - History of Present Illness Chief Complaint: respiratory distress History of Present Illness: 33F [place] resident was transferred for respiratory distress and found to have pneumonia and pleural effusions. Her initial CT scan revealed aan acute obstruction at the level of the 3rd portion of the duodenum suggesting superior mesenteric artery syndrome (SMAS). She presented with a jejunostomy tube and a Nino G tube. Our ICU resident informs me that in conversation with Gordo Chen he was told that Jluis has been most recently being fed via the gastrostomy tube. Jluis also has a long oblique upper abdominal incision which I suspect was for a cholecystectomy as the CT reveals no GB. 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 cataracts - Past Surgical History Past Surgical History: Yes: Cholecystectomy Additional Surgical History: Jejunostomy tube insertion. Gastrostomy tube insertion ( PEG) with conversion to Nino tube - Alcohol/Substance Use Hx Alcohol Use: No - Smoking History Smoking history: Never smoked Have you smoked in the past 12 months: No - Social History Usual Living Arrangement: Care Home ADL: Support Services Home Medications - Allergies Allergies/Adverse Reactions: Allergies Allergy/AdvReac Type Severity Reaction Status Date / Time latex Allergy Verified 10/16/19 12:45 Sulfa (Sulfonamide Allergy Verified 10/16/19 12:45 Antibiotics) - Home Medications Home Medications: Ambulatory Orders Calcium Carbonate/Vitamin D3 [Oystercal-D 500 mg-400 Unit Tb] 1 each PO BID 10/16/19 Tizanidine HCl 6 mg GT TID 10/16/19 levETIRAcetam [levETIRAcetam ORAL SUSPENSION] 500 mg GT BID 10/16/19 Baclofen 3 tab GT TID 10/17/19 Cholecalciferol (Vitamin D3) [Vitamin D3] 2 tab GT DAILY 10/17/19 Levetiracetam 1 tab GT DAILY 10/17/19 Nut.tx.impaired Digest Fxn [Ensure Clear] 60 ml GT QID 10/17/19 Nut.tx.impaired Digest Fxn [Peptamen 1.5] 900 ml PO DAILY 10/17/19 Polyethylene Glycol 3350 [Clearlax] 1 cap GT DAILY 10/17/19 Sennosides [Senna] 2 tab GT HS 10/17/19 Family Medical History Family History: Unable to Obtain Review of Systems Unable to obtain ROS, reason: cerebral palsy Physical Exam-GI Vital Signs: Vital Signs Temperature 97.5 F L 10/20/19 14:00 Pulse Rate 108 H 10/20/19 14:00 Respiratory Rate 12 10/20/19 16:44 Blood Pressure 104/78 10/20/19 14:00 O2 Sat by Pulse Oximetry (%) 96 10/19/19 20:10 CBC,CMP WBC 9.9 K/mm3 (4.0-10.0) 10/20/19 06:00 RBC 3.12 M/mm3 (3.60-5.2) L 10/20/19 06:00 Hgb 10.1 GM/dL (10.7-15.3) L 10/20/19 06:00 Hct 28.4 % (32.4-45.2) L 10/20/19 06:00 MCV 90.8 fl (80-96) 10/20/19 06:00 MCH 32.3 pg (25.7-33.7) 10/20/19 06:00 MCHC 35.6 g/dl (32.0-36.0) 10/20/19 06:00 RDW 14.3 % (11.6-15.6) 10/20/19 06:00 Plt Count 250 K/MM3 (134-434) 10/20/19 06:00 MPV 7.4 fl (7.5-11.1) L 10/20/19 06:00 Absolute Neuts (auto) 9.6 K/mm3 (1.5-8.0) H 10/19/19 05:30 Neutrophils % 84.9 % (42.8-82.8) H 10/19/19 05:30 Neutrophils % (Manual) 76.0 % (42.8-82.8) 10/19/19 05:30 Band Neutrophils % 3.0 % 10/19/19 05:30 Lymphocytes % 8.6 % (8-40) 10/19/19 05:30 Lymphocytes % (Manual) 16.0 % (8-40) D 10/19/19 05:30 Monocytes % 5.7 % (3.8-10.2) 10/19/19 05:30 Monocytes % (Manual) 4 % (3.8-10.2) D 10/19/19 05:30 Eosinophils % 0.5 % (0-4.5) D 10/19/19 05:30 Eosinophils % (Manual) 1.0 % (0-4.5) D 10/19/19 05:30 Basophils % 0.3 % (0-2.0) 10/19/19 05:30 Basophils % (Manual) 0.0 % (0-2.0) 10/19/19 05:30 Myelocytes % (Man) 0 % (0-2) D 10/17/19 06:00 Promyelocytes % (Man) 0 % (0-2) 10/17/19 06:00 Blast Cells % (Manual) 0 % (0-0) 10/17/19 06:00 Nucleated RBC % 0 % (0-0) 10/19/19 05:30 Metamyelocytes 4 % (0-2) H D 10/17/19 06:00 Hypochromia 0 10/17/19 06:00 Platelet Estimate Adequate 10/19/19 05:30 Polychromasia 0 10/17/19 06:00 Poikilocytosis 0 10/17/19 06:00 Anisocytosis 0 10/17/19 06:00 Microcytosis 0 10/17/19 06:00 Macrocytosis 0 10/17/19 06:00 Sodium 140 mmol/L (136-145) 10/20/19 06:00 Potassium 3.3 mmol/L (3.5-5.1) L 10/20/19 06:00 Chloride 102 mmol/L (98-107) 10/20/19 06:00 Carbon Dioxide 33 mmol/L (21-32) H 10/20/19 06:00 Anion Gap 6 MMOL/L (8-16) L 10/20/19 06:00 BUN 3.1 mg/dL (7-18) L 10/20/19 06:00 Creatinine 0.2 mg/dL (0.55-1.3) L 10/20/19 06:00 Est GFR (CKD-EPI)AfAm 196.46 10/20/19 06:00 Est GFR (CKD-EPI)NonAf 169.51 10/20/19 06:00 Random Glucose 102 mg/dL (74-106) 10/20/19 06:00 Lactic Acid 2.9 mmol/L (0.4-2.0) H* 10/16/19 16:00 Calcium 7.5 mg/dL (8.5-10.1) L 10/20/19 06:00 Phosphorus 3.6 mg/dL (2.5-4.9) 10/20/19 06:00 Magnesium 2.0 mg/dL (1.8-2.4) 10/20/19 06:00 Total Bilirubin 0.9 mg/dL (0.2-1) 10/19/19 06:00 Direct Bilirubin 0.4 mg/dL (0.0-0.2) H 10/16/19 06:00 AST 30 U/L (15-37) 10/19/19 06:00 ALT 30 U/L (13-61) 10/19/19 06:00 Alkaline Phosphatase 74 U/L (45-117) 10/19/19 06:00 Troponin I < 0.02 ng/ml (0.00-0.05) 10/16/19 06:00 Total Protein 5.1 g/dl (6.4-8.2) L 10/19/19 06:00 Albumin 2.3 g/dl (3.4-5.0) L 10/19/19 06:00 Lipase 579 U/L (73-393) H 10/20/19 06:00 Serum , Qual Negative 10/16/19 07:16 Current Medications Generic Name Dose Route Start Last Admin Trade Name Freq PRN Reason Stop Dose Admin Acetylcysteine 200 mg 10/19/19 12:00 10/20/19 16:46 Mucomyst 20 Oral / Inh Use Only* NEB 200 mg RQID BO Administration Albuterol Sulfate 1 amp 10/19/19 09:30 10/20/19 16:46 Ventolin 0.083% Nebulizer Soln - NEB 1 amp Q4H PRN Administration SHORT OF BREATH/WHEEZING Chlorhexidine Gluconate 1 applic 10/16/19 22:00 10/19/19 22:16 Hibiclens For Decolonization - TP 1 applic HS BO Administration Heparin Sodium (Porcine) 5,000 unit 10/16/19 22:00 10/20/19 13:39 Heparin - SQ 5,000 unit TID BO Administration Propofol 1,000,000 mcg in 100 mls @ 1.283 mls/hr 10/16/19 06:15 10/20/19 06:01 Diprivan - IVPB 25 mcg/kg/min TITR BO 6.416 mls/hr Administration Protocol 5 MCG/KG/MIN Piperacillin Sod/Tazobactam 50 mls @ 100 mls/hr 10/16/19 18:00 10/20/19 09:48 Sod 3.375 gm/ Dextrose IVPB 100 mls/hr Q8H-IV BO Administration Protocol Fentanyl 500 mcg/ Dextrose 100 mls @ 5 mls/hr 10/17/19 11:00 10/20/19 13:39 IVPB 25 mcg/hr TITR BO 5 mls/hr Administration Protocol 25 MCG/HR Potassium Phosphate 40 mm/ 1,017.3333 mls @ 60 mls/hr 10/19/19 10:18 10/20/19 03:09 Magnesium Sulfate 2 gm/ Amino IVPB 60 mls/hr Acids Q16H BO Administration Levetiracetam 1,000 mg 10/17/19 10:00 10/20/19 09:49 Keppra Injection - IVPB 1,000 mg BID BO Administration Mupirocin 1 applic 10/16/19 22:00 10/20/19 09:49 Bactroban Ointment (For Decolonization) - NS 10/21/19 21:59 1 applic BID BO Administration Non-Formulary Med 10 each 10/18/19 10:00 Vitrum ( GT DAILY BO Pantoprazole Sodium 40 mg 10/17/19 10:00 10/20/19 09:48 Protonix Iv IVPUSH 40 mg DAILY BO Administration Scopolamine HBr 1 patch 10/19/19 21:30 10/19/19 22:16 Transderm-Scop - TD 1 patch Q72H BO Administration Constitutional: Yes: Anxious Eyes: Yes: Conjunctiva Clear HENT: Yes: Drooling Neck: Yes: Supple Cardiovascular: Yes: Tachycardia Respiratory: Yes: Dullness (at both bases), Intubated, Rhonchi Gastrointestinal Inspection: Yes: Distention, Scars (oblique/transverse subxipho id incision LUQ jejunostomy tube epigastric Nino tube) ...Auscultate: Yes: Normoactive Bowel Sounds ...Palpate: Yes: Soft ...Percussion: Yes: Tympanitic ...Rectal Exam: Yes: Deferred Edema: No Neurological: Yes: Other (noncommunicative) Labs: CBC, BMP 10/20/19 06:00 10/20/19 06:00 INR, PTT INR 1.15 (0.83-1.09) H 10/16/19 06:00 Laboratory Tests 10/19/19 10/20/19 06:00 06:00 Albumin 2.3 L Lipase 579 H Imaging - Results Cat Scan: Report Reviewed ( Final Report CT ABDOMEN CTA W/WO CONTRAST Show Printer-Friendly Version with Images (2 of 2) Show Printer-Friendly Version without images Patient Name: Jluis Pandey : 1985 ID: [id number] Study Date: 19-Oct-2019 13:07 Sd Pavili Name: JLUIS PANDEY DEPARTMENT OF RADIOLOGY Phys: Jose Morrison RESIDENT : 1985 Age: 33 Sex: F [facility] Acct: [id number] Loc: [address] Exam Date: 10/19/19 Status: [place] [address] Unit Number: [id number] EXAM#: TYPE/EXAM: RESULT: [id number] CT/ABDOMEN CTA W/WO CONTRAST CT ANGIOGRAM OF THE ABDOMEN WITH IV CONTRAST. HISTORY: 33-year-old female with clinical suspicion of SMA syndrome TECHNIQUE: Multiaxial CT angiogram of the abdomen with IV contrast was obtained from the lung bases to the aortic bifurcation. Post intravenous contrast images were obtained in the material and portal venous phases. Sagittal and coronal reformats were obtained in the arterial and portal venous phase. Axial, sagittal and coronal maximum intensity projection reformats were obtained in the arterial and portal venous phase on a separate dedicated station. 95 cc of Omnipaque 350 was administered intravenously. Comparison is made to prior CT scan dated October 16, 2019 FINDINGS: There are small bilateral pleural effusions with consolidation likely densities in the lower lobes either infectious or due to lobar atelectasis. Feeding tube seen with its tip in the stomach. G-tube is seen with its tip in the stomach. Jejunostomy tube seen entering the left lower abdominal quadrant with its tip extending superiorly on the left with its tip in the proximal jejunal bowel loops. The liver is normal in size and contour with no eviden ce of focal focal lesions. The spleen is normal in size with no evidence of focal lesion. The pancreas is homogeneously enhancing with no evidence of focal lesions. There is no pancreatic ductal dilatation. The patient status post cholecystectomy. There is no biliary ductal dilatation. The bile duct appear to be mildly enhancing. The adrenal glands are unremarkable. The kidneys are symmetrically enhancing. There is no focal renal lesion. There is no hydronephr osis. Evaluation of the bowel loops is limited due to lack of oral contrast however there is no evidence of abnormal bowel dilatation to suggest bowel obstruction. There is intrahepatic intussusception in the left abdomen where the jejunostomy tube is. The appendix is normal. There is no evidence of pneumoperitoneum. There is free fluid in the right abdomen in the gallbladder fossa and adjacent to the inferior edge of the liver extending in the right; catheter. There is stranding, edema and fluid in the left upper abdominal quadrant. The stranding and edema is down the stomach and pancreas. Multiple shotty lymph nodes seen throughout the upper abdominal mesentery. The abdominal aorta is widely patent. The celiac trunk and its branches, SMA and its branches and JACOBO as well as the renal arteries are widely patent.. No gross destructive bony lesion is seen. IMPRESSION: Widely patent abdominal aorta, celiac trunk, SMA and JACOBO and renal arteries along with their branches. No CT evidence of SMA syndrome/compression of the duodenum between the SMA and abdominal aorta. G-tube in the stomach. Distal end of feeding tube in the stomach. Jejunostomy tube with its tip appeared to be extending superiorly in the left abdomen/proximally possibly in a retrograde direction. Enteroenteric intussusception in the left abdomen in the bowel loops containing the jejunostomy tube however with no abnormal dilatation to suggest obstruction. This could be transient however fo llow-up is suggested. Status post cholecystectomy. No biliary ductal dilatation. Nonspecific mild enhancement of the CBD on portal venous phase. Correlate clinically and with LFTs for mild for cholangitis. Stranding and edema in the left upper abdominal particularly surrounding the collapsed stomach and duodenum as well as the pancreatic body and tail. Findings are nonspecific and could be secondary to gastroduodenitis or pancreatitis. Correlate with clinical history and amyl ase lipase. Numerous shotty upper abdominal mesenteric lymph nodes likely reactive. Diffuse subcutaneous edema and free fluid in the right abdomen in addition to small bilateral pleural effusions suggestive of third spacing. Severe bilateral lower lobar atelectasis versus consolidations. Reported By: Erasmo Lund MD 10/19/191616 Technologist: Antonio Antony Transcribed Date/Time: 10/19/191616 Women'S Soccer Coach: Erasmo Lund Printed Date/Time: By: Signed by: Erasmo Lund Signed on: 19-Oct-2019 16:18) Problem List - Problems (1) Enteric intussusception Code(s): K56.1 - INTUSSUSCEPTION (2) SMAS (superior mesenteric artery syndrome) Code(s): K55.1 - CHRONIC VASCULAR DISORDERS OF INTESTINE (3) Jejunostomy present Code(s): Z93.4 - OTHER ARTIFICIAL OPENINGS OF GASTROINTESTINAL TRACT STATUS (4) Gastrostomy in place Code(s): Z93.1 - GASTROSTOMY STATUS (5) Aspiration pneumonia Code(s): J69.0 - PNEUMONITIS DUE TO INHALATION OF FOOD AND VOMIT (6) Cerebral palsy Code(s): G80.9 - CEREBRAL PALSY, UNSPECIFIED (7) Quadriplegia and quadriparesis Code(s): G82.50 - QUADRIPLEGIA, UNSPECIFIED (8) Scoliosis Code(s): M41.9 - SCOLIOSIS, UNSPECIFIED (9) History of cholecystectomy Code(s): Z90.49 - ACQUIRED ABSENCE OF OTHER SPECIFIED PARTS OF DIGESTIVE TRACT Assessment/Plan Impression: - Intussuception does not appear to be compromising or obstructing the bowel but this needs to be excluded - Duodenal obstruction by SMA syndrome which precludes feeding via the G tube and predisposes to aspiration Plan: -- CT scan with gastrograffin via the jejunostomy tube to exclude obstruction of small bowel by intussusception and to check orientation of the J tube ( Dr. Lund believes it may be pointing proximally instead of distally) . IV fluids until this study is done. I am able to infuse fluid via the J and G tubes. This is minimal gastric and no jejunal residual. - Continue NG suctioning. If the future she will likely need periodic gastric emptying via Nino tube to prevent aspiration of succus entericus, bile, oral and gastric secretions to prevent aspiration -- Keeep head elevated 35 degrees -- PPI to prevent stress gastritis bleed Plan discussed with Dr Morrison and Dr García. The [facility] GI service lorraine assume care on 10/22. I will be following until then
[2019-10-20 20:43] LABS: BLOOD UREA NITROGEN 4.2 mg/dL (7-18); CALCIUM 7.8 mg/dL (8.5-10.1); CREATININE 0.2 mg/dL (0.55-1.3)
[2019-10-20] MEDS: CHLORHEXIDINE GLUCONATE 4% CLEANSER FOR DECOLONIZATION TP SCH (21:49)
[2019-10-21] MEDS: PIPERACILLIN/TAZOB 3.375 GM 3.375 GM in DEXTROSE 5%-WATER - 50 ML IVPB SCH ×3 (03:00→17:23)
[2019-10-21] MEDS ORDERED: PIPERACILLIN/TAZOBACTAM 3.375 GM VIAL IVPB ONE ×3 (05:33→17:08)
[2019-10-21] MEDS ORDERED: DEXTROSE 5%-WATER - 50 ML IVPB ONE ×3 (05:33→17:08)
[2019-10-21] MEDS: HEPARIN NA (PORCINE) 5,000 UNITS/ML 1ML VIAL SQ SCH ×3 (05:56→21:45)
[2019-10-21] MEDS: PROPOFOL 1,000,000 MCG/100 ML VIAL IVPB SCH (05:57)
[2019-10-21 06:33] LABS: BASO % 0.4 % (0-2.0); EOS % 1.8 % (0-4.5); HEMATOCRIT 30.3 % (32.4-45.2); HEMOGLOBIN 10.8 GM/dL (10.7-15.3); LYMPH % 15.3 % (8-40); MCH 32.5 pg (25.7-33.7); MCHC 35.7 g/dl (32.0-36.0); MEAN PLT VOLUME 7.4 fl (7.5-11.1); MONO % 15.5 % (3.8-10.2); PLATELET COUNT 264 K/MM3 (134-434); RBC 3.33 M/mm3 (3.60-5.2); RDW 14.5 % (11.6-15.6); WHITE BLOOD COUNT 8.4 K/mm3 (4.0-10.0)
[2019-10-21 07:12] LABS: ALBUMIN 2.2 g/dl (3.4-5.0); BILIRUBIN,TOTAL 0.7 mg/dL (0.2-1); CALCIUM 7.9 mg/dL (8.5-10.1); CREATININE 0.2 mg/dL (0.55-1.3); MAGNESIUM 2.1 mg/dL (1.8-2.4); PHOSPHOROUS 4.2 mg/dL (2.5-4.9); POTASSIUM 4.2 mmol/L (3.5-5.1); TOT PROT 5.6 g/dl (6.4-8.2)
[2019-10-21 07:52] LABS: BLOOD UREA NITROGEN 2.9 mg/dL (7-18)
[2019-10-21] MEDS: ALBUTEROL SO4 0.083% IH SOL 2.5 MG/3 ML VIAL.NEB. NEB PRN ×4 (08:31→20:30)
[2019-10-21] MEDS: ACETYLCYSTEINE 20% 200MG/ML 4 ML VIAL *FOR ORAL / INH USE ONLY NEB SCH ×4 (08:31→20:30)
[2019-10-21 08:59] LABS: PLATELET ESTIMATE ADEQUATE
--- NOTE | 2019-10-21 09:04 | PN ---
Progress Note (short form) - Note Progress Note: SUBJECTIVE: Patient seen and examined in the ICU. Intubated and sedated. Cont NGT to LWS, minimal output, +BS Vital Signs Temp 97.5 F L 10/20/19 14:00 Pulse 113 H 10/21/19 08:30 Resp 12 10/21/19 08:30 BP 119/86 10/21/19 06:00 Pulse Ox 96 10/21/19 08:30 Intake & Output 10/20/19 10/20/19 10/21/19 11:59 23:59 11:59 Intake Total 199.2 1259.2 998 Output Total 900 1200 Balance 199.2 359.2 -202 Weight 45.1 kg 45.2 kg Intake: IV 139.2 139.2 228 DIPRIVAN - 1,000,000 mcg 79.2 79.2 108 In 100 ml @ 5 MCG/KG/MIN 1.283 mls/hr IVPB TITR BO Rx#:[id number] Sublimaze Injection - 500 60 60 120 Mcg In D5w - 90 ml @ 25 MCG/HR 5 mls/hr IVPB TITR BO Rx#:[id number] IVPB 60 400 770 TPN/PPN 720 Output: Urine 900 1200 Jolley 900 1200 Other: Voiding Method Indwelling Catheter Indwelling Catheter Indwelling Catheter Bowel Movement No No No Weight Measurement Method Built in [facility] Built in [facility] Gen: intubated, sedated, withdrawls to noxious Heart: RRR Lung: bilateral scattered rhonchi Abd: Softly distended, (+) BS Ext: no edema neuro: contracted CBC, BMP 10/21/19 05:30 10/21/19 05:30 ASSESSMENT AND PLAN: Acute Hypoxic Respiratory Failure Pneumonia likely Aspiration ARDS Small Bowel Obstruction No suspicion of SMA Syndrome by CT Severe Sepsis Lactic Acidosis Mental Retardation GERD - ABX per ID - NGT to ILWS - monitor output - GI, no surgical intervention at this time. appreciate recs, Spoke with Dr Alexandra messer, plan to start feedings - Clinimix - Replete lytes - monitor urine output, creatinine - titrate FiO2 to keep SpO2 >90% - inhaled bronchodilators - hold sedation, spontaneous breathing trials as tolerated - DVT/GI prophylaxis - continue ICU monitoring Denbo ACNP [id number] No family at bedside to discuss.
[2019-10-21] MEDS: levETIRAcetam 500 MG/5 ML INJECTION VIAL IVPB SCH ×2 (09:10→21:45)
[2019-10-21] MEDS: PANTOPRAZOLE SODIUM 40 MG VIAL IVPUSH SCH (09:10)
[2019-10-21] MEDS: MUPIROCIN 2% TOPICAL OINTMENT FOR DECOLONIZATION NS SCH (09:11)
[2019-10-21] MEDS ORDERED: fentaNYL CITRATE 250 MCG/5 ML VIAL ONE ×2 (09:14→20:22)
[2019-10-21] MEDS: AMINO ACIDS IVPB SCH (10:45)
[2019-10-21] MEDS: MAGNESIUM SULFATE IVPB SCH (10:45)
[2019-10-21] MEDS: [UNRECOGNIZED DRUG - OTHER] IVPB SCH (10:45)
[2019-10-21] MEDS: POTASSIUM PHOSPHATE IVPB SCH (10:45)
[2019-10-21] MEDS: FENTANYL INJECTION 500 MCG in DEXTROSE 5%-WATER - 90 ML IVPB SCH ×2 (11:15→20:37)
--- NOTE | 2019-10-21 12:57 | PN.GI ---
GI Progress Note Subjective: GI NOte ( covering the [facility] service- Dr Campo): NO fevers overnight. WBC falling. CT reviewed with Dr. Ibrahim- the J tube is intraluminal. There is no obstruction or compromised bowel. - Objective Vital Signs: Vital Signs Temperature 98.8 F 10/21/19 10:00 Pulse Rate 114 H 10/21/19 10:00 Respiratory Rate 15 10/21/19 12:47 Blood Pressure 111/86 10/21/19 10:00 O2 Sat by Pulse Oximetry (%) 96 10/21/19 09:00 Laboratory Tests 10/16/19 10/21/19 06:00 05:30 WBC 28.8 H 8.4 Hgb 10.8 Gastrointestinal Inspection: Yes: Distention, Other (NG has minimal return- I repositioned the tube again) ...Auscultate: Yes: Normoactive Bowel Sounds ...Palpate: Yes: Soft, Other (nontender) ...Percussion: Yes: Tympanitic Labs: CBC, BMP 10/21/19 05:30 10/21/19 05:30 INR, PTT INR 1.15 (0.83-1.09) H 10/16/19 06:00 Assessment/Plan Impression: - Intussuception does not appear to be compromising or obstructing the bowel - Duodenal obstruction by SMA syndrome which precludes feeding via the G tube and predisposes to aspiration Plan: -- Will start Jevity via the J tube. - Continue NG suctioning. If the future she will likely need periodic gastric emptying via Nino tube to prevent aspiration of succus entericus, bile, oral and gastric secretions to prevent aspiration -- Keep head elevated 35 degrees -- PPI to prevent stress gastritis bleed Plan discussed with Saritha the nurse and Chris Lawrence NP Problem List - Problems (1) Enteric intussusception Code(s): K56.1 - INTUSSUSCEPTION (2) SMAS (superior mesenteric artery syndrome) Code(s): K55.1 - CHRONIC VASCULAR DISORDERS OF INTESTINE (3) Jejunostomy present Code(s): Z93.4 - OTHER ARTIFICIAL OPENINGS OF GASTROINTESTINAL TRACT STATUS (4) Gastrostomy in place Code(s): Z93.1 - GASTROSTOMY STATUS (5) Aspiration pneumonia Code(s): J69.0 - PNEUMONITIS DUE TO INHALATION OF FOOD AND VOMIT (6) Cerebral palsy Code(s): G80.9 - CEREBRAL PALSY, UNSPECIFIED (7) Quadriplegia and quadriparesis Code(s): G82.50 - QUADRIPLEGIA, UNSPECIFIED (8) Scoliosis Code(s): M41.9 - SCOLIOSIS, UNSPECIFIED (9) History of cholecystectomy Code(s): Z90.49 - ACQUIRED ABSENCE OF OTHER SPECIFIED PARTS OF DIGESTIVE TRACT
--- NOTE | 2019-10-21 16:50 | PN ---
Progress Note, Physician History of Present Illness: 33 y/o F w/ PMHx 29week premature , profound mental delay, chronic seizure s, congenital quadriplegia, retinal detachment, recurrent GERD s/p Neissen, s/p GJ-ostomy, s/p gastrostomy, cataracts, scoliosis, osteoporosis, anemia who presents for evaluation of from [facility] for evaluation of respiratory distress & was Intubated in the field and admitted with Acute Hypoxic R espiratory Failure 2/2 Pneumonia likely Aspiration . Today: Patient seen and examined at bedside ETT in place NAD - Current Medication List Current Medications: Active Medications Acetylcysteine (Mucomyst 20 Oral / Inh Use Only*) 200 mg NEB RQID BO Last Admin: 10/21/19 16:09 Dose: 200 mg Documented by: Albuterol Sulfate (Ventolin 0.083% Nebulizer Soln -) 1 amp NEB Q4H PRN PRN Reason: SHORT OF BREATH/WHEEZING Last Admin: 10/21/19 16:10 Dose: 1 amp Documented by: Chlorhexidine Gluconate (Hibiclens For Decolonization -) 1 applic TP HS BO Last Admin: 10/20/19 21:49 Dose: 1 applic Documented by: Heparin Sodium (Porcine) (Heparin -) 5,000 unit SQ TID BO Last Admin: 10/21/19 13:28 Dose: 5,000 unit Documented by: Propofol (Diprivan -) 1,000,000 mcg in 100 mls @ 1.283 mls/hr IVPB TITR BO; Protocol Last Admin: 10/21/19 05:57 Dose: 35 mcg/kg/min, 8.983 mls/hr Documented by: Piperacillin Sod/Tazobactam (Sod 3.375 gm/ Dextrose) 50 mls @ 100 mls/hr IVPB Q8H-IV BO; Protocol Last Admin: 10/21/19 09:11 Dose: 100 mls/hr Documented by: Fentanyl 500 mcg/ Dextrose 100 mls @ 5 mls/hr IVPB TITR BO; Protocol Last Titration: 10/20/19 21:59 Dose: 50 mcg/hr, 10 mls/hr Documented by: Potassium Phosphate 40 mm/Magnesium Sulfate 2 gm/ Amino Acids 1,017.3333 mls @ 60 mls/hr IVPB Q16H BO Last Admin: 10/20/19 18:12 Dose: 60 mls/hr Documented by: Levetiracetam (Keppra Injection -) 1,000 mg IVPB BID [facility] Last Admin: 10/21/19 09:10 Dose: 1,000 mg Documented by: Mupirocin (Bactroban Ointment (For Decolonization) -) 1 applic NS BID BO Stop: 10/21/19 21:59 Last Admin: 10/21/19 09:11 Dose: 1 applic Documented by: Non-Formulary Med (Vitrum () 10 each GT DAILY [facility] Pantoprazole Sodium (Protonix Iv) 40 mg IVPUSH DAILY [facility] Last Admin: 10/21/19 09:10 Dose: 40 mg Documented by: Scopolamine HBr (Transderm-Scop -) 1 patch TD Q72H [facility] Last Admin: 10/19/19 22:16 Dose: 1 patch Documented by: - Objective Vital Signs: Vital Signs Temperature 98.8 F 10/21/19 10:00 Pulse Rate 114 H 10/21/19 10:00 Respiratory Rate 12 10/21/19 16:05 Blood Pressure 111/86 10/21/19 10:00 O2 Sat by Pulse Oximetry (%) 96 10/21/19 09:00 Labs: CBC, BMP 10/21/19 05:30 10/21/19 05:30 INR, PTT INR 1.15 (0.83-1.09) H 10/16/19 06:00 Impression/Plan Impression/Plan: 2-Acute Hypoxic Respiratory Failure 2/2Pneumonia likely Aspiration MV continued Wean as tolerated Titrate FiO2 to keep SpO2 >90% Daily SBT/SAT I/O 3- Severe Sepsis in the setting of Aspiration Pneumonia Remains afebrile Secretions remain thick Bcx neg x 2 x 72 hour Sputum Cx- EColi On Zosyn -ID for abx Leukocytosis improving downtrending 4-Intussuception GI Consulted recommendation appreciated Jevity via the J tube Keep head elevated 35 degrees Protonix 5- DVT Px- Heparin 5000 units TID Supportive care chlorhexidine Visit type - Emergency Visit Emergency Visit: Yes ED Registration Date: 10/16/19 Care time: The patient presented to the Emergency Department on the above date and was hospitalized for further evaluation of their emergent condition. - New Patient This patient is new to me today: No - Critical Care Critical Care patient: Yes Total Critical Care Time (in minutes): 35 Critical Care Statement: The care of this patient involved high complexity decision making to prevent further life threatening deterioration of the patient's condition and/or to evaluate & treat vital organ system(s) failure or risk of failure. - Discharge Referral Referred to [facility] Med P.C[facility] No
[2019-10-21] MEDS ORDERED: PT OWN MED DRAWER 7, Y5N ONE (17:52)
[2019-10-21] MEDS: CHLORHEXIDINE GLUCONATE 4% CLEANSER FOR DECOLONIZATION TP SCH (21:45)
[2019-10-21] MEDS: ACETAMINOPHEN 325 MG TABLET (FP) PO PRN (22:21)
[2019-10-22] MEDS ORDERED: PIPERACILLIN/TAZOBACTAM 3.375 GM VIAL IVPB ONE ×3 (01:01→17:26)
[2019-10-22] MEDS ORDERED: DEXTROSE 5%-WATER - 50 ML IVPB ONE ×3 (01:01→17:26)
[2019-10-22] MEDS: PIPERACILLIN/TAZOB 3.375 GM 3.375 GM in DEXTROSE 5%-WATER - 50 ML IVPB SCH ×3 (01:05→17:28)
[2019-10-22] MEDS: HEPARIN NA (PORCINE) 5,000 UNITS/ML 1ML VIAL SQ SCH ×3 (06:02→22:02)
[2019-10-22] MEDS: PROPOFOL 1,000,000 MCG/100 ML VIAL IVPB SCH ×3 (06:03→17:28)
[2019-10-22] MEDS: ACETYLCYSTEINE 20% 200MG/ML 4 ML VIAL *FOR ORAL / INH USE ONLY NEB SCH ×4 (08:40→20:38)
[2019-10-22] MEDS: ALBUTEROL SO4 0.083% IH SOL 2.5 MG/3 ML VIAL.NEB. NEB PRN ×4 (08:41→20:38)
[2019-10-22] MEDS: levETIRAcetam 500 MG/5 ML INJECTION VIAL IVPB SCH ×2 (09:19→22:02)
[2019-10-22] MEDS: PANTOPRAZOLE SODIUM 40 MG VIAL IVPUSH SCH (09:19)
--- NOTE | 2019-10-22 10:29 | PN ---
Progress Note (short form) - Note Progress Note: Progress Note Pt seen and examined in the ICU. On minimal vent settings. Continued high residual from NGT. Jej feeding tube clogged. To be replaced by GI. Current Medications Acetaminophen (Tylenol -) 650 mg PO Q4H PRN PRN Reason: FEVER Last Admin: 10/21/19 22:21 Dose: 650 mg Documented by: Acetylcysteine (Mucomyst 20 Oral / Inh Use Only*) 200 mg NEB RQID BO Last Admin: 10/22/19 08:40 Dose: 200 mg Documented by: Albuterol Sulfate (Ventolin 0.083% Nebulizer Soln -) 1 amp NEB Q4H PRN PRN Reason: SHORT OF BREATH/WHEEZING Last Admin: 10/22/19 08:41 Dose: 1 amp Documented by: Chlorhexidine Gluconate (Hibiclens For Decolonization -) 1 applic TP HS BO Last Admin: 10/21/19 21:45 Dose: 1 applic Documented by: Heparin Sodium (Porcine) (Heparin -) 5,000 unit SQ TID BO Last Admin: 10/22/19 06:02 Dose: 5,000 unit Documented by: Propofol (Diprivan -) 1,000,000 mcg in 100 mls @ 1.283 mls/hr IVPB TITR BO; Protocol Last Admin: 10/22/19 09:59 Dose: 40 mcg/kg/min, 10.266 mls/hr Documented by: Piperacillin Sod/Tazobactam (Sod 3.375 gm/ Dextrose) 50 mls @ 100 mls/hr IVPB Q8H-IV BO; Protocol Last Admin: 10/22/19 09:19 Dose: 100 mls/hr Documented by: Fentanyl 500 mcg/ Dextrose 100 mls @ 5 mls/hr IVPB TITR BO; Protocol Last Admin: 10/21/19 20:37 Dose: 50 mcg/hr, 10 mls/hr Documented by: Levetiracetam (Keppra Injection -) 1,000 mg IVPB BID BO Last Admin: 10/22/19 09:19 Dose: 1,000 mg Documented by: Non-Formulary Med (Vitrum () 10 each GT DAILY [facility] Pantoprazole Sodium (Protonix Iv) 40 mg IVPUSH DAILY [facility] Last Admin: 10/22/19 09:19 Dose: 40 mg Documented by: Scopolamine HBr (Transderm-Scop -) 1 patch TD Q72H [facility] Last Admin: 10/19/19 22:16 Dose: 1 patch Documented by: Vital Signs Period Temp Pulse Resp BP Sys/Campuzano Pulse Ox Last 24 Hr 98.8 F-101.2 F 113-130 12-21 101-125/63-86 96-100 Vital Signs Temp 99.7 F H 10/22/19 07:00 Pulse 123 H 10/22/19 08:39 Resp 20 10/22/19 09:00 BP 125/80 10/22/19 07:00 Pulse Ox 98 10/22/19 09:00 Intake & Output 10/21/19 10/21/19 10/22/19 11:59 23:59 12:59 Intake Total 998 599.2 722 Output Total 1200 1000 900 Balance -202 -400.8 -178 Weight 45.2 kg 45.161 kg Intake: IV 228 139.2 252 DIPRIVAN - 1,000,000 mcg 108 79.2 132 In 100 ml @ 5 MCG/KG/MIN 1.283 mls/hr IVPB TITR BO Rx#:[id number] Sublimaze Injection - 500 120 60 120 Mcg In D5w - 90 ml @ 25 MCG/HR 5 mls/hr IVPB TITR BO Rx#:[id number] IVPB 770 300 50 Tube Feeding 60 360 Tube Irrigant 100 60 Output: Urine 1200 1000 900 Jolley 1200 1000 900 Other: Voiding Method Indwelling Catheter Indwelling Catheter Indwelling Catheter Bowel Movement No No No Body Mass Index (BMI) 20.7 Weight Measurement Method Built in [facility] in [facility] Gen: Contracted, orally intubated Heart: RRR Lung: bilateral scattered rhonchi, clears with suctioning Abd: Softly distended, tympanic, (+) BS Ext: no edema Neuro: RASS 0 CBC, BMP 10/21/19 05:30 10/21/19 05:30 ASSESSMENT AND PLAN: Acute Hypoxic Respiratory Failure Pneumonia likely Aspiration ARDS Small Bowel Obstruction No suspicion of SMA Syndrome by CT Severe Sepsis Lactic Acidosis Mental Retardation GERD - ABX per ID - NGT to ILWS - monitor output - GI, no surgical intervention at this time. appreciate recs, Spoke with Dr Vasquez, plan to start feedings - Clinimix - Replete lytes - monitor urine output, creatinine - titrate FiO2 to keep SpO2 >90% - inhaled bronchodilators - spontaneous breathing trials as tolerated - DVT/GI prophylaxis - continue ICU monitoring Courtney Medellin, SELVINP
[2019-10-22] MEDS ORDERED: fentaNYL CITRATE 250 MCG/5 ML VIAL ONE ×2 (10:32→20:08)
[2019-10-22] MEDS: FENTANYL INJECTION 500 MCG in DEXTROSE 5%-WATER - 90 ML IVPB SCH ×2 (10:42→22:08)
[2019-10-22 11:56] LABS: HEMATOCRIT 32.4 % (32.4-45.2); HEMOGLOBIN 11.1 GM/dL (10.7-15.3); MCH 31.6 pg (25.7-33.7); MCHC 34.2 g/dl (32.0-36.0); MEAN CELL VOLUME 92.2 fl (80-96); MEAN PLT VOLUME 7.5 fl (7.5-11.1); PLATELET COUNT 342 K/MM3 (134-434); RBC 3.51 M/mm3 (3.60-5.2); RDW 14.5 % (11.6-15.6); WHITE BLOOD COUNT 11.4 K/mm3 (4.0-10.0)
[2019-10-22 12:10] LABS: INR 1.03 (0.83-1.09); PROTHROMBIN TIME (PATIENT) 12.1 SEC (9.7-13.0)
[2019-10-22 12:13] LABS: ACTIVATED PTT 42.6 SECONDS (25.2-36.5)
[2019-10-22 12:23] LABS: ALBUMIN 2.2 g/dl (3.4-5.0); BILIRUBIN,DIRECT 0.4 mg/dL (0.0-0.2); BILIRUBIN,TOTAL 0.6 mg/dL (0.2-1); BLOOD UREA NITROGEN 5.7 mg/dL (7-18); CREATININE 0.2 mg/dL (0.55-1.3); MAGNESIUM 1.8 mg/dL (1.8-2.4); PHOSPHOROUS 3.4 mg/dL (2.5-4.9)
--- NOTE | 2019-10-22 12:38 | PN ---
Progress Note, Physician History of Present Illness: 33 y/o F w/ PMHx 29week premature , profound mental delay, chronic seizure s, congenital quadriplegia, retinal detachment, recurrent GERD s/p Neissen, s/p GJ-ostomy, s/p gastrostomy, cataracts, scoliosis, osteoporosis, anemia who presents for evaluation of from [facility] for evaluation of respiratory distress & was Intubated in the field and admitted with Acute Hypoxic R espiratory Failure 2/2 Pneumonia likely Aspiration course complicated with Today: Patient seen and examined at bedside ETT in place NAD Following gaze. - Current Medication List Current Medications: Active Medications Acetaminophen (Tylenol -) 650 mg PO Q4H PRN PRN Reason: FEVER Last Admin: 10/21/19 22:21 Dose: 650 mg Documented by: Acetylcysteine (Mucomyst 20 Oral / Inh Use Only*) 200 mg NEB RQID BO Last Admin: 10/22/19 11:55 Dose: Not Given Documented by: Albuterol Sulfate (Ventolin 0.083% Nebulizer Soln -) 1 amp NEB Q4H PRN PRN Reason: SHORT OF BREATH/WHEEZING Last Admin: 10/22/19 11:55 Dose: 1 amp Documented by: Chlorhexidine Gluconate (Hibiclens For Decolonization -) 1 applic TP HS BO Last Admin: 10/21/19 21:45 Dose: 1 applic Documented by: Heparin Sodium (Porcine) (Heparin -) 5,000 unit SQ TID BO Last Admin: 10/22/19 06:02 Dose: 5,000 unit Documented by: Propofol (Diprivan -) 1,000,000 mcg in 100 mls @ 1.283 mls/hr IVPB TITR BO; Protocol Last Admin: 10/22/19 09:59 Dose: 40 mcg/kg/min, 10.266 mls/hr Documented by: Piperacillin Sod/Tazobactam (Sod 3.375 gm/ Dextrose) 50 mls @ 100 mls/hr IVPB Q8H-IV BO; Protocol Last Admin: 10/22/19 09:19 Dose: 100 mls/hr Documented by: Fentanyl 500 mcg/ Dextrose 100 mls @ 5 mls/hr IVPB TITR BO; Protocol Last Admin: 10/22/19 10:42 Dose: 50 mcg/hr, 10 mls/hr Documented by: Levetiracetam (Keppra Injection -) 1,000 mg IVPB BID [facility] Last Admin: 10/22/19 09:19 Dose: 1,000 mg Documented by: Non-Formulary Med (Vitrum () 10 each GT DAILY [facility] Pantoprazole Sodium (Protonix Iv) 40 mg IVPUSH DAILY [facility] Last Admin: 10/22/19 09:19 Dose: 40 mg Documented by: Scopolamine HBr (Transderm-Scop -) 1 patch TD Q72H [facility] Last Admin: 10/19/19 22:16 Dose: 1 patch Documented by: - Objective Vital Signs: Vital Signs Temperature 99.8 F H 10/22/19 11:00 Pulse Rate 122 H 10/22/19 11:00 Respiratory Rate 15 10/22/19 11:54 Blood Pressure 127/78 10/22/19 11:00 O2 Sat by Pulse Oximetry (%) 98 10/22/19 09:00 Labs: CBC, BMP 10/22/19 11:20 10/22/19 11:20 INR, PTT INR 1.03 (0.83-1.09) 10/22/19 11:20 Impression/Plan Impression/Plan: 2-Acute Hypoxic Respiratory Failure 2/2Pneumonia likely Aspiration MV continued Wean as tolerated Titrate FiO2 to keep SpO2 >90% Daily SBT/SAT I/O 3- Severe Sepsis in the setting of Aspiration Pneumonia Remains afebrile Secretions remain thick Bcx neg x 2 x 72 hour Sputum Cx- EColi On Zosyn -ID for abx From 3/2 Leukocytosis improving downtrending 4-Intussuception GI Consulted recommendation appreciated Jevity via the J tube Keep head elevated 35 degrees Protonix 5- DVT Px- Heparin 5000 units TID Supportive care chlorhexidine Visit type - Emergency Visit Emergency Visit: Yes ED Registration Date: 10/16/19 Care time: The patient presented to the Emergency Department on the above date and was hospitalized for further evaluation of their emergent condition. - New Patient This patient is new to me today: No - Critical Care Critical Care patient: Yes Total Critical Care Time (in minutes): 35 Critical Care Statement: The care of this patient involved high complexity decision making to prevent further life threatening deterioration of the patient's condition and/or to evaluate & treat vital organ system(s) failure or risk of failure. - Discharge Referral Referred to [facility] No
[2019-10-22 14:23] LABS: VENOUS PC02 47.2 mmHg (38-52); VENOUS PH 7.45 (7.31-7.41); VENOUS PO2 52.3 mmHg (28-48)
--- NOTE | 2019-10-22 14:46 | PN ---
Physical Exam: SUBJECTIVE: Patient seen and examined at bedside. No acute events overnight. Pt seen resting comfortably in bed. Currently on sedation. OBJECTIVE: Vital Signs Temperature 100.8 F H 10/22/19 13:00 Pulse Rate 118 H 10/22/19 13:00 Respiratory Rate 15 10/22/19 13:00 Blood Pressure 108/72 10/22/19 13:00 O2 Sat by Pulse Oximetry (%) 98 10/22/19 09:00 GENERAL: Intubated and sedated. HEAD: Normal with no signs of trauma. EYES: PERRL, extraocular movements intact, sclera anicteric, conjunctiva clear. No ptosis. ENT: Ears normal, nares patent, oropharynx clear without exudates, moist mucous membranes. NGT in place and ETT in place NECK: Trachea midline, full range of motion, supple. LUNGS: Breath sounds equal, clear to auscultation bilaterally, no wheezes, no crackles, no accessory muscle use. HEART: Regular rate and rhythm, S1, S2 without murmur, rub or gallop. ABDOMEN: Soft, nontender, nondistended, normoactive bowel sounds, no guarding, no rebound, no hepatosplenomegaly, no masses. 10-15cm diagonal abdominal incisional scar, well healed. Rigo-valverde feeding tube in place. GJ tube in place, tubing is yellow and discolored. EXTREMITIES: 2+ pulses, warm, well-perfused, no edema. NEUROLOGICAL: Sedated SKIN: Warm, dry, normal turgor, no rashes or lesions noted Laboratory Results - last 24 hr 10/22/19 10/22/19 10/22/19 11:20 11:20 11:20 WBC 11.4 H RBC 3.51 L Hgb 11.1 Hct 32.4 MCV 92.2 MCH 31.6 MCHC 34.2 RDW 14.5 Plt Count 342 D MPV 7.5 PT with INR 12.10 INR 1.03 PTT (Actin FS) 42.6 H Sodium 139 Potassium 4.0 Chloride 100 Carbon Dioxide 33 H Anion Gap 6 L BUN 5.7 L Creatinine 0.2 L Est GFR (CKD-EPI)AfAm 196.46 Est GFR (CKD-EPI)NonAf 169.51 Random Glucose 102 Calcium 8.0 L Phosphorus 3.4 Magnesium 1.8 Total Bilirubin 0.6 Direct Bilirubin 0.4 H AST 51 H ALT 56 Alkaline Phosphatase 292 H Total Protein 6.0 L Albumin 2.2 L Active Medications Generic Name Dose Route Start Last Admin Trade Name Freq PRN Reason Stop Dose Admin Acetaminophen 650 mg 10/21/19 21:51 10/21/19 22:21 Tylenol - PO 650 mg Q4H PRN Administration FEVER Acetylcysteine 200 mg 10/19/19 12:00 10/22/19 11:55 Mucomyst 20 Oral / Inh Use Only* NEB Not Given RQID BO Albuterol Sulfate 1 amp 10/19/19 09:30 10/22/19 11:55 Ventolin 0.083% Nebulizer Soln - NEB 1 amp Q4H PRN Administration SHORT OF BREATH/WHEEZING Chlorhexidine Gluconate 1 applic 10/16/19 22:00 10/21/19 21:45 Hibiclens For Decolonization - TP 1 applic HS BO Administration Heparin Sodium (Porcine) 5,000 unit 10/16/19 22:00 10/22/19 06:02 Heparin - SQ 5,000 unit TID BO Administration Propofol 1,000,000 mcg in 100 mls @ 1.283 mls/hr 10/16/19 06:15 10/22/19 09:59 Diprivan - IVPB 40 mcg/kg/min TITR BO 10.266 mls/hr Administration Protocol 5 MCG/KG/MIN Piperacillin Sod/Tazobactam 50 mls @ 100 mls/hr 10/16/19 18:00 10/22/19 09:19 Sod 3.375 gm/ Dextrose IVPB 100 mls/hr Q8H-IV BO Administration Protocol Fentanyl 500 mcg/ Dextrose 100 mls @ 5 mls/hr 10/17/19 11:00 10/22/19 10:42 IVPB 50 mcg/hr TITR BO 10 mls/hr Administration Protocol 25 MCG/HR Levetiracetam 1,000 mg 10/17/19 10:00 10/22/19 09:19 Keppra Injection - IVPB 1,000 mg BID BO Administration Non-Formulary Med 10 each 10/18/19 10:00 Vitrum ( GT DAILY [facility] Pantoprazole Sodium 40 mg 10/17/19 10:00 10/22/19 09:19 Protonix Iv IVPUSH 40 mg DAILY BO Administration Scopolamine HBr 1 patch 10/19/19 21:30 10/19/19 22:16 Transderm-Scop - TD 1 patch Q72H BO Administration IMAGING: * Chest CT: patchy consolidation left upper lobe. * CXR showing NG tube in LUQ/stomach, mediastinal fullness in rt hilum, retained stool, AXR showing retained stool in transverse colon/rt colon dilation, scoliosis. * CTA(10/19/19): no evidence of SMA syndrome/compression; enterohepatic intussusception in L abd containing J tube, no abd dilatation to suggest obstruction. Nonspecific stranding of L upper abd could be secondary to gastroduodenitis or pancreatitis ASSESSMENT/PLAN: 33F w/ pmhx of developmental delay, congenital quadriplegia, retinal detachment, gastrostomy, cataracts, scoliosis, osteoporosis, GERD, and J-tube placement, was brought in from [facility] after she was found to be in respiratory distress. #Acute Hypoxic Respiratory Failure; likely 2/2 aspiration pneumonia. Resolving. -Currently intubated and sedated; on Fentanyl and Propofol. Pt's respiratory status improving. -Cont weaning trials; maintain O2 sat -Resp viral panel pending -Scopolamine patch for mgmt of secretions -Albuterol nebs #Sepsis; 2/2 aspiration pneumonia. -Febrile overnight 101.2, persistently tachycardic ~110s-120s, WBC 11.4 today -ID consulted; cont IV Zosyn 3.375 gm Q8H #7 (started on 10/16/19, previously on Azithromycin). ID recs -BCx neg, SpCx +Staph aureus, E. coli, urine legionella/strep pneumonia neg -Lactate downtrending -Tylenol 650 Q4h PRN for fever #Intussuception; Seen on CTAP. -Surgery consulted (Sheng); no surgical intervention at this time. -GI consulted; recommend starting tube feeds with Jevity 1.5 through J tube. In future, may likely need periodic gastric emptying via Nino tube to prevent aspiration of succus entericus, bile, oral and gastric secretions to prevent aspiration. Advise to keep HOB 35 degrees -Cont PPI -NGT on intermittent low wall suction #Hx of Seizure Disorder; Cont home dose: IV Keppra 1000 BID IV #FEN -IV NS @125cc/hr -Hypokalemia , hypomag, hypophos repleted will rpt in AM. -NPO #Prophylaxis DVT: SQH GI: Protonix 40 IVP QD #Disposition -full code -ICU for closer monitoring Visit type - Emergency Visit Emergency Visit: Yes ED Registration Date: 10/16/19 Care time: The patient presented to the Emergency Department on the above date and was hospitalized for further evaluation of their emergent condition. - New Patient This patient is new to me today: No - Critical Care Critical Care patient: Yes Total Critical Care Time (in minutes): 36 Critical Care Statement: The care of this patient involved high complexity decision making to prevent further life threatening deterioration of the patient's condition and/or to evaluate & treat vital organ system(s) failure or risk of failure. ATTENDING PHYSICIAN STATEMENT I saw and evaluated the patient. I reviewed the resident's note and discussed the case with the resident. I agree with the resident's findings and plan as documented. SUBJECTIVE: OBJECTIVE: ASSESSMENT AND PLAN:
[2019-10-22] MEDS: ACETAMINOPHEN 325 MG TABLET (FP) PO PRN ×2 (16:11→22:06)
--- NOTE | 2019-10-22 16:14 | PN ---
Progress Note (short form) - Note Progress Note: GI NOte: Contrast study reveals that the G tube is intraluminal and can be used. Confirmed by Dr Ring. I informed the nurse who will contact the resident staff to initiate feeding rate as advised by manager pet Problem List - Problems (1) Enteric intussusception Code(s): K56.1 - INTUSSUSCEPTION (2) SMAS (superior mesenteric artery syndrome) Code(s): K55.1 - CHRONIC VASCULAR DISORDERS OF INTESTINE (3) Jejunostomy present Code(s): Z93.4 - OTHER ARTIFICIAL OPENINGS OF GASTROINTESTINAL TRACT STATUS (4) Gastrostomy in place Code(s): Z93.1 - GASTROSTOMY STATUS (5) Aspiration pneumonia Code(s): J69.0 - PNEUMONITIS DUE TO INHALATION OF FOOD AND VOMIT (6) Cerebral palsy Code(s): G80.9 - CEREBRAL PALSY, UNSPECIFIED (7) Quadriplegia and quadriparesis Code(s): G82.50 - QUADRIPLEGIA, UNSPECIFIED (8) Scoliosis Code(s): M41.9 - SCOLIOSIS, UNSPECIFIED (9) History of cholecystectomy Code(s): Z90.49 - ACQUIRED ABSENCE OF OTHER SPECIFIED PARTS OF DIGESTIVE TRACT
[2019-10-22] MEDS ORDERED: PT OWN MED DRAWER 7, Y5N ONE (21:55)
[2019-10-22] MEDS: CHLORHEXIDINE GLUCONATE 4% CLEANSER FOR DECOLONIZATION TP SCH (22:02)
[2019-10-22] MEDS: SCOPOLAMINE HYDROBROMIDE 1 PATCH PATCH.TD72 TD SCH (22:02)
[2019-10-23] MEDS ORDERED: PIPERACILLIN/TAZOBACTAM 3.375 GM VIAL IVPB ONE ×3 (00:47→18:36)
[2019-10-23] MEDS ORDERED: DEXTROSE 5%-WATER - 50 ML IVPB ONE ×3 (00:47→18:36)
[2019-10-23] MEDS: PIPERACILLIN/TAZOB 3.375 GM 3.375 GM in DEXTROSE 5%-WATER - 50 ML IVPB SCH ×3 (01:01→18:45)
[2019-10-23] MEDS: PROPOFOL 1,000,000 MCG/100 ML VIAL IVPB SCH ×2 (04:00→21:16)
[2019-10-23] MEDS: HEPARIN NA (PORCINE) 5,000 UNITS/ML 1ML VIAL SQ SCH ×3 (06:21→21:15)
[2019-10-23 07:36] LABS: BASO % 0.5 % (0-2.0); EOS % 2.9 % (0-4.5); HEMATOCRIT 31.3 % (32.4-45.2); HEMOGLOBIN 10.9 GM/dL (10.7-15.3); LYMPH % 16.8 % (8-40); MCH 31.6 pg (25.7-33.7); MCHC 34.7 g/dl (32.0-36.0); MEAN CELL VOLUME 91.2 fl (80-96); MEAN PLT VOLUME 7.6 fl (7.5-11.1); MONO % 9.8 % (3.8-10.2); PLATELET COUNT 410 K/MM3 (134-434); RBC 3.44 M/mm3 (3.60-5.2); RDW 14.1 % (11.6-15.6); WHITE BLOOD COUNT 12.3 K/mm3 (4.0-10.0)
[2019-10-23 08:05] LABS: ALBUMIN 2.1 g/dl (3.4-5.0); BILIRUBIN,TOTAL 0.4 mg/dL (0.2-1); BLOOD UREA NITROGEN 8.9 mg/dL (7-18); CALCIUM 7.9 mg/dL (8.5-10.1); CREATININE 0.2 mg/dL (0.55-1.3); MAGNESIUM 1.8 mg/dL (1.8-2.4); PHOSPHOROUS 3.8 mg/dL (2.5-4.9); POTASSIUM 3.9 mmol/L (3.5-5.1)
[2019-10-23] MEDS ORDERED: fentaNYL CITRATE 250 MCG/5 ML VIAL ONE (08:10)
[2019-10-23] MEDS: ACETYLCYSTEINE 20% 200MG/ML 4 ML VIAL *FOR ORAL / INH USE ONLY NEB SCH ×4 (08:43→21:00)
[2019-10-23] MEDS: ALBUTEROL SO4 0.083% IH SOL 2.5 MG/3 ML VIAL.NEB. NEB PRN ×4 (08:45→21:00)
[2019-10-23] MEDS: levETIRAcetam 500 MG/5 ML INJECTION VIAL IVPB SCH ×2 (09:12→22:27)
[2019-10-23] MEDS: PANTOPRAZOLE SODIUM 40 MG VIAL IVPUSH SCH (09:13)
[2019-10-23] MEDS: FENTANYL INJECTION 500 MCG in DEXTROSE 5%-WATER - 90 ML IVPB SCH (11:00)
[2019-10-23 12:14] LABS: ANISOCYTOSIS 3+; MACROCYTOSIS 0; PLATELET ESTIMATE NORMAL
--- NOTE | 2019-10-23 12:17 | PN ---
Teaching Attending Note Name of Resident: Heather Graf ATTENDING PHYSICIAN STATEMENT I saw and evaluated the patient. I reviewed the resident's note and discussed the case with the resident. I agree with the resident's findings and plan as documented. SUBJECTIVE: Patient seen and examined in the ICU. Remains intubated and sedated. AC Mode of vent. Abdomen less distended. Intake & Output 10/20/19 10/21/19 10/22/19 10/23/19 22:59 22:59 23:59 23:59 Intake Total 589 Output Total 750 Balance -161 Weight 93 lb 11.143 oz Last Vital Signs Temp Pulse Resp BP Pulse Ox 99.2 F 132 H 16 119/83 100 10/23/19 10:00 10/23/19 10:00 10/23/19 10:00 10/23/19 10:00 10/22/19 19:51 Active Medications Acetaminophen (Tylenol -) 650 mg PO Q4H PRN PRN Reason: FEVER Last Admin: 10/22/19 22:06 Dose: 650 mg Documented by: Acetylcysteine (Mucomyst 20 Oral / Inh Use Only*) 200 mg NEB RQID BO Last Admin: 10/23/19 08:43 Dose: 200 mg Documented by: Albuterol Sulfate (Ventolin 0.083% Nebulizer Soln -) 1 amp NEB Q4H PRN PRN Reason: SHORT OF BREATH/WHEEZING Last Admin: 10/23/19 08:45 Dose: 1 amp Documented by: Chlorhexidine Gluconate (Hibiclens For Decolonization -) 1 applic TP HS BO Last Admin: 10/22/19 22:02 Dose: 1 applic Documented by: Heparin Sodium (Porcine) (Heparin -) 5,000 unit SQ TID BO Last Admin: 10/23/19 06:21 Dose: 5,000 unit Documented by: Propofol (Diprivan -) 1,000,000 mcg in 100 mls @ 1.283 mls/hr IVPB TITR BO; Protocol Last Admin: 10/23/19 04:00 Dose: 40 mcg/kg/min, 10.266 mls/hr Documented by: Piperacillin Sod/Tazobactam (Sod 3.375 gm/ Dextrose) 50 mls @ 100 mls/hr IVPB Q8H-IV BO; Protocol Last Admin: 10/23/19 09:13 Dose: 100 mls/hr Documented by: Fentanyl 500 mcg/ Dextrose 100 mls @ 5 mls/hr IVPB TITR BO; Protocol Last Admin: 10/22/19 22:08 Dose: 50 mcg/hr, 10 mls/hr Documented by: Levetiracetam (Keppra Injection -) 1,000 mg IVPB BID BO Last Admin: 10/23/19 09:12 Dose: 1,000 mg Documented by: Non-Formulary Med (Vitrum () 10 each GT DAILY [facility] Pantoprazole Sodium (Protonix Iv) 40 mg IVPUSH DAILY [facility] Last Admin: 10/23/19 09:13 Dose: 40 mg Documented by: Scopolamine HBr (Transderm-Scop -) 1 patch TD Q72H [facility] Last Admin: 10/22/19 22:02 Dose: 1 patch Documented by: Gen: Contracted, intubated Heart: RRR Lung: bilateral scattered rhonchi Abd: Softly distended, tympanic, (+) BS Ext: no edema Neuro: sedated Laboratory Results - last 24 hr 10/22/19 10/22/19 10/23/19 11:20 14:06 06:00 WBC 12.3 H RBC 3.44 L Hgb 10.9 Hct 31.3 L MCV 91.2 MCH 31.6 MCHC 34.7 RDW 14.1 Plt Count 410 MPV 7.6 Absolute Neuts (auto) 8.6 H Neutrophils % 70.0 Lymphocytes % 16.8 Monocytes % 9.8 Eosinophils % 2.9 Basophils % 0.5 Nucleated RBC % 0 VBG pH 7.45 H POC VBG pCO2 47.2 POC VBG pO2 52.3 H VBG HCO3 32.4 H VBG O2 Sat (Pat) 85.9 H VBG Base Excess 7.7 H Sodium 139 Potassium 4.0 Chloride 100 Carbon Dioxide 33 H Anion Gap 6 L BUN 5.7 L Creatinine 0.2 L Est GFR (CKD-EPI)AfAm 196.46 Est GFR (CKD-EPI)NonAf 169.51 Random Glucose 102 Calcium 8.0 L Phosphorus 3.4 Magnesium 1.8 Total Bilirubin 0.6 Direct Bilirubin 0.4 H AST 51 H ALT 56 Alkaline Phosphatase 292 H Total Protein 6.0 L Albumin 2.2 L 10/23/19 06:00 WBC RBC Hgb Hct MCV MCH MCHC RDW Plt Count MPV Absolute Neuts (auto) Neutrophils % Lymphocytes % Monocytes % Eosinophils % Basophils % Nucleated RBC % VBG pH POC VBG pCO2 POC VBG pO2 VBG HCO3 VBG O2 Sat (Pat) VBG Base Excess Sodium 136 Potassium 3.9 Chloride 98 Carbon Dioxide 32 Anion Gap 6 L BUN 8.9 Creatinine 0.2 L Est GFR (CKD-EPI)AfAm 196.46 Est GFR (CKD-EPI)NonAf 169.51 Random Glucose 107 H Calcium 7.9 L Phosphorus 3.8 Magnesium 1.8 Total Bilirubin 0.4 Direct Bilirubin AST 60 H ALT 75 H Alkaline Phosphatase 307 H Total Protein 6.0 L Albumin 2.1 L ASSESSMENT AND PLAN: Acute Hypoxic Respiratory Failure Pneumonia likely Aspiration ARDS Small Bowel Obstruction No suspicion of SMA Syndrome by CT Severe Sepsis Lactic Acidosis Mental Retardation GERD - ABX per ID - Enteral feeds as tolerated - monitor output - Replete lytes - monitor urine output, creatinine - titrate FiO2 to keep SpO2 >90% - inhaled bronchodilators - spontaneous breathing trials as tolerated - DVT/GI prophylaxis - Requires continued ICU monitoring Dr Pedro Critical care time spent in reviewing chart, evaluating patient and formulating plan - 36 minutes.
--- NOTE | 2019-10-23 12:41 | PN ---
Physical Exam: SUBJECTIVE: Patient seen and examined. Spiked fevers overnight. J tube was replaced by Dr. Vasquez over the weekend, now on tube feeds. OBJECTIVE: Vital Signs Period Temp Pulse Resp BP Sys/Campuzano Pulse Ox Last 24 Hr 99.2 F-101.6 F 113-132 12-24 107-119/67-83 100-100 GENERAL: Intubated. Off sedation, tracks and responds to pain . HEAD: Normal with no signs of trauma. EYES: PERRL, extraocular movements intact, sclera anicteric, conjunctiva clear. No ptosis. ENT: Ears normal, nares patent, oropharynx clear without exudates, moist mucous membranes. NGT in place and ETT in place NECK: Trachea midline, full range of motion, supple. LUNGS: Breath sounds equal, clear to auscultation bilaterally, no wheezes, no crackles, no accessory muscle use. HEART: Regular rate and rhythm, S1, S2 without murmur, rub or gallop. ABDOMEN: Soft, nontender, nondistended, normoactive bowel sounds, no guarding, no rebound, no hepatosplenomegaly, no masses. 10-15cm diagonal abdominal incisional scar, well healed. Rigo-valverde feeding tube in place. GJ tube in place, tubing is yellow and discolored. EXTREMITIES: 2+ pulses, warm, well-perfused, no edema. NEUROLOGICAL: Sedated SKIN: Warm, dry, normal turgor, no rashes or lesions noted Laboratory Results - last 24 hr CBC, BMP 10/23/19 06:00 10/23/19 06:00 Active Medications Acetaminophen (Tylenol -) 650 mg PO Q4H PRN PRN Reason: FEVER Last Admin: 10/22/19 22:06 Dose: 650 mg Documented by: Acetylcysteine (Mucomyst 20 Oral / Inh Use Only*) 200 mg NEB RQID BO Last Admin: 10/23/19 08:43 Dose: 200 mg Documented by: Albuterol Sulfate (Ventolin 0.083% Nebulizer Soln -) 1 amp NEB Q4H PRN PRN Reason: SHORT OF BREATH/WHEEZING Last Admin: 10/23/19 08:45 Dose: 1 amp Documented by: Chlorhexidine Gluconate (Hibiclens For Decolonization -) 1 applic TP HS [facility] Last Admin: 10/22/19 22:02 Dose: 1 applic Documented by: Heparin Sodium (Porcine) (Heparin -) 5,000 unit SQ TID BO Last Admin: 10/23/19 06:21 Dose: 5,000 unit Documented by: Propofol (Diprivan -) 1,000,000 mcg in 100 mls @ 1.283 mls/hr IVPB TITR BO; Protocol Last Admin: 10/23/19 04:00 Dose: 40 mcg/kg/min, 10.266 mls/hr Documented by: Piperacillin Sod/Tazobactam (Sod 3.375 gm/ Dextrose) 50 mls @ 100 mls/hr IVPB Q8H-IV OB; Protocol Last Admin: 10/23/19 09:13 Dose: 100 mls/hr Documented by: Fentanyl 500 mcg/ Dextrose 100 mls @ 5 mls/hr IVPB TITR BO; Protocol Last Admin: 10/22/19 22:08 Dose: 50 mcg/hr, 10 mls/hr Documented by: Levetiracetam (Keppra Injection -) 1,000 mg IVPB BID BO Last Admin: 10/23/19 09:12 Dose: 1,000 mg Documented by: Non-Formulary Med (Vitrum () 10 each GT DAILY BO Pantoprazole Sodium (Protonix Iv) 40 mg IVPUSH DAILY BO Last Admin: 10/23/19 09:13 Dose: 40 mg Documented by: Scopolamine HBr (Transderm-Scop -) 1 patch TD Q72H BO Last Admin: 10/22/19 22:02 Dose: 1 patch Documented by: ASSESSMENT/PLAN: Patient is a 33 yo f w/ pmh 29week premature , profound mental delay, chronic seizures, congenital quadriplegia, retinal detachment, recurrent GERD s/p Neissen, 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 Intubated in the field Neuro -Severe MR -Chronic seizures -Sedated -Maintain sedation for vent synchrony -Cont home Keppra 1000mg BID Pulmonary -Respiratory Distress --possibly 2/2 Aspiration PNA -CXR(10/17/19): prominent mediastinum, fullness of Right hilum, fullness of Right paratracheal soft tissues. Left mid and Lower infiltrate -Influ: neg -Respir Panel --pending final results -Intubated, wean vent settings as tolerated -IV Abx -ID following (Dr. Valdez): cont zosyn Cardiovascular -Tachycardia --likely 2/2 sepsis and pain(chronic and acute abd) -MAPs 70s off pressors -Pt has not required pressors, can remove central line. GI -NGT bleeding --likely 2/2 mucosal irritation from high pressure suction -SBO --likely 2/2 SMA Syndrome vs small bowel obstruction vs colonic dysmotility -Elevated Tbil --downtrending -High output NGT -CTA abd (10/23/19): no evidence of obstruction. moderate amount of free fluid -Lipase: 579 -Surgery consult (Dr. Patricio): no surgical intervention from his end at this time -Patient has G tube, J tube replaced over the weekend. Now on tube feeds ID -Possible Aspiration PNA -Lactic acidosis --resolving -UA: 3+ LE, WBC 109, neg nitrite -Blood cx: NGTD -Sputum cx: E coli -Resp panel pending -Urine for Antigen: neg -Lactic Acid: 2.8, 6.0, 2.9 -ID(José Miguel) consulted: IV Zosyn, d/c zithromax -Pt spiking fevers overnight, send for repeat cultures FEN -D/c fluids -monitor lytes, replete PRN -Tube feeds Vital 1.2 DVT ppx -SQH Dispo -patient requires ICU monitoring Visit type - Emergency Visit Emergency Visit: No - New Patient This patient is new to me today: No - Critical Care Critical Care patient: Yes Total Critical Care Time (in minutes): 45 Critical Care Statement: The care of this patient involved high complexity decision making to prevent further life threatening deterioration of the patient's condition and/or to evaluate & treat vital organ system(s) failure or risk of failure. ATTENDING PHYSICIAN STATEMENT I saw and evaluated the patient. I reviewed the resident's note and discussed the case with the resident. I agree with the resident's findings and plan as documented. SUBJECTIVE: OBJECTIVE: ASSESSMENT AND PLAN:
--- NOTE | 2019-10-23 13:25 | PN ---
Physical Exam: SUBJECTIVE: Patient seen and examined at the bedside. Remains intubated and sedated. Had tmax of 101.6 yesterday. OBJECTIVE: Vital Signs Period Temp Pulse Resp BP Sys/Campuzano Pulse Ox Last 24 Hr 99.2 F-101.6 F 113-132 12-24 107-119/67-83 100-100 GENERAL: Intubated and sedated EYES: pupils reactive bilaterally ENT: Oropharynx clear without exudates, moist mucous membranes. NG tube in place LUNGS: Mechanical breath sounds. No wheezes auscultated. HEART: Tachycardic rate and regular rhythm, S1, S2 without murmur. ABDOMEN: Soft, nondistended, tube feed sounds, no guarding, no masses. EXTREMITIES: 2+ pulses, warm, well-perfused, no edema. NEUROLOGICAL: Sedated SKIN: Warm, dry, normal turgor, no rashes or lesions noted Laboratory Results - last 24 hr 10/22/19 10/23/19 10/23/19 14:06 06:00 06:00 WBC 12.3 H RBC 3.44 L Hgb 10.9 Hct 31.3 L MCV 91.2 MCH 31.6 MCHC 34.7 RDW 14.1 Plt Count 410 MPV 7.6 Absolute Neuts (auto) 8.6 H Neutrophils % 70.0 Neutrophils % (Manual) 60.0 Band Neutrophils % 6.0 Lymphocytes % 16.8 Lymphocytes % (Manual) 17.0 D Monocytes % 9.8 Monocytes % (Manual) 7 Eosinophils % 2.9 Eosinophils % (Manual) 1.0 Basophils % 0.5 Basophils % (Manual) 0.0 Myelocytes % (Man) 1 D Promyelocytes % (Man) 1 D Blast Cells % (Manual) 0 Nucleated RBC % 0 Metamyelocytes 0 D Hypochromia 0 Platelet Estimate Normal Polychromasia 0 Poikilocytosis 0 Anisocytosis 3+ Microcytosis 1+ Macrocytosis 0 VBG pH 7.45 H POC VBG pCO2 47.2 POC VBG pO2 52.3 H VBG HCO3 32.4 H VBG O2 Sat (Pat) 85.9 H VBG Base Excess 7.7 H Sodium 136 Potassium 3.9 Chloride 98 Carbon Dioxide 32 Anion Gap 6 L BUN 8.9 Creatinine 0.2 L Est GFR (CKD-EPI)AfAm 196.46 Est GFR (CKD-EPI)NonAf 169.51 Random Glucose 107 H Calcium 7.9 L Phosphorus 3.8 Magnesium 1.8 Total Bilirubin 0.4 AST 60 H ALT 75 H Alkaline Phosphatase 307 H Total Protein 6.0 L Albumin 2.1 L Active Medications Generic Name Dose Route Start Last Admin Trade Name Freq PRN Reason Stop Dose Admin Acetaminophen 650 mg 10/21/19 21:51 10/22/19 22:06 Tylenol - PO 650 mg Q4H PRN Administration FEVER Acetylcysteine 200 mg 10/19/19 12:00 10/23/19 13:02 Mucomyst 20 Oral / Inh Use Only* NEB 200 mg RQID BO Administration Albuterol Sulfate 1 amp 10/19/19 09:30 10/23/19 13:02 Ventolin 0.083% Nebulizer Soln - NEB 1 amp Q4H PRN Administration SHORT OF BREATH/WHEEZING Chlorhexidine Gluconate 1 applic 10/16/19 22:00 10/22/19 22:02 Hibiclens For Decolonization - TP 1 applic HS BO Administration Heparin Sodium (Porcine) 5,000 unit 10/16/19 22:00 10/23/19 06:21 Heparin - SQ 5,000 unit TID BO Administration Propofol 1,000,000 mcg in 100 mls @ 1.283 mls/hr 10/16/19 06:15 10/23/19 04:00 Diprivan - IVPB 40 mcg/kg/min TITR BO 10.266 mls/hr Administration Protocol 5 MCG/KG/MIN Piperacillin Sod/Tazobactam 50 mls @ 100 mls/hr 10/16/19 18:00 10/23/19 09:13 Sod 3.375 gm/ Dextrose IVPB 100 mls/hr Q8H-IV BO Administration Protocol Fentanyl 500 mcg/ Dextrose 100 mls @ 5 mls/hr 10/17/19 11:00 10/22/19 22:08 IVPB 50 mcg/hr TITR BO 10 mls/hr Administration Protocol 25 MCG/HR Levetiracetam 1,000 mg 10/17/19 10:00 10/23/19 09:12 Keppra Injection - IVPB 1,000 mg BID BO Administration Non-Formulary Med 10 each 10/18/19 10:00 Vitrum ( GT DAILY BO Pantoprazole Sodium 40 mg 10/17/19 10:00 10/23/19 09:13 Protonix Iv IVPUSH 40 mg DAILY BO Administration Scopolamine HBr 1 patch 10/19/19 21:30 10/22/19 22:02 Transderm-Scop - TD 1 patch Q72H BO Administration IMAGING: * Chest CT: patchy consolidation left upper lobe. * CXR showing NG tube in LUQ/stomach, mediastinal fullness in rt hilum, retained stool, AXR showing retained stool in transverse colon/rt colon dilation, scoliosis. * CTA(10/19/19): no evidence of SMA syndrome/compression; enterohepatic intussusception in L abd containing J tube, no abd dilatation to suggest obstruction. Nonspecific stranding of L upper abd could be secondary to gastroduodenitis or pancreatitis ASSESSMENT/PLAN: Flora Pandey is a 33 female with a past medical history of developmental delay, congenital quadriplegia, retinal detachment, gastrostomy, cataracts, scoliosis, osteoporosis, GERD, and J-tube placement, was brought in from [facility] admitted for sepsis secondary to aspiration pneumonia. Acute Hypoxic Respiratory Failure - likely 2/2 aspiration pneumonia. Resolving. - Currently intubated and sedated; on Fentanyl and Propofol - Cont weaning trials; maintain O2 sat - Resp viral panel pending, flu negative - Scopolamine patch for management of secretions - Albuterol nebs Sepsis - secondary to aspiration pneumonia - ID consulted; cont IV Zosyn 3.375 gm Q8H day 8 (started on 10/16/19, previously on Azithromycin) - BCx neg, SpCx +Staph aureus, E. coli, urine legionella/strep pneumonia neg Intussuception - Surgery consulted (Sheng); no surgical intervention at this time. - GI consulted; recommend starting tube feeds with Jevity 1.5 through J tube. In future, may likely need periodic gastric emptying via Nino tube to prevent aspiration of succus entericus, bile, oral and gastric secretions to prevent aspiration. Advise to keep HOB 35 degrees - Cont PPI - NGT on intermittent low wall suction Hx of Seizure Disorder - IV Keppra 1000 BID IV DVT PPx - heparin 5000 units subq tid FEN - no standing fluids - continue to monitor electrolytes and replete as necessary - tube feeds Disposition - full code - continue to monitor in ICU Visit type - Emergency Visit Emergency Visit: Yes ED Registration Date: 10/16/19 Care time: The patient presented to the Emergency Department on the above date and was hospitalized for further evaluation of their emergent condition. - New Patient This patient is new to me today: Yes Date on this admission: 10/23/19 - Critical Care Critical Care patient: Yes Total Critical Care Time (in minutes): 35 Critical Care Statement: The care of this patient involved high complexity decision making to prevent further life threatening deterioration of the patient's condition and/or to evaluate & treat vital organ system(s) failure or risk of failure.
--- NOTE | 2019-10-23 18:15 | PN ---
Progress Note, Physician History of Present Illness: 33 y/o F w/ PMHx 29week premature , profound mental delay, chronic seizure s, congenital quadriplegia, retinal detachment, recurrent GERD s/p Neissen, s/p GJ-ostomy, s/p gastrostomy, cataracts, scoliosis, osteoporosis, anemia who presents for evaluation of from [facility] for evaluation of respiratory distress & was Intubated in the field and admitted with Acute Hypoxic R espiratory Failure 2/2 Pneumonia likely Aspiration course complicated with Today: Patient seen and examined at bedside ETT in place NAD Following gaze. - Current Medication List Current Medications: Active Medications Acetaminophen (Tylenol -) 650 mg PO Q4H PRN PRN Reason: FEVER Last Admin: 10/22/19 22:06 Dose: 650 mg Documented by: Acetylcysteine (Mucomyst 20 Oral / Inh Use Only*) 200 mg NEB RQID BO Last Admin: 10/23/19 16:48 Dose: 200 mg Documented by: Albuterol Sulfate (Ventolin 0.083% Nebulizer Soln -) 1 amp NEB Q4H PRN PRN Reason: SHORT OF BREATH/WHEEZING Last Admin: 10/23/19 16:49 Dose: 1 amp Documented by: Chlorhexidine Gluconate (Hibiclens For Decolonization -) 1 applic TP HS BO Last Admin: 10/22/19 22:02 Dose: 1 applic Documented by: Heparin Sodium (Porcine) (Heparin -) 5,000 unit SQ TID BO Last Admin: 10/23/19 13:50 Dose: 5,000 unit Documented by: Propofol (Diprivan -) 1,000,000 mcg in 100 mls @ 1.283 mls/hr IVPB TITR BO; Protocol Last Admin: 10/23/19 04:00 Dose: 40 mcg/kg/min, 10.266 mls/hr Documented by: Piperacillin Sod/Tazobactam (Sod 3.375 gm/ Dextrose) 50 mls @ 100 mls/hr IVPB Q8H-IV BO; Protocol Last Admin: 10/23/19 09:13 Dose: 100 mls/hr Documented by: Fentanyl 500 mcg/ Dextrose 100 mls @ 5 mls/hr IVPB TITR BO; Protocol Last Admin: 10/22/19 22:08 Dose: 50 mcg/hr, 10 mls/hr Documented by: Levetiracetam (Keppra Injection -) 1,000 mg IVPB BID [facility] Last Admin: 10/23/19 09:12 Dose: 1,000 mg Documented by: Non-Formulary Med (Vitrum () 10 each GT DAILY [facility] Pantoprazole Sodium (Protonix Iv) 40 mg IVPUSH DAILY [facility] Last Admin: 10/23/19 09:13 Dose: 40 mg Documented by: Scopolamine HBr (Transderm-Scop -) 1 patch TD Q72H [facility] Last Admin: 10/22/19 22:02 Dose: 1 patch Documented by: - Objective Vital Signs: Vital Signs Temperature 98.9 F 10/23/19 14:00 Pulse Rate 128 H 10/23/19 14:00 Respiratory Rate 21 H 10/23/19 16:47 Blood Pressure 119/73 10/23/19 14:00 O2 Sat by Pulse Oximetry (%) 100 10/22/19 19:51 Labs: CBC, BMP 10/23/19 06:00 10/23/19 06:00 INR, PTT INR 1.03 (0.83-1.09) 10/22/19 11:20 Impression/Plan Impression/Plan: 2-Acute Hypoxic Respiratory Failure 2/2Pneumonia likely Aspiration 10/21 101.6 F MV continued Wean as tolerated Titrate FiO2 to keep SpO2 >90% Daily SBT/SAT I/O 3- Severe Sepsis in the setting of Aspiration Pneumonia Remains afebrile Secretions remain thick Bcx neg x 2 x 72 hour Sputum Cx- EColi On Zosyn -ID for abx From 3/2 Leukocytosis improving downtrending 4-Intussuception GI Consulted recommendation appreciated Jevity via the J tube Keep head elevated 35 degrees Protonix 5- DVT Px- Heparin 5000 units TID Supportive care chlorhexidine Visit type - Emergency Visit Emergency Visit: Yes ED Registration Date: 10/16/19 Care time: The patient presented to the Emergency Department on the above date and was hospitalized for further evaluation of their emergent condition. - New Patient This patient is new to me today: No - Critical Care Critical Care patient: No - Discharge Referral Referred to [facility] Med P.C.: No
[2019-10-23] MEDS: ACETAMINOPHEN 325 MG TABLET (FP) PO PRN (19:37)
[2019-10-23] MEDS: CHLORHEXIDINE GLUCONATE 4% CLEANSER FOR DECOLONIZATION TP SCH (21:15)
[2019-10-24] MEDS ORDERED: PIPERACILLIN/TAZOBACTAM 3.375 GM VIAL IVPB ONE ×3 (02:46→16:53)
[2019-10-24] MEDS ORDERED: DEXTROSE 5%-WATER - 50 ML IVPB ONE ×3 (02:46→16:53)
[2019-10-24] MEDS: PIPERACILLIN/TAZOB 3.375 GM 3.375 GM in DEXTROSE 5%-WATER - 50 ML IVPB SCH ×3 (02:50→17:00)
[2019-10-24] MEDS ORDERED: fentaNYL CITRATE 250 MCG/5 ML VIAL ONE ×2 (03:30→21:28)
[2019-10-24] MEDS: HEPARIN NA (PORCINE) 5,000 UNITS/ML 1ML VIAL SQ SCH ×3 (06:09→21:17)
[2019-10-24] MEDS: PROPOFOL 1,000,000 MCG/100 ML VIAL IVPB SCH (06:09)
[2019-10-24] MEDS ORDERED: PT OWN MED DRAWER 7, Y5N ONE (06:09)
[2019-10-24 06:34] LABS: BASO % 0.3 % (0-2.0); EOS % 1.7 % (0-4.5); HEMATOCRIT 30.2 % (32.4-45.2); HEMOGLOBIN 10.3 GM/dL (10.7-15.3); LYMPH % 17.8 % (8-40); MCH 31.1 pg (25.7-33.7); MEAN CELL VOLUME 91.4 fl (80-96); MEAN PLT VOLUME 7.4 fl (7.5-11.1); MONO % 9.1 % (3.8-10.2); NEUT % 71.1 % (42.8-82.8); PLATELET COUNT 438 K/MM3 (134-434); RDW 14.5 % (11.6-15.6); WHITE BLOOD COUNT 15.5 K/mm3 (4.0-10.0)
[2019-10-24 07:12] LABS: ALBUMIN 2.2 g/dl (3.4-5.0); BILIRUBIN,TOTAL 0.3 mg/dL (0.2-1); BLOOD UREA NITROGEN 10.8 mg/dL (7-18); CALCIUM 8.1 mg/dL (8.5-10.1); CREATININE 0.2 mg/dL (0.55-1.3); PHOSPHOROUS 3.2 mg/dL (2.5-4.9); POTASSIUM 3.6 mmol/L (3.5-5.1); TOT PROT 6.1 g/dl (6.4-8.2)
[2019-10-24] MEDS ORDERED: VANCOMYCIN 1 GM in D5W (PRE-DOCKED) 1,000 MG/250 ML IVPB ONE (08:00)
[2019-10-24] MEDS: ACETYLCYSTEINE 20% 200MG/ML 4 ML VIAL *FOR ORAL / INH USE ONLY NEB SCH ×4 (08:00→20:40)
[2019-10-24] MEDS: ALBUTEROL SO4 0.083% IH SOL 2.5 MG/3 ML VIAL.NEB. NEB PRN ×2 (08:00→20:40)
--- NOTE | 2019-10-24 08:42 | PN ---
Physical Exam: SUBJECTIVE: Patient seen and examined at the bedside. Remains intubated. Has some eye tracking movements but does not track examiner across the room. OBJECTIVE: Vital Signs Period Temp Pulse Resp BP Sys/Campuzano Pulse Ox Last 24 Hr 98.2 F-101 F 113-135 13-26 95-128/52-93 GENERAL: Intubated and sedated EYES: pupils reactive bilaterally ENT: Oropharynx clear without exudates, moist mucous membranes. NG tube in place LUNGS: Mechanical breath sounds. No wheezes auscultated. No crackles auscultated. HEART: Tachycardic rate and regular rhythm, S1, S2 without murmur. ABDOMEN: Soft, nondistended, tube feed sounds, no guarding, no masses. EXTREMITIES: 2+ pulses, warm, well-perfused, no edema. NEUROLOGICAL: Sedated, moves extremities in response to light touch. SKIN: Warm, dry, normal turgor, no rashes or lesions noted Laboratory Results - last 24 hr 10/23/19 10/24/19 10/24/19 06:00 05:30 05:30 WBC 15.5 H RBC 3.30 L Hgb 10.3 L Hct 30.2 L MCV 91.4 MCH 31.1 MCHC 34.0 RDW 14.5 Plt Count 438 H MPV 7.4 L Absolute Neuts (auto) 11.1 H Neutrophils % 71.1 Neutrophils % (Manual) 60.0 Band Neutrophils % 6.0 Lymphocytes % 17.8 Lymphocytes % (Manual) 17.0 D Monocytes % 9.1 Monocytes % (Manual) 7 Eosinophils % 1.7 Eosinophils % (Manual) 1.0 Basophils % 0.3 Basophils % (Manual) 0.0 Myelocytes % (Man) 1 D Promyelocytes % (Man) 1 D Blast Cells % (Manual) 0 Nucleated RBC % 0 0 Metamyelocytes 0 D Hypochromia 0 Platelet Estimate Normal Polychromasia 0 Poikilocytosis 0 Anisocytosis 3+ Microcytosis 1+ Macrocytosis 0 Sodium 139 Potassium 3.6 Chloride 98 Carbon Dioxide 34 H Anion Gap 6 L BUN 10.8 Creatinine 0.2 L Est GFR (CKD-EPI)AfAm 196.46 Est GFR (CKD-EPI)NonAf 169.51 Random Glucose 90 Calcium 8.1 L Phosphorus 3.2 Magnesium 2.0 Total Bilirubin 0.3 AST 38 H ALT 61 Alkaline Phosphatase 262 H Total Protein 6.1 L Albumin 2.2 L Active Medications Generic Name Dose Route Start Last Admin Trade Name Freq PRN Reason Stop Dose Admin Acetaminophen 650 mg 10/21/19 21:51 10/23/19 19:37 Tylenol - PO 650 mg Q4H PRN Administration FEVER Acetylcysteine 200 mg 10/19/19 12:00 10/23/19 21:00 Mucomyst 20 Oral / Inh Use Only* NEB 200 mg RQID BO Administration Albuterol Sulfate 1 amp 10/19/19 09:30 10/23/19 21:00 Ventolin 0.083% Nebulizer Soln - NEB 1 amp Q4H PRN Administration SHORT OF BREATH/WHEEZING Chlorhexidine Gluconate 1 applic 10/16/19 22:00 10/23/19 21:15 Hibiclens For Decolonization - TP 1 applic HS BO Administration Heparin Sodium (Porcine) 5,000 unit 10/16/19 22:00 10/24/19 06:09 Heparin - SQ 5,000 unit TID BO Administration Propofol 1,000,000 mcg in 100 mls @ 1.283 mls/hr 10/16/19 06:15 10/24/19 06:09 Diprivan - IVPB Not Given TITR BO Protocol 5 MCG/KG/MIN Piperacillin Sod/Tazobactam 50 mls @ 100 mls/hr 10/16/19 18:00 10/24/19 02:50 Sod 3.375 gm/ Dextrose IVPB 100 mls/hr Q8H-IV BO Administration Protocol Fentanyl 500 mcg/ Dextrose 100 mls @ 5 mls/hr 10/17/19 11:00 10/23/19 11:00 IVPB 50 mcg/hr TITR BO 10 mls/hr Administration Protocol 25 MCG/HR Levetiracetam 1,000 mg 10/17/19 10:00 10/23/19 22:27 Keppra Injection - IVPB 1,000 mg BID BO Administration Non-Formulary Med 10 each 10/18/19 10:00 Vitrum ( GT DAILY BO Pantoprazole Sodium 40 mg 10/17/19 10:00 10/23/19 09:13 Protonix Iv IVPUSH 40 mg DAILY BO Administration Scopolamine HBr 1 patch 10/19/19 21:30 10/22/19 22:02 Transderm-Scop - TD 1 patch Q72H BO Administration IMAGING: * Chest CT: patchy consolidation left upper lobe. * CXR showing NG tube in LUQ/stomach, mediastinal fullness in rt hilum, retained stool, AXR showing retained stool in transverse colon/rt colon dilation, scoliosis. * CTA(10/19/19): no evidence of SMA syndrome/compression; enterohepatic intussusception in L abd containing J tube, no abd dilatation to suggest obstruction. Nonspecific stranding of L upper abd could be secondary to gastroduodenitis or pancreatitis ASSESSMENT/PLAN: Flora Pandey is a 33 female with a past medical history of developmental delay, congenital quadriplegia, retinal detachment, gastrostomy, cataracts, scoliosis, osteoporosis, GERD, and J-tube placement, was brought in from [facility] admitted for sepsis secondary to aspiration pneumonia. Acute Hypoxic Respiratory Failure - likely 2/2 aspiration pneumonia. Resolving. - Currently intubated and sedated; on Fentanyl and Propofol - Cont weaning trials; maintain O2 sat - Resp viral panel pending, flu negative - Scopolamine patch for management of secretions - Albuterol nebs Sepsis - secondary to aspiration pneumonia - ID consulted; cont IV Zosyn 3.375 gm Q8H day 9 (started on 10/16/19, previously on Azithromycin) - SpCx +Staph aureus, E. coli, urine legionella/strep pneumonia neg - blood culture growing gram positive cocci in clusters - vancomycin ordered Intussuception - Surgery consulted (Sheng); no surgical intervention at this time. - GI consulted; recommend starting tube feeds with Jevity 1.5 through J tube. In future, may likely need periodic gastric emptying via Nino tube to prevent aspiration of succus entericus, bile, oral and gastric secretions to prevent aspiration. Advise to keep HOB 35 degrees - Cont PPI - NGT on intermittent low wall suction Hx of Seizure Disorder - IV Keppra 1000 BID IV DVT PPx - heparin 5000 units subq tid FEN - no standing fluids - continue to monitor electrolytes and replete as necessary - tube feeds Disposition - full code - continue to monitor in ICU Visit type - Emergency Visit Emergency Visit: Yes ED Registration Date: 10/16/19 Care time: The patient presented to the Emergency Department on the above date and was hospitalized for further evaluation of their emergent condition. - New Patient This patient is new to me today: No - Critical Care Critical Care patient: Yes Total Critical Care Time (in minutes): 36 Critical Care Statement: The care of this patient involved high complexity decision making to prevent further life threatening deterioration of the patient's condition and/or to evaluate & treat vital organ system(s) failure or risk of failure.
[2019-10-24] MEDS: levETIRAcetam 500 MG/5 ML INJECTION VIAL IVPB SCH ×2 (09:00→21:17)
[2019-10-24] MEDS: PANTOPRAZOLE SODIUM 40 MG VIAL IVPUSH SCH (09:00)
[2019-10-24] MEDS ORDERED: VANCOMYCIN 1 GRAM (PRE-DOCKED) 1,000 MG/250 ML BAG IVPB ONE (10:45)
--- NOTE | 2019-10-24 11:11 | PN ---
Teaching Attending Note Name of Resident: Heather Graf ATTENDING PHYSICIAN STATEMENT I saw and evaluated the patient. I reviewed the resident's note and discussed the case with the resident. I agree with the resident's findings and plan as documented. SUBJECTIVE: Patient seen and examined in the ICU. Remains intubated and sedated. AC Mode of vent. Abdomen less distended and tolerating feeds. Febrile: Prelim of Staph in the blood Intake & Output 10/21/19 10/22/19 10/23/19 10/24/19 22:59 23:59 23:59 23:59 Intake Total 2308.2 994 Output Total 1200 350 Balance 1108.2 644 Weight 93 lb 11.143 oz 91 lb 8 oz Last Vital Signs Temp Pulse Resp BP Pulse Ox 98.4 F 122 H 28 H 118/79 100 10/24/19 09:00 10/24/19 09:00 10/24/19 09:00 10/24/19 09:00 10/23/19 08:11 Active Medications Acetaminophen (Tylenol -) 650 mg PO Q4H PRN PRN Reason: FEVER Last Admin: 10/23/19 19:37 Dose: 650 mg Documented by: Acetylcysteine (Mucomyst 20 Oral / Inh Use Only*) 200 mg NEB RQID BO Last Admin: 10/24/19 08:00 Dose: 200 mg Documented by: Albuterol Sulfate (Ventolin 0.083% Nebulizer Soln -) 1 amp NEB Q4H PRN PRN Reason: SHORT OF BREATH/WHEEZING Last Admin: 10/24/19 08:00 Dose: 1 amp Documented by: Chlorhexidine Gluconate (Hibiclens For Decolonization -) 1 applic TP HS BO Last Admin: 10/23/19 21:15 Dose: 1 applic Documented by: Heparin Sodium (Porcine) (Heparin -) 5,000 unit SQ TID BO Last Admin: 10/24/19 06:09 Dose: 5,000 unit Documented by: Propofol (Diprivan -) 1,000,000 mcg in 100 mls @ 1.283 mls/hr IVPB TITR BO; Protocol Last Admin: 10/24/19 06:09 Dose: Not Given Documented by: Piperacillin Sod/Tazobactam (Sod 3.375 gm/ Dextrose) 50 mls @ 100 mls/hr IVPB Q8H-IV BO; Protocol Last Admin: 10/24/19 09:00 Dose: 100 mls/hr Documented by: Fentanyl 500 mcg/ Dextrose 100 mls @ 5 mls/hr IVPB TITR BO; Protocol Last Admin: 10/23/19 11:00 Dose: 50 mcg/hr, 10 mls/hr Documented by: Vancomycin HCl (Vancomycin (Pre-Docked)) 1,000 mg in 250 mls @ 166.667 mls/hr IVPB Q24H BO; Protocol Levetiracetam (Keppra Injection -) 1,000 mg IVPB BID BO Last Admin: 10/24/19 09:00 Dose: 1,000 mg Documented by: Non-Formulary Med (Vitrum () 10 each GT DAILY BO Pantoprazole Sodium (Protonix Iv) 40 mg IVPUSH DAILY BO Last Admin: 10/24/19 09:00 Dose: 40 mg Documented by: Scopolamine HBr (Transderm-Scop -) 1 patch TD Q72H BO Last Admin: 10/22/19 22:02 Dose: 1 patch Documented by: Gen: Contracted, intubated Heart: RRR Lung: bilateral scattered rhonchi Abd: Softly distended, tympanic, (+) BS Ext: no edema Neuro: sedated Laboratory Results - last 24 hr 10/23/19 10/24/19 10/24/19 06:00 05:30 05:30 WBC 15.5 H RBC 3.30 L Hgb 10.3 L Hct 30.2 L MCV 91.4 MCH 31.1 MCHC 34.0 RDW 14.5 Plt Count 438 H MPV 7.4 L Absolute Neuts (auto) 11.1 H Neutrophils % 71.1 Neutrophils % (Manual) 60.0 Band Neutrophils % 6.0 Lymphocytes % 17.8 Lymphocytes % (Manual) 17.0 D Monocytes % 9.1 Monocytes % (Manual) 7 Eosinophils % 1.7 Eosinophils % (Manual) 1.0 Basophils % 0.3 Basophils % (Manual) 0.0 Myelocytes % (Man) 1 D Promyelocytes % (Man) 1 D Blast Cells % (Manual) 0 Nucleated RBC % 0 0 Metamyelocytes 0 D Hypochromia 0 Platelet Estimate Normal Polychromasia 0 Poikilocytosis 0 Anisocytosis 3+ Microcytosis 1+ Macrocytosis 0 Sodium 139 Potassium 3.6 Chloride 98 Carbon Dioxide 34 H Anion Gap 6 L BUN 10.8 Creatinine 0.2 L Est GFR (CKD-EPI)AfAm 196.46 Est GFR (CKD-EPI)NonAf 169.51 Random Glucose 90 Calcium 8.1 L Phosphorus 3.2 Magnesium 2.0 Total Bilirubin 0.3 AST 38 H ALT 61 Alkaline Phosphatase 262 H Total Protein 6.1 L Albumin 2.2 L ASSESSMENT AND PLAN: Acute Hypoxic Respiratory Failure Pneumonia likely Aspiration ARDS Small Bowel Obstruction No suspicion of SMA Syndrome by CT Severe Sepsis Lactic Acidosis Mental Retardation GERD - ABX per ID - DC TLC - Enteral feeds as tolerated - monitor output - Replete lytes - monitor urine output, creatinine - titrate FiO2 to keep SpO2 >90% - inhaled bronchodilators - spontaneous breathing trials as tolerated - DVT/GI prophylaxis - Requires continued ICU monitoring Dr Pedro Critical care time spent in reviewing chart, evaluating patient and formulating plan - 36 minutes.
[2019-10-24 11:24] LABS: ANISOCYTOSIS 1+; MACROCYTOSIS 0; OVALOCYTE 1+; PLATELET ESTIMATE NORMAL; TEAR DROP CELLS 1+; TOXIC GRANULATION 1+
[2019-10-24] MEDS: FENTANYL INJECTION 500 MCG in DEXTROSE 5%-WATER - 90 ML IVPB SCH (11:25)
--- NOTE | 2019-10-24 11:36 | PN ---
Physical Exam: SUBJECTIVE: Patient seen and examined. No acute events overnight. Attempt to wean, now on CPAP. Central line pulled today. Pt off sedation, opens eyes. OBJECTIVE: Vital Signs Period Temp Pulse Resp BP Sys/Campuzano Pulse Ox Last 24 Hr 98.2 F-101 F 109-135 13-28 90-128/52-93 GENERAL: Intubated. Off sedation, opens eyes and responds to pain. HEAD: Normal with no signs of trauma. EYES: PERRL, extraocular movements intact, sclera anicteric, conjunctiva clear. No ptosis. ENT: Ears normal, nares patent, oropharynx clear without exudates, moist mucous membranes. NGT in place and ETT in place NECK: Trachea midline, full range of motion, supple. LUNGS: Breath sounds equal, clear to auscultation bilaterally, no wheezes, no crackles, no accessory muscle use. HEART: Regular rate and rhythm, S1, S2 without murmur, rub or gallop. ABDOMEN: Soft, nontender, nondistended, normoactive bowel sounds, no guarding, no rebound, no hepatosplenomegaly, no masses. 10-15cm diagonal abdominal incisional scar, well healed. Rigo-valverde feeding tube in place. GJ tube in place, tubing is yellow and discolored. EXTREMITIES: 2+ pulses, warm, well-perfused, no edema. NEUROLOGICAL: Sedated SKIN: Warm, dry, normal turgor, no rashes or lesions noted Laboratory Results - last 24 hr CBC, BMP 10/24/19 05:30 10/24/19 05:30 Active Medications Acetaminophen (Tylenol -) 650 mg PO Q4H PRN PRN Reason: FEVER Last Admin: 10/23/19 19:37 Dose: 650 mg Documented by: Acetylcysteine (Mucomyst 20 Oral / Inh Use Only*) 200 mg NEB RQID [facility] Last Admin: 10/24/19 08:00 Dose: 200 mg Documented by: Albuterol Sulfate (Ventolin 0.083% Nebulizer Soln -) 1 amp NEB Q4H PRN PRN Reason: SHORT OF BREATH/WHEEZING Last Admin: 10/24/19 08:00 Dose: 1 amp Documented by: Chlorhexidine Gluconate (Hibiclens For Decolonization -) 1 applic TP HS [facility] Last Admin: 10/23/19 21:15 Dose: 1 applic Documented by: Heparin Sodium (Porcine) (Heparin -) 5,000 unit SQ TID BO Last Admin: 10/24/19 06:09 Dose: 5,000 unit Documented by: Propofol (Diprivan -) 1,000,000 mcg in 100 mls @ 1.283 mls/hr IVPB TITR BO; Protocol Last Admin: 10/24/19 06:09 Dose: Not Given Documented by: Piperacillin Sod/Tazobactam (Sod 3.375 gm/ Dextrose) 50 mls @ 100 mls/hr IVPB Q8H-IV BO; Protocol Last Admin: 10/24/19 09:00 Dose: 100 mls/hr Documented by: Fentanyl 500 mcg/ Dextrose 100 mls @ 5 mls/hr IVPB TITR BO; Protocol Last Admin: 10/23/19 11:00 Dose: 50 mcg/hr, 10 mls/hr Documented by: Vancomycin HCl (Vancomycin (Pre-Docked)) 1,000 mg in 250 mls @ 166.667 mls/hr IVPB Q24H BO; Protocol Levetiracetam (Keppra Injection -) 1,000 mg IVPB BID BO Last Admin: 10/24/19 09:00 Dose: 1,000 mg Documented by: Non-Formulary Med (Vitrum () 10 each GT DAILY [facility] Pantoprazole Sodium (Protonix Iv) 40 mg IVPUSH DAILY [facility] Last Admin: 10/24/19 09:00 Dose: 40 mg Documented by: Scopolamine HBr (Transderm-Scop -) 1 patch TD Q72H BO Last Admin: 10/22/19 22:02 Dose: 1 patch Documented by: ASSESSMENT/PLAN: Patient is a 33 year old female w/ pmh 29week premature , profound mental delay, chronic seizures, congenital quadriplegia, retinal detachment, recurrent GERD s/p Neissen, 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 for evaluation of respiratory distress. Intubated in the field Neuro -Severe MR -Chronic seizures -Sedated -Maintain sedation for vent synchrony -Cont home Keppra 1000mg BID Pulmonary -Respiratory Distress --possibly 2/2 Aspiration PNA -CXR(10/17/19): prominent mediastinum, fullness of Right hilum, fullness of Right paratracheal soft tissues. Left mid and Lower infiltrate -Influ: neg -Respir Panel --pending final results -Intubated, attempt to extubate today -IV Abx -ID following (Dr. Valdez): cont zosyn Cardiovascular -Tachycardia --likely 2/2 sepsis and pain(chronic and acute abd) -MAPs 70s off pressors -Pt has not required pressors, removed central line. GI -NGT bleeding --likely 2/2 mucosal irritation from high pressure suction -SBO --likely 2/2 SMA Syndrome vs small bowel obstruction vs colonic dysmotility -Elevated Tbil --downtrending -High output NGT -CTA abd (10/23/19): no evidence of obstruction. moderate amount of free fluid -Lipase: 579 -Surgery consult (Dr. Patricio): no surgical intervention from his end at this time -Patient has G tube, J tube replaced over the weekend. Now on tube feeds ID -Admitted for Aspiration PNA -Lactic acidosis --resolving -UA: 3+ LE, WBC 109, neg nitrite -Sputum cx: E coli -Resp panel pending -Urine for Antigen: neg -Pt continues to spike fevers, repeat redmond-culture -Repeat blood cx now growing gram positive in clusters -Lactic Acid: 2.8, 6.0, 2.9 -ID(José Miguel) consulted: IV Zosyn, added vanc for bacteremia FEN -D/c fluids -monitor lytes, replete PRN -Tube feeds Vital 1.2 DVT ppx -SQH Dispo -patient requires ICU monitoring Visit type - Emergency Visit Emergency Visit: No - New Patient This patient is new to me today: No - Critical Care Critical Care patient: Yes Total Critical Care Time (in minutes): 45 Critical Care Statement: The care of this patient involved high complexity decision making to prevent further life threatening deterioration of the patient's condition and/or to evaluate & treat vital organ system(s) failure or risk of failure. ATTENDING PHYSICIAN STATEMENT I saw and evaluated the patient. I reviewed the resident's note and discussed the case with the resident. I agree with the resident's findings and plan as documented. SUBJECTIVE: OBJECTIVE: ASSESSMENT AND PLAN:
--- NOTE | 2019-10-24 19:01 | PN ---
Teaching Attending Note Name of Resident: Nate Hammer ATTENDING PHYSICIAN STATEMENT I saw and evaluated the patient. I reviewed the resident's note and discussed the case with the resident. I agree with the resident's findings and plan as documented. SUBJECTIVE: Intubated/Ventilated, unable to participate in medical interview. OBJECTIVE: Intubated/Mechanically Ventilated. Awake off sedation currently on CPAP mode of ventilation. Febrile, Tmax 101. Last Vital Signs Temp Pulse Resp BP Pulse Ox 98.2 F 114 H 20 92/60 100 10/24/19 18:00 10/24/19 18:00 10/24/19 18:00 10/24/19 18:10/24/19 11:00 HEENT - Atraumatic, Normocephalic. NG tube for decompression. Heart - S1, S2, RRR Lungs - some scattered wheeze. Abdomen - soft, mild distension with J tube. Bowel Sounds normal. Extremities - no edema, no calf tenderness. Contractures LEs Laboratory Results - last 24 hr 10/24/19 10/24/19 05:30 05:30 WBC 15.5 H RBC 3.30 L Hgb 10.3 L Hct 30.2 L MCV 91.4 MCH 31.1 MCHC 34.0 RDW 14.5 Plt Count 438 H MPV 7.4 L Absolute Neuts (auto) 11.1 H Neutrophils % 71.1 Neutrophils % (Manual) 64.4 Band Neutrophils % 6.9 Lymphocytes % 17.8 Lymphocytes % (Manual) 14.8 Monocytes % 9.1 Monocytes % (Manual) 7 Eosinophils % 1.7 Eosinophils % (Manual) 1.0 Basophils % 0.3 Basophils % (Manual) 1.0 D Myelocytes % (Man) 2 D Promyelocytes % (Man) 1 Blast Cells % (Manual) 0 Nucleated RBC % 0 Metamyelocytes 0 Hypochromia 0 Toxic Granulation 1+ Platelet Estimate Normal Platelet Comment Present Polychromasia 2+ Poikilocytosis 1+ Anisocytosis 1+ Microcytosis 1+ Macrocytosis 0 Spherocytes 1+ Tear Drop Cells 1+ Ovalocytes 1+ Sodium 139 Potassium 3.6 Chloride 98 Carbon Dioxide 34 H Anion Gap 6 L BUN 10.8 Creatinine 0.2 L Est GFR (CKD-EPI)AfAm 196.46 Est GFR (CKD-EPI)NonAf 169.51 Random Glucose 90 Calcium 8.1 L Phosphorus 3.2 Magnesium 2.0 Total Bilirubin 0.3 AST 38 H ALT 61 Alkaline Phosphatase 262 H Total Protein 6.1 L Albumin 2.2 L Current Medications Generic Name Dose Route Start Last Admin Trade Name Freq PRN Reason Stop Dose Admin Acetaminophen 650 mg 10/21/19 21:51 10/23/19 19:37 Tylenol - PO 650 mg Q4H PRN Administration FEVER Acetylcysteine 200 mg 10/19/19 12:00 10/24/19 16:00 Mucomyst 20 Oral / Inh Use Only* NEB 200 mg RQID BO Administration Albuterol Sulfate 1 amp 10/19/19 09:30 10/24/19 08:00 Ventolin 0.083% Nebulizer Soln - NEB 1 amp Q4H PRN Administration SHORT OF BREATH/WHEEZING Chlorhexidine Gluconate 1 applic 10/16/19 22:00 10/23/19 21:15 Hibiclens For Decolonization - TP 1 applic HS BO Administration Heparin Sodium (Porcine) 5,000 unit 10/16/19 22:00 10/24/19 14:30 Heparin - SQ 5,000 unit TID BO Administration Propofol 1,000,000 mcg in 100 mls @ 1.283 mls/hr 10/16/19 06:15 10/24/19 06:09 Diprivan - IVPB Not Given TITR BO Protocol 5 MCG/KG/MIN Piperacillin Sod/Tazobactam 50 mls @ 100 mls/hr 10/16/19 18:00 10/24/19 17:00 Sod 3.375 gm/ Dextrose IVPB 100 mls/hr Q8H-IV BO Administration Protocol Fentanyl 500 mcg/ Dextrose 100 mls @ 5 mls/hr 10/17/19 11:00 10/24/19 11:25 IVPB 50 mcg/hr TITR BO 10 mls/hr Administration Protocol 25 MCG/HR Vancomycin HCl 1,000 mg in 250 mls @ 166.667 mls/hr 10/25/19 08:00 Vancomycin (Pre-Docked) IVPB Q24H BO Protocol Levetiracetam 1,000 mg 10/17/19 10:00 10/24/19 09:00 Keppra Injection - IVPB 1,000 mg BID BO Administration Non-Formulary Med 10 each 10/18/19 10:00 Vitrum ( GT DAILY BO Pantoprazole Sodium 40 mg 10/17/19 10:00 10/24/19 09:00 Protonix Iv IVPUSH 40 mg DAILY BO Administration Scopolamine HBr 1 patch 10/19/19 21:30 10/22/19 22:02 Transderm-Scop - TD 1 patch Q72H BO Administration Home Medications Medication Instructions Recorded Calcium Carbonate/Vitamin D3 1 each PO BID 10/16/19 [Oystercal-D 500 mg-400 Unit Tb] Tizanidine HCl 6 mg GT TID 10/16/19 levETIRAcetam [levETIRAcetam ORAL 500 mg GT BID 10/16/19 SUSPENSION] Baclofen 3 tab GT TID 10/17/19 Cholecalciferol (Vitamin D3) 2 tab GT DAILY 10/17/19 [Vitamin D3] Levetiracetam 1 tab GT DAILY 10/17/19 Nut.tx.impaired Digest Fxn [Ensure 60 ml GT QID 10/17/19 Clear] Nut.tx.impaired Digest Fxn 900 ml PO DAILY 10/17/19 [Peptamen 1.5] Polyethylene Glycol 3350 [Clearlax] 1 cap GT DAILY 10/17/19 Sennosides [Senna] 2 tab GT HS 10/17/19 ASSESSMENT AND PLAN: 33 year old female with profound developmental delay, cognitive deficit, chronic seizures, congenital quadriplegia, retinal detachment, recurrent GERD s/p Neissen, s/p gastrostomy, cataracts, scoliosis, osteoporosis, anemia, presents for evaluation from [facility] for evaluation of respiratory distress. 1. Acute Hypoxic Respiratory Failure and Severe Sepsis secondary to Pneumonia (L sided infiltrate)/ARDS s/p Intubation/Mechanical Ventilation Blood Cx coag neg staph, Sputum Cx ECli/Staph aureus Leukocytosis improving. Still Febrile. Blood Cx - coag neg Staph. Continue Vanc/Zosyn ID following. Continue weaning trials. 2. Inussuception/SBO, appears resolved. Jevity feeds resumed via J tube DVT Px - Heparin SQ GI Px - PPI
[2019-10-24] MEDS: CHLORHEXIDINE GLUCONATE 4% CLEANSER FOR DECOLONIZATION TP SCH (21:17)
[2019-10-25] MEDS ORDERED: DEXTROSE 5%-WATER - 50 ML IVPB ONE ×3 (02:37→18:02)
[2019-10-25] MEDS ORDERED: PIPERACILLIN/TAZOBACTAM 3.375 GM VIAL IVPB ONE ×3 (02:37→18:02)
[2019-10-25] MEDS: PIPERACILLIN/TAZOB 3.375 GM 3.375 GM in DEXTROSE 5%-WATER - 50 ML IVPB SCH ×3 (02:39→18:30)
[2019-10-25 06:24] LABS: BASO % 0.3 % (0-2.0); EOS % 1.4 % (0-4.5); HEMATOCRIT 30.2 % (32.4-45.2); HEMOGLOBIN 10.1 GM/dL (10.7-15.3); LYMPH % 12.5 % (8-40); MCH 30.9 pg (25.7-33.7); MCHC 33.4 g/dl (32.0-36.0); MEAN CELL VOLUME 92.4 fl (80-96); MEAN PLT VOLUME 7.6 fl (7.5-11.1); NEUT % 78.8 % (42.8-82.8); PLATELET COUNT 440 K/MM3 (134-434); RBC 3.27 M/mm3 (3.60-5.2); RDW 14.4 % (11.6-15.6); WHITE BLOOD COUNT 16.1 K/mm3 (4.0-10.0)
[2019-10-25] MEDS: HEPARIN NA (PORCINE) 5,000 UNITS/ML 1ML VIAL SQ SCH ×3 (06:28→21:22)
[2019-10-25] MEDS: PROPOFOL 1,000,000 MCG/100 ML VIAL IVPB SCH (06:28)
[2019-10-25 06:56] LABS: BILIRUBIN,TOTAL 0.4 mg/dL (0.2-1); BLOOD UREA NITROGEN 17.2 mg/dL (7-18); CALCIUM 8.3 mg/dL (8.5-10.1); CREATININE 0.9 mg/dL (0.55-1.3); MAGNESIUM 2.4 mg/dL (1.8-2.4); PHOSPHOROUS 4.2 mg/dL (2.5-4.9); POTASSIUM 3.6 mmol/L (3.5-5.1)
[2019-10-25] MEDS ORDERED: fentaNYL CITRATE 250 MCG/5 ML VIAL ONE (08:16)
[2019-10-25] MEDS: FENTANYL INJECTION 500 MCG in DEXTROSE 5%-WATER - 90 ML IVPB SCH ×2 (08:19→11:59)
[2019-10-25] MEDS: ACETYLCYSTEINE 20% 200MG/ML 4 ML VIAL *FOR ORAL / INH USE ONLY NEB SCH ×3 (08:25→15:40)
[2019-10-25] MEDS: PANTOPRAZOLE SODIUM 40 MG VIAL IVPUSH SCH (09:46)
[2019-10-25] MEDS: levETIRAcetam 500 MG/5 ML INJECTION VIAL IVPB SCH (09:46)
[2019-10-25] MEDS ORDERED: SODIUM CHLORIDE 1,000 ML IV SCH (10:15)
[2019-10-25] MEDS: ALBUTEROL SO4 0.083% IH SOL 2.5 MG/3 ML VIAL.NEB. NEB PRN ×2 (12:05→15:40)
--- NOTE | 2019-10-25 12:37 | PN ---
Physical Exam: SUBJECTIVE: Patient seen and examined at the bedside. Remains intubated. Moving all extremities. OBJECTIVE: Vital Signs Period Temp Pulse Resp BP Sys/Campuzano Pulse Ox Last 24 Hr 98.2 F-99.8 F 108-130 12-28 80-110/59-84 100-100 GENERAL: Intubated and sedated EYES: pupils reactive bilaterally ENT: Oropharynx clear without exudates, moist mucous membranes. Endotracheal tube in place. NG tube in place LUNGS: Mechanical breath sounds. No wheezes auscultated. No crackles auscultated. HEART: Tachycardic rate and regular rhythm, S1, S2 without murmur. ABDOMEN: Soft, nondistended, no guarding, no masses. EXTREMITIES: 2+ pulses, warm, well-perfused, no edema. NEUROLOGICAL: Sedated, moves extremities in response to light touch. SKIN: Warm, dry, normal turgor, no rashes or lesions noted Laboratory Results - last 24 hr 10/25/19 10/25/19 05:50 05:50 WBC 16.1 H RBC 3.27 L Hgb 10.1 L Hct 30.2 L MCV 92.4 MCH 30.9 MCHC 33.4 RDW 14.4 Plt Count 440 H MPV 7.6 Absolute Neuts (auto) 12.7 H Neutrophils % 78.8 Lymphocytes % 12.5 D Monocytes % 7.0 Eosinophils % 1.4 Basophils % 0.3 Nucleated RBC % 0 Sodium 139 Potassium 3.6 Chloride 99 Carbon Dioxide 31 Anion Gap 8 BUN 17.2 Creatinine 0.9 Est GFR (CKD-EPI)AfAm 96.01 Est GFR (CKD-EPI)NonAf 82.84 Random Glucose 109 H Calcium 8.3 L Phosphorus 4.2 Magnesium 2.4 Total Bilirubin 0.4 AST 41 H ALT 55 Alkaline Phosphatase 240 H Total Protein 6.0 L Albumin 2.0 L Active Medications Generic Name Dose Route Start Last Admin Trade Name Freq PRN Reason Stop Dose Admin Acetaminophen 650 mg 10/21/19 21:51 10/23/19 19:37 Tylenol - PO 650 mg Q4H PRN Administration FEVER Acetylcysteine 200 mg 10/19/19 12:00 10/25/19 08:25 Mucomyst 20 Oral / Inh Use Only* NEB 200 mg RQID BO Administration Albuterol Sulfate 1 amp 10/19/19 09:30 10/24/19 20:40 Ventolin 0.083% Nebulizer Soln - NEB 1 amp Q4H PRN Administration SHORT OF BREATH/WHEEZING Chlorhexidine Gluconate 1 applic 10/16/19 22:00 10/24/19 21:17 Hibiclens For Decolonization - TP 1 applic HS BO Administration Heparin Sodium (Porcine) 5,000 unit 10/16/19 22:00 10/25/19 06:28 Heparin - SQ 5,000 unit TID BO Administration Piperacillin Sod/Tazobactam 50 mls @ 100 mls/hr 10/16/19 18:00 10/25/19 09:47 Sod 3.375 gm/ Dextrose IVPB 100 mls/hr Q8H-IV BO Administration Protocol Vancomycin HCl 1,000 mg in 250 mls @ 166.667 mls/hr 10/25/19 08:00 Vancomycin (Pre-Docked) IVPB Q24H BO Protocol Sodium Chloride 1,000 mls @ 75 mls/hr 10/25/19 10:15 10/25/19 10:52 Normal Saline - IV 75 mls/hr ASDIR BO Administration Levetiracetam 1,000 mg 10/17/19 10:00 10/25/19 09:46 Keppra Injection - IVPB 1,000 mg BID BO Administration Non-Formulary Med 10 each 10/18/19 10:00 Vitrum ( GT DAILY BO Pantoprazole Sodium 40 mg 10/17/19 10:00 10/25/19 09:46 Protonix Iv IVPUSH 40 mg DAILY BO Administration Scopolamine HBr 1 patch 10/19/19 21:30 10/22/19 22:02 Transderm-Scop - TD 1 patch Q72H BO Administration IMAGING: * Chest CT: patchy consolidation left upper lobe. * CXR showing NG tube in LUQ/stomach, mediastinal fullness in rt hilum, retained stool, AXR showing retained stool in transverse colon/rt colon dilation, scoliosis. * CTA(10/19/19): no evidence of SMA syndrome/compression; enterohepatic intussusception in L abd containing J tube, no abd dilatation to suggest obstruction. Nonspecific stranding of L upper abd could be secondary to gastroduodenitis or pancreatitis ASSESSMENT/PLAN: Flora Pandey is a 33 female with a past medical history of developmental delay, congenital quadriplegia, retinal detachment, gastrostomy, cataracts, scoliosis, osteoporosis, GERD, and J-tube placement, was brought in from [facility] admitted for sepsis secondary to aspiration pneumonia. Acute Hypoxic Respiratory Failure - likely 2/2 aspiration pneumonia. Resolving. - Currently intubated and sedated; on Fentanyl and Propofol - Cont weaning trials; maintain O2 sat - Resp viral panel pending, flu negative - Scopolamine patch for management of secretions - Albuterol nebs Sepsis - secondary to aspiration pneumonia - ID consulted; cont IV Zosyn 3.375 gm Q8H day 10 (started on 10/16/19, previously on Azithromycin) - SpCx +Staph aureus, E. coli, urine legionella/strep pneumonia neg - blood culture growing coag negative staph - vancomycin 1g daily Intussuception - Surgery consulted (Sheng); no surgical intervention at this time. - GI consulted; recommend starting tube feeds with Jevity 1.5 through J tube. In future, may likely need periodic gastric emptying via Nino tube to prevent aspiration of succus entericus, bile, oral and gastric secretions to prevent aspiration. Advise to keep HOB 35 degrees - Cont PPI - NGT on intermittent low wall suction Hx of Seizure Disorder - IV Keppra 1000 BID IV DVT PPx - heparin 5000 units subq tid FEN - no standing fluids - continue to monitor electrolytes and replete as necessary - tube feeds Disposition - full code - continue to monitor in ICU Visit type - Emergency Visit Emergency Visit: Yes ED Registration Date: 10/16/19 Care time: The patient presented to the Emergency Department on the above date and was hospitalized for further evaluation of their emergent condition. - New Patient This patient is new to me today: No - Critical Care Critical Care patient: Yes Total Critical Care Time (in minutes): 37 Critical Care Statement: The care of this patient involved high complexity decision making to prevent further life threatening deterioration of the patient's condition and/or to evaluate & treat vital organ system(s) failure or risk of failure.
--- NOTE | 2019-10-25 13:11 | PN ---
Teaching Attending Note Name of Resident: Marce Johnson ATTENDING PHYSICIAN STATEMENT I saw and evaluated the patient. I reviewed the resident's note and discussed the case with the resident. I agree with the resident's findings and plan as documented. SUBJECTIVE: Pt seen and examined in the ICU. Intubated, awake. Tolerated CPAP/PS trials and subsequently extubated during rounds. OBJECTIVE: Vital Signs Period Temp Pulse Resp BP Sys/Campuzano Pulse Ox Last 24 Hr 98.2 F-99.8 F 108-130 12-28 80-110/59-84 100-100 Intake & Output 10/22/19 10/23/19 10/24/19 10/25/19 23:59 23:59 23:59 23:59 Intake Total 2308.2 1610.4 1201.2 Output Total 1200 850 800 Balance 1108.2 760.4 401.2 Weight 42.5 kg 41.504 kg 41.844 kg Gen: extubated Heart: tachycardic, regular Lung: scattered rhonchi Abd: softly distended, nontender Ext: no edema CBC, BMP 10/25/19 05:50 10/25/19 05:50 Active Medications Acetaminophen (Tylenol -) 650 mg PO Q4H PRN PRN Reason: FEVER Last Admin: 10/23/19 19:37 Dose: 650 mg Documented by: Acetylcysteine (Mucomyst 20 Oral / Inh Use Only*) 200 mg NEB RQID BO Last Admin: 10/25/19 08:25 Dose: 200 mg Documented by: Albuterol Sulfate (Ventolin 0.083% Nebulizer Soln -) 1 amp NEB Q4H PRN PRN Reason: SHORT OF BREATH/WHEEZING Last Admin: 10/24/19 20:40 Dose: 1 amp Documented by: Chlorhexidine Gluconate (Hibiclens For Decolonization -) 1 applic TP HS BO Last Admin: 10/24/19 21:17 Dose: 1 applic Documented by: Heparin Sodium (Porcine) (Heparin -) 5,000 unit SQ TID BO Last Admin: 10/25/19 06:28 Dose: 5,000 unit Documented by: Piperacillin Sod/Tazobactam (Sod 3.375 gm/ Dextrose) 50 mls @ 100 mls/hr IVPB Q8H-IV BO; Protocol Last Admin: 10/25/19 09:47 Dose: 100 mls/hr Documented by: Vancomycin HCl (Vancomycin (Pre-Docked)) 1,000 mg in 250 mls @ 166.667 mls/hr IVPB Q24H [facility]; Protocol Sodium Chloride (Normal Saline -) 1,000 mls @ 75 mls/hr IV ASDIR BO Last Admin: 10/25/19 10:52 Dose: 75 mls/hr Documented by: Levetiracetam (Keppra Injection -) 1,000 mg IVPB BID BO Last Admin: 10/25/19 09:46 Dose: 1,000 mg Documented by: Non-Formulary Med (Vitrum () 10 each GT DAILY BO Pantoprazole Sodium (Protonix Iv) 40 mg IVPUSH DAILY [facility] Last Admin: 10/25/19 09:46 Dose: 40 mg Documented by: Scopolamine HBr (Transderm-Scop -) 1 patch TD Q72H [facility] Last Admin: 10/22/19 22:02 Dose: 1 patch Documented by: ASSESSMENT AND PLAN: Acute Hypoxic Respiratory Failure Pneumonia likely Aspiration ARDS Small Bowel Obstruction No suspicion of SMA Syndrome by CT Severe Sepsis Lactic Acidosis Mental Retardation GERD - pt extubated - may need HFOT - titrate FiO2 to keep Spo2 >90% - continue antibiotics per ID - monitor urine output, creatinine - inhaled bronchodilators - aspiration precautions - chest PT/pulmonary toilet - DVT/GI prophylaxis - continue ICU monitoring for tenuous respiratory status critical care time spent in reviewing chart, evaluating patient and formulating plan 35 minutes.
--- NOTE | 2019-10-25 14:13 | PN ---
Physical Exam: SUBJECTIVE: Patient seen and examined at bedside. Intubated, off sedation, awake, moving eyes and extremities. No acute events overnight. OBJECTIVE: Vital Signs Period Temp Pulse Resp BP Sys/Campuzano Pulse Ox Last 24 Hr 98.2 F-99.8 F 108-134 12-28 80-110/59-84 95-100 GENERAL: Intubated, off sedation, awake, moving eyes and extremities HEAD: Normal with no signs of trauma. EYES: PERRL, sclera anicteric, conjunctiva clear. EARS, NOSE, THROAT: Dry mucous membranes, ET tube and NG tube in place. NECK: Normal range of motion, supple LUNGS: Coarse breath sounds bilaterally HEART: Regular rate and rhythm, normal S1 and S2 ABDOMEN: Soft, does not grimace on palpation, not distended, normoactive bowel sounds LOWER EXTREMITIES: 2+ pulses, warm, well-perfused. No peripheral edema. NEUROLOGICAL: Intubated, off sedation, awake, moving eyes and extremities. Does not follow commands. PERRL. Gag reflex intact. SKIN: Warm, dry, normal turgor. Laboratory Results - last 24 hr 10/25/19 10/25/19 05:50 05:50 WBC 16.1 H RBC 3.27 L Hgb 10.1 L Hct 30.2 L MCV 92.4 MCH 30.9 MCHC 33.4 RDW 14.4 Plt Count 440 H MPV 7.6 Absolute Neuts (auto) 12.7 H Neutrophils % 78.8 Lymphocytes % 12.5 D Monocytes % 7.0 Eosinophils % 1.4 Basophils % 0.3 Nucleated RBC % 0 Sodium 139 Potassium 3.6 Chloride 99 Carbon Dioxide 31 Anion Gap 8 BUN 17.2 Creatinine 0.9 Est GFR (CKD-EPI)AfAm 96.01 Est GFR (CKD-EPI)NonAf 82.84 Random Glucose 109 H Calcium 8.3 L Phosphorus 4.2 Magnesium 2.4 Total Bilirubin 0.4 AST 41 H ALT 55 Alkaline Phosphatase 240 H Total Protein 6.0 L Albumin 2.0 L Active Medications Generic Name Dose Route Start Last Admin Trade Name Freq PRN Reason Stop Dose Admin Acetaminophen 650 mg 10/21/19 21:51 10/23/19 19:37 Tylenol - PO 650 mg Q4H PRN Administration FEVER Acetylcysteine 200 mg 10/19/19 12:00 10/25/19 12:05 Mucomyst 20 Oral / Inh Use Only* NEB 200 mg RQID BO Administration Albuterol Sulfate 1 amp 10/19/19 09:30 10/25/19 12:05 Ventolin 0.083% Nebulizer Soln - NEB 1 amp Q4H PRN Administration SHORT OF BREATH/WHEEZING Chlorhexidine Gluconate 1 applic 10/16/19 22:00 10/24/19 21:17 Hibiclens For Decolonization - TP 1 applic HS BO Administration Heparin Sodium (Porcine) 5,000 unit 10/16/19 22:00 10/25/19 06:28 Heparin - SQ 5,000 unit TID BO Administration Piperacillin Sod/Tazobactam 50 mls @ 100 mls/hr 10/16/19 18:00 10/25/19 09:47 Sod 3.375 gm/ Dextrose IVPB 100 mls/hr Q8H-IV BO Administration Protocol Vancomycin HCl 1,000 mg in 250 mls @ 166.667 mls/hr 10/25/19 08:00 Vancomycin (Pre-Docked) IVPB Q24H BO Protocol Sodium Chloride 1,000 mls @ 75 mls/hr 10/25/19 10:15 10/25/19 10:52 Normal Saline - IV 75 mls/hr ASDIR BO Administration Levetiracetam 1,000 mg 10/17/19 10:00 10/25/19 09:46 Keppra Injection - IVPB 1,000 mg BID BO Administration Non-Formulary Med 10 each 10/18/19 10:00 Vitrum ( GT DAILY BO Pantoprazole Sodium 40 mg 10/17/19 10:00 10/25/19 09:46 Protonix Iv IVPUSH 40 mg DAILY BO Administration Scopolamine HBr 1 patch 10/19/19 21:30 10/22/19 22:02 Transderm-Scop - TD 1 patch Q72H BO Administration ASSESSMENT/PLAN: Patient is a 33 year old female w/ pmh 29week premature , profound mental delay, chronic seizures, congenital quadriplegia, retinal detachment, recurrent GERD s/p Neissen, s/p GJ-ostomy, s/p gastrostomy, cataracts, scoliosis, osteoporosis, anemia who presents for evaluation of from [facility] for evaluation of respiratory distress. Intubated in the field. Admitted to ICU for sepsis 2/2 aspiration pneumonia. Neuro -Severe MR -Chronic seizures ---Cont home Keppra 1000mg BID -Sedation (propofol and fentanyl) stopped this AM, did well throughout rounds -Discontinue sedation Pulmonary: intubated 2/2 respiratory Distress --possibly 2/2 Aspiration PNA -During rounds, tolerated CPAP/PS trials well -Extubated after rounds, no complications ---titrate FiO2 to keep SpO2>90% ---repeat CXR tomorrow -CXR 10/17/19: prominent mediastinum, fullness of Right hilum, fullness of Right paratracheal soft tissues. Left mid and Lower infiltrate -CXR 10/24/09: L infiltrate w/some fluid and atelectasis -Influ: neg -Respir Panel --pending final results -IV Abx -ID following (Dr. Valdez): cont zosyn -Bronchodilators -Chest PT Cardiovascular -Tachycardia --likely 2/2 sepsis and pain (chronic and acute abd) -MAPs 70s off pressors -No central line in place GI: intusussecption -NGT bleeding --likely 2/2 mucosal irritation from high pressure suction -SBO --likely 2/2 SMA Syndrome vs small bowel obstruction vs colonic dysmotility -Elevated Tbil --downtrending -High output NGT--slowing down -CTA abd (10/23/19): no evidence of obstruction. moderate amount of free fluid -Lipase: 579 -Surgery consult (Dr. Patricio): no surgical intervention from his end at this time -G and J tube. Continue tube feeds ID: [id number] -Admitted for Aspiration PNA -Lactic acidosis --resolving -UA: 3+ LE, WBC 109, neg nitrite -Sputum cx: E coli -Resp panel pending -Urine for Antigen: neg -Pt continues to spike fevers, repeat redmond-culture -Repeat blood cx 10/23/19 now growing gram positive in clusters (thought contaminated possibly) -2nd repeat blood cx sent this AM -Lactic Acid: 2.8, 6.0, 2.9 -ID(José Miguel) consulted: IV Zosyn and Vanc Renal: Bun 17.2, Cr 0.9, I 1.6L, O 850ml, N +760ml -Monitor BUN/Cr -Monitor I&O FEN -IVF NS@75 started -monitor lytes, replete PRN -Tube feeds Vital 1.2 DVT ppx -SQH Protonix Dispo -patient requires continued ICU monitoring Visit type - Emergency Visit Emergency Visit: No - New Patient This patient is new to me today: Yes Date on this admission: 10/25/19 - Critical Care Critical Care patient: Yes Total Critical Care Time (in minutes): 40 Critical Care Statement: The care of this patient involved high complexity decision making to prevent further life threatening deterioration of the patient's condition and/or to evaluate & treat vital organ system(s) failure or risk of failure. ATTENDING PHYSICIAN STATEMENT I saw and evaluated the patient. I reviewed the resident's note and discussed the case with the resident. I agree with the resident's findings and plan as documented. SUBJECTIVE: OBJECTIVE: ASSESSMENT AND PLAN:
--- NOTE | 2019-10-25 19:11 | PN ---
Teaching Attending Note Name of Resident: Nate Hammer ATTENDING PHYSICIAN STATEMENT I saw and evaluated the patient. I reviewed the resident's note and discussed the case with the resident. I agree with the resident's findings and plan as documented. SUBJECTIVE: Intubated/Ventilated, unable to participate in medical interview. OBJECTIVE: Intubated/Mechanically Ventilated. Awake off sedation currently on CPAP mode of ventilation. THEODORE. Fever resolved. Last Vital Signs Temp Pulse Resp BP Pulse Ox 99.4 F 130 H 28 H 103/67 95 10/25/19 18:00 10/25/19 18:00 10/25/19 18:00 10/25/19 18:00 10/25/19 15:10 HEENT - Atraumatic, Normocephalic. NG tube for decompression. Heart - S1, S2, RRR Lungs - good air entry bilaterally Abdomen - soft, mild distension with J tube. Bowel Sounds normal. Extremities - no edema, no calf tenderness. Contractures LEs Laboratory Results - last 24 hr 10/25/19 10/25/19 05:50 05:50 WBC 16.1 H RBC 3.27 L Hgb 10.1 L Hct 30.2 L MCV 92.4 MCH 30.9 MCHC 33.4 RDW 14.4 Plt Count 440 H MPV 7.6 Absolute Neuts (auto) 12.7 H Neutrophils % 78.8 Lymphocytes % 12.5 D Monocytes % 7.0 Eosinophils % 1.4 Basophils % 0.3 Nucleated RBC % 0 Sodium 139 Potassium 3.6 Chloride 99 Carbon Dioxide 31 Anion Gap 8 BUN 17.2 Creatinine 0.9 Est GFR (CKD-EPI)AfAm 96.01 Est GFR (CKD-EPI)NonAf 82.84 Random Glucose 109 H Calcium 8.3 L Phosphorus 4.2 Magnesium 2.4 Total Bilirubin 0.4 AST 41 H ALT 55 Alkaline Phosphatase 240 H Total Protein 6.0 L Albumin 2.0 L Current Medications Generic Name Dose Route Start Last Admin Trade Name Freq PRN Reason Stop Dose Admin Acetaminophen 650 mg 10/21/19 21:51 10/23/19 19:37 Tylenol - PO 650 mg Q4H PRN Administration FEVER Albuterol Sulfate 1 amp 10/19/19 09:30 10/25/19 15:40 Ventolin 0.083% Nebulizer Soln - NEB 1 amp Q4H PRN Administration SHORT OF BREATH/WHEEZING Chlorhexidine Gluconate 1 applic 10/16/19 22:00 10/24/19 21:17 Hibiclens For Decolonization - TP 1 applic HS BO Administration Heparin Sodium (Porcine) 5,000 unit 10/16/19 22:00 10/25/19 15:01 Heparin - SQ 5,000 unit TID BO Administration Piperacillin Sod/Tazobactam 50 mls @ 100 mls/hr 10/16/19 18:00 10/25/19 09:47 Sod 3.375 gm/ Dextrose IVPB 100 mls/hr Q8H-IV BO Administration Protocol Vancomycin HCl 1,000 mg in 250 mls @ 166.667 mls/hr 10/25/19 08:00 Vancomycin (Pre-Docked) IVPB Q24H BO Protocol Sodium Chloride 1,000 mls @ 75 mls/hr 10/25/19 10:15 10/25/19 10:52 Normal Saline - IV 75 mls/hr ASDIR BO Administration Levetiracetam 1,000 mg 10/25/19 22:00 Keppra Oral Solution - GT BID BO Non-Formulary Med 10 each 10/18/19 10:00 Vitrum ( GT DAILY BO Pantoprazole Sodium 40 mg 10/17/19 10:00 10/25/19 09:46 Protonix Iv IVPUSH 40 mg DAILY BO Administration Home Medications Medication Instructions Recorded Calcium Carbonate/Vitamin D3 1 each PO BID 10/16/19 [Oystercal-D 500 mg-400 Unit Tb] Tizanidine HCl 6 mg GT TID 10/16/19 levETIRAcetam [levETIRAcetam ORAL 500 mg GT BID 10/16/19 SUSPENSION] Baclofen 3 tab GT TID 10/17/19 Cholecalciferol (Vitamin D3) 2 tab GT DAILY 10/17/19 [Vitamin D3] Levetiracetam 1 tab GT DAILY 10/17/19 Nut.tx.impaired Digest Fxn [Ensure 60 ml GT QID 10/17/19 Clear] Nut.tx.impaired Digest Fxn 900 ml PO DAILY 10/17/19 [Peptamen 1.5] Polyethylene Glycol 3350 [Clearlax] 1 cap GT DAILY 10/17/19 Sennosides [Senna] 2 tab GT HS 10/17/19 ASSESSMENT AND PLAN: 33 year old female with profound developmental delay, cognitive deficit, chronic seizures, congenital quadriplegia, retinal detachment, recurrent GERD s/p Neissen, s/p gastrostomy, cataracts, scoliosis, osteoporosis, anemia, presents for evaluation from [facility] for evaluation of respiratory distress. 1. Acute Hypoxic Respiratory Failure and Severe Sepsis secondary to Pneumonia (L sided infiltrate)/ARDS s/p Intubation/Mechanical Ventilation Blood Cx coag neg staph, Sputum Cx ECli/Staph aureus Leukocytosis persisting. Low grade fever. Blood Cx - coag neg Staph. Continue Vanc/Zosyn ID following. Continue weaning trials for possible extubation today. 2. Inussuception/SBO, resolved. Tolerating Jevity feeds resumed via J tube 3. Seizure Disorder - continue Keppra. DVT Px - Heparin SQ GI Px - PPI
[2019-10-25] MEDS ORDERED: SCOPOLAMINE HYDROBROMIDE 1 PATCH PATCH.TD72 TD SCH (19:45)
[2019-10-25] MEDS: CHLORHEXIDINE GLUCONATE 4% CLEANSER FOR DECOLONIZATION TP SCH (21:26)
[2019-10-25] MEDS: levETIRAcetam 500 MG/5 ML ORAL SOLUTION (UNIT-DOSE CUPS) GT SCH (21:27)
[2019-10-26] MEDS ORDERED: PIPERACILLIN/TAZOBACTAM 3.375 GM VIAL IVPB ONE ×2 (02:00→08:40)
[2019-10-26] MEDS ORDERED: DEXTROSE 5%-WATER - 50 ML IVPB ONE ×2 (02:00→08:40)
[2019-10-26] MEDS: PIPERACILLIN/TAZOB 3.375 GM 3.375 GM in DEXTROSE 5%-WATER - 50 ML IVPB SCH ×2 (02:15→09:13)
[2019-10-26] MEDS: ACETAMINOPHEN 325 MG TABLET (FP) PO PRN (02:16)
[2019-10-26] MEDS: HEPARIN NA (PORCINE) 5,000 UNITS/ML 1ML VIAL SQ SCH ×3 (06:09→21:49)
[2019-10-26] MEDS ORDERED: PT OWN MED DRAWER 7, Y5N ONE ×2 (06:13→09:17)
[2019-10-26] MEDS ORDERED: VANCOMYCIN 1 GM in D5W (PRE-DOCKED) 1,000 MG/250 ML IVPB ONE (06:44)
[2019-10-26 06:46] LABS: BASO % 0.4 % (0-2.0); EOS % 0.4 % (0-4.5); HEMATOCRIT 28.6 % (32.4-45.2); HEMOGLOBIN 9.9 GM/dL (10.7-15.3); LYMPH % 11.3 % (8-40); MCH 31.6 pg (25.7-33.7); MCHC 34.6 g/dl (32.0-36.0); MEAN CELL VOLUME 91.1 fl (80-96); MEAN PLT VOLUME 7.4 fl (7.5-11.1); MONO % 6.2 % (3.8-10.2); NEUT % 81.7 % (42.8-82.8); PLATELET COUNT 594 K/MM3 (134-434); RBC 3.14 M/mm3 (3.60-5.2); RDW 14.3 % (11.6-15.6); WHITE BLOOD COUNT 14.8 K/mm3 (4.0-10.0)
[2019-10-26 07:15] LABS: ALBUMIN 2.2 g/dl (3.4-5.0); BILIRUBIN,TOTAL 0.5 mg/dL (0.2-1); BLOOD UREA NITROGEN 16.6 mg/dL (7-18); CALCIUM 8.5 mg/dL (8.5-10.1); CREATININE 0.8 mg/dL (0.55-1.3); MAGNESIUM 2.6 mg/dL (1.8-2.4); PHOSPHOROUS 3.4 mg/dL (2.5-4.9); POTASSIUM 3.8 mmol/L (3.5-5.1); TOT PROT 6.4 g/dl (6.4-8.2)
--- NOTE | 2019-10-26 07:34 | PN ---
Physical Exam: SUBJECTIVE: Patient seen and examined at the bedside. Overnight had temperature max 101.6. Unable to give ROS. Moving all extremities freely. OBJECTIVE: Vital Signs Period Temp Pulse Resp BP Sys/Campuzano Pulse Ox Last 24 Hr 98.9 F-101.7 F 76-134 12-42 96-110/60-84 95-100 GENERAL: Awake and alert, not responsive to voice commands. Not tracking. EYES: pupils reactive bilaterally, extraoccular movements intact. ENT: Oropharynx clear without exudates, moist mucous membranes. Secretions present. LUNGS: Patient unable to give good effort. Some crackles heard on the left lung. No wheezes auscultated. HEART: Tachycardic rate and regular rhythm, S1, S2 without murmur. ABDOMEN: Soft, moderately distended, normoactive bowel sounds, no guarding, no masses. EXTREMITIES: 2+ pulses, warm, well-perfused, no edema. NEUROLOGICAL: Moves extremities in response to light touch. SKIN: Warm, dry, normal turgor, no rashes or lesions noted Laboratory Results - last 24 hr 10/26/19 10/26/19 05:50 05:50 WBC 14.8 H RBC 3.14 L Hgb 9.9 L Hct 28.6 L MCV 91.1 MCH 31.6 MCHC 34.6 RDW 14.3 Plt Count 594 H D MPV 7.4 L Absolute Neuts (auto) 12.1 H Neutrophils % 81.7 Lymphocytes % 11.3 Monocytes % 6.2 Eosinophils % 0.4 Basophils % 0.4 Nucleated RBC % 0 Sodium 142 Potassium 3.8 Chloride 104 Carbon Dioxide 31 Anion Gap 6 L BUN 16.6 Creatinine 0.8 Est GFR (CKD-EPI)AfAm 110.70 Est GFR (CKD-EPI)NonAf 95.52 Random Glucose 117 H Calcium 8.5 Phosphorus 3.4 Magnesium 2.6 H Total Bilirubin 0.5 AST 45 H ALT 52 Alkaline Phosphatase 249 H Total Protein 6.4 Albumin 2.2 L Active Medications Generic Name Dose Route Start Last Admin Trade Name Freq PRN Reason Stop Dose Admin Acetaminophen 650 mg 10/21/19 21:51 10/26/19 02:16 Tylenol - PO 650 mg Q4H PRN Administration FEVER Albuterol Sulfate 1 amp 10/19/19 09:30 10/25/19 15:40 Ventolin 0.083% Nebulizer Soln - NEB 1 amp Q4H PRN Administration SHORT OF BREATH/WHEEZING Chlorhexidine Gluconate 1 applic 10/16/19 22:00 10/25/19 21:26 Hibiclens For Decolonization - TP 1 applic HS BO Administration Heparin Sodium (Porcine) 5,000 unit 10/16/19 22:00 10/26/19 06:09 Heparin - SQ 5,000 unit TID BO Administration Piperacillin Sod/Tazobactam 50 mls @ 100 mls/hr 10/16/19 18:00 10/26/19 02:15 Sod 3.375 gm/ Dextrose IVPB 100 mls/hr Q8H-IV BO Administration Protocol Vancomycin HCl 1,000 mg in 250 mls @ 166.667 mls/hr 10/25/19 08:00 Vancomycin (Pre-Docked) IVPB Q24H BO Protocol Levetiracetam 1,000 mg 10/25/19 22:00 10/25/19 21:27 Keppra Oral Solution - GT 1,000 mg BID BO Administration Non-Formulary Med 10 each 10/18/19 10:00 Vitrum ( GT DAILY BO Pantoprazole Sodium 40 mg 10/17/19 10:00 10/25/19 09:46 Protonix Iv IVPUSH 40 mg DAILY BO Administration Scopolamine HBr 1 patch 10/25/19 19:45 10/25/19 21:27 Transderm-Scop - TD 1 patch Q72H BO Administration Vancomycin HCl 1,000 mg 10/26/19 06:44 Vancomycin (Pre-Docked) IVPB 10/26/19 06:45 ONCE ONE Protocol IMAGING: * Chest CT: patchy consolidation left upper lobe. * CXR showing NG tube in LUQ/stomach, mediastinal fullness in rt hilum, retained stool, AXR showing retained stool in transverse colon/rt colon dilation, scoliosis. * CTA(10/19/19): no evidence of SMA syndrome/compression; enterohepatic intussusception in L abd containing J tube, no abd dilatation to suggest obstruction. Nonspecific stranding of L upper abd could be secondary to gastroduodenitis or pancreatitis ASSESSMENT/PLAN: Flora Pandey is a 33 female with a past medical history of developmental delay, congenital quadriplegia, retinal detachment, gastrostomy, cataracts, scoliosis, osteoporosis, GERD, and J-tube placement, was brought in from [facility] admitted for sepsis secondary to aspiration pneumonia. Acute Hypoxic Respiratory Failure - likely 2/2 aspiration pneumonia. Resolving. - extubated, on hi-flow - Resp viral panel pending, flu negative - Scopolamine patch for management of secretions - Albuterol nebs Sepsis - likely secondary to aspiration pneumonia, had fevers overnight - ID consulted, recs appreciated - SpCx +Staph aureus, E. coli, urine legionella/strep pneumonia neg. Repeat sputum growing E coli resistant to Zosyn - continue ceftriaxone 2g - blood culture growing coag negative staph, repeat blood culture - vancomycin 1g daily - CXR continues to show infiltrate in the left lung Intussuception - Surgery consulted (Sheng); no surgical intervention at this time. - GI consulted; recommend starting tube feeds with Jevity 1.5 through J tube. In future, may likely need periodic gastric emptying via Nino tube to prevent a spiration of succus entericus, bile, oral and gastric secretions to prevent aspiration. Advise to keep HOB 35 degrees - Cont PPI - KUB noting distended small bowel loops representing likely focal ileus versus partial SBO, no free air, continue with NG tube Hx of Seizure Disorder - IV Keppra 1000 BID DVT PPx - heparin 5000 units subq tid FEN - D5 1/2NS at 75cc/hr - continue to monitor electrolytes and replete as necessary - hold tube feeds in setting of partial SBO Disposition - full code - continue to monitor in ICU Visit type - Emergency Visit Emergency Visit: Yes ED Registration Date: 10/16/19 Care time: The patient presented to the Emergency Department on the above date and was hospitalized for further evaluation of their emergent condition. - New Patient This patient is new to me today: No - Critical Care Critical Care patient: Yes Total Critical Care Time (in minutes): 35 Critical Care Statement: The care of this patient involved high complexity decision making to prevent further life threatening deterioration of the patient's condition and/or to evaluate & treat vital organ system(s) failure or risk of failure.
[2019-10-26] MEDS: PANTOPRAZOLE SODIUM 40 MG VIAL IVPUSH SCH (09:13)
[2019-10-26] MEDS: levETIRAcetam 500 MG/5 ML ORAL SOLUTION (UNIT-DOSE CUPS) GT SCH (09:18)
--- NOTE | 2019-10-26 09:26 | PN ---
Physical Exam: SUBJECTIVE: Patient seen and examined. Pt was extubated yesterday and NG tube removed. Had copious amounts of secretions. Placed on HFOT. Abdomen becoming more distended. Pt continues to spike fevers OBJECTIVE: Vital Signs Period Temp Pulse Resp BP Sys/Campuzano Pulse Ox Last 24 Hr 99.4 F-101.7 F 76-134 23-42 98-110/60-84 95-100 GENERAL: Intubated. Off sedation, tracks and responds to pain . HEAD: Normal with no signs of trauma. EYES: PERRL, extraocular movements intact, sclera anicteric, conjunctiva clear. No ptosis. ENT: Ears normal, nares patent, oropharynx clear without exudates, moist mucous membranes. NGT in place and ETT in place NECK: Trachea midline, full range of motion, supple. LUNGS: Breath sounds equal, clear to auscultation bilaterally, no wheezes, no crackles, no accessory muscle use. HEART: Regular rate and rhythm, S1, S2 without murmur, rub or gallop. ABDOMEN: Soft, nontender, Distended, normoactive bowel sounds, no guarding, no rebound, no hepatosplenomegaly, no masses. 10-15cm diagonal abdominal incisional scar, well healed. Rigo-valverde feeding tube in place. GJ tube in place, tubing is yellow and discolored. EXTREMITIES: 2+ pulses, warm, well-perfused, no edema. NEUROLOGICAL: Sedated SKIN: Warm, dry, normal turgor, no rashes or lesions noted Laboratory Results - last 24 hr CBC, BMP 10/26/19 05:50 10/26/19 05:50 Active Medications Acetaminophen (Tylenol -) 650 mg PO Q4H PRN PRN Reason: FEVER Last Admin: 10/26/19 02:16 Dose: 650 mg Documented by: Albuterol Sulfate (Ventolin 0.083% Nebulizer Soln -) 1 amp NEB Q4H PRN PRN Reason: SHORT OF BREATH/WHEEZING Last Admin: 10/25/19 15:40 Dose: 1 amp Documented by: Chlorhexidine Gluconate (Hibiclens For Decolonization -) 1 applic TP HS [facility] Last Admin: 10/25/19 21:26 Dose: 1 applic Documented by: Heparin Sodium (Porcine) (Heparin -) 5,000 unit SQ TID [facility] Last Admin: 10/26/19 06:09 Dose: 5,000 unit Documented by: Piperacillin Sod/Tazobactam (Sod 3.375 gm/ Dextrose) 50 mls @ 100 mls/hr IVPB Q8H-IV BO; Protocol Last Admin: 10/26/19 09:13 Dose: 100 mls/hr Documented by: Vancomycin HCl (Vancomycin (Pre-Docked)) 1,000 mg in 250 mls @ 166.667 mls/hr IVPB Q24H BO; Protocol Levetiracetam (Keppra Oral Solution -) 1,000 mg GT BID BO Last Admin: 10/26/19 09:18 Dose: 1,000 mg Documented by: Non-Formulary Med (Vitrum () 10 each GT DAILY BO Pantoprazole Sodium (Protonix Iv) 40 mg IVPUSH DAILY [facility] Last Admin: 10/26/19 09:13 Dose: 40 mg Documented by: Scopolamine HBr (Transderm-Scop -) 1 patch TD Q72H [facility] Last Admin: 10/25/19 21:27 Dose: 1 patch Documented by: Vancomycin HCl (Vancomycin (Pre-Docked)) 1,000 mg IVPB ONCE ONE; Protocol Stop: 10/26/19 06:45 ASSESSMENT/PLAN: Patient is a 33 yo f w/ pmh 29week premature , profound mental delay, chronic seizures, congenital quadriplegia, retinal detachment, recurrent GERD s/p Neissen, s/p GJ-ostomy, s/p gastrostomy, cataracts, scoliosis, osteoporosis, anemia who presents for evaluation of from [facility] for evaluation of respiratory distress. Intubated in the field Neuro -Severe MR -Chronic seizures -Sedated -Maintain sedation for vent synchrony -Cont home Keppra 1000mg BID Pulmonary -Respiratory Distress --possibly 2/2 Aspiration PNA -CXR(10/17/19): prominent mediastinum, fullness of Right hilum, fullness of Right paratracheal soft tissues. Left mid and Lower infiltrate -Influ: neg -Respir Panel --pending final results -Extubated yesterday and started on HFOT. Copious amounts of secretions. -IV Abx -ID following (Dr. Valdez): f/u abx recommendations Cardiovascular -Tachycardia --likely 2/2 sepsis and pain(chronic and acute abd) -MAPs 70s off pressors -Pt has not required pressors, can remove central line. GI -NGT bleeding --likely 2/2 mucosal irritation from high pressure suction -SBO --likely 2/2 SMA Syndrome vs small bowel obstruction vs colonic dysmotility -Elevated Tbil --downtrending -High output NGT -CTA abd (10/23/19): no evidence of obstruction. moderate amount of free fluid -Lipase: 579 -NG tube removed overnight. Abdomen becoming increasingly distended. Stopped J tube tube feeds. Order KUB. -KUB: focal ileus or small bowel obstruction -GI consulted, awaiting recommendations ID -Possible Aspiration PNA -Lactic acidosis --resolving -UA: 3+ LE, WBC 109, neg nitrite -Blood cx: NGTD -Sputum cx: E coli RESISTANT TO ZOSYN -Resp panel pending -Urine for Antigen: neg -Lactic Acid: 2.8, 6.0, 2.9 -ID(José Miguel) consulted, f/u abx recommendations >>D/C'ed zosyn, continue vanc and start ceftriaxone pending recs FEN -D/c fluids -monitor lytes, replete PRN -Tube feeds held due to obstruction DVT ppx -SQH Dispo -patient requires ICU monitoring Visit type - Emergency Visit Emergency Visit: No - New Patient This patient is new to me today: No - Critical Care Critical Care patient: Yes Total Critical Care Time (in minutes): 45 Critical Care Statement: The care of this patient involved high complexity decision making to prevent further life threatening deterioration of the patient's condition and/or to evaluate & treat vital organ system(s) failure or risk of failure. ATTENDING PHYSICIAN STATEMENT I saw and evaluated the patient. I reviewed the resident's note and discussed the case with the resident. I agree with the resident's findings and plan as documented. SUBJECTIVE: OBJECTIVE: ASSESSMENT AND PLAN:
[2019-10-26 10:00] LABS: ANISOCYTOSIS 1+; MACROCYTOSIS 0; OVALOCYTE 1+; PLATELET ESTIMATE INCREASED
[2019-10-26] MEDS ORDERED: ACETAMINOPHEN 1000 MG/100 ML VIAL (NON FORMULARY) IVPB PRN (10:03)
[2019-10-26] MEDS: DEXTROSE 5%-0.45% SALINE 1,000 ML IV SCH (10:26)
[2019-10-26] MEDS ORDERED: CEFTRIAXONE 2 GM in DEXTROSE 5%-WATER 100 ML IVPB ONE (12:41)
--- NOTE | 2019-10-26 12:50 | PN ---
Teaching Attending Note Name of Resident: Nate Hammer ATTENDING PHYSICIAN STATEMENT I saw and evaluated the patient. I reviewed the resident's note and discussed the case with the resident. I agree with the resident's findings and plan as documented. SUBJECTIVE: Extubated to HFOT. Non-verbal, unable to participate in medical interview. OBJECTIVE: On HFOT. Awake, THEODORE. Fever - Tmax 101.7. Last Vital Signs Temp Pulse Resp BP Pulse Ox 99.7 F H 102 H 21 H 91/61 100 10/26/19 10:00 10/26/19 12:00 10/26/19 12:00 10/26/19 12:00 10/26/19 08:08 Heart - S1, S2, RRR Lungs - good air entry bilaterally Abdomen - soft, mild distension with J tube. J tube site clean. Bowel Sounds normal. Extremities - no edema, no calf tenderness. Contractures LEs. Laboratory Results - last 24 hr 10/26/19 10/26/19 10/26/19 05:50 05:50 09:00 WBC 14.8 H RBC 3.14 L Hgb 9.9 L Hct 28.6 L MCV 91.1 MCH 31.6 MCHC 34.6 RDW 14.3 Plt Count 594 H D MPV 7.4 L Absolute Neuts (auto) 12.1 H Neutrophils % 81.7 Neutrophils % (Manual) 72.3 Band Neutrophils % 1.0 Lymphocytes % 11.3 Lymphocytes % (Manual) 16.8 Monocytes % 6.2 Monocytes % (Manual) 7 Eosinophils % 0.4 Eosinophils % (Manual) 1.0 Basophils % 0.4 Basophils % (Manual) 1.0 Myelocytes % (Man) 0 D Promyelocytes % (Man) 0 D Blast Cells % (Manual) 0 Nucleated RBC % 0 Metamyelocytes 1 D Hypochromia 1+ Platelet Estimate Increased Polychromasia 1+ Poikilocytosis 0 Anisocytosis 1+ Microcytosis 1+ Macrocytosis 0 Ovalocytes 1+ Sodium 142 Potassium 3.8 Chloride 104 Carbon Dioxide 31 Anion Gap 6 L BUN 16.6 Creatinine 0.8 Est GFR (CKD-EPI)AfAm 110.70 Est GFR (CKD-EPI)NonAf 95.52 Random Glucose 117 H Calcium 8.5 Phosphorus 3.4 Magnesium 2.6 H Total Bilirubin 0.5 AST 45 H ALT 52 Alkaline Phosphatase 249 H Total Protein 6.4 Albumin 2.2 L Influenza A (Rapid) Negative Influenza B (Rapid) Negative Current Medications Generic Name Dose Route Start Last Admin Trade Name Freq PRN Reason Stop Dose Admin Acetaminophen 650 mg 10/21/19 21:51 10/26/19 02:16 Tylenol - PO 650 mg Q4H PRN Administration FEVER Acetaminophen 1,000 mg 10/26/19 10:03 10/26/19 10:26 Ofirmev Injection - IVPB 10/27/19 10:04 1,000 mg Q6H PRN Administration FEVER Albuterol Sulfate 1 amp 10/19/19 09:30 10/25/19 15:40 Ventolin 0.083% Nebulizer Soln - NEB 1 amp Q4H PRN Administration SHORT OF BREATH/WHEEZING Chlorhexidine Gluconate 1 applic 10/16/19 22:00 10/25/19 21:26 Hibiclens For Decolonization - TP 1 applic HS BO Administration Heparin Sodium (Porcine) 5,000 unit 10/16/19 22:00 10/26/19 06:09 Heparin - SQ 5,000 unit TID BO Administration Vancomycin HCl 1,000 mg in 250 mls @ 166.667 mls/hr 10/25/19 08:00 Vancomycin (Pre-Docked) IVPB Q24H BO Protocol Dextrose/Sodium Chloride 1,000 mls @ 75 mls/hr 10/26/19 10:15 10/26/19 10:26 D5-1/2ns - IV 75 mls/hr ASDIR BO Administration Ceftriaxone Sodium 2 gm/ 100 mls @ 100 mls/hr 10/26/19 12:41 Dextrose IVPB 10/26/19 13:40 ONCE ONE Protocol Levetiracetam 1,000 mg 10/26/19 22:00 Keppra Injection - IVPB BID BO Non-Formulary Med 10 each 10/18/19 10:00 Vitrum ( GT DAILY BO Pantoprazole Sodium 40 mg 10/17/19 10:00 10/26/19 09:13 Protonix Iv IVPUSH 40 mg DAILY BO Administration Scopolamine HBr 1 patch 10/25/19 19:45 10/25/19 21:27 Transderm-Scop - TD 1 patch Q72H BO Administration Vancomycin HCl 1,000 mg 10/26/19 06:44 Vancomycin (Pre-Docked) IVPB 10/26/19 06:45 ONCE ONE Protocol Home Medications Medication Instructions Recorded Calcium Carbonate/Vitamin D3 1 each PO BID 10/16/19 [Oystercal-D 500 mg-400 Unit Tb] Tizanidine HCl 6 mg GT TID 10/16/19 levETIRAcetam [levETIRAcetam ORAL 500 mg GT BID 10/16/19 SUSPENSION] Baclofen 3 tab GT TID 10/17/19 Cholecalciferol (Vitamin D3) 2 tab GT DAILY 10/17/19 [Vitamin D3] Levetiracetam 1 tab GT DAILY 10/17/19 Nut.tx.impaired Digest Fxn [Ensure 60 ml GT QID 10/17/19 Clear] Nut.tx.impaired Digest Fxn 900 ml PO DAILY 10/17/19 [Peptamen 1.5] Polyethylene Glycol 3350 [Clearlax] 1 cap GT DAILY 10/17/19 Sennosides [Senna] 2 tab GT HS 10/17/19 ASSESSMENT AND PLAN: 33 year old female with profound developmental delay, cognitive deficit, chronic seizures, congenital quadriplegia, retinal detachment, recurrent GERD s/p Neissen, s/p gastrostomy, cataracts, scoliosis, osteoporosis, anemia, presents for evaluation from [facility] for evaluation of respiratory distress. 1. Acute Hypoxic Respiratory Failure and Severe Sepsis secondary to Pneumonia (L sided infiltrate)/ARDS s/p Intubation/Mechanical Ventilation Blood Cx coag neg staph, Sputum Cx EColi/Staph aureus. (EColi only intermediate sensitivity to Zosyn) Leukocytosis/fever persisting Blood Cx - coag neg Staph. Will switch Zosyn to Ceftriaxone. Continue Vancomycin. ID to follow up. 2. Inussuception/SBO, resolved. Abdominal distension overnight once NG tube removed tomorrow - Jevity feeds via J tube held. AXR - distended small bowel loops, possible ileus, possible early SBO GI following. IV hydration/NPO 3. Seizure Disorder - continue Keppra. DVT Px - Heparin SQ GI Px - PPI
[2019-10-26] MEDS ORDERED: DEXTROSE 5%-WATER 100 ML IVPB ONE (13:43)
--- NOTE | 2019-10-26 14:00 | PN ---
Progress Note, Physician History of Present Illness: AWAKE, NON VERBAL ON HIGH FLOW O2 FEVER NOTED NO ACUTE DISTRESS WBC 14.8 SPUTUM C/S E COLI BC (-) - Current Medication List Current Medications: Active Medications Acetaminophen (Tylenol -) 650 mg PO Q4H PRN PRN Reason: FEVER Last Admin: 10/26/19 02:16 Dose: 650 mg Documented by: Acetaminophen (Ofirmev Injection -) 1,000 mg IVPB Q6H PRN PRN Reason: FEVER Stop: 10/27/19 10:04 Last Admin: 10/26/19 10:26 Dose: 1,000 mg Documented by: Albuterol Sulfate (Ventolin 0.083% Nebulizer Soln -) 1 amp NEB Q4H PRN PRN Reason: SHORT OF BREATH/WHEEZING Last Admin: 10/25/19 15:40 Dose: 1 amp Documented by: Chlorhexidine Gluconate (Hibiclens For Decolonization -) 1 applic TP HS [facility] Last Admin: 10/25/19 21:26 Dose: 1 applic Documented by: Heparin Sodium (Porcine) (Heparin -) 5,000 unit SQ TID BO Last Admin: 10/26/19 13:42 Dose: 5,000 unit Documented by: Vancomycin HCl (Vancomycin (Pre-Docked)) 1,000 mg in 250 mls @ 166.667 mls/hr IVPB Q24H [facility]; Protocol Dextrose/Sodium Chloride (D5-1/2ns -) 1,000 mls @ 75 mls/hr IV ASDIR [facility] Last Admin: 10/26/19 10:26 Dose: 75 mls/hr Documented by: Levetiracetam (Keppra Injection -) 1,000 mg IVPB BID [facility] Non-Formulary Med (Vitrum () 10 each GT DAILY [facility] Pantoprazole Sodium (Protonix Iv) 40 mg IVPUSH DAILY [facility] Last Admin: 10/26/19 09:13 Dose: 40 mg Documented by: Scopolamine HBr (Transderm-Scop -) 1 patch TD Q72H [facility] Last Admin: 10/25/19 21:27 Dose: 1 patch Documented by: Vancomycin HCl (Vancomycin (Pre-Docked)) 1,000 mg IVPB ONCE ONE; Protocol Stop: 10/26/19 06:45 - Objective Vital Signs: Vital Signs Temperature 99.7 F H 10/26/19 10:00 Pulse Rate 108 H 10/26/19 13:55 Respiratory Rate 21 H 10/26/19 12:00 Blood Pressure 91/61 10/26/19 12:00 O2 Sat by Pulse Oximetry (%) 100 10/26/19 13:55 Constitutional: Yes: No Distress Cardiovascular: Yes: Regular Rate and Rhythm, S1, S2 Respiratory: Yes: Diminished Gastrointestinal: Yes: Normal Bowel Sounds, Soft. No: Tenderness Edema: No Labs: CBC, BMP 10/26/19 05:50 10/26/19 05:50 INR, PTT INR 1.03 (0.83-1.09) 10/22/19 11:20 Assessment/Plan RESP FAILURE PROBABLE ASP PNEUMONIA FEVER/ LEUKOCYTOSIS LACTIC ACIDOSIS R/O BOWEL OBSTRUCTION CONTINUE CEFTRIAXONE CHECK REPEAT BC RESPIRATORY SUPPORT
--- NOTE | 2019-10-26 14:49 | PN ---
Teaching Attending Note Name of Resident: Heather Graf ATTENDING PHYSICIAN STATEMENT I saw and evaluated the patient. I reviewed the resident's note and discussed the case with the resident. I agree with the resident's findings and plan as documented. SUBJECTIVE: Patient seen and examined in the ICU. Extubated on HFOT. (?) Ileus versus repeat SBO. OBJECTIVE: Intake & Output 10/23/19 10/24/19 10/25/19 10/26/19 23:59 23:59 23:59 23:59 Intake Total 2308.2 1610.4 2228.2 770 Output Total 1200 850 800 Balance 1108.2 760.4 1428.2 770 Weight 93 lb 11.143 oz 91 lb 8 oz 92 lb 4 oz 94 lb 4.8 oz Last Vital Signs Temp Pulse Resp BP Pulse Ox 99.7 F H 108 H 21 H 91/61 100 10/26/19 10:00 10/26/19 13:55 10/26/19 12:00 10/26/19 12:00 10/26/19 13:55 Active Medications Acetaminophen (Tylenol -) 650 mg PO Q4H PRN PRN Reason: FEVER Last Admin: 10/26/19 02:16 Dose: 650 mg Documented by: Acetaminophen (Ofirmev Injection -) 1,000 mg IVPB Q6H PRN PRN Reason: FEVER Stop: 10/27/19 10:04 Last Admin: 10/26/19 10:26 Dose: 1,000 mg Documented by: Albuterol Sulfate (Ventolin 0.083% Nebulizer Soln -) 1 amp NEB Q4H PRN PRN Reason: SHORT OF BREATH/WHEEZING Last Admin: 10/25/19 15:40 Dose: 1 amp Documented by: Chlorhexidine Gluconate (Hibiclens For Decolonization -) 1 applic TP HS BO Last Admin: 10/25/19 21:26 Dose: 1 applic Documented by: Heparin Sodium (Porcine) (Heparin -) 5,000 unit SQ TID BO Last Admin: 10/26/19 13:42 Dose: 5,000 unit Documented by: Vancomycin HCl (Vancomycin (Pre-Docked)) 1,000 mg in 250 mls @ 166.667 mls/hr IVPB Q24H BO; Protocol Dextrose/Sodium Chloride (D5-1/2ns -) 1,000 mls @ 75 mls/hr IV ASDIR BO Last Admin: 10/26/19 10:26 Dose: 75 mls/hr Documented by: Ceftriaxone Sodium 2 gm/ (Dextrose) 100 mls @ 200 mls/hr IVPB DAILY BO; Protocol Levetiracetam (Keppra Injection -) 1,000 mg IVPB BID BO Non-Formulary Med (Vitrum () 10 each GT DAILY BO Pantoprazole Sodium (Protonix Iv) 40 mg IVPUSH DAILY BO Last Admin: 10/26/19 09:13 Dose: 40 mg Documented by: Scopolamine HBr (Transderm-Scop -) 1 patch TD Q72H BO Last Admin: 10/25/19 21:27 Dose: 1 patch Documented by: Vancomycin HCl (Vancomycin (Pre-Docked)) 1,000 mg IVPB ONCE ONE; Protocol Stop: 10/26/19 06:45 Gen: Extubated, HFOT Heart: tachycardic, regular Lung: scattered rhonchi Abd: softly distended, nontender Ext: no edema Laboratory Results - last 24 hr 10/26/19 10/26/19 10/26/19 05:50 05:50 09:00 WBC 14.8 H RBC 3.14 L Hgb 9.9 L Hct 28.6 L MCV 91.1 MCH 31.6 MCHC 34.6 RDW 14.3 Plt Count 594 H D MPV 7.4 L Absolute Neuts (auto) 12.1 H Neutrophils % 81.7 Neutrophils % (Manual) 72.3 Band Neutrophils % 1.0 Lymphocytes % 11.3 Lymphocytes % (Manual) 16.8 Monocytes % 6.2 Monocytes % (Manual) 7 Eosinophils % 0.4 Eosinophils % (Manual) 1.0 Basophils % 0.4 Basophils % (Manual) 1.0 Myelocytes % (Man) 0 D Promyelocytes % (Man) 0 D Blast Cells % (Manual) 0 Nucleated RBC % 0 Metamyelocytes 1 D Hypochromia 1+ Platelet Estimate Increased Polychromasia 1+ Poikilocytosis 0 Anisocytosis 1+ Microcytosis 1+ Macrocytosis 0 Ovalocytes 1+ Sodium 142 Potassium 3.8 Chloride 104 Carbon Dioxide 31 Anion Gap 6 L BUN 16.6 Creatinine 0.8 Est GFR (CKD-EPI)AfAm 110.70 Est GFR (CKD-EPI)NonAf 95.52 Random Glucose 117 H Calcium 8.5 Phosphorus 3.4 Magnesium 2.6 H Total Bilirubin 0.5 AST 45 H ALT 52 Alkaline Phosphatase 249 H Total Protein 6.4 Albumin 2.2 L Influenza A (Rapid) Negative Influenza B (Rapid) Negative ASSESSMENT AND PLAN: Acute Hypoxic Respiratory Failure Pneumonia likely Aspiration ARDS Small Bowel Obstruction No suspicion of SMA Syndrome by CT Severe Sepsis Lactic Acidosis Mental Retardation GERD - HFOT - titrate FiO2 to keep Spo2 >90% - continue antibiotics per ID - monitor urine output, creatinine - inhaled bronchodilators - aspiration precautions - chest PT/pulmonary toilet - DVT/GI prophylaxis - Can monitor on 4W / 4S Dr Pedro Critical care time spent in reviewing chart, evaluating patient and formulating plan 35 minutes.
[2019-10-26] MEDS: CHLORHEXIDINE GLUCONATE 4% CLEANSER FOR DECOLONIZATION TP SCH (21:48)
[2019-10-26] MEDS: levETIRAcetam 500 MG/5 ML INJECTION VIAL IVPB SCH (21:49)
[2019-10-27] MEDS: HEPARIN NA (PORCINE) 5,000 UNITS/ML 1ML VIAL SQ SCH ×4 (05:28→22:49)
[2019-10-27 07:01] LABS: BASO % 0.5 % (0-2.0); EOS % 0.8 % (0-4.5); HEMATOCRIT 28.6 % (32.4-45.2); HEMOGLOBIN 9.8 GM/dL (10.7-15.3); LYMPH % 22.9 % (8-40); MCH 31.8 pg (25.7-33.7); MCHC 34.3 g/dl (32.0-36.0); MEAN CELL VOLUME 92.7 fl (80-96); MEAN PLT VOLUME 7.2 fl (7.5-11.1); MONO % 7.7 % (3.8-10.2); NEUT % 68.1 % (42.8-82.8); PLATELET COUNT 681 K/MM3 (134-434); RBC 3.09 M/mm3 (3.60-5.2); RDW 14.4 % (11.6-15.6); WHITE BLOOD COUNT 9.6 K/mm3 (4.0-10.0)
[2019-10-27 07:53] LABS: ALBUMIN 2.2 g/dl (3.4-5.0); BILIRUBIN,TOTAL 0.2 mg/dL (0.2-1); BLOOD UREA NITROGEN 13.7 mg/dL (7-18); CALCIUM 9.1 mg/dL (8.5-10.1); CREATININE 0.5 mg/dL (0.55-1.3); MAGNESIUM 2.2 mg/dL (1.8-2.4); PHOSPHOROUS 3.5 mg/dL (2.5-4.9); POTASSIUM 3.9 mmol/L (3.5-5.1); TOT PROT 6.3 g/dl (6.4-8.2)
[2019-10-27] MEDS ORDERED: DEXTROSE 5%-WATER 100 ML IVPB ONE (08:52)
[2019-10-27] MEDS: CEFTRIAXONE 2 GM in DEXTROSE 5%-WATER 100 ML IVPB SCH (09:22)
[2019-10-27] MEDS: levETIRAcetam 500 MG/5 ML INJECTION VIAL IVPB SCH ×3 (09:22→22:49)
[2019-10-27] MEDS: PANTOPRAZOLE SODIUM 40 MG VIAL IVPUSH SCH (09:22)
[2019-10-27] MEDS: DEXTROSE 5%-0.45% SALINE 1,000 ML IV SCH ×3 (09:23→22:49)
[2019-10-27] MEDS: MULTIVITAMINS (DAILY MVI) TABLET (FP) PO SCH (09:23)
[2019-10-27 10:55] LABS: ANISOCYTOSIS 1+; MACROCYTOSIS 0; OVALOCYTE 1+; PLATELET ESTIMATE INCREASED
--- NOTE | 2019-10-27 11:51 | PN ---
Progress Note, Physician History of Present Illness: PULMONARY AWAKE,ON HIGH FLOW O2 ,-RESP DISTRESS - Current Medication List Current Medications: Active Medications Acetaminophen (Tylenol -) 650 mg PO Q4H PRN PRN Reason: FEVER Last Admin: 10/26/19 02:16 Dose: 650 mg Documented by: Albuterol Sulfate (Ventolin 0.083% Nebulizer Soln -) 1 amp NEB Q4H PRN PRN Reason: SHORT OF BREATH/WHEEZING Last Admin: 10/25/19 15:40 Dose: 1 amp Documented by: Chlorhexidine Gluconate (Hibiclens For Decolonization -) 1 applic TP HS [facility] Last Admin: 10/26/19 21:48 Dose: Not Given Documented by: Heparin Sodium (Porcine) (Heparin -) 5,000 unit SQ TID BO Last Admin: 10/27/19 05:28 Dose: 5,000 unit Documented by: Vancomycin HCl (Vancomycin (Pre-Docked)) 1,000 mg in 250 mls @ 166.667 mls/hr IVPB Q24H [facility]; Protocol Dextrose/Sodium Chloride (D5-1/2ns -) 1,000 mls @ 75 mls/hr IV ASDIR [facility] Last Admin: 10/27/19 09:23 Dose: 75 mls/hr Documented by: Ceftriaxone Sodium 2 gm/ (Dextrose) 100 mls @ 200 mls/hr IVPB DAILY [facility]; Protocol Last Admin: 10/27/19 09:22 Dose: 200 mls/hr Documented by: Levetiracetam (Keppra Injection -) 1,000 mg IVPB BID BO Last Admin: 10/27/19 09:22 Dose: 1,000 mg Documented by: Multivitamins/Minerals/Vitamin C (Tab-A-Vit -) 1 tab PO DAILY BO Last Admin: 10/27/19 09:23 Dose: 1 tab Documented by: Pantoprazole Sodium (Protonix Iv) 40 mg IVPUSH DAILY [facility] Last Admin: 10/27/19 09:22 Dose: 40 mg Documented by: Scopolamine HBr (Transderm-Scop -) 1 patch TD Q72H [facility] Last Admin: 10/25/19 21:27 Dose: 1 patch Documented by: Vancomycin HCl (Vancomycin (Pre-Docked)) 1,000 mg IVPB ONCE ONE; Protocol Stop: 10/26/19 06:45 - Objective Vital Signs: Vital Signs Temperature 99.1 F 10/27/19 10:00 Pulse Rate 96 H 10/27/19 10:00 Respiratory Rate 20 10/27/19 10:00 Blood Pressure 121/73 10/27/19 10:00 O2 Sat by Pulse Oximetry (%) 100 10/27/19 08:35 Constitutional: Yes: Calm, Thin Eyes: Yes: WNL HENT: Yes: WNL Neck: Yes: WNL Cardiovascular: Yes: Regular Rate and Rhythm, S1, S2 Respiratory: Yes: Diminished Extremities: Yes: Shortened, Other (CONTRACTED) Edema: No Labs: CBC, BMP 10/27/19 06:25 10/27/19 06:25 INR, PTT INR 1.03 (0.83-1.09) 10/22/19 11:20 Problem List - Problems (1) Respiratory failure Code(s): J96.90 - RESPIRATORY FAILURE, UNSP, UNSP W HYPOXIA OR HYPERCAPNIA (2) History of cholecystectomy Code(s): Z90.49 - ACQUIRED ABSENCE OF OTHER SPECIFIED PARTS OF DIGESTIVE TRACT (3) Respiratory distress Code(s): R06.03 - ACUTE RESPIRATORY DISTRESS (4) Aspiration pneumonia Code(s): J69.0 - PNEUMONITIS DUE TO INHALATION OF FOOD AND VOMIT (5) Cerebral palsy Code(s): G80.9 - CEREBRAL PALSY, UNSPECIFIED (6) Gastrostomy in place Code(s): Z93.1 - GASTROSTOMY STATUS (7) Quadriplegia and quadriparesis Code(s): G82.50 - QUADRIPLEGIA, UNSPECIFIED Assessment/Plan ASSESSMENT AND PLAN: Acute Hypoxic Respiratory Failure Pneumonia likely Aspiration ARDS Small Bowel Obstruction No suspicion of SMA Syndrome by CT Severe Sepsis Lactic Acidosis Mental Retardation GERD - taper HFOT - titrate FiO2 to keep Spo2 >90% - antibiotics per ID - monitor urine output, creatinine - inhaled bronchodilators - aspiration precautions - chest PT/pulmonary toilet - DVT/GI prophylaxis DR RAY
--- NOTE | 2019-10-27 12:14 | PN ---
Teaching Attending Note Name of Resident: Altaf Larson ATTENDING PHYSICIAN STATEMENT I saw and evaluated the patient. I reviewed the resident's note and discussed the case with the resident. I agree with the resident's findings and plan as documented. SUBJECTIVE: Non-verbal, unable to participate in medical interview. OBJECTIVE: On HFOT. Awake, THEODORE. Fever - Tmax 100.4 Last Vital Signs Temp Pulse Resp BP Pulse Ox 99.1 F 96 H 20 121/73 100 10/27/19 10:00 10/27/19 10:00 10/27/19 10:10/27/19 10:10/27/19 08:35 Heart - S1, S2, RRR Lungs - good air entry bilaterally Abdomen - soft, mild distension with J tube and McKey tube in-situ. J tube site clean. Bowel Sounds normal. Extremities - no edema, no calf tenderness. Contractures all extremities. Laboratory Results - last 24 hr 10/16/19 10/27/19 10/27/19 16:00 06:25 06:25 WBC 9.6 RBC 3.09 L Hgb 9.8 L Hct 28.6 L MCV 92.7 MCH 31.8 MCHC 34.3 RDW 14.4 Plt Count 681 H MPV 7.2 L Absolute Neuts (auto) 6.5 Neutrophils % 68.1 Neutrophils % (Manual) 54.5 Band Neutrophils % 4.9 Lymphocytes % 22.9 D Lymphocytes % (Manual) 29.7 D Monocytes % 7.7 Monocytes % (Manual) 8 Eosinophils % 0.8 D Eosinophils % (Manual) 0.0 D Basophils % 0.5 Basophils % (Manual) 1.0 Myelocytes % (Man) 0 Promyelocytes % (Man) 0 Blast Cells % (Manual) 0 Nucleated RBC % 0 Metamyelocytes 2 D Hypochromia 0 Platelet Estimate Increased Platelet Comment Present Polychromasia 1+ Poikilocytosis 1+ Anisocytosis 1+ Microcytosis 1+ Macrocytosis 0 Spherocytes 1+ Ovalocytes 1+ Acanthocytes (Spur) 1+ Sodium 142 Potassium 3.9 Chloride 105 Carbon Dioxide 31 Anion Gap 7 L BUN 13.7 Creatinine 0.5 L Est GFR (CKD-EPI)AfAm 145.33 Est GFR (CKD-EPI)NonAf 125.39 Random Glucose 103 Calcium 9.1 Phosphorus 3.5 Magnesium 2.2 Total Bilirubin 0.2 AST 30 ALT 40 Alkaline Phosphatase 210 H Total Protein 6.3 L Albumin 2.2 L Adenovirus (PCR) Negative Human Metapneumovir PCR Negative Influenza A (H1) PCR Negative Influenza B (RT-PCR) Negative Parainfluenza 1 (PCR) Negative Parainfluenza 2 (PCR) Negative Parainfluenza 3 (PCR) Negative RSV Type A (PCR) Negative RSV Type B (PCR) Negative Rhinovirus (PCR) Negative Current Medications Generic Name Dose Route Start Last Admin Trade Name Freq PRN Reason Stop Dose Admin Acetaminophen 650 mg 10/21/19 21:51 10/26/19 02:16 Tylenol - PO 650 mg Q4H PRN Administration FEVER Albuterol Sulfate 1 amp 10/19/19 09:30 10/25/19 15:40 Ventolin 0.083% Nebulizer Soln - NEB 1 amp Q4H PRN Administration SHORT OF BREATH/WHEEZING Chlorhexidine Gluconate 1 applic 10/16/19 22:00 10/26/19 21:48 Hibiclens For Decolonization - TP Not Given HS BO Heparin Sodium (Porcine) 5,000 unit 10/16/19 22:00 10/27/19 05:28 Heparin - SQ 5,000 unit TID BO Administration Vancomycin HCl 1,000 mg in 250 mls @ 166.667 mls/hr 10/25/19 08:00 Vancomycin (Pre-Docked) IVPB Q24H BO Protocol Dextrose/Sodium Chloride 1,000 mls @ 75 mls/hr 10/26/19 10:15 10/27/19 09:23 D5-1/2ns - IV 75 mls/hr ASDIR BO Administration Ceftriaxone Sodium 2 gm/ 100 mls @ 200 mls/hr 10/27/19 10:00 10/27/19 09:22 Dextrose IVPB 200 mls/hr DAILY BO Administration Protocol Levetiracetam 1,000 mg 10/26/19 22:00 10/27/19 09:22 Keppra Injection - IVPB 1,000 mg BID BO Administration Multivitamins/Minerals/Vitamin C 1 tab 10/27/19 10:00 10/27/19 09:23 Tab-A-Vit - PO 1 tab DAILY BO Administration Pantoprazole Sodium 40 mg 10/17/19 10:00 10/27/19 09:22 Protonix Iv IVPUSH 40 mg DAILY BO Administration Scopolamine HBr 1 patch 10/25/19 19:45 10/25/19 21:27 Transderm-Scop - TD 1 patch Q72H BO Administration Vancomycin HCl 1,000 mg 10/26/19 06:44 Vancomycin (Pre-Docked) IVPB 10/26/19 06:45 ONCE ONE Protocol Home Medications Medication Instructions Recorded Calcium Carbonate/Vitamin D3 1 each PO BID 10/16/19 [Oystercal-D 500 mg-400 Unit Tb] Tizanidine HCl 6 mg GT TID 10/16/19 levETIRAcetam [levETIRAcetam ORAL 500 mg GT BID 10/16/19 SUSPENSION] Baclofen 3 tab GT TID 10/17/19 Cholecalciferol (Vitamin D3) 2 tab GT DAILY 10/17/19 [Vitamin D3] Levetiracetam 1 tab GT DAILY 10/17/19 Nut.tx.impaired Digest Fxn [Ensure 60 ml GT QID 10/17/19 Clear] Nut.tx.impaired Digest Fxn 900 ml PO DAILY 10/17/19 [Peptamen 1.5] Polyethylene Glycol 3350 [Clearlax] 1 cap GT DAILY 10/17/19 Sennosides [Senna] 2 tab GT HS 10/17/19 ASSESSMENT AND PLAN: 33 year old female with profound developmental delay, cognitive deficit, chronic seizures, congenital quadriplegia, retinal detachment, recurrent GERD s/p Neissen, s/p gastrostomy, cataracts, scoliosis, osteoporosis, anemia, presents for evaluation from [facility] for evaluation of respiratory distress. 1. Acute Hypoxic Respiratory Failure and Severe Sepsis secondary to Pneumonia (L sided infiltrate)/ARDS s/p Intubation/Mechanical Ventilation Blood Cx - Staph hominis (sens to Vanco), Sputum Cx EColi/Staph aureus. (EColi only intermediate sensitivity to Zosyn) Leukocytosis resolved. Fever curve improving. Zosyn switched to Ceftriaxone. Vancomycin ordered, awaiting ID approval for administration. ID contacted to follow up. 2. Inussuception/SBO/SMA Syndrome, recurrent. Abdominal distension requiring replacement of NG tube for decompression. Jevity feeds via J tube held. AXR - distended small bowel loops, possible ileus, possible early SBO GI and Surgery contacted to re-evaluate for further recommendations. IV hydration/NPO 3. Seizure Disorder - continue Keppra. DVT Px - Heparin SQ GI Px - PPI
--- NOTE | 2019-10-27 12:41 | PN.GI ---
GI Progress Note Subjective: Recalled to evaluate abdominal distention. Per [employer] Treat[employer], patient's abdomen became more distended. She had an AXR that revealed distended bowel loops, predominantly small bowel, raising question of ileus / PSBO. NGT was placed. No vomiting reported - Objective Vital Signs: Vital Signs Temperature 99.1 F 10/27/19 10:00 Pulse Rate 96 H 10/27/19 10:00 Respiratory Rate 20 10/27/19 10:00 Blood Pressure 121/73 10/27/19 10:00 O2 Sat by Pulse Oximetry (%) 100 10/27/19 08:35 Constitutional: Calm Eyes: No: Sclera Icterus Cardiovascular: Yes: Tachycardia Respiratory: Yes: Diminished (at bases bilaterally with poor insp effort) Gastrointestinal Inspection: Yes: Other (J-Tube in place (appears to be balloon replacement type tube) and low profile G-Tube in place.). No: Distention ...Auscultate: Yes: Normoactive Bowel Sounds ...Palpate: No: Tenderness (No grimacing upon palpation) Extremities: Yes: Other (contractures) Neurological: Yes: Alert Labs: CBC, BMP 10/27/19 06:25 10/27/19 06:25 INR, PTT INR 1.03 (0.83-1.09) 10/22/19 11:20 Problem List - Problems (1) Ileus Assessment/Plan: vs. Partisal SBO. given that more distal bowel loops are affected, do not think this could be attributed all to SMA syndrome. There was question of jejunal intussception on previous imaging. Advise: CT scan of abdomen and pelvis with contrast Surgical recall. perhaps the balloon of the J-Tube playing a role and may need to be changed for formal jejunostomy tube. COntrast should be given via NGT as contraast given through j-tube will not help given information about the more proximal bowel Aspiration precautions D/W Resident [facility] Code(s): K56.7 - ILEUS, UNSPECIFIED
--- NOTE | 2019-10-27 13:56 | PN ---
Physical Exam: SUBJECTIVE: Patient seen and examined at bedside. Temp of 99.7 overnight. No acute events. OBJECTIVE: Vital Signs Period Temp Pulse Resp BP Sys/Campuzano Pulse Ox Last 24 Hr 99.1 F-99.7 F 96-120 19-27 97-125/69-87 100-100 GENERAL: Awake. No facial grimacing. Does not appear to be in pain. NG tube. EYES: EOMI Sclera Clear ENT: Oropharynx clear without exudates, moist mucous membranes. Secretions present. LUNGS: Poor inspiratory effort HEART: RRR S1S2. ABDOMEN: Mildly distended, ANNI-YE and J tube in place EXTREMITIES: Contractures all extremities NEUROLOGICAL: Moves extremities in response to light touch. SKIN: Warm, dry, normal turgor, no rashes or lesions noted Laboratory Results - last 24 hr 10/16/19 10/27/19 10/27/19 16:00 06:25 06:25 WBC 9.6 RBC 3.09 L Hgb 9.8 L Hct 28.6 L MCV 92.7 MCH 31.8 MCHC 34.3 RDW 14.4 Plt Count 681 H MPV 7.2 L Absolute Neuts (auto) 6.5 Neutrophils % 68.1 Neutrophils % (Manual) 54.5 Band Neutrophils % 4.9 Lymphocytes % 22.9 D Lymphocytes % (Manual) 29.7 D Monocytes % 7.7 Monocytes % (Manual) 8 Eosinophils % 0.8 D Eosinophils % (Manual) 0.0 D Basophils % 0.5 Basophils % (Manual) 1.0 Myelocytes % (Man) 0 Promyelocytes % (Man) 0 Blast Cells % (Manual) 0 Nucleated RBC % 0 Metamyelocytes 2 D Hypochromia 0 Platelet Estimate Increased Platelet Comment Present Polychromasia 1+ Poikilocytosis 1+ Anisocytosis 1+ Microcytosis 1+ Macrocytosis 0 Spherocytes 1+ Ovalocytes 1+ Acanthocytes (Spur) 1+ Sodium 142 Potassium 3.9 Chloride 105 Carbon Dioxide 31 Anion Gap 7 L BUN 13.7 Creatinine 0.5 L Est GFR (CKD-EPI)AfAm 145.33 Est GFR (CKD-EPI)NonAf 125.39 Random Glucose 103 Calcium 9.1 Phosphorus 3.5 Magnesium 2.2 Total Bilirubin 0.2 AST 30 ALT 40 Alkaline Phosphatase 210 H Total Protein 6.3 L Albumin 2.2 L Adenovirus (PCR) Negative Human Metapneumovir PCR Negative Influenza A (H1) PCR Negative Influenza B (RT-PCR) Negative Parainfluenza 1 (PCR) Negative Parainfluenza 2 (PCR) Negative Parainfluenza 3 (PCR) Negative RSV Type A (PCR) Negative RSV Type B (PCR) Negative Rhinovirus (PCR) Negative Active Medications Generic Name Dose Route Start Last Admin Trade Name Freq PRN Reason Stop Dose Admin Acetaminophen 650 mg 10/21/19 21:51 10/26/19 02:16 Tylenol - PO 650 mg Q4H PRN Administration FEVER Albuterol Sulfate 1 amp 10/19/19 09:30 10/25/19 15:40 Ventolin 0.083% Nebulizer Soln - NEB 1 amp Q4H PRN Administration SHORT OF BREATH/WHEEZING Chlorhexidine Gluconate 1 applic 10/16/19 22:00 10/26/19 21:48 Hibiclens For Decolonization - TP Not Given HS BO Heparin Sodium (Porcine) 5,000 unit 10/16/19 22:00 10/27/19 05:28 Heparin - SQ 5,000 unit TID BO Administration Vancomycin HCl 1,000 mg in 250 mls @ 166.667 mls/hr 10/25/19 08:00 Vancomycin (Pre-Docked) IVPB Q24H BO Protocol Dextrose/Sodium Chloride 1,000 mls @ 75 mls/hr 10/26/19 10:15 10/27/19 09:23 D5-1/2ns - IV 75 mls/hr ASDIR BO Administration Ceftriaxone Sodium 2 gm/ 100 mls @ 200 mls/hr 10/27/19 10:00 10/27/19 09:22 Dextrose IVPB 200 mls/hr DAILY BO Administration Protocol Levetiracetam 1,000 mg 10/26/19 22:00 10/27/19 09:22 Keppra Injection - IVPB 1,000 mg BID BO Administration Multivitamins/Minerals/Vitamin C 1 tab 10/27/19 10:00 10/27/19 09:23 Tab-A-Vit - PO 1 tab DAILY BO Administration Pantoprazole Sodium 40 mg 10/17/19 10:00 10/27/19 09:22 Protonix Iv IVPUSH 40 mg DAILY BO Administration Scopolamine HBr 1 patch 10/25/19 19:45 10/25/19 21:27 Transderm-Scop - TD 1 patch Q72H BO Administration Vancomycin HCl 1,000 mg 10/26/19 06:44 Vancomycin (Pre-Docked) IVPB 10/26/19 06:45 ONCE ONE Protocol ASSESSMENT/PLAN: IMAGING: * Chest CT: patchy consolidation left upper lobe. * CXR showing NG tube in LUQ/stomach, mediastinal fullness in rt hilum, retained stool, AXR showing retained stool in transverse colon/rt colon dilation, scoliosis. * CTA(10/19/19): no evidence of SMA syndrome/compression; enterohepatic intussusception in L abd containing J tube, no abd dilatation to suggest obstruction. Nonspecific stranding of L upper abd could be secondary to gastroduodenitis or pancreatitis ASSESSMENT/PLAN: Flora Pandey is a 33 female with a past medical history of developmental delay, congenital quadriplegia, retinal detachment, gastrostomy, cataracts, scoliosis, osteoporosis, GERD, and J-tube placement, was brought in from [facility] admitted for sepsis secondary to aspiration pneumonia. Acute Hypoxic Respiratory Failure - likely 2/2 aspiration pneumonia. Resolving. - extubated, on hi-flow - Resp viral panel pending, flu negative - Scopolamine patch for management of secretions - Albuterol nebs Sepsis - likely secondary to aspiration pneumonia - ID consulted, recs appreciated - SpCx +Staph aureus, E. coli, urine legionella/strep pneumonia neg. Repeat sputum growing E coli resistant to Zosyn - continue ceftriaxone 2g - blood culture growing coag negative staph, repeat blood culture - vancomycin 1g daily - CXR continues to show infiltrate in the left lung, progressing 10/27/2019 Intussuception - Surgery consulted. Contacted. Appreciate further recs. - GI on board; in light of recent Ileus/PSBO appreciated on KUB, recommends CTAP w/ Contrast through NGT. Advise to keep HOB 35 degrees - Cont PPI - KUB noting distended small bowel loops representing likely focal ileus versus partial SBO, no free air, continue with NG tube Hx of Seizure Disorder - IV Keppra 1000 BID DVT PPx - heparin 5000 units subq tid FEN - D5 1/2NS at 75cc/hr - continue to monitor electrolytes and replete as necessary - hold tube feeds in setting of partial SBO Disposition - full code - tele Visit type - Emergency Visit Emergency Visit: Yes ED Registration Date: 10/16/19 Care time: The patient presented to the Emergency Department on the above date and was hospitalized for further evaluation of their emergent condition. - New Patient This patient is new to me today: No - Critical Care Critical Care patient: No - Discharge Referral Referred to [facility] Med P.C.: No ATTENDING PHYSICIAN STATEMENT I saw and evaluated the patient. I reviewed the resident's note and discussed the case with the resident. I agree with the resident's findings and plan as documented. SUBJECTIVE: OBJECTIVE: ASSESSMENT AND PLAN:
--- NOTE | 2019-10-27 14:24 | PN ---
Progress Note, Physician History of Present Illness: AWAKE, NON VERBAL ON HIGH FLOW O2 FEVER NOTED NO ACUTE DISTRESS WBC DOWN WNL SPUTUM C/S E COLI BC SCN - Current Medication List Current Medications: Active Medications Acetaminophen (Tylenol -) 650 mg PO Q4H PRN PRN Reason: FEVER Last Admin: 10/26/19 02:16 Dose: 650 mg Documented by: Albuterol Sulfate (Ventolin 0.083% Nebulizer Soln -) 1 amp NEB Q4H PRN PRN Reason: SHORT OF BREATH/WHEEZING Last Admin: 10/25/19 15:40 Dose: 1 amp Documented by: Chlorhexidine Gluconate (Hibiclens For Decolonization -) 1 applic TP HS [facility] Last Admin: 10/26/19 21:48 Dose: Not Given Documented by: Heparin Sodium (Porcine) (Heparin -) 5,000 unit SQ TID [facility] Last Admin: 10/27/19 14:03 Dose: 5,000 unit Documented by: Vancomycin HCl (Vancomycin (Pre-Docked)) 1,000 mg in 250 mls @ 166.667 mls/hr IVPB Q24H [facility]; Protocol Dextrose/Sodium Chloride (D5-1/2ns -) 1,000 mls @ 75 mls/hr IV ASDIR [facility] Last Admin: 10/27/19 09:23 Dose: 75 mls/hr Documented by: Ceftriaxone Sodium 2 gm/ (Dextrose) 100 mls @ 200 mls/hr IVPB DAILY [facility]; Protocol Last Admin: 10/27/19 09:22 Dose: 200 mls/hr Documented by: Levetiracetam (Keppra Injection -) 1,000 mg IVPB BID [facility] Last Admin: 10/27/19 09:22 Dose: 1,000 mg Documented by: Multivitamins/Minerals/Vitamin C (Tab-A-Vit -) 1 tab PO DAILY [facility] Last Admin: 10/27/19 09:23 Dose: 1 tab Documented by: Pantoprazole Sodium (Protonix Iv) 40 mg IVPUSH DAILY [facility] Last Admin: 10/27/19 09:22 Dose: 40 mg Documented by: Scopolamine HBr (Transderm-Scop -) 1 patch TD Q72H [facility] Last Admin: 10/25/19 21:27 Dose: 1 patch Documented by: Vancomycin HCl (Vancomycin (Pre-Docked)) 1,000 mg IVPB ONCE ONE; Protocol Stop: 10/26/19 06:45 - Objective Vital Signs: Vital Signs Temperature 99.1 F 10/27/19 10:00 Pulse Rate 96 H 10/27/19 10:00 Respiratory Rate 20 10/27/19 10:00 Blood Pressure 121/73 10/27/19 10:00 O2 Sat by Pulse Oximetry (%) 100 10/27/19 08:35 Constitutional: Yes: No Distress Eyes: Yes: Conjunctiva Clear Cardiovascular: Yes: Regular Rate and Rhythm, S1, S2 Respiratory: Yes: CTA Bilaterally, Diminished Gastrointestinal: Yes: Normal Bowel Sounds, Soft. No: Tenderness Edema: No Labs: CBC, BMP 10/27/19 06:25 10/27/19 06:25 INR, PTT INR 1.03 (0.83-1.09) 10/22/19 11:20 Assessment/Plan RESP FAILURE PROBABLE ASP PNEUMONIA FEVER LEUKOCYTOSIS RESOLVED LACTIC ACIDOSIS R/O BOWEL OBSTRUCTION CONTINUE CEFTRIAXONE NO TREATMENT FOR + BC RESPIRATORY SUPPORT
[2019-10-27 15:01] VITALS: BMI 19.2
[2019-10-27] MEDS: VANCOMYCIN 1 GRAM (PRE-DOCKED) 1,000 MG/250 ML BAG IVPB SCH ×2 (22:50→22:53)
[2019-10-28] MEDS: HEPARIN NA (PORCINE) 5,000 UNITS/ML 1ML VIAL SQ SCH ×3 (05:55→21:31)
[2019-10-28 07:59] LABS: HEMATOCRIT 26.5 % (32.4-45.2); HEMOGLOBIN 9.3 GM/dL (10.7-15.3); MCH 31.9 pg (25.7-33.7); MCHC 35.1 g/dl (32.0-36.0); MEAN CELL VOLUME 90.9 fl (80-96); MEAN PLT VOLUME 7.2 fl (7.5-11.1); PLATELET COUNT 745 K/MM3 (134-434); RBC 2.91 M/mm3 (3.60-5.2); RDW 14.1 % (11.6-15.6); WHITE BLOOD COUNT 10.6 K/mm3 (4.0-10.0)
[2019-10-28] MEDS ORDERED: VANCOMYCIN 1 GRAM (PRE-DOCKED) 1,000 MG/250 ML BAG IVPB SCH (08:00)
[2019-10-28 08:17] LABS: ALBUMIN 2.1 g/dl (3.4-5.0); BILIRUBIN,TOTAL 0.2 mg/dL (0.2-1); BLOOD UREA NITROGEN 5.4 mg/dL (7-18); CALCIUM 8.1 mg/dL (8.5-10.1); CREATININE 0.4 mg/dL (0.55-1.3); MAGNESIUM 1.8 mg/dL (1.8-2.4); PHOSPHOROUS 3.2 mg/dL (2.5-4.9); TOT PROT 5.9 g/dl (6.4-8.2)
[2019-10-28] MEDS ORDERED: DEXTROSE 5%-WATER 100 ML IVPB ONE (09:00)
[2019-10-28] MEDS: levETIRAcetam 500 MG/5 ML INJECTION VIAL IVPB SCH ×2 (09:20→21:31)
[2019-10-28] MEDS: PANTOPRAZOLE SODIUM 40 MG VIAL IVPUSH SCH (09:23)
[2019-10-28] MEDS: MULTIVITAMINS (DAILY MVI) TABLET (FP) PO SCH (09:23)
[2019-10-28] MEDS: ACETAMINOPHEN 325 MG TABLET (FP) PO PRN (09:50)
[2019-10-28] MEDS: CEFTRIAXONE 2 GM in DEXTROSE 5%-WATER 100 ML IVPB SCH (09:50)
[2019-10-28] MEDS: DEXTROSE 5%-0.45% SALINE 1,000 ML IV SCH ×3 (09:51→22:03)
--- NOTE | 2019-10-28 11:05 | PN ---
Teaching Attending Note Name of Resident: Altaf Larson ATTENDING PHYSICIAN STATEMENT I saw and evaluated the patient. I reviewed the resident's note and discussed the case with the resident. I agree with the resident's findings and plan as documented. SUBJECTIVE: Non-verbal, unable to participate in medical interview. OBJECTIVE: On HFOT 35%. Awake, THEODORE. Fever - Tmax 100.9 Last Vital Signs Temp Pulse Resp BP Pulse Ox 100.1 F H 106 H 20 127/75 98 10/28/19 10:10/28/19 10:00 10/28/19 10:00 10/28/19 10:10/28/19 09:00 Heart - S1, S2, RRR Lungs - good air entry bilaterally Abdomen - soft, mild distension with J tube and McKey tube in-situ. J tube site clean. Bowel Sounds normal. Extremities - no edema, no calf tenderness. Contractures all extremities. Laboratory Results - last 24 hr 10/27/19 10/28/19 10/28/19 06:25 07:08 07:08 WBC 10.6 H RBC 2.91 L Hgb 9.3 L Hct 26.5 L MCV 90.9 MCH 31.9 MCHC 35.1 RDW 14.1 Plt Count 745 H MPV 7.2 L Neutrophils % (Manual) 54.5 Band Neutrophils % 4.9 Lymphocytes % (Manual) 29.7 D Monocytes % (Manual) 8 Eosinophils % (Manual) 0.0 D Basophils % (Manual) 1.0 Myelocytes % (Man) 0 Promyelocytes % (Man) 0 Blast Cells % (Manual) 0 Nucleated RBC % 0 Metamyelocytes 2 D Hypochromia 0 Platelet Estimate Increased Platelet Comment Present Polychromasia 1+ Poikilocytosis 1+ Anisocytosis 1+ Microcytosis 1+ Macrocytosis 0 Spherocytes 1+ Ovalocytes 1+ Acanthocytes (Spur) 1+ Sodium 140 Potassium 3.0 L Chloride 103 Carbon Dioxide 29 Anion Gap 8 BUN 5.4 L Creatinine 0.4 L Est GFR (CKD-EPI)AfAm 156.40 Est GFR (CKD-EPI)NonAf 134.94 Random Glucose 111 H Calcium 8.1 L Phosphorus 3.2 Magnesium 1.8 Total Bilirubin 0.2 AST 20 ALT 31 Alkaline Phosphatase 182 H Total Protein 5.9 L Albumin 2.1 L Current Medications Generic Name Dose Route Start Last Admin Trade Name Freq PRN Reason Stop Dose Admin Acetaminophen 650 mg 10/27/19 21:28 10/28/19 09:50 Tylenol - PO 650 mg Q4H PRN Administration FEVER Albuterol Sulfate 1 amp 10/27/19 21:28 Ventolin 0.083% Nebulizer Soln - NEB Q4H PRN SHORT OF BREATH/WHEEZING Heparin Sodium (Porcine) 5,000 unit 10/27/19 22:00 10/28/19 05:55 Heparin - SQ 5,000 unit TID BO Administration Ceftriaxone Sodium 2 gm/ 100 mls @ 200 mls/hr 10/27/19 10:00 10/28/19 09:50 Dextrose IVPB 200 mls/hr DAILY BO Administration Protocol Dextrose/Sodium Chloride 1,000 mls @ 75 mls/hr 10/27/19 21:28 10/28/19 09:51 D5-1/2ns - IV 75 mls/hr ASDIR BO Administration Vancomycin HCl 1,000 mg in 250 mls @ 166.667 mls/hr 10/28/19 08:00 Vancomycin (Pre-Docked) IVPB Q24H BO Protocol Levetiracetam 1,000 mg 10/27/19 22:00 10/28/19 09:20 Keppra Injection - IVPB 1,000 mg BID BO Administration Multivitamins/Minerals/Vitamin C 1 tab 10/27/19 10:00 10/28/19 09:23 Tab-A-Vit - PO 1 tab DAILY BO Administration Pantoprazole Sodium 40 mg 10/28/19 10:00 10/28/19 09:23 Protonix Iv IVPUSH 40 mg DAILY BO Administration Scopolamine HBr 1 patch 10/28/19 19:45 Transderm-Scop - TD Q72H [facility] Home Medications Medication Instructions Recorded Calcium Carbonate/Vitamin D3 1 each PO BID 10/16/19 [Oystercal-D 500 mg-400 Unit Tb] Tizanidine HCl 6 mg GT TID 10/16/19 levETIRAcetam [levETIRAcetam ORAL 500 mg GT BID 10/16/19 SUSPENSION] Baclofen 3 tab GT TID 10/17/19 Cholecalciferol (Vitamin D3) 2 tab GT DAILY 10/17/19 [Vitamin D3] Levetiracetam 1 tab GT DAILY 10/17/19 Nut.tx.impaired Digest Fxn [Ensure 60 ml GT QID 10/17/19 Clear] Nut.tx.impaired Digest Fxn 900 ml PO DAILY 10/17/19 [Peptamen 1.5] Polyethylene Glycol 3350 [Clearlax] 1 cap GT DAILY 10/17/19 Sennosides [Senna] 2 tab GT HS 10/17/19 ASSESSMENT AND PLAN: 33 year old female with profound developmental delay, cognitive deficit, chronic seizures, congenital quadriplegia, retinal detachment, recurrent GERD s/p Neissen, s/p gastrostomy, cataracts, scoliosis, osteoporosis, anemia, presents for evaluation from [facility] for evaluation of respiratory distress. 1. Acute Hypoxic Respiratory Failure and Severe Sepsis secondary to Pneumonia (L sided infiltrate)/ARDS s/p Intubation/Mechanical Ventilation Blood Cx - Staph hominis (coag neg), Sputum Cx EColi/Staph aureus. (EColi only intermediate sensitivity to Zosyn) Leukocytosis resolved. Persisting fever. Zosyn switched to Ceftriaxone. Still spiking fevers. Vancomycin ordered several days ago - not approved by ID. ID to guide further antibiotic management given persisting fevers. 2. Inussuception/SBO/SMA Syndrome, recurrent. Abdominal distension requiring replacement of NG tube for decompression. Jevity feeds via J tube held. AXR - distended small bowel loops, possible ileus, possible early SBO CT A/P ordered with NG and IV contrast - CT order changed and done without contrast, reason unclear. No acute intra-abdominal pathology seen on limited CT exam. GI and Surgery contacted 10/27/19 to re-evaluate for further recommendations. IV hydration/NPO 3. Seizure Disorder - continue Keppra. 4. Hypokalemia - repleted. DVT Px - Heparin SQ GI Px - PPI
--- NOTE | 2019-10-28 11:07 | PN ---
Progress Note (short form) - Note Progress Note: Attending Surgeon This patient was first seen 10/17/2019 while in the ICU w/suspected SMA syndrome which was ruled out; te patient was txed for pneumonia and was intubated; she has a J tube and G tube and was eventually extubated and xferred to the floor; I have been asked to see her in f/u b/o suspected bowel obstruction; the patient is non verbal and all infor mation is obtained from a review of the chart. On 10/20/2019 the patient had no evidence of an SBO. The patient was started on J tube feeds after verification that the J tube was intraluminal. On 10/26/2019 the patient was noted to have abdominal distention and a limited quality AXR was done which is essentially nondiagnostic and could not r/o PSBO vs SBO vs. ileus and feeding was stopped. Patient was seen in f/u by GI and recommendations were made and a f/u CT scan of the a/p was done 10/27/2019; results are reviewed and although limited there is no evidence of obstruction. Patient is being txed for ongoing aspiration pneumonia. Patient is having bowel movements. VSS. T max 100.1 abdo-soft and slightly distended and tympanitic; no hernias; g and J tubes present; there is no evidence of an acute surgical abdomen NGT-no output labs reviewed. Imaging reviewed. IMP: most likely ileus secondary to underlying pneumonia and underlying bed bound status. PLAN: Keep HOB up; correct hypokalemia and attempt enteral feeding; continue as per ID and Pulmonary. Seamus Patricio MD FACS
[2019-10-28] MEDS: KCL 10 MEQ IVPB 10 MEQ/100 ML INFUS.BAG IVPB SCH ×3 (11:38→14:08)
--- NOTE | 2019-10-28 11:40 | PN ---
Progress Note, Physician History of Present Illness: pulmonary comfortable,-resp distress,on HFOT - Current Medication List Current Medications: Active Medications Acetaminophen (Tylenol -) 650 mg PO Q4H PRN PRN Reason: FEVER Last Admin: 10/28/19 09:50 Dose: 650 mg Documented by: Albuterol Sulfate (Ventolin 0.083% Nebulizer Soln -) 1 amp NEB Q4H PRN PRN Reason: SHORT OF BREATH/WHEEZING Heparin Sodium (Porcine) (Heparin -) 5,000 unit SQ TID BO Last Admin: 10/28/19 05:55 Dose: 5,000 unit Documented by: Ceftriaxone Sodium 2 gm/ (Dextrose) 100 mls @ 200 mls/hr IVPB DAILY BO; Protocol Last Admin: 10/28/19 09:50 Dose: 200 mls/hr Documented by: Dextrose/Sodium Chloride (D5-1/2ns -) 1,000 mls @ 75 mls/hr IV ASDIR BO Last Admin: 10/28/19 09:51 Dose: 75 mls/hr Documented by: Vancomycin HCl (Vancomycin (Pre-Docked)) 1,000 mg in 250 mls @ 166.667 mls/hr IVPB Q24H BO; Protocol Potassium Chloride (Potassium Chloride 10 Meq Premix Ivpb -) 10 meq in 100 mls @ 100 mls/hr IVPB Q60M BO Stop: 10/28/19 14:29 Levetiracetam (Keppra Injection -) 1,000 mg IVPB BID BO Last Admin: 10/28/19 09:20 Dose: 1,000 mg Documented by: Multivitamins/Minerals/Vitamin C (Tab-A-Vit -) 1 tab PO DAILY BO Last Admin: 10/28/19 09:23 Dose: 1 tab Documented by: Pantoprazole Sodium (Protonix Iv) 40 mg IVPUSH DAILY [facility] Last Admin: 10/28/19 09:23 Dose: 40 mg Documented by: Scopolamine HBr (Transderm-Scop -) 1 patch TD Q72H [facility] - Objective Vital Signs: Vital Signs Temperature 99.2 F 10/28/19 11:38 Pulse Rate 106 H 10/28/19 10:00 Respiratory Rate 20 10/28/19 10:00 Blood Pressure 127/75 10/28/19 10:00 O2 Sat by Pulse Oximetry (%) 98 10/28/19 09:00 Constitutional: Yes: Calm, Thin Eyes: Yes: WNL HENT: Yes: WNL Neck: Yes: WNL Cardiovascular: Yes: Regular Rate and Rhythm, S1, S2 Respiratory: Yes: Rhonchi (FEW RHONCHI) Gastrointestinal: Yes: Normal Bowel Sounds, Soft Extremities: Yes: Shortened, Other (CONTRACTED) Labs: CBC, BMP 10/28/19 07:08 10/28/19 07:08 INR, PTT INR 1.03 (0.83-1.09) 10/22/19 11:20 Problem List - Problems (1) Respiratory failure Code(s): J96.90 - RESPIRATORY FAILURE, UNSP, UNSP W HYPOXIA OR HYPERCAPNIA (2) History of cholecystectomy Code(s): Z90.49 - ACQUIRED ABSENCE OF OTHER SPECIFIED PARTS OF DIGESTIVE TRACT (3) Respiratory distress Code(s): R06.03 - ACUTE RESPIRATORY DISTRESS (4) Aspiration pneumonia Code(s): J69.0 - PNEUMONITIS DUE TO INHALATION OF FOOD AND VOMIT (5) Cerebral palsy Code(s): G80.9 - CEREBRAL PALSY, UNSPECIFIED (6) Gastrostomy in place Code(s): Z93.1 - GASTROSTOMY STATUS (7) Quadriplegia and quadriparesis Code(s): G82.50 - QUADRIPLEGIA, UNSPECIFIED Assessment/Plan ASSESSMENT AND PLAN: Acute Hypoxic Respiratory Failure improving Pneumonia likely Aspiration ARDS Small Bowel Obstruction No suspicion of SMA Syndrome by CT Severe Sepsis Lactic Acidosis Mental Retardation GERD - taper HFOT - titrate FiO2 to keep Spo2 >90% - antibiotics per ID - monitor urine output, creatinine - inhaled bronchodilators - aspiration precautions - chest PT/pulmonary toilet - DVT/GI prophylaxis DR RAY
--- NOTE | 2019-10-28 11:49 | PN ---
Physical Exam: SUBJECTIVE: Patient seen and examined at bedside. No acute events overnight. OBJECTIVE: Vital Signs Period Temp Pulse Resp BP Sys/Campuzano Pulse Ox Last 24 Hr 97.9 F-100.9 F 105-120 20-24 117-132/71-90 94-99 GENERAL: NAD EYES: EOMI Sclera Clear ENT: Oropharynx clear without exudates, moist mucous membranes. Secretions present. LUNGS: Poor inspiratory effort HEART: RRR S1S2. ABDOMEN: Mildly distended, ANNI-YE and J tube in place. BS Appreciated EXTREMITIES: Contractures all extremities NEUROLOGICAL: Moves extremities in response to light touch. SKIN: Warm, dry, normal turgor, no rashes or lesions noted Laboratory Results - last 24 hr 10/28/19 10/28/19 07:08 07:08 WBC 10.6 H RBC 2.91 L Hgb 9.3 L Hct 26.5 L MCV 90.9 MCH 31.9 MCHC 35.1 RDW 14.1 Plt Count 745 H MPV 7.2 L Sodium 140 Potassium 3.0 L Chloride 103 Carbon Dioxide 29 Anion Gap 8 BUN 5.4 L Creatinine 0.4 L Est GFR (CKD-EPI)AfAm 156.40 Est GFR (CKD-EPI)NonAf 134.94 Random Glucose 111 H Calcium 8.1 L Phosphorus 3.2 Magnesium 1.8 Total Bilirubin 0.2 AST 20 ALT 31 Alkaline Phosphatase 182 H Total Protein 5.9 L Albumin 2.1 L Active Medications Generic Name Dose Route Start Last Admin Trade Name Freq PRN Reason Stop Dose Admin Acetaminophen 650 mg 10/27/19 21:28 10/28/19 09:50 Tylenol - PO 650 mg Q4H PRN Administration FEVER Albuterol Sulfate 1 amp 10/27/19 21:28 Ventolin 0.083% Nebulizer Soln - NEB Q4H PRN SHORT OF BREATH/WHEEZING Heparin Sodium (Porcine) 5,000 unit 10/27/19 22:00 10/28/19 05:55 Heparin - SQ 5,000 unit TID BO Administration Ceftriaxone Sodium 2 gm/ 100 mls @ 200 mls/hr 10/27/19 10:00 10/28/19 09:50 Dextrose IVPB 200 mls/hr DAILY BO Administration Protocol Dextrose/Sodium Chloride 1,000 mls @ 75 mls/hr 10/27/19 21:28 10/28/19 09:51 D5-1/2ns - IV 75 mls/hr ASDIR BO Administration Vancomycin HCl 1,000 mg in 250 mls @ 166.667 mls/hr 10/28/19 08:00 Vancomycin (Pre-Docked) IVPB Q24H BO Protocol Potassium Chloride 10 meq in 100 mls @ 100 mls/hr 10/28/19 11:30 Potassium Chloride 10 Meq Premix Ivpb - IVPB 10/28/19 14:29 Q60M BO Levetiracetam 1,000 mg 10/27/19 22:00 10/28/19 09:20 Keppra Injection - IVPB 1,000 mg BID BO Administration Multivitamins/Minerals/Vitamin C 1 tab 10/27/19 10:00 10/28/19 09:23 Tab-A-Vit - PO 1 tab DAILY BO Administration Pantoprazole Sodium 40 mg 10/28/19 10:00 10/28/19 09:23 Protonix Iv IVPUSH 40 mg DAILY OB Administration Scopolamine HBr 1 patch 10/28/19 19:45 Transderm-Scop - TD Q72H BO ASSESSMENT/PLAN: IMAGING: * Chest CT: patchy consolidation left upper lobe. * CXR showing NG tube in LUQ/stomach, mediastinal fullness in rt hilum, retained stool, AXR showing retained stool in transverse colon/rt colon dilation, scol iosis. * CTA(10/19/19): no evidence of SMA syndrome/compression; enterohepatic intussusception in L abd containing J tube, no abd dilatation to suggest obstruction. Nonspecific stranding of L upper abd could be secondary to gastroduodenitis or pancreatitis ASSESSMENT/PLAN: Flora Pandey is a 33 female with a past medical history of developmental delay, congenital quadriplegia, retinal detachment, gastrostomy, cataracts, scoliosis, osteoporosis, GERD, and J-tube placement, was brought in from [facility] admitted for sepsis secondary to aspiration pneumonia. Acute Hypoxic Respiratory Failure - likely 2/2 aspiration pneumonia. - extubated, on hi-flow - Resp viral panel negative flu negative - Scopolamine patch for management of secretions - Albuterol nebs Sepsis - likely secondary to aspiration pneumonia - ID consulted, recs appreciated - SpCx +Staph aureus, E. coli, urine legionella/strep pneumonia neg. Repeat sputum growing E coli Indeterminate to Zosyn - continue ceftriaxone 2g - blood culture growing coag negative staph, repeat blood culture - vancomycin 1g daily - CXR continues to show infiltrate in the left lung, progressing 10/27/2019 #Illeus - Surgery on board--> most likely ileus secondary to underlying pneumonia and underlying bed bound status. Attempt enteral feeding. - GI on board. Re-evaluated patient today, 10/28/2019. Recommends resuming tube feeds at low rate if negligible return on NGT suction. - Cont PPI Hx of Seizure Disorder - IV Keppra 1000 BID DVT PPx - heparin 5000 units subq tid FEN - D5 1/2NS at 75cc/hr - continue to monitor electrolytes and replete as necessary - hold tube feeds in setting of partial SBO Disposition - full code - tele Visit type - Emergency Visit Emergency Visit: Yes ED Registration Date: 10/16/19 Care time: The patient presented to the Emergency Department on the above date and was hospitalized for further evaluation of their emergent condition. - New Patient This patient is new to me today: No - Critical Care Critical Care patient: No - Discharge Referral Referred to [facility] Med P.C.: No ATTENDING PHYSICIAN STATEMENT I saw and evaluated the patient. I reviewed the resident's note and discussed the case with the resident. I agree with the resident's findings and plan as documented. SUBJECTIVE: OBJECTIVE: ASSESSMENT AND PLAN:
--- NOTE | 2019-10-28 12:07 | PN.GI ---
GI Progress Note Subjective: Flora Pandey is a 33 female with a past medical history of developmental delay, congenital quadriplegia, retinal detachment, gastrostomy, cataracts, scoliosis, osteoporosis, GERD, and J-tube placement, was brought in from [facility] admitted for sepsis secondary to aspiration pneumonia. Patient being evaluated for SBO, intussuception repeat CT revealed no evidence of SBO ,patient noted to have bowel movements - Objective Vital Signs: Vital Signs Temperature 99.2 F 10/28/19 11:38 Pulse Rate 106 H 10/28/19 10:00 Respiratory Rate 20 10/28/19 10:00 Blood Pressure 127/75 10/28/19 10:00 O2 Sat by Pulse Oximetry (%) 98 10/28/19 09:00 Constitutional: Other (NGT) Eyes: Yes: Conjunctiva Clear HENT: Yes: Atraumatic Neck: Yes: Supple Cardiovascular: Yes: Regular Rate and Rhythm Respiratory: Yes: CTA Bilaterally ...Palpate: Yes: Soft. No: Firm/Rigid, Guarding, Hepatomegaly, Mass, Pulsatile Mass, Splenomegaly, Tenderness Labs: CBC, BMP 10/28/19 07:08 10/28/19 07:08 INR, PTT INR 1.03 (0.83-1.09) 10/22/19 11:20 Problem List - Problems (1) Aspiration pneumonia Assessment/Plan: may discontinue NGT if return is negligible place gastrostomy tube to gravity start jejunostomy tube at low rate Code(s): J69.0 - PNEUMONITIS DUE TO INHALATION OF FOOD AND VOMIT
[2019-10-28] MEDS ORDERED: POTASSIUM CHLORIDE ORAL LIQUID 20 MEQ/15 ML GT ONE (18:00)
[2019-10-28] MEDS: SCOPOLAMINE HYDROBROMIDE 1 PATCH PATCH.TD72 TD SCH (21:31)
[2019-10-29] MEDS: HEPARIN NA (PORCINE) 5,000 UNITS/ML 1ML VIAL SQ SCH ×3 (06:20→22:33)
[2019-10-29] MEDS: ALBUTEROL SO4 0.083% IH SOL 2.5 MG/3 ML VIAL.NEB. NEB PRN (07:38)
[2019-10-29 07:51] LABS: HEMATOCRIT 27.2 % (32.4-45.2); HEMOGLOBIN 9.5 GM/dL (10.7-15.3); MCH 31.6 pg (25.7-33.7); MCHC 34.8 g/dl (32.0-36.0); MEAN CELL VOLUME 90.9 fl (80-96); MEAN PLT VOLUME 6.9 fl (7.5-11.1); PLATELET COUNT 760 K/MM3 (134-434); RBC 2.99 M/mm3 (3.60-5.2); RDW 14.3 % (11.6-15.6); WHITE BLOOD COUNT 9.3 K/mm3 (4.0-10.0)
[2019-10-29 08:14] LABS: CALCIUM 8.2 mg/dL (8.5-10.1); CREATININE 0.4 mg/dL (0.55-1.3); MAGNESIUM 1.7 mg/dL (1.8-2.4); PHOSPHOROUS 3.3 mg/dL (2.5-4.9); POTASSIUM 3.6 mmol/L (3.5-5.1)
[2019-10-29 08:28] LABS: BLOOD UREA NITROGEN 2.8 mg/dL (7-18)
[2019-10-29] MEDS ORDERED: DEXTROSE 5%-WATER 100 ML IVPB ONE (09:16)
[2019-10-29] MEDS: CEFTRIAXONE 2 GM in DEXTROSE 5%-WATER 100 ML IVPB SCH (09:41)
[2019-10-29] MEDS: PANTOPRAZOLE SODIUM 40 MG VIAL IVPUSH SCH (09:41)
[2019-10-29] MEDS: MULTIVITAMINS (DAILY MVI) TABLET (FP) PO SCH (09:49)
[2019-10-29] MEDS: levETIRAcetam 500 MG/5 ML INJECTION VIAL IVPB SCH ×2 (10:31→22:33)
--- NOTE | 2019-10-29 10:45 | PN ---
Progress Note (short form) - Note Progress Note: SUBJECTIVE: Non-verbal, unable to participate in medical interview. OBJECTIVE: On HFOT 35%. Awake, THEODORE. Fever improving - Tmax 100.1 Last Vital Signs Temp Pulse Resp BP Pulse Ox 98.8 F 118 H 18 120/76 95 10/29/19 08:54 10/29/19 08:54 10/29/19 08:54 10/29/19 08:54 10/28/19 22:00 Heart - S1, S2, RRR Lungs - good air entry bilaterally Abdomen - soft, mild distension with J tube and McKey tube in-situ. J tube site clean. Bowel Sounds normal. Extremities - no edema, no calf tenderness. Contractures all extremities. Laboratory Results - last 24 hr 10/29/19 10/29/19 06:40 06:40 WBC 9.3 RBC 2.99 L Hgb 9.5 L Hct 27.2 L MCV 90.9 MCH 31.6 MCHC 34.8 RDW 14.3 Plt Count 760 H MPV 6.9 L Sodium 139 Potassium 3.6 Chloride 105 Carbon Dioxide 28 Anion Gap 7 L BUN 2.8 L* Creatinine 0.4 L Est GFR (CKD-EPI)AfAm 156.40 Est GFR (CKD-EPI)NonAf 134.94 Random Glucose 103 Calcium 8.2 L Phosphorus 3.3 Magnesium 1.7 L Current Medications Generic Name Dose Route Start Last Admin Trade Name Freq PRN Reason Stop Dose Admin Acetaminophen 650 mg 10/27/19 21:28 10/28/19 09:50 Tylenol - PO 650 mg Q4H PRN Administration FEVER Albuterol Sulfate 1 amp 10/27/19 21:28 10/29/19 07:38 Ventolin 0.083% Nebulizer Soln - NEB 1 amp Q4H PRN Administration SHORT OF BREATH/WHEEZING Heparin Sodium (Porcine) 5,000 unit 10/27/19 22:00 10/29/19 06:20 Heparin - SQ 5,000 unit TID BO Administration Ceftriaxone Sodium 2 gm/ 100 mls @ 200 mls/hr 10/27/19 10:00 10/29/19 09:41 Dextrose IVPB 200 mls/hr DAILY BO Administration Protocol Dextrose/Sodium Chloride 1,000 mls @ 50 mls/hr 10/29/19 10:36 D5-1/2ns - IV ASDIR BO Levetiracetam 1,000 mg 10/27/19 22:00 10/29/19 10:31 Keppra Injection - IVPB 1,000 mg BID BO Administration Magnesium Sulfate 2 gm 10/29/19 10:36 Magnesium Sulfate IVPB 10/29/19 10:37 ONCE ONE Multivitamins/Minerals/Vitamin C 1 tab 10/27/19 10:00 10/29/19 09:49 Tab-A-Vit - PO 1 tab DAILY BO Administration Pantoprazole Sodium 40 mg 10/28/19 10:00 10/29/19 09:41 Protonix Iv IVPUSH 40 mg DAILY BO Administration Scopolamine HBr 1 patch 10/28/19 19:45 10/28/19 21:31 Transderm-Scop - TD 1 patch Q72H BO Administration Home Medications Medication Instructions Recorded Calcium Carbonate/Vitamin D3 1 each PO BID 10/16/19 [Oystercal-D 500 mg-400 Unit Tb] Tizanidine HCl 6 mg GT TID 10/16/19 levETIRAcetam [levETIRAcetam ORAL 500 mg GT BID 10/16/19 SUSPENSION] Baclofen 3 tab GT TID 10/17/19 Cholecalciferol (Vitamin D3) 2 tab GT DAILY 10/17/19 [Vitamin D3] Levetiracetam 1 tab GT DAILY 10/17/19 Nut.tx.impaired Digest Fxn [Ensure 60 ml GT QID 10/17/19 Clear] Nut.tx.impaired Digest Fxn 900 ml PO DAILY 10/17/19 [Peptamen 1.5] Polyethylene Glycol 3350 [Clearlax] 1 cap GT DAILY 10/17/19 Sennosides [Senna] 2 tab GT HS 10/17/19 ASSESSMENT AND PLAN: 33 year old female with profound developmental delay, cognitive deficit, chronic seizures, congenital quadriplegia, retinal detachment, recurrent GERD s/p Neissen, s/p gastrostomy, cataracts, scoliosis, osteoporosis, anemia, presents for evaluation from [facility] for evaluation of respiratory distress. 1. Acute Hypoxic Respiratory Failure and Severe Sepsis secondary to Pneumonia (L sided infiltrate)/ARDS s/p Intubation/Mechanical Ventilation - continue to wean off HFOT. Blood Cx - Staph hominis (coag neg, likely contaminant, repeat Blood Cxs negative), Sputum Cx EColi/Staph aureus. (EColi only intermediate sensitivity to Zosyn) Leukocytosis resolved. Prolonged fever episodes, now appears to be improving. Zosyn switched to Ceftriaxone due to Ecoli sensitivity. ID to guide further antibiotic management given persisting fevers. 2. Inussuception/SBO/possible SMA Syndrome, recurrent. Recurrent Abdominal distension requiring replacement of NG tube for decompression. AXR - distended small bowel loops, possible ileus, possible early SBO CT A/P ordered with NG and IV contrast - CT order changed and done without contrast, reason unclear. No acute intra-abdominal pathology seen on limited CT exam. GI and Surgery following. GI recommends Surgery eval. Surgery recommends resuming feeds. NG tube currently removed once again for trial of feeding. Jevity feeds via J tube now resumed at low rate, tolerated overnight, for slow up-titration today. Gentle IV hydration until feeding rate optimal. 3. Seizure Disorder - continue Keppra. 4. Hypokalemia - repleted. Hypomagnesemia - will replete. DVT Px - Heparin SQ GI Px - PPI Visit type - Emergency Visit Emergency Visit: Yes ED Registration Date: 10/16/19 Care time: The patient presented to the Emergency Department on the above date and was hospitalized for further evaluation of their emergent condition. - New Patient This patient is new to me today: No - Critical Care Critical Care patient: No - Discharge Referral Referred to [facility] No
[2019-10-29] MEDS ORDERED: MAGNESIUM SULF 50% (8.12 MEQ/2 ML-1 GM VIAL) IVPB ONE (11:00)
[2019-10-29] MEDS: DEXTROSE 5%-0.45% SALINE 1,000 ML IV SCH (11:04)
--- NOTE | 2019-10-29 11:48 | PN ---
Progress Note, Physician History of Present Illness: pulmonary awake,comfortable on hfot,-resp distress - Current Medication List Current Medications: Active Medications Acetaminophen (Tylenol -) 650 mg PO Q4H PRN PRN Reason: FEVER Last Admin: 10/28/19 09:50 Dose: 650 mg Documented by: Albuterol Sulfate (Ventolin 0.083% Nebulizer Soln -) 1 amp NEB Q4H PRN PRN Reason: SHORT OF BREATH/WHEEZING Last Admin: 10/29/19 07:38 Dose: 1 amp Documented by: Heparin Sodium (Porcine) (Heparin -) 5,000 unit SQ TID [facility] Last Admin: 10/29/19 06:20 Dose: 5,000 unit Documented by: Ceftriaxone Sodium 2 gm/ (Dextrose) 100 mls @ 200 mls/hr IVPB DAILY [facility]; Protocol Last Admin: 10/29/19 09:41 Dose: 200 mls/hr Documented by: Dextrose/Sodium Chloride (D5-1/2ns -) 1,000 mls @ 50 mls/hr IV ASDIR [facility] Last Admin: 10/29/19 11:04 Dose: 50 mls/hr Documented by: Levetiracetam (Keppra Injection -) 1,000 mg IVPB BID [facility] Last Admin: 10/29/19 10:31 Dose: 1,000 mg Documented by: Multivitamins/Minerals/Vitamin C (Tab-A-Vit -) 1 tab PO DAILY [facility] Last Admin: 10/29/19 09:49 Dose: 1 tab Documented by: Pantoprazole Sodium (Protonix Iv) 40 mg IVPUSH DAILY [facility] Last Admin: 10/29/19 09:41 Dose: 40 mg Documented by: Scopolamine HBr (Transderm-Scop -) 1 patch TD Q72H [facility] Last Admin: 10/28/19 21:31 Dose: 1 patch Documented by: - Objective Vital Signs: Vital Signs Temperature 98.8 F 10/29/19 08:54 Pulse Rate 118 H 10/29/19 08:54 Respiratory Rate 18 10/29/19 08:54 Blood Pressure 120/76 10/29/19 08:54 O2 Sat by Pulse Oximetry (%) 95 10/28/19 22:00 Constitutional: Yes: Calm, Thin Eyes: Yes: WNL HENT: Yes: WNL Neck: Yes: WNL Cardiovascular: Yes: Regular Rate and Rhythm, S1, S2 Respiratory: Yes: Diminished, Rhonchi (few rhonchi) Gastrointestinal: Yes: Normal Bowel Sounds, Soft Extremities: Yes: Shortened, Other (contracted) Edema: No Labs: CBC, BMP 10/29/19 06:40 10/29/19 06:40 INR, PTT INR 1.03 (0.83-1.09) 10/22/19 11:20 Problem List - Problems (1) Respiratory failure Code(s): J96.90 - RESPIRATORY FAILURE, UNSP, UNSP W HYPOXIA OR HYPERCAPNIA (2) History of cholecystectomy Code(s): Z90.49 - ACQUIRED ABSENCE OF OTHER SPECIFIED PARTS OF DIGESTIVE TRACT (3) Respiratory distress Code(s): R06.03 - ACUTE RESPIRATORY DISTRESS (4) Aspiration pneumonia Code(s): J69.0 - PNEUMONITIS DUE TO INHALATION OF FOOD AND VOMIT (5) Cerebral palsy Code(s): G80.9 - CEREBRAL PALSY, UNSPECIFIED (6) Gastrostomy in place Code(s): Z93.1 - GASTROSTOMY STATUS (7) Quadriplegia and quadriparesis Code(s): G82.50 - QUADRIPLEGIA, UNSPECIFIED Assessment/Plan ASSESSMENT AND PLAN: Acute Hypoxic Respiratory Failure improving Pneumonia likely Aspiration ARDS Small Bowel Obstruction No suspicion of SMA Syndrome by CT Severe Sepsis Lactic Acidosis Mental Retardation GERD - taper HFOT to nasal cannula - titrate FiO2 to keep Spo2 >90% - antibiotics per ID - monitor urine output, creatinine - inhaled bronchodilators - aspiration precautions - chest PT/pulmonary toilet - DVT/GI prophylaxis - chest x-ray today DR RAY
[2019-10-30] MEDS: HEPARIN NA (PORCINE) 5,000 UNITS/ML 1ML VIAL SQ SCH ×3 (06:11→21:48)
[2019-10-30] MEDS: DEXTROSE 5%-0.45% SALINE 1,000 ML IV SCH ×3 (06:12→16:52)
[2019-10-30] MEDS ORDERED: DEXTROSE 5%-WATER 100 ML IVPB ONE (08:45)
[2019-10-30] MEDS: CEFTRIAXONE 2 GM in DEXTROSE 5%-WATER 100 ML IVPB SCH (09:04)
[2019-10-30] MEDS: PANTOPRAZOLE SODIUM 40 MG VIAL IVPUSH SCH (09:04)
[2019-10-30] MEDS: MULTIVITAMINS (DAILY MVI) TABLET (FP) PO SCH (09:05)
[2019-10-30] MEDS: ACETAMINOPHEN 325 MG TABLET (FP) PO PRN (09:06)
[2019-10-30] MEDS: levETIRAcetam 500 MG/5 ML INJECTION VIAL IVPB SCH ×2 (10:01→21:47)
--- NOTE | 2019-10-30 10:23 | PN ---
Teaching Attending Note Name of Resident: Nate Hammer ATTENDING PHYSICIAN STATEMENT I saw and evaluated the patient. I reviewed the resident's note and discussed the case with the resident. I agree with the resident's findings and plan as documented. SUBJECTIVE: Non-verbal, unable to participate in medical interview. OBJECTIVE: Transitioned from HFOT to 3L via NC. Awake, THEODORE. Low grade fever - Tmax 100.1 Last Vital Signs Temp Pulse Resp BP Pulse Ox 100.1 F H 118 H 18 138/87 98 10/30/19 08:19 10/30/19 08:19 10/30/19 08:19 10/30/19 08:19 10/30/19 08:12 Heart - S1, S2, RRR Lungs - good air entry bilaterally Abdomen - soft, mild distension with J tube and McKey tube in-situ to gravity. J tube site clean. NG tube in place. Extremities - no edema, no calf tenderness. Contractures all extremities. Current Medications Generic Name Dose Route Start Last Admin Trade Name Freq PRN Reason Stop Dose Admin Acetaminophen 650 mg 10/27/19 21:28 10/30/19 09:06 Tylenol - PO 650 mg Q4H PRN Administration FEVER Albuterol Sulfate 1 amp 10/27/19 21:28 10/29/19 07:38 Ventolin 0.083% Nebulizer Soln - NEB 1 amp Q4H PRN Administration SHORT OF BREATH/WHEEZING Heparin Sodium (Porcine) 5,000 unit 10/27/19 22:00 10/30/19 06:11 Heparin - SQ 5,000 unit TID BO Administration Ceftriaxone Sodium 2 gm/ 100 mls @ 200 mls/hr 10/27/19 10:00 10/30/19 09:04 Dextrose IVPB 200 mls/hr DAILY BO Administration Protocol Dextrose/Sodium Chloride 1,000 mls @ 50 mls/hr 10/29/19 10:36 10/30/19 06:12 D5-1/2ns - IV 50 mls/hr ASDIR BO Administration Levetiracetam 1,000 mg 10/27/19 22:00 10/30/19 10:01 Keppra Injection - IVPB 1,000 mg BID BO Administration Multivitamins/Minerals/Vitamin C 1 tab 10/27/19 10:00 10/30/19 09:05 Tab-A-Vit - PO 1 tab DAILY BO Administration Pantoprazole Sodium 40 mg 10/28/19 10:00 10/30/19 09:04 Protonix Iv IVPUSH 40 mg DAILY BO Administration Scopolamine HBr 1 patch 10/28/19 19:45 10/28/19 21:31 Transderm-Scop - TD 1 patch Q72H BO Administration Home Medications Medication Instructions Recorded Calcium Carbonate/Vitamin D3 1 each PO BID 10/16/19 [Oystercal-D 500 mg-400 Unit Tb] Tizanidine HCl 6 mg GT TID 10/16/19 levETIRAcetam [levETIRAcetam ORAL 500 mg GT BID 10/16/19 SUSPENSION] Baclofen 3 tab GT TID 10/17/19 Cholecalciferol (Vitamin D3) 2 tab GT DAILY 10/17/19 [Vitamin D3] Levetiracetam 1 tab GT DAILY 10/17/19 Nut.tx.impaired Digest Fxn [Ensure 60 ml GT QID 10/17/19 Clear] Nut.tx.impaired Digest Fxn 900 ml PO DAILY 10/17/19 [Peptamen 1.5] Polyethylene Glycol 3350 [Clearlax] 1 cap GT DAILY 10/17/19 Sennosides [Senna] 2 tab GT HS 10/17/19 ASSESSMENT AND PLAN: 33 year old female with profound developmental delay, cognitive deficit, chronic seizures, congenital quadriplegia, retinal detachment, recurrent GERD s/p Neissen, s/p gastrostomy, cataracts, scoliosis, osteoporosis, anemia, presents for evaluation from [facility] for evaluation of respiratory distress. 1. Acute Hypoxic Respiratory Failure and Severe Sepsis secondary to Pneumonia (L sided infiltrate)/ARDS s/p Intubation/Mechanical Ventilation - weaned off HFOT - SpO2 98% on 3L via IN Blood Cx - Staph hominis (coag neg, likely contaminant, repeat Blood Cxs negative), Sputum Cx EColi/Staph aureus. (EColi only intermediate sensitivity to Zosyn) Leukocytosis resolved. Prolonged fever episodes, Temp today still 100.1 Zosyn switched to Ceftriaxone due to Ecoli sensitivity. ID to guide further antibiotic management given persisting fevers. IV hydration as feeding held. 2. Inussuception/SBO/possible SMA Syndrome, recurrent. Recurrent Abdominal distension requiring replacement of NG tube for decompression. AXR - distended small bowel loops, possible ileus, possible early SBO CT A/P ordered with NG and IV contrast - CT order changed and done without contrast, reason unclear. No acute intra-abdominal pathology seen on limited CT exam. GI and Surgery following. GI recommended Surgery eval. Surgery recommended resuming feeds but again developed distension on resuming feeds, requiring NG replacement. Repeat CT A/P with oral (via NGT) and IV contrast. GI/Sx follow up. 3. Seizure Disorder - continue Keppra. 4. Hypokalemia/Hypomagnesemia - repleted. Awaiting repeat labs DVT Px - Heparin SQ GI Px - PPI
--- NOTE | 2019-10-30 10:30 | PN ---
Physical Exam: SUBJECTIVE: Patient seen and examined at the bedside. On NC. Unable to provide ROS due to non-verbal status. OBJECTIVE: Vital Signs Period Temp Pulse Resp BP Sys/Campuzano Pulse Ox Last 24 Hr 98.2 F-100.1 F 103-118 18-20 95-138/38-87 97-100 GENERAL: Awake and alert, not responsive to voice commands. Not tracking. EYES: pupils reactive bilaterally, extraoccular movements intact. ENT: Oropharynx clear without exudates, moist mucous membranes. Secretions present. LUNGS: Patient unable to give good effort. Some crackles heard on the left lung. No wheezes auscultated. HEART: Tachycardic rate and regular rhythm, S1, S2 without murmur. ABDOMEN: Soft, moderately distended, normoactive bowel sounds, no guarding, no masses. Nino tube and J tube in place. EXTREMITIES: 2+ pulses, warm, well-perfused, no edema. NEUROLOGICAL: Moves extremities in response to light touch. SKIN: Warm, dry, normal turgor, noted ecchymoses in venipuncture sites. Active Medications Generic Name Dose Route Start Last Admin Trade Name Freq PRN Reason Stop Dose Admin Acetaminophen 650 mg 10/27/19 21:28 10/30/19 09:06 Tylenol - PO 650 mg Q4H PRN Administration FEVER Albuterol Sulfate 1 amp 10/27/19 21:28 10/29/19 07:38 Ventolin 0.083% Nebulizer Soln - NEB 1 amp Q4H PRN Administration SHORT OF BREATH/WHEEZING Heparin Sodium (Porcine) 5,000 unit 10/27/19 22:00 10/30/19 06:11 Heparin - SQ 5,000 unit TID BO Administration Ceftriaxone Sodium 2 gm/ 100 mls @ 200 mls/hr 10/27/19 10:00 10/30/19 09:04 Dextrose IVPB 200 mls/hr DAILY BO Administration Protocol Dextrose/Sodium Chloride 1,000 mls @ 50 mls/hr 10/29/19 10:36 10/30/19 06:12 D5-1/2ns - IV 50 mls/hr ASDIR BO Administration Levetiracetam 1,000 mg 10/27/19 22:00 10/30/19 10:01 Keppra Injection - IVPB 1,000 mg BID BO Administration Multivitamins/Minerals/Vitamin C 1 tab 10/27/19 10:00 10/30/19 09:05 Tab-A-Vit - PO 1 tab DAILY BO Administration Pantoprazole Sodium 40 mg 10/28/19 10:00 10/30/19 09:04 Protonix Iv IVPUSH 40 mg DAILY BO Administration Scopolamine HBr 1 patch 10/28/19 19:45 10/28/19 21:31 Transderm-Scop - TD 1 patch Q72H BO Administration IMAGING: * Chest CT: patchy consolidation left upper lobe. * CXR showing NG tube in LUQ/stomach, mediastinal fullness in rt hilum, retained stool, AXR showing retained stool in transverse colon/rt colon dilation, scoliosis. * CTA(10/19/19): no evidence of SMA syndrome/compression; enterohepatic intussusception in L abd containing J tube, no abd dilatation to suggest obs truction. Nonspecific stranding of L upper abd could be secondary to gastroduodenitis or pancreatitis * CT (10/26/19):There is dense consolidation of the left lower lobe. The right lung base is largely clear. The liver, spleen, pancreas, adrenal glands and kidneys demonstrate no grossabnormalities. There is a PEG tube within the body of the stomach. There is no evidence of pneumoperitoneum, bowel obstruction or intra-abdominal abscess. Examination of the pelvis demonstrates no evidence of pelvic masses or fluid collections. * CT (10/30/19):There is extensive consolidation/atelectasis within the left lower lobe with an associated pleural effusion. Minimal atelectatic changes are seen at the right lung base. There is a nasogastric tube within the stomach. There is also a PEG tube within the body of the stomach. These tubes appear to be appropriately placed.There is also a percutaneous jejunostomy tube within the left lower quadrant. This too also appears to be appropriately placed. If clinically indicated, contrast material can be injected into the jejunostomy tube with subsequent radiographs determining the placement of the tube. The liver, spleen, pancreas, adrenal glands and kidneys demonstrate no significant abnormalities. There is no evidence of intra-abdominal or retroperitoneal lymphadenopathy or fluid collections. ASSESSMENT/PLAN: Flora Pandey is a 33 female with a past medical history of developmental delay, congenital quadriplegia, retinal detachment, gastrostomy, cataracts, scoliosis, osteoporosis, GERD, and J-tube placement, was brought in from [facility] admitted for sepsis secondary to aspiration pneumonia. Acute Hypoxic Respiratory Failure - likely 2/2 aspiration pneumonia. Resolving. - extubated, on NC 2L - Resp viral panel negative, flu negative - Scopolamine patch for management of secretions - Albuterol nebs Sepsis - likely secondary to aspiration pneumonia - ID consulted, recs appreciated, Tmax 100.1 today - SpCx +Staph aureus, E. coli, urine legionella/strep pneumonia neg. Repeat sputum growing E coli resistant to Zosyn - continue ceftriaxone 2g - blood culture growing staph homininis, repeat blood culture negative - CXR continues to show infiltrate in the left lung Intussuception - Surgery consulted (Sheng); no surgical intervention at this time. Discussed with surgery, in light of no seen obstruction on CT, continued no need for surgical intervention - GI consulted; recommend starting tube feeds with Jevity 1.5 through J tube. In future, may likely need periodic gastric emptying via Nino tube to prevent aspiration of succus entericus, bile, oral and gastric secretions to prevent aspiration. Advise to keep HOB 35 degrees. May need J tube replacement to one without a balloon - Cont PPI - CT without contrast 10/25 with no evidence of obstruction, will repeat CT with contrast today Thrombocytosis - increasing, today 913 - likely reactive in setting of infection - hematology consulted Hx of Seizure Disorder - IV Keppra 1000 BID DVT PPx - heparin 5000 units subq tid FEN - D5 1/2NS at 75cc/hr - continue to monitor electrolytes and replete as necessary - hold tube feeds due to distension Disposition - full code - continue to monitor in telemetry Visit type - Emergency Visit Emergency Visit: Yes ED Registration Date: 10/16/19 Care time: The patient presented to the Emergency Department on the above date and was hospitalized for further evaluation of their emergent condition. - New Patient This patient is new to me today: No - Critical Care Critical Care patient: No
[2019-10-30] MEDS ORDERED: DEXTROSE 5%-0.45% SALINE 1,000 ML IV SCH (10:36)
[2019-10-30] MEDS ORDERED: SODIUM CHLORIDE 500 ML IV STA (10:37)
[2019-10-30 11:32] LABS: CALCIUM 8.7 mg/dL (8.5-10.1); CREATININE 0.4 mg/dL (0.55-1.3); PHOSPHOROUS 3.5 mg/dL (2.5-4.9); POTASSIUM 3.4 mmol/L (3.5-5.1)
[2019-10-30 11:37] LABS: BLOOD UREA NITROGEN 2.5 mg/dL (7-18)
[2019-10-30 13:01] LABS: BASO % 0.7 % (0-2.0); EOS % 0.9 % (0-4.5); HEMATOCRIT 28.5 % (32.4-45.2); HEMOGLOBIN 9.5 GM/dL (10.7-15.3); LYMPH % 14.7 % (8-40); MCH 30.8 pg (25.7-33.7); MCHC 33.5 g/dl (32.0-36.0); MEAN CELL VOLUME 91.9 fl (80-96); MONO % 6.3 % (3.8-10.2); NEUT % 77.4 % (42.8-82.8); PLATELET COUNT 913 K/MM3 (134-434); RDW 14.2 % (11.6-15.6); WHITE BLOOD COUNT 11.6 K/mm3 (4.0-10.0)
[2019-10-30] MEDS: KCL 10 MEQ IVPB 10 MEQ/100 ML INFUS.BAG IVPB SCH ×3 (13:20→15:37)
--- NOTE | 2019-10-30 14:03 | PN ---
Progress Note (short form) - Note Progress Note: Awake in NAD on NC O2. No acute events overnight. Intake & Output 10/27/19 10/28/19 10/29/19 10/30/19 23:59 23:59 23:59 23:59 Intake Total 850 2225 1625 400 Balance 850 2225 1625 400 Weight 92 lb 12.8 oz Last Vital Signs Temp Pulse Resp BP Pulse Ox 100.1 F H 118 H 18 138/87 95 10/30/19 08:19 10/30/19 08:19 10/30/19 08:19 10/30/19 08:19 10/30/19 09:00 Active Medications Acetaminophen (Tylenol -) 650 mg PO Q4H PRN PRN Reason: FEVER Last Admin: 10/30/19 09:06 Dose: 650 mg Documented by: Albuterol Sulfate (Ventolin 0.083% Nebulizer Soln -) 1 amp NEB Q4H PRN PRN Reason: SHORT OF BREATH/WHEEZING Last Admin: 10/29/19 07:38 Dose: 1 amp Documented by: Heparin Sodium (Porcine) (Heparin -) 5,000 unit SQ TID BO Last Admin: 10/30/19 13:20 Dose: 5,000 unit Documented by: Ceftriaxone Sodium 2 gm/ (Dextrose) 100 mls @ 200 mls/hr IVPB DAILY [facility]; Protocol Last Admin: 10/30/19 09:04 Dose: 200 mls/hr Documented by: Dextrose/Sodium Chloride (D5-1/2ns -) 1,000 mls @ 75 mls/hr IV ASDIR BO Potassium Chloride (Potassium Chloride 10 Meq Premix Ivpb -) 10 meq in 100 mls @ 100 mls/hr IVPB Q60M [facility] Stop: 10/30/19 14:59 Last Admin: 10/30/19 13:20 Dose: 100 mls/hr Documented by: Levetiracetam (Keppra Injection -) 1,000 mg IVPB BID BO Last Admin: 10/30/19 10:01 Dose: 1,000 mg Documented by: Multivitamins/Minerals/Vitamin C (Tab-A-Vit -) 1 tab PO DAILY [facility] Last Admin: 10/30/19 09:05 Dose: 1 tab Documented by: Pantoprazole Sodium (Protonix Iv) 40 mg IVPUSH DAILY [facility] Last Admin: 10/30/19 09:04 Dose: 40 mg Documented by: Scopolamine HBr (Transderm-Scop -) 1 patch TD Q72H [facility] Last Admin: 10/28/19 21:31 Dose: 1 patch Documented by: Constitutional: Yes: NAD on NC O2 Eyes: Yes: WNL HENT: Yes: WNL Neck: Yes: WNL Cardiovascular: Yes: Regular Rate and Rhythm, S1, S2 Respiratory: Yes: Diminished, Few scattered rhonchi Gastrointestinal: Yes: Normal Bowel Sounds, Soft Extremities: Yes: Shortened, Other (contracted) Edema: No Labs: Laboratory Results - last 24 hr 10/30/19 10/30/19 10:30 10:30 WBC 11.6 H RBC 3.10 L Hgb 9.5 L Hct 28.5 L MCV 91.9 MCH 30.8 MCHC 33.5 RDW 14.2 Plt Count 913 H D MPV 7.0 L Absolute Neuts (auto) 9.0 H Neutrophils % 77.4 Lymphocytes % 14.7 D Monocytes % 6.3 Eosinophils % 0.9 Basophils % 0.7 Nucleated RBC % 0 Sodium 139 Potassium 3.4 L Chloride 105 Carbon Dioxide 27 Anion Gap 8 BUN 2.5 L* Creatinine 0.4 L Est GFR (CKD-EPI)AfAm 156.40 Est GFR (CKD-EPI)NonAf 134.94 Random Glucose 109 H Calcium 8.7 Phosphorus 3.5 Magnesium 2.0 Problem List - Problems (1) Respiratory failure Code(s): J96.90 - RESPIRATORY FAILURE, UNSP, UNSP W HYPOXIA OR HYPERCAPNIA (2) History of cholecystectomy Code(s): Z90.49 - ACQUIRED ABSENCE OF OTHER SPECIFIED PARTS OF DIGESTIVE TRACT (3) Respiratory distress Code(s): R06.03 - ACUTE RESPIRATORY DISTRESS (4) Aspiration pneumonia Code(s): J69.0 - PNEUMONITIS DUE TO INHALATION OF FOOD AND VOMIT (5) Cerebral palsy Code(s): G80.9 - CEREBRAL PALSY, UNSPECIFIED (6) Gastrostomy in place Code(s): Z93.1 - GASTROSTOMY STATUS (7) Quadriplegia and quadriparesis Code(s): G82.50 - QUADRIPLEGIA, UNSPECIFIED Assessment/Plan Acute Hypoxic Respiratory Failure improving Pneumonia likely Aspiration ARDS Small Bowel Obstruction No suspicion of SMA Syndrome by CT Severe Sepsis Lactic Acidosis Mental Retardation GERD Dr Pedro
--- NOTE | 2019-10-30 15:23 | CONSULT ---
Consultation: Heme-onc resident note REQUESTING PROVIDER: Dr. Hammer CONSULT REQUEST: We have been asked to medically evaluate this patient for thrombocytosis HISTORY OF PRESENT ILLNESS: 33 y/o F from [facility] with PMH development delay, congenital quadriplegia, retinal detachment, gastrostomy, cataracts, scoliosis, GERD, J-tube placement, who initially presented on 10/15 for severe sepsis 2/2 PNA. Was initially intubated and monitored in the ICU. On 10/24, she was extubated and transitioned to the floor. She is currently on ceftriaxone. We are consulted for thrombocytosis. Upon evaluation, pt unable to partake in exam as non-verbal. Per chart, she has not been evaluated by heme-onc team previously, and has no prior hx of malignancies. Platelet ct has been gradually trending up, throughout the course of her hospitalization from approx 250k-900k, today. Without hx of recent trauma, surgery, or hx bleeding, thromboses, or past smoking/alcohol hx. No known hx of constitutional sx as well. PMH: as above PsxH: as above meds: as in chart alergies: latex, sulfa FH: unknown SH: unknown PHYSICAL EXAMINATION Vital Signs 10/30/19 10/30/19 10/30/19 06:00 08:12 08:19 Temperature 98.3 F 100.1 F H Pulse Rate 108 H 114 H 118 H Respiratory 18 18 Rate Blood Pressure 135/84 138/87 O2 Sat by Pulse 98 Oximetry (%) 10/30/19 10/30/19 09:00 12:00 Temperature 98.2 F Pulse Rate 91 H Respiratory 18 Rate Blood Pressure 128/84 O2 Sat by Pulse 95 Oximetry (%) general: resting in bed, on 2L NC, in no acute distress HEENT: NCAT, PERRLA, +increased secretions. +NGT in place neck: supple cardio: +tachy rate, no r/m/g pulm: +few crackles present. no accessory m usage. otherwise CTA abdomen: obese, +mild distension. +j-tube LE: 2+ pulses, no edema neuro: unable to participate in full exam, does not respond to verbal or physical stimuli Laboratory Results - last 24 hr 10/30/19 10/30/19 10:30 10:30 WBC 11.6 H RBC 3.10 L Hgb 9.5 L Hct 28.5 L MCV 91.9 MCH 30.8 MCHC 33.5 RDW 14.2 Plt Count 913 H D MPV 7.0 L Absolute Neuts (auto) 9.0 H Neutrophils % 77.4 Lymphocytes % 14.7 D Monocytes % 6.3 Eosinophils % 0.9 Basophils % 0.7 Nucleated RBC % 0 Sodium 139 Potassium 3.4 L Chloride 105 Carbon Dioxide 27 Anion Gap 8 BUN 2.5 L* Creatinine 0.4 L Est GFR (CKD-EPI)AfAm 156.40 Est GFR (CKD-EPI)NonAf 134.94 Random Glucose 109 H Calcium 8.7 Phosphorus 3.5 Magnesium 2.0 Active Medications Generic Name Dose Route Start Last Admin Trade Name Freq PRN Reason Stop Dose Admin Acetaminophen 650 mg 10/27/19 21:28 10/30/19 09:06 Tylenol - PO 650 mg Q4H PRN Administration FEVER Albuterol Sulfate 1 amp 10/27/19 21:28 10/29/19 07:38 Ventolin 0.083% Nebulizer Soln - NEB 1 amp Q4H PRN Administration SHORT OF BREATH/WHEEZING Heparin Sodium (Porcine) 5,000 unit 10/27/19 22:00 10/30/19 13:20 Heparin - SQ 5,000 unit TID BO Administration Ceftriaxone Sodium 2 gm/ 100 mls @ 200 mls/hr 10/27/19 10:00 10/30/19 09:04 Dextrose IVPB 200 mls/hr DAILY BO Administration Protocol Dextrose/Sodium Chloride 1,000 mls @ 75 mls/hr 10/30/19 10:36 D5-1/2ns - IV ASDIR BO Levetiracetam 1,000 mg 10/27/19 22:00 10/30/19 10:01 Keppra Injection - IVPB 1,000 mg BID BO Administration Multivitamins/Minerals/Vitamin C 1 tab 10/27/19 10:00 10/30/19 09:05 Tab-A-Vit - PO 1 tab DAILY BO Administration Pantoprazole Sodium 40 mg 10/28/19 10:00 10/30/19 09:04 Protonix Iv IVPUSH 40 mg DAILY BO Administration Scopolamine HBr 1 patch 10/28/19 19:45 10/28/19 21:31 Transderm-Scop - TD 1 patch Q72H OB Administration ASSESSMENT/PLAN: 33 y/o F from [facility] with PMH development delay, congenital quadriplegia, retinal detachment, gastrostomy, cataracts, scoliosis, GERD, J-tube placement, who initially presented on 10/15 for severe sepsis 2/2 PNA. Was initially intubated and monitored in the ICU. On 10/24, she was extubated and transitioned to the floor. She is currently on ceftriaxone. We are consulted for thrombocytosis. #Thrombocytosis #acute hypoxic RF, severe sepsis 2/2 asp PNA #SBO #developmental delay #congenital quadriplegia #gastrostomy #GERD -thrombocytosis, likely reactive as pt currently w/ severe sepsis -other etiologies include: anemia, blood loss, 2/2 malignancy, trauma, medication-induced -less likely 2/2 malignancy -recommend iron panel, ESR, CRP. should resolve with tx of 1' process plan discussed with attending, Dr. Hannah Newsome MD PGY-3 Heme-onc team Dispo: We will continue to follow the patient. Thank you for this consultative opportunity. Visit type - Emergency Visit Emergency Visit: No - New Patient This patient is new to me today: Yes Date on this admission: 10/30/19 - Critical Care Critical Care patient: No
--- NOTE | 2019-10-30 17:14 | PN ---
Progress Note (short form) - Note Progress Note: Asked to comment re: abdominal distention when tube feeds are initiated: advise: Restarting tube feeds via J-Tube while NGT in place. if no abdominal distention, D/C NGT. If abdominal distention occurs after NGT removed, sounds like the more proximal bowel issues (? SMA syndrome) may be playing a role in the abdominal distention. Would obtain imaging while distended to see what part of the bowel is afected. This may mean that the current Low profile G-Tube may be too small to provide adequate venting drainage. Can attempt to upsize. if continued gastric/duodenal distention, then would advise transfer to a facility that would be able to further evaluate and treat possible SMA syndrome. Problem List - Problems (1) Ileus Code(s): K56.7 - ILEUS, UNSPECIFIED
--- NOTE | 2019-10-30 22:50 | PN ---
Teaching Attending Note Name of Resident: Nilsa Newsome ATTENDING PHYSICIAN STATEMENT I saw and evaluated the patient. I reviewed the resident's note and discussed the case with the resident. I agree with the resident's findings and plan as documented. ASSESSMENT AND PLAN: 33 y/o F from [facility] with PMH development delay, congenital quadriplegia, retinal detachment, gastrostomy, cataracts, scoliosis, GERD, J-tube placement, who initially presented on 10/15 for severe sepsis 2/ PNA. Was initially intubated and monitored in the ICU. On 10/24, she was extubated and transitioned to the floor. She is currently on ceftriaxone. We are consulted for thrombocytosis. CT chest -- LLL pneumonia #Thrombocytosis #acute hypoxic RF, severe sepsis /2 asp PNA #SBO #developmental delay #congenital quadriplegia #gastrostomy #GERD -thrombocytosis, likely reactive to underlying infecious process On rocephin Platelet count prior to admission was nrmal suggesting a reactive process reactive thrombocytosis is not associted with thrombotic/bleeding complications
[2019-10-31] MEDS: DEXTROSE 5%-0.45% SALINE 1,000 ML IV SCH (02:28)
[2019-10-31 06:46] LABS: BASO % 0.6 % (0-2.0); EOS % 1.1 % (0-4.5); HEMATOCRIT 28.3 % (32.4-45.2); HEMOGLOBIN 9.7 GM/dL (10.7-15.3); LYMPH % 16.2 % (8-40); MCH 31.2 pg (25.7-33.7); MCHC 34.3 g/dl (32.0-36.0); MEAN CELL VOLUME 90.9 fl (80-96); MEAN PLT VOLUME 6.7 fl (7.5-11.1); MONO % 5.9 % (3.8-10.2); NEUT % 76.2 % (42.8-82.8); PLATELET COUNT 890 K/MM3 (134-434); RBC 3.12 M/mm3 (3.60-5.2); RDW 14.3 % (11.6-15.6); WHITE BLOOD COUNT 12.5 K/mm3 (4.0-10.0)
[2019-10-31] MEDS: HEPARIN NA (PORCINE) 5,000 UNITS/ML 1ML VIAL SQ SCH ×3 (07:08→21:38)
[2019-10-31 07:15] LABS: CALCIUM 8.5 mg/dL (8.5-10.1); CREATININE 0.4 mg/dL (0.55-1.3); MAGNESIUM 1.7 mg/dL (1.8-2.4); POTASSIUM 3.6 mmol/L (3.5-5.1)
[2019-10-31 07:23] LABS: BLOOD UREA NITROGEN 2.5 mg/dL (7-18)
[2019-10-31] MEDS ORDERED: DEXTROSE 5%-WATER 100 ML IVPB ONE (08:41)
[2019-10-31] MEDS ORDERED: MAGNESIUM SULF 50% (8.12 MEQ/2 ML-1 GM VIAL) IVPB ONE (08:50)
[2019-10-31] MEDS: levETIRAcetam 500 MG/5 ML INJECTION VIAL IVPB SCH ×2 (10:44→21:38)
[2019-10-31] MEDS: PANTOPRAZOLE SODIUM 40 MG VIAL IVPUSH SCH (10:46)
[2019-10-31] MEDS: CEFTRIAXONE 2 GM in DEXTROSE 5%-WATER 100 ML IVPB SCH (10:57)
[2019-10-31] MEDS: AMINO ACIDS 4.25%/D5W 1,000 ML IV SCH (10:58)
[2019-10-31] MEDS: MULTIVITAMINS (DAILY MVI) TABLET (FP) PO SCH (10:58)
--- NOTE | 2019-10-31 11:37 | PN ---
Physical Exam: SUBJECTIVE: Patient seen and examined at the bedside. No ROS due to nonverbal status. OBJECTIVE: Vital Signs Period Temp Pulse Resp BP Sys/Campuzano Pulse Ox Last 24 Hr 97.8 F-99.7 F 91-122 18-18 125-145/67-96 91-97 GENERAL: Awake and alert, not responsive to voice commands. Not tracking. EYES: pupils reactive bilaterally, extraoccular movements intact. ENT: Oropharynx clear without exudates, moist mucous membranes. Secretions present. LUNGS: Patient unable to give good effort. Some crackles heard on the left lung. No wheezes auscultated. HEART: Tachycardic rate and regular rhythm, S1, S2 without murmur. ABDOMEN: Soft, moderately distended, normoactive bowel sounds, no guarding, no masses. Nino tube and J tube in place. Draining green fluid from Nino Tube EXTREMITIES: 2+ pulses, warm, well-perfused, no edema. NEUROLOGICAL: Moves extremities in response to light touch. SKIN: Warm, dry, normal turgor, noted ecchymoses in venipuncture sites. Laboratory Results - last 24 hr 10/30/19 10/30/19 10/31/19 10:30 10:30 06:20 WBC 11.6 H 12.5 H RBC 3.10 L 3.12 L Hgb 9.5 L 9.7 L Hct 28.5 L 28.3 L MCV 91.9 90.9 MCH 30.8 31.2 MCHC 33.5 34.3 RDW 14.2 14.3 Plt Count 913 H D 890 H MPV 7.0 L 6.7 L Absolute Neuts (auto) 9.0 H 9.6 H Neutrophils % 77.4 76.2 Lymphocytes % 14.7 D 16.2 Monocytes % 6.3 5.9 Eosinophils % 0.9 1.1 Basophils % 0.7 0.6 Nucleated RBC % 0 0 ESR Sodium Potassium Chloride Carbon Dioxide Anion Gap BUN 2.5 L* Creatinine Est GFR (CKD-EPI)AfAm Est GFR (CKD-EPI)NonAf Random Glucose Calcium Magnesium Iron TIBC Iron Saturation Unsaturated IBC Ferritin C-Reactive Protein 10/31/19 10/31/19 10/31/19 06:20 06:20 06:20 WBC RBC Hgb Hct MCV MCH MCHC RDW Plt Count MPV Absolute Neuts (auto) Neutrophils % Lymphocytes % Monocytes % Eosinophils % Basophils % Nucleated RBC % ESR 66 H Sodium 141 Potassium 3.6 Chloride 106 Carbon Dioxide 27 Anion Gap 8 BUN 2.5 L* Creatinine 0.4 L Est GFR (CKD-EPI)AfAm 156.40 Est GFR (CKD-EPI)NonAf 134.94 Random Glucose 112 H Calcium 8.5 Magnesium 1.7 L Iron 22 L TIBC 221 L Iron Saturation 9 L Unsaturated IBC 199 L Ferritin 115.5 C-Reactive Protein 1.7 H Active Medications Generic Name Dose Route Start Last Admin Trade Name Freq PRN Reason Stop Dose Admin Acetaminophen 650 mg 10/27/19 21:28 10/30/19 09:06 Tylenol - PO 650 mg Q4H PRN Administration FEVER Albuterol Sulfate 1 amp 10/27/19 21:28 10/29/19 07:38 Ventolin 0.083% Nebulizer Soln - NEB 1 amp Q4H PRN Administration SHORT OF BREATH/WHEEZING Heparin Sodium (Porcine) 5,000 unit 10/27/19 22:00 10/31/19 07:08 Heparin - SQ 5,000 unit TID BO Administration Ceftriaxone Sodium 2 gm/ 100 mls @ 200 mls/hr 10/27/19 10:00 10/31/19 10:57 Dextrose IVPB 200 mls/hr DAILY BO Administration Protocol Amino Acids 1,000 mls @ 84 mls/hr 10/31/19 10:30 10/31/19 10:58 Clinimix - IV 84 mls/hr Q12H BO Administration Levetiracetam 1,000 mg 10/27/19 22:00 10/31/19 10:44 Keppra Injection - IVPB 1,000 mg BID BO Administration Multivitamins/Minerals/Vitamin C 1 tab 10/27/19 10:00 10/31/19 10:58 Tab-A-Vit - PO 1 tab DAILY BO Administration Pantoprazole Sodium 40 mg 10/28/19 10:00 10/31/19 10:46 Protonix Iv IVPUSH 40 mg DAILY BO Administration Scopolamine HBr 1 patch 10/28/19 19:45 10/28/19 21:31 Transderm-Scop - TD 1 patch Q72H BO Administration IMAGING: * Chest CT: patchy consolidation left upper lobe. * CXR showing NG tube in LUQ/stomach, mediastinal fullness in rt hilum, retained stool, AXR showing retained stool in transverse colon/rt colon dilation, scoliosis. * CTA(10/19/19): no evidence of SMA syndrome/compression; enterohepatic intussusception in L abd containing J tube, no abd dilatation to suggest obstruction. Nonspecific stranding of L upper abd could be secondary to gastroduodenitis or pancreatitis * CT (10/26/19):There is dense consolidation of the left lower lobe. The right lung base is largely clear. The liver, spleen, pancreas, adrenal glands and kidneys demonstrate no grossabnormalities. There is a PEG tube within the body of the stomach. There is no evidence of pneumoperitoneum, bowel obstruction or intra-abdominal abscess. Examination of the pelvis demonstrates no evidence of pelvic masses or fluid collections. * CT (10/30/19):There is extensive consolidation/atelectasis within the left lower lobe with an associated pleural effusion. Minimal atelectatic changes are seen at the right lung base. There is a nasogastric tube within the stomach. There is also a PEG tube within the body of the stomach. These tubes appear to be appropriately placed.There is also a percutaneous jejunostomy tube within the left lower quadrant. This too also appears to be appropriately placed. If clinically indicated, contrast material can be injected into the jejunostomy tube with subsequent radiographs determining the placement of the tube. The liver, spleen, pancreas, adrenal glands and kidneys demonstrate no significant abnormalities. There is no evidence of intra-abdominal or retroperitoneal lymphadenopathy or fluid collections. ASSESSMENT/PLAN: Flora Pandey is a 33 female with a past medical history of developmental delay, congenital quadriplegia, retinal detachment, gastrostomy, cataracts, scoliosis, osteoporosis, GERD, and J-tube placement, was brought in from [facility] admitted for sepsis secondary to aspiration pneumonia. Acute Hypoxic Respiratory Failure - likely 2/2 aspiration pneumonia. Resolving. - extubated, on NC 2L - Resp viral panel negative, flu negative - Scopolamine patch for management of secretions - Albuterol nebs Sepsis - likely secondary to aspiration pneumonia - ID consulted, recs appreciated, Tmax 100.1 today - SpCx +Staph aureus, E. coli, urine legionella/strep pneumonia neg. Repeat sputum growing E coli resistant to Zosyn - continue ceftriaxone 2g started on 10/27/19 - blood culture growing staph homininis, repeat blood culture negative - CXR continues to show infiltrate in the left lung Gastric Distension - Surgery consulted (Sheng); no surgical intervention at this time. Discussed with surgery, in light of no seen obstruction on CT, continued no need for surgical intervention - GI consulted; recommend starting tube feeds with Jevity 1.5 through J tube. In future, may likely need periodic gastric emptying via Nino tube to prevent aspiration of succus entericus, bile, oral and gastric secretions to prevent aspiration. Advise to keep HOB 35 degrees. May need J tube replacement to one without a balloon - will refeed today and observe for gastric distension with NG tube in place - Cont PPI Thrombocytosis - increasing, today 890, improving - likely reactive in setting of infection - hematology consulted, recs appreciated - additional anemia of chronic disease noted Hx of Seizure Disorder - IV Keppra 1000 BID DVT PPx - heparin 5000 units subq tid FEN - Clinamix at 84cc/hr - continue to monitor electrolytes and replete as necessary - hold tube feeds due to distension Disposition - full code - continue to monitor in telemetry Visit type - Emergency Visit Emergency Visit: Yes ED Registration Date: 10/16/19 Care time: The patient presented to the Emergency Department on the above date and was hospitalized for further evaluation of their emergent condition. - New Patient This patient is new to me today: No - Critical Care Critical Care patient: No
--- NOTE | 2019-10-31 13:01 | PN ---
Progress Note, Physician History of Present Illness: 33 y/o F w/ PMHx 29 week premature , profound mental delay, chronic seizur es, congenital quadriplegia, retinal detachment, recurrent GERD s/p Neissen, s/p GJ-ostomy, s/p gastrostomy, cataracts, scoliosis, osteoporosis, anemia Admitted for Acute Hypoxic Respiratory Failure 2/ Aspiration Pneumonia s/p extubation 10/24 course complicated with recurrent abdominal distension upon feeding -GI on board. Today: Patient seen and examined at bedside NAD Following gaze. - Current Medication List Current Medications: Active Medications Acetaminophen (Tylenol -) 650 mg PO Q4H PRN PRN Reason: FEVER Last Admin: 10/30/19 09:06 Dose: 650 mg Documented by: Albuterol Sulfate (Ventolin 0.083% Nebulizer Soln -) 1 amp NEB Q4H PRN PRN Reason: SHORT OF BREATH/WHEEZING Last Admin: 10/29/19 07:38 Dose: 1 amp Documented by: Heparin Sodium (Porcine) (Heparin -) 5,000 unit SQ TID BO Last Admin: 10/31/19 07:08 Dose: 5,000 unit Documented by: Ceftriaxone Sodium 2 gm/ (Dextrose) 100 mls @ 200 mls/hr IVPB DAILY BO; Protocol Last Admin: 10/31/19 10:57 Dose: 200 mls/hr Documented by: Amino Acids (Clinimix -) 1,000 mls @ 84 mls/hr IV Q12H BO Last Admin: 10/31/19 10:58 Dose: 84 mls/hr Documented by: Levetiracetam (Keppra Injection -) 1,000 mg IVPB BID BO Last Admin: 10/31/19 10:44 Dose: 1,000 mg Documented by: Multivitamins/Minerals/Vitamin C (Tab-A-Vit -) 1 tab PO DAILY BO Last Admin: 10/31/19 10:58 Dose: 1 tab Documented by: Pantoprazole Sodium (Protonix Iv) 40 mg IVPUSH DAILY BO Last Admin: 10/31/19 10:46 Dose: 40 mg Documented by: Scopolamine HBr (Transderm-Scop -) 1 patch TD Q72H BO Last Admin: 10/28/19 21:31 Dose: 1 patch Documented by: - Objective Vital Signs: Vital Signs Temperature 99.7 F H 10/31/19 11:00 Pulse Rate 114 H 10/31/19 11:00 Respiratory Rate 18 10/31/19 11:00 Blood Pressure 125/96 10/31/19 11:00 O2 Sat by Pulse Oximetry (%) 97 10/31/19 09:00 Labs: CBC, BMP 10/31/19 06:20 10/31/19 06:20 INR, PTT INR 1.03 (0.83-1.09) 10/22/19 11:20 Impression/Plan Impression/Plan: 1-Acute Hypoxic Respiratory Failure 2/2Pneumonia likely Aspiration s/p extubation 10/24 On 2L NC Albuterol nebs continue ceftriaxone 2g started on 10/27/19 ID on board 2- Severe Sepsis in the setting of Aspiration Pneumonia urine legionella/strep pneumonia neg sputum growing E coli resistant to Zosyn BCx x1 Staph Hominis ; Repeat BCx neg - continue ceftriaxone 2g started on 10/27/19 3-Gastric Distension Recurrent Surgery consulted- GI on board- will keep NG tube and attempt feeds if distension recurs- CT Abd Has been on going problem from prior when she was in facility 3- Reactive Thrombocytosis in setting of Sepsis Trend Hem/Onc recs appreciated 4- Hx of Seizure d/o IV Keppra 1000 mg BID 4- DVT Px- Heparin 5000 units TID Tube feeds Visit type - Emergency Visit Emergency Visit: Yes ED Registration Date: 10/16/19 Care time: The patient presented to the Emergency Department on the above date and was hospitalized for further evaluation of their emergent condition. - New Patient This patient is new to me today: No - Critical Care Critical Care patient: No - Discharge Referral Referred to [facility] No
--- NOTE | 2019-10-31 13:27 | PN ---
Progress Note, Physician History of Present Illness: pulmonary awake,congested,+ moist cough - Current Medication List Current Medications: Active Medications Acetaminophen (Tylenol -) 650 mg PO Q4H PRN PRN Reason: FEVER Last Admin: 10/30/19 09:06 Dose: 650 mg Documented by: Albuterol Sulfate (Ventolin 0.083% Nebulizer Soln -) 1 amp NEB Q4H PRN PRN Reason: SHORT OF BREATH/WHEEZING Last Admin: 10/29/19 07:38 Dose: 1 amp Documented by: Heparin Sodium (Porcine) (Heparin -) 5,000 unit SQ TID [facility] Last Admin: 10/31/19 07:08 Dose: 5,000 unit Documented by: Ceftriaxone Sodium 2 gm/ (Dextrose) 100 mls @ 200 mls/hr IVPB DAILY [facility]; Protocol Last Admin: 10/31/19 10:57 Dose: 200 mls/hr Documented by: Amino Acids (Clinimix -) 1,000 mls @ 84 mls/hr IV Q12H [facility] Last Admin: 10/31/19 10:58 Dose: 84 mls/hr Documented by: Levetiracetam (Keppra Injection -) 1,000 mg IVPB BID [facility] Last Admin: 10/31/19 10:44 Dose: 1,000 mg Documented by: Multivitamins/Minerals/Vitamin C (Tab-A-Vit -) 1 tab PO DAILY [facility] Last Admin: 10/31/19 10:58 Dose: 1 tab Documented by: Pantoprazole Sodium (Protonix Iv) 40 mg IVPUSH DAILY [facility] Last Admin: 10/31/19 10:46 Dose: 40 mg Documented by: Scopolamine HBr (Transderm-Scop -) 1 patch TD Q72H [facility] Last Admin: 10/28/19 21:31 Dose: 1 patch Documented by: - Objective Vital Signs: Vital Signs Temperature 99.7 F H 10/31/19 11:00 Pulse Rate 114 H 10/31/19 11:00 Respiratory Rate 18 10/31/19 11:00 Blood Pressure 125/96 10/31/19 11:00 O2 Sat by Pulse Oximetry (%) 97 10/31/19 09:00 Constitutional: Yes: Calm, Thin Eyes: Yes: WNL HENT: Yes: WNL Neck: Yes: WNL Cardiovascular: Yes: Regular Rate and Rhythm, S1, S2 Respiratory: Yes: Rhonchi (bilateral rhonchi) Gastrointestinal: Yes: Normal Bowel Sounds, Soft Extremities: Yes: Shortened, Other (contracted) Edema: No Labs: CBC, BMP 10/31/19 06:20 10/31/19 06:20 INR, PTT INR 1.03 (0.83-1.09) 10/22/19 11:20 Problem List - Problems (1) Respiratory failure Code(s): J96.90 - RESPIRATORY FAILURE, UNSP, UNSP W HYPOXIA OR HYPERCAPNIA (2) History of cholecystectomy Code(s): Z90.49 - ACQUIRED ABSENCE OF OTHER SPECIFIED PARTS OF DIGESTIVE TRACT (3) Respiratory distress Code(s): R06.03 - ACUTE RESPIRATORY DISTRESS (4) Aspiration pneumonia Code(s): J69.0 - PNEUMONITIS DUE TO INHALATION OF FOOD AND VOMIT (5) Cerebral palsy Code(s): G80.9 - CEREBRAL PALSY, UNSPECIFIED (6) Gastrostomy in place Code(s): Z93.1 - GASTROSTOMY STATUS (7) Quadriplegia and quadriparesis Code(s): G82.50 - QUADRIPLEGIA, UNSPECIFIED Assessment/Plan ASSESSMENT AND PLAN: Acute Hypoxic Respiratory Failure improving Pneumonia likely Aspiration ARDS Small Bowel Obstruction No suspicion of SMA Syndrome by CT Severe Sepsis Lactic Acidosis Mental Retardation GERD - titrate FiO2 to keep Spo2 >90% - antibiotics per ID - monitor urine output, creatinine - inhaled bronchodilators - aspiration precautions - chest PT/pulmonary toilet - DVT/GI prophylaxis DR RAY
[2019-10-31] MEDS: ALBUTEROL SO4 0.083% IH SOL 2.5 MG/3 ML VIAL.NEB. NEB PRN (13:40)
[2019-10-31] MEDS: SCOPOLAMINE HYDROBROMIDE 1 PATCH PATCH.TD72 TD SCH (21:39)
[2019-11-01] MEDS: HEPARIN NA (PORCINE) 5,000 UNITS/ML 1ML VIAL SQ SCH ×3 (07:05→21:47)
[2019-11-01] MEDS: AMINO ACIDS 4.25%/D5W 1,000 ML IV SCH ×4 (07:05→22:34)
[2019-11-01 07:47] LABS: BASO % 0.5 % (0-2.0); HEMATOCRIT 27.5 % (32.4-45.2); HEMOGLOBIN 9.4 GM/dL (10.7-15.3); LYMPH % 13.9 % (8-40); MCH 31.2 pg (25.7-33.7); MCHC 34.3 g/dl (32.0-36.0); MEAN PLT VOLUME 6.8 fl (7.5-11.1); MONO % 6.3 % (3.8-10.2); NEUT % 78.3 % (42.8-82.8); PLATELET COUNT 744 K/MM3 (134-434); RBC 3.02 M/mm3 (3.60-5.2); RDW 14.5 % (11.6-15.6); WHITE BLOOD COUNT 11.6 K/mm3 (4.0-10.0)
[2019-11-01 08:22] LABS: ALBUMIN 2.1 g/dl (3.4-5.0); BILIRUBIN,TOTAL 0.4 mg/dL (0.2-1); BLOOD UREA NITROGEN 8.9 mg/dL (7-18); CALCIUM 8.2 mg/dL (8.5-10.1); CREATININE 0.4 mg/dL (0.55-1.3); MAGNESIUM 1.7 mg/dL (1.8-2.4); PHOSPHOROUS 3.2 mg/dL (2.5-4.9); POTASSIUM 3.1 mmol/L (3.5-5.1); TOT PROT 5.9 g/dl (6.4-8.2)
[2019-11-01] MEDS ORDERED: MAGNESIUM SULF 50% (8.12 MEQ/2 ML-1 GM VIAL) IVPB ONE (08:45)
--- NOTE | 2019-11-01 10:15 | PN ---
Physical Exam: SUBJECTIVE: Patient seen and examined at the bedside. No ROS due to nonverbal status. OBJECTIVE: Vital Signs Period Temp Pulse Resp BP Sys/Campuzano Pulse Ox Last 24 Hr 98.2 F-99.7 F 109-116 18-19 108-139/60-96 97 GENERAL: Awake and alert, not responsive to voice commands. EYES: pupils reactive bilaterally, extraoccular movements intact. ENT: Oropharynx clear without exudates, moist mucous membranes. Secretions present. LUNGS: Patient unable to give good effort. Trace crackles heard on the left lung. No wheezes auscultated. HEART: Tachycardic rate and regular rhythm, S1, S2 without murmur. ABDOMEN: Soft, non-distended, normoactive bowel sounds, no guarding, no masses. Nino tube and J tube in place. Tube feeds running EXTREMITIES: 2+ pulses, warm, well-perfused, no edema. NEUROLOGICAL: Moves extremities in response to light touch. SKIN: Warm, dry, normal turgor, noted ecchymoses in venipuncture sites. Laboratory Results - last 24 hr 10/31/19 11/01/19 11/01/19 06:20 07:00 07:00 WBC 11.6 H RBC 3.02 L Hgb 9.4 L Hct 27.5 L MCV 91.0 MCH 31.2 MCHC 34.3 RDW 14.5 Plt Count 744 H MPV 6.8 L Absolute Neuts (auto) 9.1 H Neutrophils % 78.3 Lymphocytes % 13.9 Monocytes % 6.3 Eosinophils % 1.0 Basophils % 0.5 Nucleated RBC % 0 ESR 66 H Sodium 138 Potassium 3.1 L Chloride 102 Carbon Dioxide 29 Anion Gap 7 L BUN 8.9 Creatinine 0.4 L Est GFR (CKD-EPI)AfAm 156.40 Est GFR (CKD-EPI)NonAf 134.94 Random Glucose 97 Calcium 8.2 L Phosphorus 3.2 Magnesium 1.7 L Total Bilirubin 0.4 AST 9 L ALT 17 Alkaline Phosphatase 134 H Total Protein 5.9 L Albumin 2.1 L Active Medications Generic Name Dose Route Start Last Admin Trade Name Freq PRN Reason Stop Dose Admin Acetaminophen 650 mg 10/27/19 21:28 10/30/19 09:06 Tylenol - PO 650 mg Q4H PRN Administration FEVER Albuterol Sulfate 1 amp 10/27/19 21:28 10/31/19 13:40 Ventolin 0.083% Nebulizer Soln - NEB 1 amp Q4H PRN Administration SHORT OF BREATH/WHEEZING Heparin Sodium (Porcine) 5,000 unit 10/27/19 22:00 11/01/19 07:05 Heparin - SQ 5,000 unit TID BO Administration Ceftriaxone Sodium 2 gm/ 100 mls @ 200 mls/hr 10/27/19 10:00 10/31/19 10:57 Dextrose IVPB 200 mls/hr DAILY BO Administration Protocol Amino Acids 1,000 mls @ 84 mls/hr 10/31/19 10:30 11/01/19 07:05 Clinimix - IV 84 mls/hr Q12H BO Administration Potassium Chloride 10 meq in 100 mls @ 100 mls/hr 11/01/19 08:45 Potassium Chloride 10 Meq Premix Ivpb - IVPB 11/01/19 11:44 Q60M BO Levetiracetam 1,000 mg 10/27/19 22:00 10/31/19 21:38 Keppra Injection - IVPB 1,000 mg BID BO Administration Multivitamins/Minerals/Vitamin C 1 tab 10/27/19 10:00 10/31/19 10:58 Tab-A-Vit - PO 1 tab DAILY BO Administration Pantoprazole Sodium 40 mg 10/28/19 10:00 10/31/19 10:46 Protonix Iv IVPUSH 40 mg DAILY BO Administration Scopolamine HBr 1 patch 10/28/19 19:45 10/31/19 21:39 Transderm-Scop - TD 1 patch Q72H BO Administration IMAGING: * Chest CT: patchy consolidation left upper lobe. * CXR showing NG tube in LUQ/stomach, mediastinal fullness in rt hilum, retained stool, AXR showing retained stool in transverse colon/rt colon dilation, scoliosis. * CTA(10/19/19): no evidence of SMA syndrome/compression; enterohepatic intussusception in L abd containing J tube, no abd dilatation to suggest obstruction. Nonspecific stranding of L upper abd could be secondary to gastroduodenitis or pancreatitis * CT (10/26/19):There is dense consolidation of the left lower lobe. The right lung base is largely clear. The liver, spleen, pancreas, adrenal glands and kidneys demonstrate no grossabnormalities. There is a PEG tube within the body of the stomach. There is no evidence of pneumoperitoneum, bowel obstruction or intra-abdominal abscess. Examination of the pelvis demonstrates no evidence of pelvic masses or fluid collections. * CT (10/30/19):There is extensive consolidation/atelectasis within the left lower lobe with an associated pleural effusion. Minimal atelectatic changes are seen at the right lung base. There is a nasogastric tube within the stomach. There is also a PEG tube within the body of the stomach. These tubes appear to be appropriately placed.There is also a percutaneous jejunostomy tube within the left lower quadrant. This too also appears to be appropriately placed. If clinically indicated, contrast material can be injected into the jejunostomy tube with subsequent radiographs determining the placement of the tube. The liver, spleen, pancreas, adrenal glands and kidneys demonstrate no significant abnormalities. There is no evidence of intra-abdominal or retroperitoneal lymphadenopathy or fluid collections. ASSESSMENT/PLAN: Flora Pandey is a 33 female with a past medical history of developmental delay, congenital quadriplegia, retinal detachment, gastrostomy, cataracts, scoliosis, osteoporosis, GERD, and J-tube placement, was brought in from [facility] admitted for sepsis secondary to aspiration pneumonia. Acute Hypoxic Respiratory Failure - likely 2/2 aspiration pneumonia. Resolving. - extubated, on NC 2L - Resp viral panel negative, flu negative - Scopolamine patch for management of secretions - Albuterol nebs Sepsis - likely secondary to aspiration pneumonia - ID consulted, recs appreciated - SpCx +Staph aureus, E. coli, urine legionella/strep pneumonia neg. Repeat sputum growing E coli resistant to Zosyn - continue ceftriaxone 2g started on 10/27/19, likely d/c tomorrow and observe off abx - blood culture growing staph homininis, repeat blood culture negative, as per ID d/c vancomycin - CXR continues to show infiltrate in the left lung Gastric Distension - Surgery consulted (Sheng); no surgical intervention at this time. Discussed with surgery, in light of no seen obstruction on CT, continued no need for surgical intervention - GI consulted; starting tube feeds with Vital 1.2 through J tube. In future, may likely need periodic gastric emptying via Nino tube to prevent aspiration of succus entericus, bile, oral and gastric secretions to prevent aspiration. Advise to keep HOB 35 degrees. May need J tube replacement to one without a balloon - will refeed and observe for gastric distension with NG tube in place, d/c NG tube if no gastric distension occurs - Cont PPI Thrombocytosis - today 744, improving - likely reactive in setting of infection - hematology consulted, recs appreciated - additional anemia of chronic disease noted Hx of Seizure Disorder - IV Keppra 1000 BID DVT PPx - heparin 5000 units subq tid FEN - Clinamix at 84cc/hr - continue to monitor electrolytes and replete as necessary - tube feeds Vital 1.2, observe closely for gastric distension Disposition - full code - continue to monitor in telemetry Visit type - Emergency Visit Emergency Visit: Yes ED Registration Date: 10/16/19 Care time: The patient presented to the Emergency Department on the above date and was hospitalized for further evaluation of their emergent condition. - New Patient This patient is new to me today: No - Critical Care Critical Care patient: No
[2019-11-01] MEDS: MULTIVITAMINS (DAILY MVI) TABLET (FP) PO SCH (10:27)
[2019-11-01] MEDS: PANTOPRAZOLE SODIUM 40 MG VIAL IVPUSH SCH (10:27)
--- NOTE | 2019-11-01 10:42 | PN ---
Progress Note, Physician History of Present Illness: 33 y/o F w/ PMHx 29 week premature , profound mental delay, chronic seizur es, congenital quadriplegia, retinal detachment, recurrent GERD s/p Neissen, s/p GJ-ostomy, s/p gastrostomy, cataracts, scoliosis, osteoporosis, anemia Admitted for Acute Hypoxic Respiratory Failure 2/2 Aspiration Pneumonia s/p extubation 10/24 on ceftriaxone (10/26-TD) course complicated with recurrent abdominal distension upon feeding -GI on board. Today: Patient seen and examined at bedside NAD Following gaze. Nonverbal, abdominal distension is not as extensive as seen previously. Oxygenation improving on 2L NC - Current Medication List Current Medications: Active Medications Acetaminophen (Tylenol -) 650 mg PO Q4H PRN PRN Reason: FEVER Last Admin: 10/30/19 09:06 Dose: 650 mg Documented by: Albuterol Sulfate (Ventolin 0.083% Nebulizer Soln -) 1 amp NEB Q4H PRN PRN Reason: SHORT OF BREATH/WHEEZING Last Admin: 10/31/19 13:40 Dose: 1 amp Documented by: Heparin Sodium (Porcine) (Heparin -) 5,000 unit SQ TID BO Last Admin: 11/01/19 07:05 Dose: 5,000 unit Documented by: Ceftriaxone Sodium 2 gm/ (Dextrose) 100 mls @ 200 mls/hr IVPB DAILY BO; Protocol Last Admin: 10/31/19 10:57 Dose: 200 mls/hr Documented by: Amino Acids (Clinimix -) 1,000 mls @ 84 mls/hr IV Q12H BO Last Admin: 11/01/19 07:05 Dose: 84 mls/hr Documented by: Potassium Chloride (Potassium Chloride 10 Meq Premix Ivpb -) 10 meq in 100 mls @ 100 mls/hr IVPB Q60M BO Stop: 11/01/19 11:44 Levetiracetam (Keppra Injection -) 1,000 mg IVPB BID BO Last Admin: 10/31/19 21:38 Dose: 1,000 mg Documented by: Multivitamins/Minerals/Vitamin C (Tab-A-Vit -) 1 tab PO DAILY BO Last Admin: 11/01/19 10:27 Dose: 1 tab Documented by: Pantoprazole Sodium (Protonix Iv) 40 mg IVPUSH DAILY BO Last Admin: 11/01/19 10:27 Dose: 40 mg Documented by: Scopolamine HBr (Transderm-Scop -) 1 patch TD Q72H [facility] Last Admin: 10/31/19 21:39 Dose: 1 patch Documented by: - Objective Vital Signs: Vital Signs Temperature 98.8 F 11/01/19 10:25 Pulse Rate 120 H 11/01/19 10:25 Respiratory Rate 18 11/01/19 10:25 Blood Pressure 129/75 11/01/19 10:25 O2 Sat by Pulse Oximetry (%) 97 10/31/19 21:00 Labs: CBC, BMP 11/01/19 07:00 11/01/19 07:00 INR, PTT INR 1.03 (0.83-1.09) 10/22/19 11:20 Impression/Plan Impression/Plan: 1-Acute Hypoxic Respiratory Failure 2/2Pneumonia likely Aspiration Sputum Cx- Ecoli s/p extubation 10/24 On 2L NC 94% Albuterol nebs continue ceftriaxone 2g started on 10/27/19 ID on board 2- Severe Sepsis in the setting of Aspiration Pneumonia urine legionella/strep pneumonia neg sputum growing E coli resistant to Zosyn BCx x1 Staph Hominis ; Repeat BCx neg - continue ceftriaxone 2g started on 10/27/19 3-Gastric Distension Recurrent Surgery consulted- GI on board- will keep NG tube and attempt feeds if distension recurs- CT Abd Has been on going problem from prior when she was in facility 3- Reactive Thrombocytosis in setting of Sepsis Trend Hem/Onc recs appreciated 4- Hx of Seizure d/o IV Keppra 1000 mg BID 4- DVT Px- Heparin 5000 units TID Tube feeds Visit type - Emergency Visit Emergency Visit: Yes ED Registration Date: 10/16/19 Care time: The patient presented to the Emergency Department on the above date and was hospitalized for further evaluation of their emergent condition. - New Patient This patient is new to me today: No - Critical Care Critical Care patient: No - Discharge Referral Referred to [facility] Med P.C.: No
[2019-11-01] MEDS ORDERED: PT OWN MED DRAWER 7, Y5N ONE (11:05)
[2019-11-01] MEDS: levETIRAcetam 500 MG/5 ML INJECTION VIAL IVPB SCH ×2 (11:35→21:47)
--- NOTE | 2019-11-01 11:41 | PN ---
Progress Note (short form) - Note Progress Note: Brief GI note Pt started on feeds via J tube tolerating at 30cc/hr per nurse. No vomiting reported. Abdominal distension has improved. NG remains in place. Prior CT reviewed shows GJ in place. 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 Consider d/c ng tube if tolerating and no recurrent abdominal distension If symptoms recur/increased distension would repeat CT at that time Discussed with nursing staff and medicine team
[2019-11-01] MEDS: KCL 10 MEQ IVPB 10 MEQ/100 ML INFUS.BAG IVPB SCH ×3 (11:45→14:50)
[2019-11-01] MEDS: CEFTRIAXONE 2 GM in DEXTROSE 5%-WATER 100 ML IVPB SCH (12:11)
--- NOTE | 2019-11-01 14:03 | PN ---
Progress Note, Physician History of Present Illness: PULMONARY AWAKE,-RESP DISTRESS,LESS CONGESTED ,ON NASAL O2 - Current Medication List Current Medications: Active Medications Acetaminophen (Tylenol -) 650 mg PO Q4H PRN PRN Reason: FEVER Last Admin: 10/30/19 09:06 Dose: 650 mg Documented by: Albuterol Sulfate (Ventolin 0.083% Nebulizer Soln -) 1 amp NEB Q4H PRN PRN Reason: SHORT OF BREATH/WHEEZING Last Admin: 10/31/19 13:40 Dose: 1 amp Documented by: Heparin Sodium (Porcine) (Heparin -) 5,000 unit SQ TID [facility] Last Admin: 11/01/19 07:05 Dose: 5,000 unit Documented by: Ceftriaxone Sodium 2 gm/ (Dextrose) 100 mls @ 200 mls/hr IVPB DAILY [facility]; Protocol Last Admin: 11/01/19 12:11 Dose: 200 mls/hr Documented by: Amino Acids (Clinimix -) 1,000 mls @ 84 mls/hr IV Q12H [facility] Last Admin: 11/01/19 11:40 Dose: Not Given Documented by: Levetiracetam (Keppra Injection -) 1,000 mg IVPB BID [facility] Last Admin: 11/01/19 11:35 Dose: 1,000 mg Documented by: Multivitamins/Minerals/Vitamin C (Tab-A-Vit -) 1 tab PO DAILY [facility] Last Admin: 11/01/19 10:27 Dose: 1 tab Documented by: Pantoprazole Sodium (Protonix Iv) 40 mg IVPUSH DAILY [facility] Last Admin: 11/01/19 10:27 Dose: 40 mg Documented by: Scopolamine HBr (Transderm-Scop -) 1 patch TD Q72H [facility] Last Admin: 10/31/19 21:39 Dose: 1 patch Documented by: - Objective Vital Signs: Vital Signs Temperature 98.8 F 11/01/19 10:25 Pulse Rate 120 H 11/01/19 10:25 Respiratory Rate 18 11/01/19 10:25 Blood Pressure 129/75 11/01/19 10:25 O2 Sat by Pulse Oximetry (%) 97 10/31/19 21:00 Constitutional: Yes: Calm, Thin Eyes: Yes: WNL HENT: Yes: WNL Neck: Yes: WNL Cardiovascular: Yes: Regular Rate and Rhythm, S1, S2 Respiratory: Yes: Rhonchi (LESS RHONCHI BILATERALLY) Gastrointestinal: Yes: Normal Bowel Sounds, Soft Extremities: Yes: Shortened, Other (CONTRACTED) Edema: No Labs: CBC, BMP 11/01/19 07:00 11/01/19 07:00 INR, PTT INR 1.03 (0.83-1.09) 10/22/19 11:20 Problem List - Problems (1) Respiratory failure Code(s): J96.90 - RESPIRATORY FAILURE, UNSP, UNSP W HYPOXIA OR HYPERCAPNIA (2) History of cholecystectomy Code(s): Z90.49 - ACQUIRED ABSENCE OF OTHER SPECIFIED PARTS OF DIGESTIVE TRACT (3) Respiratory distress Code(s): R06.03 - ACUTE RESPIRATORY DISTRESS (4) Aspiration pneumonia Code(s): J69.0 - PNEUMONITIS DUE TO INHALATION OF FOOD AND VOMIT (5) Cerebral palsy Code(s): G80.9 - CEREBRAL PALSY, UNSPECIFIED (6) Gastrostomy in place Code(s): Z93.1 - GASTROSTOMY STATUS (7) Quadriplegia and quadriparesis Code(s): G82.50 - QUADRIPLEGIA, UNSPECIFIED Assessment/Plan ASSESSMENT AND PLAN: Acute Hypoxic Respiratory Failure improving Pneumonia likely Aspiration ARDS Small Bowel Obstruction No suspicion of SMA Syndrome by CT Severe Sepsis Lactic Acidosis Mental Retardation GERD - titrate FiO2 to keep Spo2 >90% - antibiotics per ID - monitor urine output, creatinine - inhaled bronchodilators - aspiration precautions - chest PT/pulmonary toilet - DVT/GI prophylaxis DR RAY
[2019-11-02] MEDS: ACETAMINOPHEN 325 MG TABLET (FP) PO PRN (05:46)
[2019-11-02] MEDS: HEPARIN NA (PORCINE) 5,000 UNITS/ML 1ML VIAL SQ SCH ×3 (05:46→22:29)
[2019-11-02] MEDS: AMINO ACIDS 4.25%/D5W 1,000 ML IV SCH ×3 (05:47→22:29)
[2019-11-02 08:00] LABS: BASO % 0.7 % (0-2.0); EOS % 1.2 % (0-4.5); HEMATOCRIT 28.2 % (32.4-45.2); HEMOGLOBIN 9.7 GM/dL (10.7-15.3); LYMPH % 20.2 % (8-40); MCH 31.3 pg (25.7-33.7); MCHC 34.4 g/dl (32.0-36.0); NEUT % 71.9 % (42.8-82.8); PLATELET COUNT 773 K/MM3 (134-434); RDW 14.8 % (11.6-15.6); WHITE BLOOD COUNT 11.7 K/mm3 (4.0-10.0)
[2019-11-02 08:08] LABS: BLOOD UREA NITROGEN 14.2 mg/dL (7-18); CALCIUM 8.7 mg/dL (8.5-10.1); CREATININE 0.3 mg/dL (0.55-1.3); MAGNESIUM 1.9 mg/dL (1.8-2.4); POTASSIUM 3.3 mmol/L (3.5-5.1)
[2019-11-02] MEDS: KCL 10 MEQ IVPB 10 MEQ/100 ML INFUS.BAG IVPB SCH ×3 (10:26→14:10)
[2019-11-02] MEDS: PANTOPRAZOLE SODIUM 40 MG VIAL IVPUSH SCH (10:26)
[2019-11-02] MEDS: MULTIVITAMINS (DAILY MVI) TABLET (FP) PO SCH (10:26)
[2019-11-02] MEDS: levETIRAcetam 500 MG/5 ML INJECTION VIAL IVPB SCH ×2 (10:26→22:28)
--- NOTE | 2019-11-02 12:42 | PN ---
Progress Note, Physician History of Present Illness: 33 y/o F w/ PMHx 29 week premature , profound mental delay, chronic seizur es, congenital quadriplegia, retinal detachment, recurrent GERD s/p Neissen, s/p GJ-ostomy, s/p gastrostomy, cataracts, scoliosis, osteoporosis, anemia Admitted for Acute Hypoxic Respiratory Failure 2/2 Aspiration Pneumonia s/p extubation 10/24 on ceftriaxone (10/26-TD) course complicated with recurrent abdominal distension upon feeding -GI on board. Today: Patient seen and examined at bedside Had some bilious vomiting in am Nonverbal, abdominal distension is not as extensive as seen previously but is not improving - Current Medication List Current Medications: Active Medications Acetaminophen (Tylenol -) 650 mg PO Q4H PRN PRN Reason: FEVER Last Admin: 11/02/19 05:46 Dose: 650 mg Documented by: Albuterol Sulfate (Ventolin 0.083% Nebulizer Soln -) 1 amp NEB Q4H PRN PRN Reason: SHORT OF BREATH/WHEEZING Last Admin: 10/31/19 13:40 Dose: 1 amp Documented by: Heparin Sodium (Porcine) (Heparin -) 5,000 unit SQ TID BO Last Admin: 11/02/19 05:46 Dose: 5,000 unit Documented by: Ceftriaxone Sodium 2 gm/ (Dextrose) 100 mls @ 200 mls/hr IVPB DAILY BO; Protocol Last Admin: 11/01/19 12:11 Dose: 200 mls/hr Documented by: Amino Acids (Clinimix -) 1,000 mls @ 84 mls/hr IV Q12H BO Last Admin: 11/02/19 10:26 Dose: 84 mls/hr Documented by: Levetiracetam (Keppra Injection -) 1,000 mg IVPB BID BO Last Admin: 11/02/19 10:26 Dose: 1,000 mg Documented by: Multivitamins/Minerals/Vitamin C (Tab-A-Vit -) 1 tab PO DAILY BO Last Admin: 11/02/19 10:26 Dose: 1 tab Documented by: Pantoprazole Sodium (Protonix Iv) 40 mg IVPUSH DAILY BO Last Admin: 11/02/19 10:26 Dose: 40 mg Documented by: Scopolamine HBr (Transderm-Scop -) 1 patch TD Q72H BO Last Admin: 10/31/19 21:39 Dose: 1 patch Documented by: - Objective Vital Signs: Vital Signs Temperature 98.4 F 11/02/19 10:28 Pulse Rate 109 H 11/02/19 10:28 Respiratory Rate 18 11/02/19 10:28 Blood Pressure 142/97 11/02/19 10:28 O2 Sat by Pulse Oximetry (%) 96 11/02/19 10:00 Cardiovascular: Yes: WNL Respiratory: Yes: WNL Gastrointestinal: Yes: Soft, Distention Labs: CBC, BMP 11/02/19 06:35 11/02/19 06:35 INR, PTT INR 1.03 (0.83-1.09) 10/22/19 11:20 Impression/Plan Impression/Plan: 1-Acute Hypoxic Respiratory Failure 2/2Pneumonia likely Aspiration Sputum Cx- Ecoli s/p extubation 10/24 On 2L NC 94% Albuterol nebs continue ceftriaxone 2g started on 10/27/19-11/03/19 ID on board 2- Severe Sepsis in the setting of Aspiration Pneumonia-resolved urine legionella/strep pneumonia neg sputum growing E coli resistant to Zosyn BCx x1 Staph Hominis ; Repeat BCx neg - continue ceftriaxone 2g started on 10/27/19-11/03/19 3-Gastric Distension Recurrent Surgery consulted- GI on board- will keep NG tube and attempt feeds if distension recurs- CT Abd Has been on going problem from prior when she was in facility 3- Reactive Thrombocytosis in setting of Sepsis -improving Trend Hem/Onc recs appreciated 4- Hx of Seizure d/o IV Keppra 1000 mg BID 4- DVT Px- Heparin 5000 units TID Tube feeds Visit type - Emergency Visit Emergency Visit: Yes ED Registration Date: 10/16/19 Care time: The patient presented to the Emergency Department on the above date and was hospitalized for further evaluation of their emergent condition. - New Patient This patient is new to me today: No - Critical Care Critical Care patient: No - Discharge Referral Referred to [facility] Med P.C.: No
--- NOTE | 2019-11-02 13:10 | PN ---
Progress Note (short form) - Note Progress Note: Awake in NAD. Apparently had bilious vomiting this AM. Intake & Output 10/30/19 10/31/19 11/01/19 11/02/19 23:59 23:59 23:59 23:59 Intake Total 2300 900 2154 350 Output Total 550 100 Balance 2300 900 1604 250 Last Vital Signs Temp Pulse Resp BP Pulse Ox 98.4 F 109 H 18 142/97 96 11/02/19 10:28 11/02/19 10:28 11/02/19 10:28 11/02/19 10:28 11/02/19 10:00 Active Medications Acetaminophen (Tylenol -) 650 mg PO Q4H PRN PRN Reason: FEVER Last Admin: 11/02/19 05:46 Dose: 650 mg Documented by: Albuterol Sulfate (Ventolin 0.083% Nebulizer Soln -) 1 amp NEB Q4H PRN PRN Reason: SHORT OF BREATH/WHEEZING Last Admin: 10/31/19 13:40 Dose: 1 amp Documented by: Heparin Sodium (Porcine) (Heparin -) 5,000 unit SQ TID [facility] Last Admin: 11/02/19 05:46 Dose: 5,000 unit Documented by: Ceftriaxone Sodium 2 gm/ (Dextrose) 100 mls @ 200 mls/hr IVPB DAILY [facility]; Protocol Last Admin: 11/01/19 12:11 Dose: 200 mls/hr Documented by: Amino Acids (Clinimix -) 1,000 mls @ 84 mls/hr IV Q12H BO Last Admin: 11/02/19 10:26 Dose: 84 mls/hr Documented by: Levetiracetam (Keppra Injection -) 1,000 mg IVPB BID [facility] Last Admin: 11/02/19 10:26 Dose: 1,000 mg Documented by: Multivitamins/Minerals/Vitamin C (Tab-A-Vit -) 1 tab PO DAILY [facility] Last Admin: 11/02/19 10:26 Dose: 1 tab Documented by: Pantoprazole Sodium (Protonix Iv) 40 mg IVPUSH DAILY [facility] Last Admin: 11/02/19 10:26 Dose: 40 mg Documented by: Scopolamine HBr (Transderm-Scop -) 1 patch TD Q72H [facility] Last Admin: 10/31/19 21:39 Dose: 1 patch Documented by: Constitutional: Yes: NAD on NC O2 Eyes: Yes: WNL HENT: Yes: WNL Neck: Yes: WNL Cardiovascular: Yes: Regular Rate and Rhythm, S1, S2 Respiratory: Yes: Diminished, Few scattered rhonchi Gastrointestinal: Yes: Distended, Normal Bowel Sounds, Soft Extremities: Yes: Shortened, Other (contracted) Edema: No Labs: Laboratory Results - last 24 hr 11/02/19 11/02/19 06:35 06:35 WBC 11.7 H RBC 3.10 L Hgb 9.7 L Hct 28.2 L MCV 91.0 MCH 31.3 MCHC 34.4 RDW 14.8 Plt Count 773 H MPV 7.0 L Absolute Neuts (auto) 8.4 H Neutrophils % 71.9 Lymphocytes % 20.2 D Monocytes % 6.0 Eosinophils % 1.2 Basophils % 0.7 Nucleated RBC % 0 Sodium 137 Potassium 3.3 L Chloride 103 Carbon Dioxide 29 Anion Gap 5 L BUN 14.2 Creatinine 0.3 L Est GFR (CKD-EPI)AfAm 171.92 Est GFR (CKD-EPI)NonAf 148.34 Random Glucose 101 Calcium 8.7 Magnesium 1.9 Problem List - Problems (1) Respiratory failure Code(s): J96.90 - RESPIRATORY FAILURE, UNSP, UNSP W HYPOXIA OR HYPERCAPNIA (2) History of cholecystectomy Code(s): Z90.49 - ACQUIRED ABSENCE OF OTHER SPECIFIED PARTS OF DIGESTIVE TRACT (3) Respiratory distress Code(s): R06.03 - ACUTE RESPIRATORY DISTRESS (4) Aspiration pneumonia Code(s): J69.0 - PNEUMONITIS DUE TO INHALATION OF FOOD AND VOMIT (5) Cerebral palsy Code(s): G80.9 - CEREBRAL PALSY, UNSPECIFIED (6) Gastrostomy in place Code(s): Z93.1 - GASTROSTOMY STATUS (7) Quadriplegia and quadriparesis Code(s): G82.50 - QUADRIPLEGIA, UNSPECIFIED Assessment/Plan Acute Hypoxic Respiratory Failure improving Pneumonia likely Aspiration ARDS Small Bowel Obstruction No suspicion of SMA Syndrome by CT Severe Sepsis Lactic Acidosis Mental Retardation GERD - O2 to keep Spo2 >90% - antibiotics per ID - monitor urine output, creatinine - inhaled bronchodilators - aspiration precautions - chest PT/pulmonary toilet - DVT/GI prophylaxis Dr Pedro
[2019-11-02] MEDS: CEFTRIAXONE 2 GM in DEXTROSE 5%-WATER 100 ML IVPB SCH (13:29)
--- NOTE | 2019-11-02 14:20 | PN ---
Physical Exam: SUBJECTIVE: Patient seen and examined at the bedside. Noted with bile drainage from Nino tube and NG tube. TUbe feeds stopped at 630 this morning due to distension noted. Unable to provide ROS due to nonverbal status. OBJECTIVE: Vital Signs Period Temp Pulse Resp BP Sys/Campuzano Pulse Ox Last 24 Hr 98.0 F-100.1 F 109-115 18-19 106-151/70-111 96-96 GENERAL: Awake and alert, not responsive to voice commands. EYES: pupils reactive bilaterally, extraoccular movements intact. ENT: Oropharynx clear without exudates, moist mucous membranes. Secretions present. LUNGS: Patient unable to give good effort. Trace crackles heard on the left lung. No wheezes auscultated. HEART: Tachycardic rate and regular rhythm, S1, S2 without murmur. ABDOMEN: Soft, mildly distended, normoactive bowel sounds, no guarding, no masses. Nino tube and J tube in place. NG tube in place and draining bile, drainage from Nino tube bile. EXTREMITIES: 2+ pulses, warm, well-perfused, no edema. NEUROLOGICAL: Moves extremities in response to light touch. SKIN: Warm, dry, normal turgor. Laboratory Results - last 24 hr 11/02/19 11/02/19 06:35 06:35 WBC 11.7 H RBC 3.10 L Hgb 9.7 L Hct 28.2 L MCV 91.0 MCH 31.3 MCHC 34.4 RDW 14.8 Plt Count 773 H MPV 7.0 L Absolute Neuts (auto) 8.4 H Neutrophils % 71.9 Lymphocytes % 20.2 D Monocytes % 6.0 Eosinophils % 1.2 Basophils % 0.7 Nucleated RBC % 0 Sodium 137 Potassium 3.3 L Chloride 103 Carbon Dioxide 29 Anion Gap 5 L BUN 14.2 Creatinine 0.3 L Est GFR (CKD-EPI)AfAm 171.92 Est GFR (CKD-EPI)NonAf 148.34 Random Glucose 101 Calcium 8.7 Magnesium 1.9 Active Medications Generic Name Dose Route Start Last Admin Trade Name Freq PRN Reason Stop Dose Admin Acetaminophen 650 mg 10/27/19 21:28 11/02/19 05:46 Tylenol - PO 650 mg Q4H PRN Administration FEVER Albuterol Sulfate 1 amp 10/27/19 21:28 10/31/19 13:40 Ventolin 0.083% Nebulizer Soln - NEB 1 amp Q4H PRN Administration SHORT OF BREATH/WHEEZING Heparin Sodium (Porcine) 5,000 unit 10/27/19 22:00 11/02/19 13:30 Heparin - SQ 5,000 unit TID BO Administration Ceftriaxone Sodium 2 gm/ 100 mls @ 200 mls/hr 10/27/19 10:00 11/02/19 13:29 Dextrose IVPB 200 mls/hr DAILY BO Administration Protocol Amino Acids 1,000 mls @ 84 mls/hr 10/31/19 10:30 11/02/19 10:26 Clinimix - IV 84 mls/hr Q12H BO Administration Levetiracetam 1,000 mg 10/27/19 22:00 11/02/19 10:26 Keppra Injection - IVPB 1,000 mg BID BO Administration Multivitamins/Minerals/Vitamin C 1 tab 10/27/19 10:00 11/02/19 10:26 Tab-A-Vit - PO 1 tab DAILY BO Administration Pantoprazole Sodium 40 mg 10/28/19 10:00 11/02/19 10:26 Protonix Iv IVPUSH 40 mg DAILY BO Administration Scopolamine HBr 1 patch 10/28/19 19:45 10/31/19 21:39 Transderm-Scop - TD 1 patch Q72H BO Administration IMAGING: * Chest CT: patchy consolidation left upper lobe. * CXR showing NG tube in LUQ/stomach, mediastinal fullness in rt hilum, retained stool, AXR showing retained stool in transverse colon/rt colon dilation, scoliosis. * CTA(10/19/19): no evidence of SMA syndrome/compression; enterohepatic intussusception in L abd containing J tube, no abd dilatation to suggest obstruction. Nonspecific stranding of L upper abd could be secondary to gastroduodenitis or pancreatitis * CT (10/26/19):There is dense consolidation of the left lower lobe. The right lung base is largely clear. The liver, spleen, pancreas, adrenal glands and kidneys demonstrate no grossabnormalities. There is a PEG tube within the body of the stomach. There is no evidence of pneumoperitoneum, bowel obstruction or intra-abdominal abscess. Examination of the pelvis demonstrates no evidence of pelvic masses or fluid collections. * CT (10/30/19):There is extensive consolidation/atelectasis within the left lower lobe with an associated pleural effusion. Minimal atelectatic changes are seen at the right lung base. There is a nasogastric tube within the stomach. There is also a PEG tube within the body of the stomach. These tubes appear to be appropriately placed.There is also a percutaneous jejunostomy tube within the left lower quadrant. This too also appears to be appropriately placed. If clinically indicated, contrast material can be injected into the jejunostomy tube with subsequent radiographs determining the placement of the tube. The liver, spleen, pancreas, adrenal glands and kidneys demonstrate no significant abnormalities. There is no evidence of intra-abdominal or retroperitoneal lymphadenopathy or fluid collections. ASSESSMENT/PLAN: Flora Pandey is a 33 female with a past medical history of developmental delay, congenital quadriplegia, retinal detachment, gastrostomy, cataracts, scoliosis, osteoporosis, GERD, and J-tube placement, was brought in from [facility] admitted for sepsis secondary to aspiration pneumonia. Acute Hypoxic Respiratory Failure - likely 2/2 aspiration pneumonia. Resolving. - extubated, on NC 2L - Resp viral panel negative, flu negative - Scopolamine patch for management of secretions - Albuterol nebs Sepsis - likely secondary to aspiration pneumonia - ID consulted, recs appreciated - SpCx +Staph aureus, E. coli, urine legionella/strep pneumonia neg. Repeat sputum growing E coli resistant to Zosyn - continue ceftriaxone 2g started on 10/27/19, d/c today and observe off abx - blood culture growing staph homininis, repeat blood culture negative, as per ID d/c vancomycin - CXR continues to show infiltrate in the left lung Gastric Distension - Surgery consulted (Sheng); no surgical intervention at this time. Discussed with surgery, in light of no seen obstruction on CT, continued no need for surgical intervention - GI consulted; starting tube feeds with Vital 1.2 through J tube. In future, may likely need periodic gastric emptying via Nino tube to prevent aspiration of succus entericus, bile, oral and gastric secretions to prevent aspiration. Advise to keep HOB 35 degrees. May need J tube replacement to one without a balloon - gastric distension occurred, held feeds - discussed case with vascular surgery at [facility] regarding possibility of SMA syndrome, vascular surgery did not believe that SMA syndrome was likelihood in this scenario and suggested that a mechanical obstruction may be possibility in the setting of patient's G tube - consulted IR for gastric tube exchange to upsize for adequate draining and ventilation - Cont PPI Thrombocytosis - likely reactive in setting of infection - hematology consulted, recs appreciated - additional anemia of chronic disease noted Hx of Seizure Disorder - IV Keppra 1000 BID DVT PPx - heparin 5000 units subq tid FEN - Clinamix at 84cc/hr - continue to monitor electrolytes and replete as necessary - held tube feeds in setting of distension, drained 300cc of bile fluid from NG tube today Disposition - full code - continue to monitor in telemetry Visit type - Emergency Visit Emergency Visit: Yes ED Registration Date: 10/16/19 Care time: The patient presented to the Emergency Department on the above date and was hospitalized for further evaluation of their emergent condition. - New Patient This patient is new to me today: No - Critical Care Critical Care patient: No
--- NOTE | 2019-11-02 18:07 | PN.GI ---
GI Progress Note Subjective: 300cc from NGT for the day Air expelled from G-Tube bag Low Profile G-Tube examined. it is 24Fr. - Objective Vital Signs: Vital Signs Temperature 98.3 F 11/02/19 14:00 Pulse Rate 112 H 11/02/19 14:00 Respiratory Rate 18 11/02/19 14:00 Blood Pressure 126/92 11/02/19 14:00 O2 Sat by Pulse Oximetry (%) 96 11/02/19 10:00 Constitutional: Calm Cardiovascular: Yes: Tachycardia Respiratory: Yes: Diminished (at bases b/l) Gastrointestinal Inspection: No: Distention ...Auscultate: Yes: Normoactive Bowel Sounds ...Palpate: No: Tenderness (No grimacing upon palpation) ...Percussion: Yes: Tympanitic (very mild tympany) Extremities: Yes: Other (Contractures) Edema: No Labs: CBC, BMP 11/02/19 06:35 11/02/19 06:35 INR, PTT INR 1.03 (0.83-1.09) 10/22/19 11:20 Problem List - Problems (1) Ileus Assessment/Plan: Low profile G-Tube changed to 24Fr. replacement tube. The larger bore stalk may help with gastric vents as opposed to the attachable low profile stalk that can be attached. Resume feeds. Patient is tachycardic and likely behind due to insensible losses and stopping of feeds. Fluid management per primary team Replete lytes as this can contribute to altered GI motility use G-Tube to vent Code(s): K56.7 - ILEUS, UNSPECIFIED
[2019-11-02] MEDS ORDERED: ACETAMINOPHEN 325 MG TABLET (FP) PO PRN (21:08)
[2019-11-02] MEDS ORDERED: ALBUTEROL SO4 0.083% IH SOL 2.5 MG/3 ML VIAL.NEB. NEB PRN (21:08)
[2019-11-03] MEDS: AMINO ACIDS 4.25%/D5W 1,000 ML IV SCH ×3 (06:50→22:53)
[2019-11-03] MEDS: HEPARIN NA (PORCINE) 5,000 UNITS/ML 1ML VIAL SQ SCH ×3 (06:50→21:03)
--- NOTE | 2019-11-03 07:30 | PN ---
Progress Note, Physician History of Present Illness: 33 y/o F w/ PMHx 29 week premature , profound mental delay, chronic seizur es, congenital quadriplegia, retinal detachment, recurrent GERD s/p Neissen, s/p GJ-ostomy, s/p gastrostomy, cataracts, scoliosis, osteoporosis, anemia Admitted for Acute Hypoxic Respiratory Failure 2/2 Aspiration Pneumonia s/p extubation 10/24 on ceftriaxone (10/26-TD) course complicated with recurrent abdominal distension upon feeding -GI on board. Today: - Current Medication List Current Medications: Active Medications Acetaminophen (Tylenol -) 650 mg PO Q4H PRN PRN Reason: FEVER Albuterol Sulfate (Ventolin 0.083% Nebulizer Soln -) 1 amp NEB Q4H PRN PRN Reason: SHORT OF BREATH/WHEEZING Heparin Sodium (Porcine) (Heparin -) 5,000 unit SQ TID [facility] Last Admin: 11/03/19 06:50 Dose: 5,000 unit Documented by: Amino Acids (Clinimix -) 1,000 mls @ 84 mls/hr IV Q12H [facility] Last Admin: 11/03/19 06:50 Dose: 84 mls/hr Documented by: Levetiracetam (Keppra Injection -) 1,000 mg IVPB BID [facility] Last Admin: 11/02/19 22:28 Dose: 1,000 mg Documented by: Multivitamins/Minerals/Vitamin C (Tab-A-Vit -) 1 tab PO DAILY BO Pantoprazole Sodium (Protonix Iv) 40 mg IVPUSH DAILY [facility] Scopolamine HBr (Transderm-Scop -) 1 patch TD Q72H [facility] - Objective Vital Signs: Vital Signs Temperature 97.5 F L 11/03/19 06:00 Pulse Rate 88 11/03/19 06:00 Respiratory Rate 20 11/03/19 06:00 Blood Pressure 118/78 11/03/19 06:00 O2 Sat by Pulse Oximetry (%) 96 11/02/19 21:00 Labs: CBC, BMP 11/02/19 06:35 11/02/19 06:35 INR, PTT INR 1.03 (0.83-1.09) 10/22/19 11:20 Impression/Plan Impression/Plan: 1-Acute Hypoxic Respiratory Failure 2/2Pneumonia likely Aspiration Sputum Cx- Ecoli s/p extubation 10/24 On 2L NC 94% Albuterol nebs continue ceftriaxone 2g started on 10/27/19-11/03/19 ID on board 2- Severe Sepsis in the setting of Aspiration Pneumonia-resolved urine legionella/strep pneumonia neg sputum growing E coli resistant to Zosyn BCx x1 Staph Hominis ; Repeat BCx neg - continue ceftriaxone 2g started on 10/27/19-11/03/19 3-Gastric Distension Recurrent Surgery consulted- GI on board- will keep NG tube and attempt feeds if distension recurs- CT Abd Has been on going problem from prior when she was in facility 3- Reactive Thrombocytosis in setting of Sepsis -improving Trend Hem/Onc recs appreciated 4- Hx of Seizure d/o IV Keppra 1000 mg BID 4- DVT Px- Heparin 5000 units TID Tube feeds
[2019-11-03 08:03] LABS: BASO % 1.1 % (0-2.0); EOS % 1.3 % (0-4.5); HEMATOCRIT 27.4 % (32.4-45.2); HEMOGLOBIN 9.6 GM/dL (10.7-15.3); MCH 31.9 pg (25.7-33.7); MCHC 35.1 g/dl (32.0-36.0); MEAN PLT VOLUME 7.2 fl (7.5-11.1); MONO % 5.4 % (3.8-10.2); NEUT % 69.2 % (42.8-82.8); PLATELET COUNT 643 K/MM3 (134-434); RBC 3.01 M/mm3 (3.60-5.2); RDW 14.3 % (11.6-15.6); WHITE BLOOD COUNT 9.9 K/mm3 (4.0-10.0)
[2019-11-03 08:07] LABS: INR 1.13 (0.83-1.09); PROTHROMBIN TIME (PATIENT) 13.3 SEC (9.7-13.0)
[2019-11-03 08:09] LABS: ACTIVATED PTT 37.4 SECONDS (25.2-36.5)
[2019-11-03 08:28] LABS: CALCIUM 8.8 mg/dL (8.5-10.1); CREATININE 0.3 mg/dL (0.55-1.3); MAGNESIUM 1.5 mg/dL (1.8-2.4); POTASSIUM 3.3 mmol/L (3.5-5.1)
[2019-11-03] MEDS ORDERED: MAGNESIUM SULF 50% (8.12 MEQ/2 ML-1 GM VIAL) IVPB ONE (08:30)
[2019-11-03] MEDS: PANTOPRAZOLE SODIUM 40 MG VIAL IVPUSH SCH (09:29)
[2019-11-03] MEDS: levETIRAcetam 500 MG/5 ML INJECTION VIAL IVPB SCH (09:29)
[2019-11-03] MEDS: MULTIVITAMINS (DAILY MVI) TABLET (FP) PO SCH (09:35)
[2019-11-03] MEDS: LACTATED RINGERS SOLUTION 1,000 ML/1,000 ML INFUS.BAG IV SCH (10:45)
[2019-11-03] MEDS: KCL 10 MEQ IVPB 10 MEQ/100 ML INFUS.BAG IVPB SCH ×3 (10:46→14:16)
--- NOTE | 2019-11-03 10:56 | PN ---
Physical Exam: SUBJECTIVE: Patient seen and examined at the bedside. Noted overnight events of replacement of G tube. Patient unable to provide ROS due to non-verbal status. Discussed with Dr. Ward, and accepted the patient back to [place], and noted that patient would likely have to be transferred on Wednesday or later due to active testing for COVID-19 at that location. OBJECTIVE: Vital Signs Period Temp Pulse Resp BP Sys/Campuzano Pulse Ox Last 24 Hr 97.5 F-98.3 F 88-128 18-20 118-126/78-92 96 GENERAL: Awake and alert, not responsive to voice commands. EYES: pupils reactive bilaterally, extraoccular movements intact. ENT: Oropharynx clear without exudates, moist mucous membranes. LUNGS: Clear to auscultation. No crackles or wheezes auscultated. HEART: Tachycardic rate and regular rhythm, S1, S2 without murmur. ABDOMEN: Soft, not disttended, normoactive bowel sounds, no guarding, no masses. 24F gastric tube and J tube in place. NG tube in place. EXTREMITIES: 2+ pulses, warm, well-perfused, no edema. NEUROLOGICAL: Moves extremities in response to light touch. SKIN: Warm, dry, normal turgor. Laboratory Results - last 24 hr 11/03/19 11/03/19 11/03/19 07:10 07:10 07:10 WBC 9.9 RBC 3.01 L Hgb 9.6 L Hct 27.4 L MCV 91.0 MCH 31.9 MCHC 35.1 RDW 14.3 Plt Count 643 H MPV 7.2 L Absolute Neuts (auto) 6.9 Neutrophils % 69.2 Lymphocytes % 23.0 Monocytes % 5.4 Eosinophils % 1.3 Basophils % 1.1 Nucleated RBC % 0 PT with INR 13.30 H INR 1.13 H PTT (Actin FS) 37.4 H Sodium 138 Potassium 3.3 L Chloride 100 Carbon Dioxide 28 Anion Gap 10 BUN 13.0 Creatinine 0.3 L Est GFR (CKD-EPI)AfAm 171.92 Est GFR (CKD-EPI)NonAf 148.34 Random Glucose 98 Calcium 8.8 Magnesium 1.5 L Active Medications Generic Name Dose Route Start Last Admin Trade Name Freq PRN Reason Stop Dose Admin Acetaminophen 650 mg 11/02/19 21:08 Tylenol - PO Q4H PRN FEVER Albuterol Sulfate 1 amp 11/02/19 21:08 Ventolin 0.083% Nebulizer Soln - NEB Q4H PRN SHORT OF BREATH/WHEEZING Heparin Sodium (Porcine) 5,000 unit 11/02/19 22:00 11/03/19 06:50 Heparin - SQ 5,000 unit TID BO Administration Amino Acids 1,000 mls @ 84 mls/hr 11/02/19 22:30 11/03/19 06:50 Clinimix - IV 84 mls/hr Q12H BO Administration Potassium Chloride 10 meq in 100 mls @ 100 mls/hr 11/03/19 08:45 11/03/19 10:46 Potassium Chloride 10 Meq Premix Ivpb - IVPB 11/03/19 11:44 100 mls/hr Q60M BO Administration Lactated Ringer's 1,000 ml in 1,000 mls @ 100 mls/hr 11/03/19 08:45 11/03/19 10:45 Lactated Ringers Solution IV Not Given ASDIR BO Levetiracetam 1,000 mg 11/02/19 22:00 11/03/19 09:29 Keppra Injection - IVPB 1,000 mg BID BO Administration Multivitamins/Minerals/Vitamin C 1 tab 11/03/19 10:00 11/03/19 09:35 Tab-A-Vit - PO 1 tab DAILY BO Administration Pantoprazole Sodium 40 mg 11/03/19 10:00 11/03/19 09:29 Protonix Iv IVPUSH 40 mg DAILY BO Administration Scopolamine HBr 1 patch 11/03/19 19:45 Transderm-Scop - TD Q72H BO IMAGING: * Chest CT: patchy consolidation left upper lobe. * CXR showing NG tube in LUQ/stomach, mediastinal fullness in rt hilum, retained stool, AXR showing retained stool in transverse colon/rt colon dilation, scoliosis. * CTA(10/19/19): no evidence of SMA syndrome/compression; enterohepatic intussusception in L abd containing J tube, no abd dilatation to suggest obstruction. Nonspecific stranding of L upper abd could be secondary to gastroduodenitis or pancreatitis * CT (10/26/19):There is dense consolidation of the left lower lobe. The right lung base is largely clear. The liver, spleen, pancreas, adrenal glands and kidneys demonstrate no grossabnormalities. There is a PEG tube within the body of the stomach. There is no evidence of pneumoperitoneum, bowel obstruction or intra-abdominal abscess. Examination of the pelvis demonstrates no evidence of pelvic masses or fluid collections. * CT (10/30/19):There is extensive consolidation/atelectasis within the left lower lobe with an associated pleural effusion. Minimal atelectatic changes are seen at the right lung base. There is a nasogastric tube within the stomach. There is also a PEG tube within the body of the stomach. These tubes appear to be appropriately placed.There is also a percutaneous jejunostomy tube within the left lower quadrant. This too also appears to be appropriately placed. If clinically indicated, contrast material can be injected into the jejunostomy tube with subsequent radiographs determining the placement of the tube. The liver, spleen, pancreas, adrenal glands and kidneys demonstrate no s ignificant abnormalities. There is no evidence of intra-abdominal or retroperitoneal lymphadenopathy or fluid collections. ASSESSMENT/PLAN: Flora Pandey is a 33 female with a past medical history of developmental delay, congenital quadriplegia, retinal detachment, gastrostomy, cataracts, scoliosis, osteoporosis, GERD, and J-tube placement, was brought in from [facility] admitted for sepsis secondary to aspiration pneumonia. Acute Hypoxic Respiratory Failure - likely 2/2 aspiration pneumonia, resolving - Resp viral panel negative, flu negative - Scopolamine patch for management of secretions - Albuterol nebs Sepsis - likely secondary to aspiration pneumonia - ID consulted, recs appreciated - SpCx +Staph aureus, E. coli, urine legionella/strep pneumonia neg. Repeat sputum growing E coli resistant to Zosyn - continue ceftriaxone 2g started on 10/27/19, observe off abx - blood culture growing staph homininis, repeat blood culture negative, as per ID d/c vancomycin Gastric Distension - Surgery consulted (Sheng); no surgical intervention at this time. Discussed with surgery, in light of no seen obstruction on CT, continued no need for surgical intervention - GI consulted, replaced low profile G tube to 24F replacement tube with larger stalk for adequate draining and ventilation. Advise to keep HOB 35 degrees. May need J tube replacement in the future to one without a balloon. - discussed case with vascular surgery at [facility] regarding possibility of SMA syndrome, vascular surgery did not believe that SMA syndrome was likelihood in this scenario and suggested that a mechanical obstruction may be possibility in the setting of patient's G tube. - continue to monitor for distension - Cont PPI Thrombocytosis - likely reactive in setting of infection - hematology consulted, recs appreciated - additional anemia of chronic disease noted Hx of Seizure Disorder - IV Keppra 1000 BID, can be transitioned to PO if no distension DVT PPx - heparin 5000 units subq tid FEN - Clinamix at 84cc/hr - continue to monitor electrolytes and replete as necessary - tube feeds restarted Disposition - full code - continue to monitor in telemetry Visit type - Emergency Visit Emergency Visit: Yes ED Registration Date: 10/16/19 Care time: The patient presented to the Emergency Department on the above date and was hospitalized for further evaluation of their emergent condition. - New Patient This patient is new to me today: No - Critical Care Critical Care patient: No
--- NOTE | 2019-11-03 11:55 | PN ---
Progress Note (short form) - Note Progress Note: PULMONARY VSS/AFEBRILE Constitutional: on NC O2 Eyes: Yes: WNL HENT: Yes: WNL Neck: Yes: WNL Cardiovascular: Yes: Regular Rate and Rhythm, S1, S2 Respiratory: Yes: Diminished, Few scattered rhonchi Gastrointestinal: Yes: Distended, Normal Bowel Sounds, Soft Extremities: Yes: Shortened, Other (contracted) Edema: No Labs: NOTED (1) Respiratory failure Code(s): J96.90 - RESPIRATORY FAILURE, UNSP, UNSP W HYPOXIA OR HYPERCAPNIA (2) History of cholecystectomy Code(s): Z90.49 - ACQUIRED ABSENCE OF OTHER SPECIFIED PARTS OF DIGESTIVE TRACT (3) Respiratory distress Code(s): R06.03 - ACUTE RESPIRATORY DISTRESS (4) Aspiration pneumonia Code(s): J69.0 - PNEUMONITIS DUE TO INHALATION OF FOOD AND VOMIT (5) Cerebral palsy Code(s): G80.9 - CEREBRAL PALSY, UNSPECIFIED (6) Gastrostomy in place Code(s): Z93.1 - GASTROSTOMY STATUS (7) Quadriplegia and quadriparesis Code(s): G82.50 - QUADRIPLEGIA, UNSPECIFIED Assessment/Plan Acute Hypoxic Respiratory Failure improving Pneumonia likely Aspiration ARDS resolved Small Bowel Obstruction No suspicion of SMA Syndrome by CT Severe Sepsis Lactic Acidosis Mental Retardation GERD - O2 to keep Spo2 >90% - antibiotics per ID - monitor urine output, creatinine - inhaled bronchodilators - aspiration precautions - chest PT/pulmonary toilet - DVT/GI prophylaxis Adria SANTANA MD
[2019-11-03] MEDS: levETIRAcetam 500 MG/5 ML ORAL SOLUTION (UNIT-DOSE CUPS) GT SCH ×2 (18:32→18:35)
[2019-11-03] MEDS ORDERED: SCOPOLAMINE HYDROBROMIDE 1 PATCH PATCH.TD72 TD SCH (19:45)
[2019-11-03] MEDS: TIZANIDINE HCL 4 MG TABLET GT SCH (21:02)
[2019-11-03] MEDS: BACLOFEN 10 MG TABLET (FP) GT SCH (21:03)
[2019-11-03] MEDS ORDERED: SENNOSIDES 8.8 MG/5 ML BULK BOTTLE PO SCH (22:00)
[2019-11-03] MEDS ORDERED: PT OWN MED DRAWER 7, Y5N ONE (22:11)
[2019-11-04] MEDS ORDERED: PT OWN MED DRAWER 7, Y5N ONE ×6 (06:19→22:49)
[2019-11-04] MEDS: HEPARIN NA (PORCINE) 5,000 UNITS/ML 1ML VIAL SQ SCH ×3 (06:22→22:53)
[2019-11-04] MEDS: levETIRAcetam 500 MG/5 ML ORAL SOLUTION (UNIT-DOSE CUPS) GT SCH ×3 (06:22→17:34)
[2019-11-04] MEDS: TIZANIDINE HCL 4 MG TABLET GT SCH ×3 (06:22→22:54)
[2019-11-04] MEDS: BACLOFEN 10 MG TABLET (FP) GT SCH ×3 (06:23→20:50)
[2019-11-04 07:45] LABS: BASO % 0.5 % (0-2.0); EOS % 2.6 % (0-4.5); HEMATOCRIT 28.9 % (32.4-45.2); LYMPH % 15.8 % (8-40); MCH 31.3 pg (25.7-33.7); MCHC 34.6 g/dl (32.0-36.0); MEAN CELL VOLUME 90.5 fl (80-96); MONO % 5.6 % (3.8-10.2); NEUT % 75.5 % (42.8-82.8); PLATELET COUNT 636 K/MM3 (134-434); RBC 3.19 M/mm3 (3.60-5.2); RDW 14.9 % (11.6-15.6); WHITE BLOOD COUNT 11.6 K/mm3 (4.0-10.0)
[2019-11-04 07:50] LABS: CALCIUM 8.8 mg/dL (8.5-10.1); CREATININE 0.3 mg/dL (0.55-1.3); MAGNESIUM 1.7 mg/dL (1.8-2.4); PHOSPHOROUS 3.6 mg/dL (2.5-4.9); POTASSIUM 3.4 mmol/L (3.5-5.1)
[2019-11-04] MEDS ORDERED: ACETAMINOPHEN 325 MG TABLET (FP) PO PRN (08:38)
[2019-11-04] MEDS ORDERED: ACETAMINOPHEN 650 MG/20.3 ML ORAL SOLUTION (CUPS) PEG PRN (08:48)
--- NOTE | 2019-11-04 08:53 | PN ---
Progress Note (short form) - Note Progress Note: PULMONARY NO ACUTE OVERNIGHT EVENTS VSS/AFEBRILE Constitutional: on NC O2 Eyes: Yes: WNL HENT: Yes: WNL Neck: Yes: WNL Cardiovascular: Yes: Regular Rate and Rhythm, S1, S2 Respiratory: Yes: Diminished, Few scattered rhonchi Gastrointestinal: Yes: Distended, Normal Bowel Sounds, Soft Extremities: Yes: Shortened, Other (contracted) Edema: No Labs: NOTED (1) Respiratory failure Code(s): J96.90 - RESPIRATORY FAILURE, UNSP, UNSP W HYPOXIA OR HYPERCAPNIA (2) History of cholecystectomy Code(s): Z90.49 - ACQUIRED ABSENCE OF OTHER SPECIFIED PARTS OF DIGESTIVE TRACT (3) Respiratory distress Code(s): R06.03 - ACUTE RESPIRATORY DISTRESS (4) Aspiration pneumonia Code(s): J69.0 - PNEUMONITIS DUE TO INHALATION OF FOOD AND VOMIT (5) Cerebral palsy Code(s): G80.9 - CEREBRAL PALSY, UNSPECIFIED (6) Gastrostomy in place Code(s): Z93.1 - GASTROSTOMY STATUS (7) Quadriplegia and quadriparesis Code(s): G82.50 - QUADRIPLEGIA, UNSPECIFIED Assessment/Plan Acute Hypoxic Respiratory Failure improving Pneumonia likely Aspiration ARDS resolved S/P Sepsis Lactic Acidosis Mental Retardation GERD - O2 to keep Spo2 >90% - observing off antibiotics - monitor urine output, creatinine - inhaled bronchodilators - aspiration precautions - chest PT/pulmonary toilet - DVT/GI prophylaxis Adria SANTANA MD
[2019-11-04] MEDS: POLYETHYLENE GLYCOL 3350 119 GM BTL GT SCH (09:54)
[2019-11-04] MEDS: PANTOPRAZOLE SODIUM 40 MG VIAL IVPUSH SCH (09:54)
[2019-11-04] MEDS ORDERED: LEVETIRACETAM GT SCH (10:00)
[2019-11-04] MEDS: AMINO ACIDS 4.25%/D5W 1,000 ML IV SCH ×2 (10:16→21:16)
[2019-11-04] MEDS ORDERED: POTASSIUM CHLORIDE TABS 20 MEQ TABLET.ER (FP) PO ONE (10:39)
[2019-11-04] MEDS ORDERED: POTASSIUM CHLORIDE ORAL LIQUID 20 MEQ/15 ML PO ONE (10:43)
[2019-11-04] MEDS ORDERED: POTASSIUM CHLORIDE ORAL LIQUID 20 MEQ/15 ML GT ONE (10:43)
[2019-11-04] MEDS: MULTIVITAMINS (DAILY MVI) TABLET (FP) PO SCH (10:52)
[2019-11-04] MEDS: LACTATED RINGERS SOLUTION 1,000 ML/1,000 ML INFUS.BAG IV SCH (10:52)
[2019-11-04] MEDS: CHOLECALCIFEROL (VIT D SOLUTION) 400 UNIT/1 ML DROPS GT SCH (11:38)
[2019-11-04] MEDS: MULTIVIT-MINERALS ORAL LIQUID GT SCH (11:38)
--- NOTE | 2019-11-04 11:57 | PN ---
Physical Exam: SUBJECTIVE: Patient seen and examined at bedside. No acute events overnight. OBJECTIVE: Vital Signs Period Temp Pulse Resp BP Sys/Campuzano Pulse Ox Last 24 Hr 97.7 F-99.7 F 109-115 20-20 102-119/58-75 96-96 GENERAL: No acute distress. EYES: EOMI Sclera Clear ENT: MMM LUNGS: Poor inspiratory effort HEART: RRR S1S2. ABDOMEN: Less distended. New G tube in place. J Tube in place. BS+. Nondistended and nontender EXTREMITIES: Contractures all extremities NEUROLOGICAL: Moves extremities in response to light touch. SKIN: Moist. Laboratory Results - last 24 hr 11/04/19 11/04/19 06:47 06:47 WBC 11.6 H RBC 3.19 L Hgb 10.0 L Hct 28.9 L MCV 90.5 MCH 31.3 MCHC 34.6 RDW 14.9 Plt Count 636 H MPV 7.0 L Absolute Neuts (auto) 8.8 H Neutrophils % 75.5 Lymphocytes % 15.8 D Monocytes % 5.6 Eosinophils % 2.6 D Basophils % 0.5 Nucleated RBC % 0 Sodium 137 Potassium 3.4 L Chloride 100 Carbon Dioxide 28 Anion Gap 9 BUN 15.0 Creatinine 0.3 L Est GFR (CKD-EPI)AfAm 171.92 Est GFR (CKD-EPI)NonAf 148.34 Random Glucose 122 H Calcium 8.8 Phosphorus 3.6 Magnesium 1.7 L Active Medications Generic Name Dose Route Start Last Admin Trade Name Freq PRN Reason Stop Dose Admin Acetaminophen 650 mg 11/04/19 08:48 Tylenol Oral Solution - PEG Q4H PRN FEVER Albuterol Sulfate 1 amp 11/02/19 21:08 Ventolin 0.083% Nebulizer Soln - NEB Q4H PRN SHORT OF BREATH/WHEEZING Baclofen 30 mg 11/03/19 22:00 11/04/19 06:23 Lioresal - GT 30 mg TID BO Administration Cholecalciferol 2,000 unit 11/04/19 10:00 11/04/19 11:38 Vitamin D3 Oral Solution - GT 2,000 unit DAILY BO Administration Emollient Ointment 1 applic 11/04/19 14:00 Aquaphor - TP TID BO Heparin Sodium (Porcine) 5,000 unit 11/02/19 22:00 11/04/19 06:22 Heparin - SQ 5,000 unit TID BO Administration Amino Acids 1,000 mls @ 84 mls/hr 11/02/19 22:30 11/04/19 10:16 Clinimix - IV 84 mls/hr Q12H BO Administration Levetiracetam 500 mg 11/03/19 06:00 11/04/19 11:41 Keppra Oral Solution - GT 500 mg BID@0600,1200 BO Administration Levetiracetam 750 mg 11/03/19 18:00 11/03/19 18:35 Keppra Oral Solution - GT 750 mg DAILY@1800 BO Administration Multivitamins/Minerals 15 ml 11/04/19 10:30 11/04/19 11:38 Certavite-Antioxidant Liquid GT 15 ml DAILY BO Administration Pantoprazole Sodium 40 mg 11/03/19 10:00 11/04/19 09:54 Protonix Iv IVPUSH 40 mg DAILY BO Administration Polyethylene Glycol 17 gm 11/04/19 10:00 11/04/19 09:54 Miralax (For Daily Use) - GT 17 grams DAILY BO Administration Scopolamine HBr 1 patch 11/03/19 19:45 11/03/19 22:12 Transderm-Scop - TD 1 patch Q72H BO Administration Senna 17.6 mg 11/04/19 08:39 Senna Oral Solution - GT HS BO Tizanidine HCl 6 mg 11/03/19 22:00 11/04/19 06:22 Tizanidine Hcl GT 6 mg TID BO Administration ASSESSMENT/PLAN: IMAGING: * Chest CT: patchy consolidation left upper lobe. * CXR showing NG tube in LUQ/stomach, mediastinal fullness in rt hilum, retained stool, AXR showing retained stool in transverse colon/rt colon dilation, scoliosis. * CTA(10/19/19): no evidence of SMA syndrome/compression; enterohepatic int ussusception in L abd containing J tube, no abd dilatation to suggest obstruction. Nonspecific stranding of L upper abd could be secondary to gastroduodenitis or pancreatitis * CT (10/26/19):There is dense consolidation of the left lower lobe. The right lung base is largely clear. The liver, spleen, pancreas, adrenal glands and kidneys demonstrate no grossabnormalities. There is a PEG tube within the body of the stomach. There is no evidence of pneumoperitoneum, bowel obstruction or intra-abdominal abscess. Examination of the pelvis demonstrates no evidence of pelvic masses or fluid collections. * CT (10/30/19):There is extensive consolidation/atelectasis within the left lower lobe with an associated pleural effusion. Minimal atelectatic changes are seen at the right lung base. There is a nasogastric tube within the stomach. There is also a PEG tube within the body of the stomach. These tubes appear to be appropriately placed.There is also a percutaneous jejunostomy tube within the left lower quadrant. This too also appears to be appropriately placed. If clinically indicated, contrast material can be injected into the jejunostomy tube with subsequent radiographs determining the placement of the tube. The liver, spleen, pancreas, adrenal glands and kidneys demonstrate no significant abnormalities. There is no evidence of intra-abdominal or retroperitoneal lymphadenopathy or fluid collections. ASSESSMENT/PLAN: Flora Pandey is a 33 female with a past medical history of developmental delay, congenital quadriplegia, retinal detachment, gastrostomy, cataracts, scoliosis, osteoporosis, GERD, and J-tube placement, was brought in from [facility] admitted for sepsis secondary to aspiration pneumonia. #Acute Hypoxic Respiratory Failure likely 2/2 Aspiration Pneumonia-Resolving. - likely 2/2 aspiration pneumonia, resolving. WBC 11.6. Continue to monitor. - Resp viral panel negative, flu negative - Scopolamine patch for management of secretions - Albuterol nebs #Sepsis - likely secondary to aspiration pneumonia - ID consulted, recs appreciated - SpCx +Staph aureus, E. coli, urine legionella/strep pneumonia neg. Repeat sputum growing E coli resistant to Zosyn - ceftriaxone 2g started on 10/27/19 discontinued - blood culture growing staph homininis, repeat blood culture negative, as per ID d/c vancomycin. Repeat CXR in am. CXR 10/29---> Left Love Congestion/Pleural effusion/Atelectasis #Gastric Distension - GI consulted, replaced low profile G tube to 24F replacement tube with larger stalk for adequate draining and ventilation. Advise to keep HOB 35 degrees. May need J tube replacement in the future to one without a balloon. - Dr Cid discussed case with vascular surgery at [facility] regarding possibility of SMA syndrome, vascular surgery did not believe that SMA syndrome was likelihood in this scenario and suggested that a mechanical obstruction may be possibility in the setting of patient's G tube. - continue to monitor for distension - Cont PPI #Thrombocytosis - likely reactive in setting of infection -Will repeat CBC in am. - hematology consulted, recs appreciated - additional anemia of chronic disease noted #Hx of Seizure Disorder - IV Keppra 1000 BID #DVT PPx - heparin 5000 units subq tid #FEN - Clinamix at 84cc/hr - continue to monitor electrolytes and replete as necessary - tube feeds restarted #Dispo - full code - continue to monitor in telemetry Visit type - Emergency Visit Emergency Visit: Yes ED Registration Date: 10/16/19 Care time: The patient presented to the Emergency Department on the above date and was hospitalized for further evaluation of their emergent condition. - New Patient This patient is new to me today: No - Critical Care Critical Care patient: No - Discharge Referral Referred to [facility] Med P.C.: No ATTENDING PHYSICIAN STATEMENT I saw and evaluated the patient. I reviewed the resident's note and discussed the case with the resident. I agree with the resident's findings and plan as documented. SUBJECTIVE: OBJECTIVE: ASSESSMENT AND PLAN:
[2019-11-04] MEDS: MINERAL OIL/PET HY-PHL TOPICAL OINTMENT 454 GM JAR TP SCH ×2 (13:42→22:53)
--- NOTE | 2019-11-04 18:17 | PN ---
Progress Note, Physician History of Present Illness: 33 y/o F w/ PMHx 29 week premature , profound mental delay, chronic seizur es, congenital quadriplegia, retinal detachment, recurrent GERD s/p Neissen, s/p GJ-ostomy, s/p gastrostomy, cataracts, scoliosis, osteoporosis, anemia Admitted for Acute Hypoxic Respiratory Failure 2/2 Aspiration Pneumonia s/p extubation 10/24 on ceftriaxone (10/26-TD) course complicated with recurrent abdominal distension upon feeding -GI on board. Today: pt sen and examind in nad seems less in distress and abdomen is a lot better. nonverbal at baseline no further hx obtained - Current Medication List Current Medications: Active Medications Acetaminophen (Tylenol Oral Solution -) 650 mg PEG Q4H PRN PRN Reason: FEVER Albuterol Sulfate (Ventolin 0.083% Nebulizer Soln -) 1 amp NEB Q4H PRN PRN Reason: SHORT OF BREATH/WHEEZING Baclofen (Lioresal -) 30 mg GT TID [facility] Last Admin: 11/04/19 13:42 Dose: 30 mg Documented by: Cholecalciferol (Vitamin D3 Oral Solution -) 2,000 unit GT DAILY [facility] Last Admin: 11/04/19 11:38 Dose: 2,000 unit Documented by: Emollient Ointment (Aquaphor -) 1 applic TP TID [facility] Last Admin: 11/04/19 13:42 Dose: 1 applic Documented by: Heparin Sodium (Porcine) (Heparin -) 5,000 unit SQ TID BO Last Admin: 11/04/19 13:42 Dose: 5,000 unit Documented by: Amino Acids (Clinimix -) 1,000 mls @ 84 mls/hr IV Q12H [facility] Last Admin: 11/04/19 10:16 Dose: 84 mls/hr Documented by: Levetiracetam (Keppra Oral Solution -) 500 mg GT BID@0600,1200 [facility] Last Admin: 11/04/19 11:41 Dose: 500 mg Documented by: Levetiracetam (Keppra Oral Solution -) 750 mg GT DAILY@1800 [facility] Last Admin: 11/04/19 17:34 Dose: 750 mg Documented by: Multivitamins/Minerals (Certavite-Antioxidant Liquid) 15 ml GT DAILY [facility] Last Admin: 03/21/20 11:38 Dose: 15 ml Documented by: Pantoprazole Sodium (Protonix Iv) 40 mg IVPUSH DAILY [facility] Last Admin: 11/04/19 09:54 Dose: 40 mg Documented by: Polyethylene Glycol (Miralax (For Daily Use) -) 17 gm GT DAILY [facility] Last Admin: 11/04/19 09:54 Dose: 17 grams Documented by: Scopolamine HBr (Transderm-Scop -) 1 patch TD Q72H [facility] Last Admin: 11/03/19 22:12 Dose: 1 patch Documented by: Senna (Senna Oral Solution -) 17.6 mg GT HS [facility] Tizanidine HCl (Tizanidine Hcl) 6 mg GT TID [facility] Last Admin: 11/04/19 13:42 Dose: 6 mg Documented by: - Objective Vital Signs: Vital Signs Temperature 98.4 F 11/04/19 16:30 Pulse Rate 101 H 11/04/19 16:30 Respiratory Rate 18 11/04/19 16:30 Blood Pressure 107/45 L 11/04/19 16:30 O2 Sat by Pulse Oximetry (%) 96 11/04/19 10:00 Constitutional: Yes: Well Nourished Cardiovascular: Yes: WNL Respiratory: Yes: WNL Gastrointestinal: Yes: WNL, Soft Labs: CBC, BMP 11/04/19 06:47 11/04/19 06:47 INR, PTT INR 1.13 (0.83-1.09) H 11/03/19 07:10 Impression/Plan Impression/Plan: 1-Acute Hypoxic Respiratory Failure 2/2Pneumonia likely Aspiration-resolved Sputum Cx- Ecoli s/p extubation 10/24 On 2L NC 94% -->now on RA Albuterol nebs continue ceftriaxone 2g started on 10/27/19-11/03/19 ID on board 2- Severe Sepsis in the setting of Aspiration Pneumonia-resolved urine legionella/strep pneumonia neg sputum growing E coli resistant to Zosyn BCx x1 Staph Hominis ; Repeat BCx neg - continue ceftriaxone 2g started on 10/27/19-11/03/19 3-Gastric Distension Recurrent Surgery consulted- GI on board- will keep NG tube and attempt feeds if distension recurs- CT Abd Has been on going problem from prior when she was in facility Tolerating Tube feeds and Free water Clinimix IV 3- Reactive Thrombocytosis in setting of Sepsis -improving Trend Hem/Onc recs appreciated 4- Hx of Seizure d/o IV Keppra 1000 mg BID 4- DVT Px- Heparin 5000 units TID Tube feeds and free water Visit type - Emergency Visit Emergency Visit: Yes ED Registration Date: 10/16/19 Care time: The patient presented to the Emergency Department on the above date and was hospitalized for further evaluation of their emergent condition. - New Patient This patient is new to me today: No - Critical Care Critical Care patient: No - Discharge Referral Referred to [facility] Med P.C.: No
[2019-11-04] MEDS: SENNOSIDES 8.8 MG/5 ML BULK BOTTLE GT SCH (22:55)
[2019-11-05] MEDS: HEPARIN NA (PORCINE) 5,000 UNITS/ML 1ML VIAL SQ SCH ×3 (06:45→21:30)
[2019-11-05] MEDS: TIZANIDINE HCL 4 MG TABLET GT SCH ×3 (06:46→21:31)
[2019-11-05] MEDS: levETIRAcetam 500 MG/5 ML ORAL SOLUTION (UNIT-DOSE CUPS) GT SCH ×3 (06:46→17:44)
[2019-11-05] MEDS: BACLOFEN 10 MG TABLET (FP) GT SCH ×3 (06:46→21:30)
[2019-11-05] MEDS: AMINO ACIDS 4.25%/D5W 1,000 ML IV SCH ×2 (08:07→12:05)
[2019-11-05] MEDS: MINERAL OIL/PET HY-PHL TOPICAL OINTMENT 454 GM JAR TP SCH ×3 (08:07→21:30)
[2019-11-05 08:22] LABS: HEMATOCRIT 28.2 % (32.4-45.2); HEMOGLOBIN 9.9 GM/dL (10.7-15.3); MCH 31.8 pg (25.7-33.7); MCHC 35.2 g/dl (32.0-36.0); MEAN CELL VOLUME 90.3 fl (80-96); MEAN PLT VOLUME 7.1 fl (7.5-11.1); PLATELET COUNT 540 K/MM3 (134-434); RBC 3.12 M/mm3 (3.60-5.2); RDW 14.4 % (11.6-15.6); WHITE BLOOD COUNT 10.7 K/mm3 (4.0-10.0)
[2019-11-05 08:25] LABS: INR 1.1 (0.83-1.09)
[2019-11-05 08:28] LABS: ACTIVATED PTT 37.7 SECONDS (25.2-36.5)
[2019-11-05 08:46] LABS: CALCIUM 8.8 mg/dL (8.5-10.1); CREATININE 0.4 mg/dL (0.55-1.3); MAGNESIUM 1.6 mg/dL (1.8-2.4); PHOSPHOROUS 3.4 mg/dL (2.5-4.9)
[2019-11-05] MEDS ORDERED: PT OWN MED DRAWER 7, Y5N ONE ×2 (09:44→13:44)
[2019-11-05] MEDS: CHOLECALCIFEROL (VIT D SOLUTION) 400 UNIT/1 ML DROPS GT SCH (09:46)
[2019-11-05] MEDS: MULTIVIT-MINERALS ORAL LIQUID GT SCH (09:47)
[2019-11-05] MEDS: POLYETHYLENE GLYCOL 3350 119 GM BTL GT SCH (09:49)
[2019-11-05] MEDS ORDERED: MAGNESIUM SULF 50% (8.12 MEQ/2 ML-1 GM VIAL) IVPB ONE (10:22)
--- NOTE | 2019-11-05 10:30 | PN ---
Progress Note (short form) - Note Progress Note: PULMONARY NO ACUTE OVERNIGHT EVENTS VSS/AFEBRILE Constitutional: on NC O2 Eyes: Yes: WNL HENT: Yes: WNL Neck: Yes: WNL Cardiovascular: Yes: Regular Rate and Rhythm, S1, S2 Respiratory: Yes: Diminished, Few scattered rhonchi Gastrointestinal: Yes: Distended, Normal Bowel Sounds, Soft Extremities: Yes: Shortened, Other (contracted) Edema: No Labs: NOTED CXR IMPROVED (1) Respiratory failure Code(s): J96.90 - RESPIRATORY FAILURE, UNSP, UNSP W HYPOXIA OR HYPERCAPNIA (2) History of cholecystectomy Code(s): Z90.49 - ACQUIRED ABSENCE OF OTHER SPECIFIED PARTS OF DIGESTIVE TRACT (3) Respiratory distress Code(s): R06.03 - ACUTE RESPIRATORY DISTRESS (4) Aspiration pneumonia Code(s): J69.0 - PNEUMONITIS DUE TO INHALATION OF FOOD AND VOMIT (5) Cerebral palsy Code(s): G80.9 - CEREBRAL PALSY, UNSPECIFIED (6) Gastrostomy in place Code(s): Z93.1 - GASTROSTOMY STATUS (7) Quadriplegia and quadriparesis Code(s): G82.50 - QUADRIPLEGIA, UNSPECIFIED Assessment/Plan Acute Hypoxic Respiratory Failure improving Pneumonia likely Aspiration ARDS resolved S/P Sepsis Lactic Acidosis Mental Retardation GERD - O2 to keep Spo2 >90% - observing off antibiotics - monitor urine output, creatinine - inhaled bronchodilators - aspiration precautions - chest PT/pulmonary toilet - DVT/GI prophylaxis Adria SANTANA MD
[2019-11-05] MEDS: PANTOPRAZOLE SODIUM 40 MG VIAL IVPUSH SCH (11:02)
--- NOTE | 2019-11-05 12:41 | PN ---
Physical Exam: SUBJECTIVE: Patient seen and examined at bedside this morning in no apparent distress. Tolerating tube feeds. No acute overnight events. OBJECTIVE: Vital Signs Period Temp Pulse Resp BP Sys/Campuzano Pulse Ox Last 24 Hr 98 F-98.5 F 101-125 17-18 107-140/45-86 98 GENERAL: The patient is awake, in no apparent distress. Contracted. EYES: PERRL, extraocular movements intact, sclera anicteric. ENT: Oropharynx clear, without erythema or exudates. Moist mucous membranes. NECK: Trachea midline. Supple without lymphadenopathy. LUNGS: Breath sounds equal, clear to auscultation bilaterally. No wheezes, no crackles. No accessory muscle use. HEART: Tachycardic rate and rhythm. S1, S2 without murmur, rub or gallop. ABDOMEN: Soft, minimally distended. Nontender to light and deep palpation x4 quadrants. No rebound tenderness, no guarding. Normoactive bowel sounds x4 quadrants. G-tube, J-tube, NG tube in place. Negative surrounding erythema. EXTREMITIES: 2+ radial, dorsalis pedis pulses bilaterally. No lower extremity edema bilaterally. NEUROLOGICAL: Moves all four extremities in response to touch. SKIN: Warm, dry. Laboratory Results - last 24 hr 11/05/19 11/05/19 11/05/19 07:48 07:48 07:48 WBC 10.7 H RBC 3.12 L Hgb 9.9 L Hct 28.2 L MCV 90.3 MCH 31.8 MCHC 35.2 RDW 14.4 Plt Count 540 H MPV 7.1 L PT with INR 13.00 INR 1.10 H PTT (Actin FS) 37.7 H Sodium 136 Potassium 4.0 Chloride 102 Carbon Dioxide 27 Anion Gap 8 BUN 24.0 H Creatinine 0.4 L Est GFR (CKD-EPI)AfAm 156.40 Est GFR (CKD-EPI)NonAf 134.94 Random Glucose 126 H Calcium 8.8 Phosphorus 3.4 Magnesium 1.6 L Active Medications Generic Name Dose Route Start Last Admin Trade Name Freq PRN Reason Stop Dose Admin Acetaminophen 650 mg 11/04/19 08:48 Tylenol Oral Solution - PEG Q4H PRN FEVER Albuterol Sulfate 1 amp 11/02/19 21:08 Ventolin 0.083% Nebulizer Soln - NEB Q4H PRN SHORT OF BREATH/WHEEZING Baclofen 30 mg 11/03/19 22:00 11/05/19 06:46 Lioresal - GT 30 mg TID BO Administration Cholecalciferol 2,000 unit 11/04/19 10:00 11/05/19 09:46 Vitamin D3 Oral Solution - GT 2,000 unit DAILY BO Administration Emollient Ointment 1 applic 11/04/19 14:00 11/05/19 08:07 Aquaphor - TP Not Given TID BO Heparin Sodium (Porcine) 5,000 unit 11/02/19 22:00 11/05/19 06:45 Heparin - SQ 5,000 unit TID BO Administration Amino Acids 1,000 mls @ 84 mls/hr 11/02/19 22:30 11/05/19 12:05 Clinimix - IV 84 mls/hr Q12H BO Administration Levetiracetam 500 mg 11/03/19 06:00 11/05/19 11:41 Keppra Oral Solution - GT 500 mg BID@0600,1200 BO Administration Levetiracetam 750 mg 11/03/19 18:00 11/04/19 17:34 Keppra Oral Solution - GT 750 mg DAILY@1800 BO Administration Multivitamins/Minerals 15 ml 11/04/19 10:30 11/05/19 09:47 Certavite-Antioxidant Liquid GT 15 ml DAILY BO Administration Pantoprazole Sodium 40 mg 11/03/19 10:00 11/05/19 11:02 Protonix Iv IVPUSH 40 mg DAILY BO Administration Polyethylene Glycol 17 gm 11/04/19 10:00 11/05/19 09:49 Miralax (For Daily Use) - GT 17 grams DAILY BO Administration Scopolamine HBr 1 patch 11/03/19 19:45 11/03/19 22:12 Transderm-Scop - TD 1 patch Q72H BO Administration Senna 17.6 mg 11/04/19 08:39 11/04/19 22:55 Senna Oral Solution - GT Not Given HS BO Tizanidine HCl 6 mg 11/03/19 22:00 11/05/19 06:46 Tizanidine Hcl GT 6 mg TID BO Administration ASSESSMENT/PLAN: Patient is a 33 year old female with history of developmental delay, congenital quadriplegia, gastrostomy, GERD, J tube placement, cataracts, retinal detachment, scoliosis, osteoporosis, from [facility] admitted for sepsis secondary to aspiration pneumonia. Acute hypoxic respiratory failure- resolved -Secondary to aspiration pneumonia. -Influenza A/B, respiratory viral panel negative -Albuterol nebulizer PRN Sepsis secondary to aspiration pneumonia -Completed Ceftriaxone (10/26-11/02); Vancomycin discontinued -Initial blood culture grew staph homininis, repeat blood culture negative -ID recommendations appreciated; monitoring off antibiotics Gastric distension; s/p G tube replacement -GI evaluation appreciated; G tube replaced with 24f tube to allow for ventilation. Patient tolerating tube feeds. -Continue head of bed elevation to 35 degrees -Continue Protonix History of seizure disorder -Continue Keppra IV Thrombocytosis; resolving -Likely in setting of sepsis. -Continue to follow CBC FEN -No IV fluids indicated -Follow BMP -Vital tube feeds Prophylaxis -Heparin 5000units subq TID Disposition -Continue care in medical- surgical floor. Anticipate D/C to [facility] within 24 hours. Visit type - Emergency Visit Emergency Visit: Yes ED Registration Date: 10/16/19 Care time: The patient presented to the Emergency Department on the above date and was hospitalized for further evaluation of their emergent condition. - New Patient This patient is new to me today: No - Critical Care Critical Care patient: No - Discharge Referral Referred to [facility] Med P.C.: No ATTENDING PHYSICIAN STATEMENT I saw and evaluated the patient. I reviewed the resident's note and discussed the case with the resident. I agree with the resident's findings and plan as documented. SUBJECTIVE: OBJECTIVE: ASSESSMENT AND PLAN:
[2019-11-05] MEDS ORDERED: SODIUM CHLORIDE 1,000 ML IV STA (14:37)
--- NOTE | 2019-11-05 17:02 | PN ---
Progress Note, Physician History of Present Illness: 33 y/o F w/ PMHx 29 week premature , profound mental delay, chronic seizur es, congenital quadriplegia, retinal detachment, recurrent GERD s/p Neissen, s/p GJ-ostomy, s/p gastrostomy, cataracts, scoliosis, osteoporosis, anemia Admitted for Acute Hypoxic Respiratory Failure 2/2 Aspiration Pneumonia s/p extubation 10/24 on ceftriaxone (10/26-TD) course complicated with recurrent abdominal distension upon feeding -GI on board. Today: pt sen and examind in nad seems less in distress and abdomen is a lot better. nonverbal at baseline no further hx obtained - Current Medication List Current Medications: Active Medications Acetaminophen (Tylenol Oral Solution -) 650 mg PEG Q4H PRN PRN Reason: FEVER Albuterol Sulfate (Ventolin 0.083% Nebulizer Soln -) 1 amp NEB Q4H PRN PRN Reason: SHORT OF BREATH/WHEEZING Baclofen (Lioresal -) 30 mg GT TID [facility] Last Admin: 11/05/19 13:47 Dose: 30 mg Documented by: Cholecalciferol (Vitamin D3 Oral Solution -) 2,000 unit GT DAILY [facility] Last Admin: 11/05/19 09:46 Dose: 2,000 unit Documented by: Emollient Ointment (Aquaphor -) 1 applic TP TID [facility] Last Admin: 11/05/19 14:06 Dose: 1 applic Documented by: Heparin Sodium (Porcine) (Heparin -) 5,000 unit SQ TID [facility] Last Admin: 11/05/19 13:46 Dose: 5,000 unit Documented by: Amino Acids (Clinimix -) 1,000 mls @ 84 mls/hr IV Q12H [facility] Last Admin: 11/05/19 12:05 Dose: 84 mls/hr Documented by: Levetiracetam (Keppra Oral Solution -) 500 mg GT BID@0600,1200 [facility] Last Admin: 11/05/19 11:41 Dose: 500 mg Documented by: Levetiracetam (Keppra Oral Solution -) 750 mg GT DAILY@1800 [facility] Last Admin: 11/04/19 17:34 Dose: 750 mg Documented by: Multivitamins/Minerals (Certavite-Antioxidant Liquid) 15 ml GT DAILY [facility] Last Admin: 03/22/20 09:47 Dose: 15 ml Documented by: Pantoprazole Sodium (Protonix Iv) 40 mg IVPUSH DAILY [facility] Last Admin: 11/05/19 11:02 Dose: 40 mg Documented by: Polyethylene Glycol (Miralax (For Daily Use) -) 17 gm GT DAILY [facility] Last Admin: 11/05/19 09:49 Dose: 17 grams Documented by: Scopolamine HBr (Transderm-Scop -) 1 patch TD Q72H [facility] Last Admin: 11/03/19 22:12 Dose: 1 patch Documented by: Senna (Senna Oral Solution -) 17.6 mg GT HS [facility] Last Admin: 11/04/19 22:55 Dose: Not Given Documented by: Tizanidine HCl (Tizanidine Hcl) 6 mg GT TID [facility] Last Admin: 11/05/19 13:47 Dose: 6 mg Documented by: - Objective Vital Signs: Vital Signs Temperature 97.7 F 11/05/19 15:18 Pulse Rate 112 H 11/05/19 15:18 Respiratory Rate 18 11/05/19 15:18 Blood Pressure 75/46 L 11/05/19 15:18 O2 Sat by Pulse Oximetry (%) 96 11/05/19 09:00 Constitutional: Yes: Well Nourished Cardiovascular: Yes: WNL Respiratory: Yes: WNL Gastrointestinal: Yes: WNL Labs: CBC, BMP 11/05/19 07:48 11/05/19 07:48 INR, PTT INR 1.10 (0.83-1.09) H 11/05/19 07:48 Impression/Plan Impression/Plan: 1-Acute Hypoxic Respiratory Failure 2/2Pneumonia likely Aspiration-resolved Sputum Cx- Ecoli s/p extubation 10/24 On 2L NC 94% -->now on RA Albuterol nebs continue ceftriaxone 2g started on 10/27/19-11/03/19 ID on board 2- Severe Sepsis in the setting of Aspiration Pneumonia-resolved urine legionella/strep pneumonia neg sputum growing E coli resistant to Zosyn BCx x1 Staph Hominis ; Repeat BCx neg - continue ceftriaxone 2g started on 10/27/19-11/03/19 3-Gastric Distension Recurrent Surgery consulted- GI on board- will keep NG tube and attempt feeds if distension recurs- CT Abd Has been on going problem from prior when she was in facility Tolerating Tube feeds and Free water Clinimix IV 3- Reactive Thrombocytosis in setting of Sepsis -improving Trend Hem/Onc recs appreciated 4- Hx of Seizure d/o IV Keppra 1000 mg BID 4- DVT Px- Heparin 5000 units TID Tube feeds and free water Visit type - Emergency Visit Emergency Visit: Yes ED Registration Date: 10/16/19 Care time: The patient presented to the Emergency Department on the above date and was hospitalized for further evaluation of their emergent condition. - New Patient This patient is new to me today: No - Critical Care Critical Care patient: No - Discharge Referral Referred to [facility] Med P.C.: No
[2019-11-05] MEDS: SENNOSIDES 8.8 MG/5 ML BULK BOTTLE GT SCH (21:31)
[2019-11-06] MEDS: AMINO ACIDS 4.25%/D5W 1,000 ML IV SCH (00:03)
[2019-11-06] MEDS: levETIRAcetam 500 MG/5 ML ORAL SOLUTION (UNIT-DOSE CUPS) GT SCH ×3 (05:56→19:08)
[2019-11-06] MEDS: HEPARIN NA (PORCINE) 5,000 UNITS/ML 1ML VIAL SQ SCH ×2 (05:56→14:11)
[2019-11-06] MEDS: MINERAL OIL/PET HY-PHL TOPICAL OINTMENT 454 GM JAR TP SCH ×2 (05:56→14:03)
[2019-11-06] MEDS: TIZANIDINE HCL 4 MG TABLET GT SCH ×2 (05:56→14:11)
[2019-11-06] MEDS: BACLOFEN 10 MG TABLET (FP) GT SCH ×2 (05:56→14:11)
[2019-11-06 09:11] LABS: HEMATOCRIT 29.3 % (32.4-45.2); MCH 30.9 pg (25.7-33.7); MEAN CELL VOLUME 90.7 fl (80-96); MEAN PLT VOLUME 7.3 fl (7.5-11.1); PLATELET COUNT 482 K/MM3 (134-434); RBC 3.23 M/mm3 (3.60-5.2); RDW 14.9 % (11.6-15.6)
[2019-11-06 09:35] LABS: BLOOD UREA NITROGEN 24.8 mg/dL (7-18); CALCIUM 8.7 mg/dL (8.5-10.1); CREATININE 0.3 mg/dL (0.55-1.3); MAGNESIUM 1.7 mg/dL (1.8-2.4); POTASSIUM 3.8 mmol/L (3.5-5.1)
[2019-11-06] MEDS ORDERED: MAGNESIUM SULF 50% (8.12 MEQ/2 ML-1 GM VIAL) IVPB ONE (09:52)
[2019-11-06] MEDS ORDERED: PT OWN MED DRAWER 7, Y5N ONE (10:48)
[2019-11-06] MEDS: MULTIVIT-MINERALS ORAL LIQUID GT SCH (10:58)
[2019-11-06] MEDS: PANTOPRAZOLE SODIUM 40 MG VIAL IVPUSH SCH (10:58)
[2019-11-06] MEDS: CHOLECALCIFEROL (VIT D SOLUTION) 400 UNIT/1 ML DROPS GT SCH (11:01)
[2019-11-06] MEDS: POLYETHYLENE GLYCOL 3350 119 GM BTL GT SCH (11:52)
--- NOTE | 2019-11-06 14:44 | DS ---
Physical Exam: SUBJECTIVE: Patient seen and examined at the bedside. Unable to provide ROS due to non-verbal status. OBJECTIVE: Vital Signs Period Temp Pulse Resp BP Sys/Campuzano Pulse Ox Last 24 Hr 97.4 F-99.3 F 112-128 18-22 75-139/46-80 97 PHYSICAL EXAM GENERAL: Awake and alert, not responsive to voice commands. EYES: pupils reactive bilaterally, extraoccular movements intact. ENT: Oropharynx clear without exudates, moist mucous membranes. LUNGS: Clear to auscultation. No crackles or wheezes auscultated. HEART: Tachycardic rate and regular rhythm, S1, S2 without murmur. ABDOMEN: Soft, not disttended, normoactive bowel sounds, no guarding, no masses. 24F gastric tube and J tube in place. NG tube in place. EXTREMITIES: 2+ pulses, warm, well-perfused, no edema. NEUROLOGICAL: Moves extremities in response to light touch. SKIN: Warm, dry, normal turgor. LABS Laboratory Results - last 24 hr 11/06/19 11/06/19 08:10 08:10 WBC 12.0 H RBC 3.23 L Hgb 10.0 L Hct 29.3 L MCV 90.7 MCH 30.9 MCHC 34.0 RDW 14.9 Plt Count 482 H MPV 7.3 L Sodium 138 Potassium 3.8 Chloride 104 Carbon Dioxide 26 Anion Gap 8 BUN 24.8 H Creatinine 0.3 L Est GFR (CKD-EPI)AfAm 171.92 Est GFR (CKD-EPI)NonAf 148.34 Random Glucose 86 Calcium 8.7 Phosphorus 4.0 Magnesium 1.7 L HOSPITAL COURSE: Flora Pandey is a 33 female with a past medical history of developmental delay, congenital quadriplegia, retinal detachment, gastrostomy, cataracts, scoliosis, osteoporosis, GERD, and J-tube placement, was brought in from [facility] admitted for sepsis secondary to aspiration pneumonia. Patient was intubated due to respiratory failure and once respiratory failure resolved was extubated on the . The patient was treated with Zosyn and van comycin which was subsequently switched to ceftriaxone due to appearance of E coli in the sputum. Was negative for urine legionella/strep pneumonia. Briefly had staph homininis in blood and treated with vancomycin and upon discussion with ID, was discontinued. Repeat blood cultures were positive. Patient completed her antibiotics on 11/02/19 and remained afebrile. Upon admission, patient was noted with gastric distension which was first thought to be due to SMA syndrome. Repeat CT scans did not endorse this diagnosis and surgery consult that was placed did not seem to endorse likelihood of this diagnosis. Case was discussed with vascular surgery at [facility] regarding possibility of SMA syndrome, vascular surgery did not believe that SMA syndrome was likelihood in this scenario and suggested that a mechanical obstruction may be possibility in the setting of patient's G tube. Patient's G tube was changed from Isaac tube to 24 [place] G tube to allow for adequate drainage and ventilation. Patient had subsequently been able to tolerate her J tube feedings. Free water flushes were added 150 q4h to adequate hydrate the patient. Thrombocytosis noted during the patient's admission was likely reactive due to her infection and was seen by hematology who confirmed this assessment. Case was discussed with Dr. Ward at [facility] [place] who confirmed and accepted the patient back to [place]. Advised to follow up with gastroenterology Patient was discharged in stable medical condition. IMAGING: * Chest CT: patchy consolidation left upper lobe. * CXR showing NG tube in LUQ/stomach, mediastinal fullness in rt hilum, retained stool, AXR showing retained stool in transverse colon/rt colon dilation, scoliosis. * CTA(10/19/19): no evidence of SMA syndrome/compression; enterohepatic intuss usception in L abd containing J tube, no abd dilatation to suggest obstruction. Nonspecific stranding of L upper abd could be secondary to gastroduodenitis or pancreatitis * CT (10/26/19):There is dense consolidation of the left lower lobe. The right lung base is largely clear. The liver, spleen, pancreas, adrenal glands and kidneys demonstrate no grossabnormalities. There is a PEG tube within the body of the stomach. There is no evidence of pneumoperitoneum, bowel obstruction or intra-abdominal abscess. Examination of the pelvis demonstrates no evidence of pelvic masses or fluid collections. * CT (10/30/19):There is extensive consolidation/atelectasis within the left lower lobe with an associated pleural effusion. Minimal atelectatic changes are seen at the right lung base. There is a nasogastric tube within the stomach. There is also a PEG tube within the body of the stomach. These tubes appear to be appropriately placed.There is also a percutaneous jejunostomy tube within the left lower quadrant. This too also appears to be appropriately placed. If clinically indicated, contrast material can be injected into the jejunostomy tube with subsequent radiographs determining the placement of the tube. The liver, spleen, pancreas, adrenal glands and kidneys demonstrate no significant abnormalities. There is no evidence of intra-abdominal or retroperitoneal lymphadenopathy or fluid collections. Date of Admission:10/16/19 Date of Discharge: 11/06/19 Minutes to complete discharge: 40 Discharge Summary Problems reviewed: Yes Reason For Visit: RESP DISTRESS Current Active Problems Aspiration pneumonia (Acute) Cerebral palsy (Acute) Enteric intussusception (Acute) Gastrostomy in place (Acute) History of cholecystectomy (Acute) Ileus (Acute) Jejunostomy present (Acute) Quadriplegia and quadriparesis (Acute) Respiratory distress (Acute) Respiratory failure (Acute) SMAS (superior mesenteric artery syndrome) (Acute) Scoliosis (Acute) Condition: Stable - Instructions Diet, Activity, Other Instructions: You were admitted for respiratory failure because of pneumonia due to aspiration. You were intubated and then extubated when your respiratory status improved. You were treated with antibiotics that you completed while you were in the hospital. While you were admitted, you had your gastric tube replaced to a larger tube to allow for adequate drainage and ventilation. You had a CT scan which suggested that you may have SMA syndrome. The images were discussed with doctors from [facility] who suggested that your obstruction in your abdomen was not due to SMA syndrome, but instead due to a small G tube, which was replaced. MEDICATIONS Continue to take all of your home medications as prescribed. REFERRALS Please follow up with your primary care physician Dr. Ward, within 1 week. Please follow up with your termite technician, Dr. Laureano, within 1 week. SPECIAL INSTRUCTIONS Please have repeat magnesium levels within 1 week and have supplementation as necessary. Continue the feeds through the J-tube as tolerated. If distension of the abdomen occurs, allow for drainage from the G tube and wait until distension subsides and restart feeds if no distension of the abdomen occurs. Continue free water flushes of 150mL Q4 Hours. If you have any further symptoms of fevers, pains, unremitting abdominal distension, difficulty breathing, or any other general feelings of unwellness, please call 911 or go to your nearest emergency room. Referrals: Melani Laureano MD [Non Staff, Medical] - 1 Week Guzman Ward Jr [Non Staff, Medical] - 1 Week Disposition: [facility] - Home Medications Comprehensive Discharge Medication List: Ambulatory Orders Calcium Carbonate/Vitamin D3 [Oystercal-D 500 mg-400 Unit Tb] 1 each PO BID 10/16/19 Tizanidine HCl 6 mg GT TID 10/16/19 levETIRAcetam [levETIRAcetam ORAL SUSPENSION] 500 mg GT BID 10/16/19 Baclofen 3 tab GT TID 10/17/19 Cholecalciferol (Vitamin D3) [Vitamin D3] 2 tab GT DAILY 10/17/19 Levetiracetam 1 tab GT DAILY 10/17/19 Nut.tx.impaired Digest Fxn [Ensure Clear] 60 ml GT QID 10/17/19 Nut.tx.impaired Digest Fxn [Peptamen 1.5] 900 ml PO DAILY 10/17/19 Polyethylene Glycol 3350 [Clearlax] 1 cap GT DAILY 10/17/19 Sennosides [Senna] 2 tab GT HS 10/17/19 Problem List - Problems (1) Aspiration pneumonia Code(s): J69.0 - PNEUMONITIS DUE TO INHALATION OF FOOD AND VOMIT (2) Cerebral palsy Code(s): G80.9 - CEREBRAL PALSY, UNSPECIFIED (3) Enteric intussusception Code(s): K56.1 - INTUSSUSCEPTION (4) Gastrostomy in place Code(s): Z93.1 - GASTROSTOMY STATUS (5) History of cholecystectomy Code(s): Z90.49 - ACQUIRED ABSENCE OF OTHER SPECIFIED PARTS OF DIGESTIVE TRACT (6) Ileus Code(s): K56.7 - ILEUS, UNSPECIFIED (7) Jejunostomy present Code(s): Z93.4 - OTHER ARTIFICIAL OPENINGS OF GASTROINTESTINAL TRACT STATUS (8) Quadriplegia and quadriparesis Code(s): G82.50 - QUADRIPLEGIA, UNSPECIFIED (9) Respiratory distress Code(s): R06.03 - ACUTE RESPIRATORY DISTRESS (10) Respiratory failure Code(s): J96.90 - RESPIRATORY FAILURE, UNSP, UNSP W HYPOXIA OR HYPERCAPNIA (11) Scoliosis Code(s): M41.9 - SCOLIOSIS, UNSPECIFIED This patient is new to me today: No Emergency Visit: Yes ED Registration Date: 10/16/19 Care time: The patient presented to the Emergency Department on the above date and was hospitalized for further evaluation of their emergent condition. Critical Care patient: No - Discharge Referral Referred to [facility] Med P.C.: No
--- NOTE | 2019-11-06 18:25 | PN ---
Progress Note, Physician History of Present Illness: 33 y/o F w/ PMHx 29 week premature , profound mental delay, chronic seizur es, congenital quadriplegia, retinal detachment, recurrent GERD s/p Neissen, s/p GJ-ostomy, s/p gastrostomy, cataracts, scoliosis, osteoporosis, anemia Admitted for Acute Hypoxic Respiratory Failure 2/2 Aspiration Pneumonia s/p extubation 10/24 on ceftriaxone (10/26-TD) course complicated with recurrent abdominal distension upon feeding -GI on board. Today: pt sen and examind in nad Has been tolerating feeds now since Wednesday nonverbal at baseline no further hx obtained - Current Medication List Current Medications: Active Medications Acetaminophen (Tylenol Oral Solution -) 650 mg PEG Q4H PRN PRN Reason: FEVER Albuterol Sulfate (Ventolin 0.083% Nebulizer Soln -) 1 amp NEB Q4H PRN PRN Reason: SHORT OF BREATH/WHEEZING Baclofen (Lioresal -) 30 mg GT TID [facility] Last Admin: 11/06/19 14:11 Dose: 30 mg Documented by: Cholecalciferol (Vitamin D3 Oral Solution -) 2,000 unit GT DAILY [facility] Last Admin: 11/06/19 11:01 Dose: 2,000 unit Documented by: Emollient Ointment (Aquaphor -) 1 applic TP TID [facility] Last Admin: 11/06/19 14:03 Dose: 1 applic Documented by: Heparin Sodium (Porcine) (Heparin -) 5,000 unit SQ TID [facility] Last Admin: 11/06/19 14:11 Dose: 5,000 unit Documented by: Levetiracetam (Keppra Oral Solution -) 500 mg GT BID@0600,1200 [facility] Last Admin: 11/06/19 13:52 Dose: 500 mg Documented by: Levetiracetam (Keppra Oral Solution -) 750 mg GT DAILY@1800 [facility] Last Admin: 11/05/19 17:44 Dose: 750 mg Documented by: Multivitamins/Minerals (Certavite-Antioxidant Liquid) 15 ml GT DAILY [facility] Last Admin: 11/06/19 10:58 Dose: 15 ml Documented by: Pantoprazole Sodium (Protonix Iv) 40 mg IVPUSH DAILY [facility] Last Admin: 11/06/19 10:58 Dose: 40 mg Documented by: Polyethylene Glycol (Miralax (For Daily Use) -) 17 gm GT DAILY [facility] Last Admin: 11/06/19 11:52 Dose: 17 grams Documented by: Scopolamine HBr (Transderm-Scop -) 1 patch TD Q72H [facility] Last Admin: 11/03/19 22:12 Dose: 1 patch Documented by: Senna (Senna Oral Solution -) 17.6 mg GT HS [facility] Last Admin: 11/05/19 21:31 Dose: 17.6 mg Documented by: Tizanidine HCl (Tizanidine Hcl) 6 mg GT TID [facility] Last Admin: 11/06/19 14:11 Dose: 6 mg Documented by: - Objective Vital Signs: Vital Signs Temperature 98.5 F 11/06/19 14:00 Pulse Rate 107 H 11/06/19 14:00 Respiratory Rate 20 11/06/19 14:00 Blood Pressure 96/55 L 11/06/19 14:00 O2 Sat by Pulse Oximetry (%) 97 11/05/19 21:00 Constitutional: Yes: Well Nourished Cardiovascular: Yes: WNL, Tachycardia Respiratory: Yes: WNL Gastrointestinal: Yes: WNL Labs: CBC, BMP 11/06/19 08:10 11/06/19 08:10 INR, PTT INR 1.10 (0.83-1.09) H 11/05/19 07:48 Impression/Plan Impression/Plan: 1-Acute Hypoxic Respiratory Failure 2/2Pneumonia likely Aspiration-resolved Sputum Cx- Ecoli s/p extubation 10/24 On 2L NC 94% -->now on RA with normal saturation Albuterol nebs ceftriaxone 2g started on 10/27/19-11/03/19 ID on board Pt tachy at baseline to 110s manual check -was treated for sepsis and dehydration. NSR and was on tele for prolonged time without events Leukocytosis remains appx same - no Sx of infection 2- Severe Sepsis in the setting of Aspiration Pneumonia-resolved urine legionella/strep pneumonia neg sputum growing E coli resistant to Zosyn BCx x1 Staph Hominis ; Repeat BCx neg ceftriaxone 2g started on 10/27/19-11/03/19 3-Gastric Distension Recurrent-improved Surgery consulted- recs appreciated Has been on going problem from prior when she was in facility Tolerating Tube feeds and Free water now that tube was exchanged- GI greatly appreciated Clinimix IV 3- Reactive Thrombocytosis in setting of Sepsis -improving Trending down Hem/Onc recs appreciated 4- Hx of Seizure d/o IV Keppra 1000 mg BID 4- DVT Px- Heparin 5000 units TID Tube feeds/ free water and Visit type - Emergency Visit Emergency Visit: Yes ED Registration Date: 10/16/19 Care time: The patient presented to the Emergency Department on the above date and was hospitalized for further evaluation of their emergent condition. - New Patient This patient is new to me today: No - Critical Care Critical Care patient: No - Discharge Referral Referred to [facility] Med P.C.: No
[2019-11-06 18:32] VITALS: BP 100/60; PULSE 102; TEMP 97.9
== END 2019-11-06 18:38 | DRG 720 ==
LOC: JER 05:45 → JERBED 06:18 → JICU 13:32 → J4S 10-26 19:21 → J8W 11-02 19:27
PROVIDERS: ATTEND Internal Medicine
PROC: 05HM33Z Insertion of Infusion Device into Right Internal Jugular Vein, Percutaneous Approach (ICD-10-PCS; principal; 2019-10-16)
PROC: B513ZZA Fluoroscopy of Right Jugular Veins, Guidance (ICD-10-PCS; 2019-10-16)
PROC: 0CHY7BZ Insertion of Airway into Mouth and Throat, Via Natural or Artificial Opening (ICD-10-PCS; 2019-10-19)
PROC: 5A1955Z Respiratory Ventilation, Greater than 96 Consecutive Hours (ICD-10-PCS; 2019-10-19)
PROC: 0D20XUZ Change Feeding Device in Upper Intestinal Tract, External Approach (ICD-10-PCS; 2019-11-02)
DX: A41.51 Sepsis due to Escherichia coli [E. coli] (principal); R53.2 Functional quadriplegia; Q67.5 Congenital deformity of spine; K21.9 Gastro-esophageal reflux disease without esophagitis; D64.9 Anemia, unspecified; Z93.1 Gastrostomy status; D72.829 Elevated white blood cell count, unspecified; J98.11 Atelectasis; J96.01 Acute respiratory failure with hypoxia; H33.20 Serous retinal detachment, unspecified eye; R65.20 Severe sepsis without septic shock; F73 Profound intellectual disabilities; D47.3 Essential (hemorrhagic) thrombocythemia; R00.0 Tachycardia, unspecified; E87.2 Acidosis; J69.0 Pneumonitis due to inhalation of food and vomit; K56.609 Unspecified intestinal obstruction, unspecified as to partial versus complete obstruction; I95.9 Hypotension, unspecified; J90 Pleural effusion, not elsewhere classified; E87.6 Hypokalemia; G40.909 Epilepsy, unspecified, not intractable, without status epilepticus; K56.7 Ileus, unspecified; G80.8 Other cerebral palsy; K56.1 Intussusception; T17.390A Other foreign object in larynx causing asphyxiation, initial encounter; E83.42 Hypomagnesemia; E83.39 Other disorders of phosphorus metabolism; K55.1 Chronic vascular disorders of intestine; Z93.4 Other artificial openings of gastrointestinal tract status; Z90.49 Acquired absence of other specified parts of digestive tract
CPT/HCPCS: 36415; 36600; 71045-TC-FY; 71260-TC; 74018-TC-FY; 74160-TC; 74175-TC; 74176-TC; 74177-TC; 80048; 80053; 80076; 81003; 82248; 82375; 82728; 82803; 83050; 83540; 83550; 83605; 83690; 83735; 84100; 84484; 84703; 85025; 85027; 85610; 85651; 85730; 86140; 86900; 87040; 87070; 87086; 87186; 87205; 87633; 87804; 87899; 93005; 93010; 94002; 94640; 99285-25; J0131; J0475; J1644; J7030; Q9967